=== PATIENT | female | born 1930 | race Hispanic/Latino ===

== ENCOUNTER 2017-02-02 20:01 | Inpatient (IN) | payer MEDICARE, MEDICAID ==
[~2017-02-02] VITALS: Ht 147.3 cm; Wt 62.1 kg
[2017-02-02] VITALS: BP 124/59
[2017-02-02] MEDS ORDERED: Vancomycin 1 GM in NS 275 ML IV ONE (20:15)
[2017-02-02] MEDS ORDERED: Clindamycin 900mg 50 ML IVPB ONE (20:15)
--- NOTE | 2017-02-02 20:37 | Emergency Room Report ---
History of Present Illness General Chief Complaint: Abnormal Labs Present Illness HPI [id number] BIBEMS for "abnormal labs", elevated WBCs. Sent by Dr Ayala C/o fever/chills, SOB for last 2-3 days Denies chest pain, abd pain, headache, urinary complaints Allergies: Coded Allergies: PENICILLINS (Verified Allergy, Unknown, 11/01/12) Patient History Past Medical History: see triage record, old chart reviewed, DM, HTN Past Surgical History: none Pertinent Family History: none Social History: Denies: alcohol use, drug use, smoking Now: No Immunizations: UTD Reviewed Nursing Documentation: PMH: Agreed, PSxH: Agreed Nursing Documentation-PMH Hx Hypertension: Yes Hx Diabetes: Yes Review of Systems All Other Systems: negative except mentioned in HPI Physical Exam Vital Signs Date Time Temp Pulse Resp B/P Pulse Ox O2 Delivery O2 Flow Rate FiO2 02/02/17 20:07 98.8 97 30 121/62 95 Room Air Sp02 EP Interpretation: reviewed, abnormal General Appearance: normal inspection, well appearing, no apparent distress, alert, GCS 15, non-toxic Head: normocephalic, atraumatic Eyes: bilateral eye EOMI, bilateral eye PERRL ENT: normal ENT inspection, hearing grossly normal, normal voice Neck: normal inspection, full range of motion, supple, no bony tend Respiratory: normal inspection, no respiratory distress, no retraction, no accessory muscle use, no wheezing, rales, rhonchi Cardiovascular #1: regular rate, rhythm, no edema Gastrointestinal: normal inspection, normal bowel sounds, non tender, soft, no guarding, no hernia Genitourinary: no CVA tenderness Musculoskeletal: normal inspection, back normal, normal range of motion, Horace' s Sign negative Neurologic: normal inspection, alert, oriented x3, responsive, [employer]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 No respiratory distress - Elevated leuks. Mild DENNIS - Empiric Abx given - Blood Cx given Endorsed to Dr Ayala at 930pm for tele admission EKG Diagnostic Results Rate: normal ST Segments: other - TWI in anterior leads ASA given to the pt in ED: No Rhythm Strip Diag. Results EP Interpretation: yes Rate: 97 Rhythm: NSR, no PVC's, no ectopy Chest X-Ray Diagnostic Results Chest X-Ray Diagnostic Results : Chest X-Ray Ordered: Yes # of Views/Limited/Complete: 1 View Indication: Shortness of Breath EP Interpretation: Yes Interpretation: no pneumothorax, other - Bilateral PNA Impression: Other - PNA Interpreting ER Provider: Electronically interpreted by Dr Blackwood Last Vital Signs Date Time Temp Pulse Resp B/P Pulse Ox O2 Delivery O2 Flow Rate FiO2 02/02/17 20:07 98.8 97 30 121/62 95 Room Air Status: improved Disposition: ADMITTED INPATIENT Condition: Serious JANELL BLACKWOOD M.D. Feb 02, 2017 20:37
[2017-02-02 21:13] LABS: MEAN CORPUSCULAR HEMOGLOBIN 32.3 PG (27.0-31.0); MEAN CORPUSCULAR HGB CONC 33.7 G/DL (32.0-36.0); MEAN CORPUSCULAR VOLUME 96 FL (80-99); MEAN PLATELET VOLUME 7.9 FL (6.5-10.1); PLATELET COUNT 212 K/UL (150-450); RED BLOOD COUNT 4.12 M/UL (4.20-5.40); RED CELL DISTRIBUTION WIDTH 12.2 % (11.6-14.8); WHITE BLOOD COUNT 20.5 K/UL (4.8-10.8)
[2017-02-02] MEDS ORDERED: Vancomycin 1gm inj IVPB ONE (21:19)
[2017-02-02 21:38] LABS: ALANINE AMINOTRANSFERASE 7 U/L (3-33); ALBUMIN/GLOBULIN RATIO 0.9 (1.0-2.7); ANION GAP 11 (5-15); ASPARTATE AMINO TRANSFERASE 23 U/L (5-40); CALCIUM 8.9 mg/dL (8.6-10.2); CARBON DIOXIDE 29 mEQ/L (20-30); CHLORIDE 90 mEQ/L (98-107); CREATININE 1.1 mg/dL (0.5-0.9); HEMOLYSIS 115; POTASSIUM 4.8 mEQ/L (3.4-4.9); SODIUM 130 mEQ/L (135-145); TOTAL PROTEIN 6.8 g/dL (6.6-8.7); TROPONIN I < 0.30 ng/mL (<=0.30)
[2017-02-02 21:39] LABS: BAND NEUTROPHILS % (MANUAL) 6 % (0-8); BASOPHILS % (MANUAL) 0 % (0-2); EOSINOPHILS % (MANUAL) 0 % (0-3); LYMPHOCYTES % (MANUAL) 18 % (20-45); NEUTROPHILS % (MANUAL) 66 % (45-75); PLATELET ESTIMATE ADEQUATE; PLATELET MORPHOLOGY NORMAL; TOTAL CELLS COUNTED 100
[2017-02-02] MEDS ORDERED: Miralax 17gm pkt ORAL PRN (21:45)
[2017-02-02] MEDS ORDERED: DuoNeb 0.5-3(2.5)mg/3ml neb HHN PRN (21:45)
[2017-02-02] MEDS ORDERED: Nitroglycerin Subl 0.4mg tab (Bottle Of 25) SL PRN (21:45)
[2017-02-02] MEDS ORDERED: Morphine Sulfate 2mg/ml Inj IVP PRN (21:45)
[2017-02-02 21:48] LABS: CKMB < 1.5 ng/mL (< 3.8)
[2017-02-02 21:59] LABS: BILIRUBIN,DIRECT 0.4 mg/dL (0.1-0.3)
[2017-02-02] MEDS ORDERED: Vancomycin 1 GM in D5W 275 ML IVPB SCH (22:00)
[2017-02-02] MEDS ORDERED: TYLENOL EXTRA500 MG ORAL (22:24)
[2017-02-02] MEDS ORDERED: METFORMIN HCL5000 GM MC (22:24)
[2017-02-02] MEDS ORDERED: LOSARTAN POTASS25 M1 PO (22:24)
[2017-02-02] MEDS ORDERED: IBUPROFEN600 MG ORAL (22:24)
[2017-02-02] MEDS ORDERED: NORVASC2.5 MG ORAL (22:24)
[2017-02-02 22:30] VITALS: BP 126/80
--- NOTE | 2017-02-02 22:44 | Infectious Diseases Prog Note ---
Assessment/Plan Problems: (1) Pneumonia Assessment & Plan: with bilateral infiltrates, on vancomycin and levaquin empirically, will d/c aztreonam, send sputum culture (2) UTI (urinary tract infection) Assessment & Plan: on levaquin, await culture (3) Sepsis Assessment & Plan: due to the above, on levaquin and vancomycin, pending blood culture results (4) DENNIS (acute kidney injury) Assessment & Plan: suspect due to sepsis, and dehydration, continue ivf, monitor uop Subjective Allergies: Coded Allergies: PENICILLINS (Verified Allergy, Unknown, 11/01/12) Objective Vital Signs Last 24 Hour Vital Signs Date Time Temp Pulse Resp B/P Pulse Ox O2 Delivery O2 Flow Rate FiO2 02/02/17 21:00 97 30 Room Air 02/02/17 20:07 98.8 97 30 121/62 95 Room Air Height (Feet): 4 Height (Inches): 10.00 Weight (Pounds): 160 Laboratory Tests Test 02/02/17 20:45 White Blood Count 20.5 K/UL (4.8-10.8) H Red Blood Count 4.12 M/UL (4.20-5.40) L Hemoglobin 13.3 G/DL (12.0-16.0) Hematocrit 39.5 % (37.0-47.0) Mean Corpuscular Volume 96 FL (80-99) Mean Corpuscular Hemoglobin 32.3 PG (27.0-31.0) H Mean Corpuscular Hemoglobin Concent 33.7 G/DL (32.0-36.0) Red Cell Distribution Width 12.2 % (11.6-14.8) Platelet Count 212 K/UL (150-450) Mean Platelet Volume 7.9 FL (6.5-10.1) Neutrophils (%) (Auto) % (45.0-75.0) Lymphocytes (%) (Auto) % (20.0-45.0) Monocytes (%) (Auto) % (1.0-10.0) Eosinophils (%) (Auto) % (0.0-3.0) Basophils (%) (Auto) % (0.0-2.0) Differential Total Cells Counted 100 Neutrophils % (Manual) 66 % (45-75) Lymphocytes % (Manual) 18 % (20-45) L Monocytes % (Manual) 10 % (1-10) Eosinophils % (Manual) 0 % (0-3) Basophils % (Manual) 0 % (0-2) Band Neutrophils 6 % (0-8) Platelet Estimate Adequate Platelet Morphology Normal Red Blood Cell Morphology Normal Sodium Level 130 mEQ/L (135-145) L Potassium Level 4.8 mEQ/L (3.4-4.9) Chloride Level 90 mEQ/L (98-107) L Carbon Dioxide Level 29 mEQ/L (20-30) Anion Gap 11 (5-15) Blood Urea Nitrogen 29 mg/dL (7-23) H Creatinine 1.1 mg/dL (0.5-0.9) H Estimat Glomerular Filtration Rate mL/min (>60) Glucose Level 136 mg/dL (74-106) H Lactic Acid Level 1.30 mmol/L (0.66-2.22) Calcium Level 8.9 mg/dL (8.6-10.2) Total Bilirubin 1.2 mg/dL (0.0-1.2) Direct Bilirubin 0.4 mg/dL (0.1-0.3) H Aspartate Amino Transf (AST/SGOT) 23 U/L (5-40) Alanine Aminotransferase (ALT/SGPT) 7 U/L (3-33) Alkaline Phosphatase 82 U/L (35-104) Total Creatine Kinase 46 U/L (26-140) Creatine Kinase MB < 1.5 ng/mL (< 3.8) Creatine Kinase MB Relative Index Troponin I < 0.30 ng/mL (<=0.30) Total Protein 6.8 g/dL (6.6-8.7) Albumin 3.3 g/dL (3.5-5.2) L Globulin 3.5 g/dL Albumin/Globulin Ratio 0.9 (1.0-2.7) L Current Medications Medications (Trade) Dose Ordered Sig/Joon Route PRN Reason Start Time Stop Time Status Last Admin Dose Admin Acetaminophen (Tylenol) 650 mg Q4H PRN ORAL fever 02/02/17 21:45 03/04/17 21:44 Albuterol/ Ipratropium (DuoNeb 0.5-3(2.5)mg/3ml) 3 ml Q4H PRN HHN Shortness of Breath 02/02/17 21:45 02/07/17 21:44 Aztreonam/Sodium Chloride (Azactam/Sodium Chloride) 55 ml @ 110 mls/hr EVERY 8 HOURS IVPB 02/02/17 22:00 02/09/17 21:59 Heparin Sodium (Porcine) (Heparin 5000 units/ml) 5,000 units EVERY 12 HOURS SUBQ 02/03/17 09:00 03/05/17 08:59 Levofloxacin (Levaquin 750mg/ D5W) 150 ml @ 100 mls/hr Q48H IVPB 02/02/17 23:00 02/09/17 22:59 Morphine Sulfate (Morphine Sulfate) 2 mg Q4H PRN IVP Moderate Pain (Pain Scale 4-6) 02/02/17 21:45 02/09/17 21:44 Nitroglycerin 0.4 mg 0.4 mg Q5M PRN SL Prn Chest Pain 02/02/17 21:45 03/04/17 21:44 Ondansetron HCl (Zofran) 4 mg Q6H PRN IVP Nausea & Vomiting 02/02/17 21:45 03/04/17 21:44 Polyethylene Glycol (Miralax) 17 gm DAILYPRN PRN ORAL Constipation 02/02/17 21:45 03/04/17 21:44 Temazepam (Restoril) 15 mg HSPRN PRN ORAL Insomnia 02/02/17 21:45 02/09/17 21:44 Vancomycin HCl 1 ea 1 ea DAILY PRN MISC Per rx protocol 02/02/17 22:15 03/04/17 22:14 Nico Mohan M.D. Feb 02, 2017 22:44
[2017-02-02 22:45] VITALS: BP 118/57
[2017-02-02] MEDS: Aztreonam Inj 1 GM in NS 55 ML IVPB SCH (23:33)
[2017-02-03] VITALS: BP 124/59
[2017-02-03] MEDS ORDERED: COLACE100 MG ORAL (00:05)
[2017-02-03] MEDS ORDERED: LUMIGAN2.5 ML BOTH EYES (00:05)
[2017-02-03] MEDS ORDERED: METFORMIN HCL500 M5 PO (00:05)
[2017-02-03] MEDS ORDERED: LOSARTAN POTASS50 MG ORAL (00:05)
[2017-02-03] MEDS ORDERED: MAGNESIUM400 M1 PO (00:05)
[2017-02-03] MEDS ORDERED: JANUVIA100 MG ORAL (00:05)
[2017-02-03] MEDS ORDERED: ARTIFICIAL TEA1 EAC2 OP (00:05)
[2017-02-03] MEDS ORDERED: MULTIVITAMINS1 EAC8 ORAL (00:05)
[2017-02-03] MEDS ORDERED: ACETAMINOPHEN325 M1 ORAL (00:05)
[2017-02-03] MEDS ORDERED: REMERON15 M1 ORAL (00:05)
[2017-02-03] MEDS ORDERED: mylanta PO (00:05)
[2017-02-03] MEDS ORDERED: regular insulin SUBQ (00:09)
[2017-02-03] MEDS ORDERED: Vancomycin 1 GM in D5W 275 ML IV SCH (00:30)
[2017-02-03 04:00] VITALS: BP 119/64
[2017-02-03] MEDS: Aztreonam Inj 1 GM in NS 55 ML IVPB SCH (05:59)
[2017-02-03] MEDS: NovoLOG Insulin Flexpen SUBQ SCH ×4 (06:30→21:07)
[2017-02-03 07:18] LABS: APPEARANCE,URINE SLIGHTLY CLOUDY; KETONES,URINE 1+ (NEGATIVE); LEUKOCYTE ESTERASE ,URINE 1+ (NEGATIVE); NITRITE,URINE NEGATIVE (NEGATIVE); PH,URINE 5 (4.5-8.0); PROTEIN,URINE 3+ (NEGATIVE); UROBILINOGEN,URINE 1 MG/DL (0.0-1.0)
[2017-02-03 07:26] LABS: AMORPHOUS SEDIMENT,UR MODERATE /LPF; BACTERIA,URINE FEW /HPF; ICTOTEST NEGATIVE; SQUAMOUS EPITHELIAL CELL,UR FEW /LPF (NONE/OCC)
[2017-02-03 07:49] LABS: BASOPHILS % (AUTO) 0.7 % (0.0-2.0); EOSINOPHILS % (AUTO) 0.2 % (0.0-3.0); LYMPHOCYTES % (AUTO) 9.7 % (20.0-45.0); MEAN CORPUSCULAR HEMOGLOBIN 31.4 PG (27.0-31.0); MEAN CORPUSCULAR HGB CONC 31.8 G/DL (32.0-36.0); MEAN CORPUSCULAR VOLUME 99 FL (80-99); MEAN PLATELET VOLUME 8.4 FL (6.5-10.1); MONOCYTES % (AUTO) 7.4 % (1.0-10.0); NEUTROPHILS % (AUTO) 82.1 % (45.0-75.0); PLATELET COUNT 201 K/UL (150-450); RED BLOOD COUNT 4.07 M/UL (4.20-5.40); RED CELL DISTRIBUTION WIDTH 12.3 % (11.6-14.8); WHITE BLOOD COUNT 15.9 K/UL (4.8-10.8)
[2017-02-03 08:00] VITALS: BP 122/68
[2017-02-03 08:09] LABS: ALANINE AMINOTRANSFERASE 6 U/L (3-33); ALBUMIN/GLOBULIN RATIO 0.7 (1.0-2.7); ANION GAP 9 (5-15); ASPARTATE AMINO TRANSFERASE 20 U/L (5-40); CALCIUM 8.7 mg/dL (8.6-10.2); CARBON DIOXIDE 30 mEQ/L (20-30); CHLORIDE 94 mEQ/L (98-107); CREATININE 1.1 mg/dL (0.5-0.9); HEMOLYSIS 37; POTASSIUM 4.4 mEQ/L (3.4-4.9); SODIUM 133 mEQ/L (135-145); TOTAL PROTEIN 6.8 g/dL (6.6-8.7)
[2017-02-03] MEDS: Heparin 5000 units/ml inj SUBQ SCH ×2 (09:44→21:09)
--- NOTE | 2017-02-03 11:07 | Diagnostic Imaging Report ---
Indication: SOB Technique: One view of the chest Comparison: none Findings: There is bilateral diffuse interstitial and alveolar clinical opacities. The heart is borderline enlarged. There is suggestion of small left pleural effusion. Impression: Bilateral diffuse interstitial and alveolar infiltrates versus edema. Borderline cardiomegaly This agrees with the ER physician impression described in the electronic medical record
[2017-02-03 12:00] VITALS: BP 122/52
--- NOTE | 2017-02-03 13:55 | Consultation ---
History of Present Illness General Date patient seen: Feb 03, 2017 Time patient seen: 13:00 Chief Complaint: Abnormal Labs Referring physician: dr Ayala Reason for Consultation: inpatient management Present Illness HPI 86 y/o female with PMH significant for HTN and DM, BIBEMS for "abnormal labs" from SNF c/o fever/chills, SOB for last 2-3 days, cough, + phlegm, no hemoptysis Denied chest pain, abd pain, headache, urinary complaints in ED found to have leukocytosis WBC-20.5, stable HH CXR c/w bilateral PNA afebrile lactic acid WNL BUN 29, creat 1.1 Na 130 patient was admitted for further management patient reports cough, white to yellow phlegm, no hemoptysis, + generalized weakness Allergies: Coded Allergies: PENICILLINS (Verified Allergy, Unknown, 11/01/12) Medication History Scheduled Amlodipine Besylate (Norvasc), 2.5 MG ORAL DAILY, (Reported) Bimatoprost (Lumigan), 1 DROP BOTH EYES DAILY, (Reported) Dextran 70/Hypromellose (Artificial Tears), 1 EACH OP BID, (Reported) Docusate Sodium* (Colace*), 100 MG ORAL DAILY, (Reported) Losartan Potassium* (Losartan Potassium*), 50 MG ORAL DAILY, (Reported) Magnesium Oxide (Magnesium), 400 MG PO BID, (Reported) Metformin HCl (Metformin HCl ER), 500 MG PO THREE TIMES A DAY, (Reported) Mirtazapine (Remeron), 7.5 MG ORAL BEDTIME, (Reported) Multivitamin With Minerals (Multivitamins With Minerals*), 1 TAB ORAL DAILY, ( Reported) Sitagliptin (Januvia), 100 MG ORAL DAILY, (Reported) [regular insulin], Unknown Dose SUBQ BID, (Reported) Scheduled PRN Acetaminophen* (Acetaminophen 325MG Tablet*), 650 MG ORAL Q6H PRN for For Pain, (Reported) Ibuprofen* (Motrin*), 600 MG ORAL Q6H PRN for For Pain, (Reported) [mylanta], 10 ML PO EVERY 6 HOURS PRN for Nausea & Vomiting, (Reported) Discontinued Medications Acetaminophen* (Tylenol Extra Strength*), Unknown Dose ORAL Q6H PRN for Mild Pain/Temp > 100.5, (Reported) Discontinued Reason: Prescription changed Losartan Potassium (Losartan Potassium), 25 MG PO, (Reported) Discontinued Reason: Prescription changed Metformin Hcl (Metformin Hcl), 5,000 GM MC, (Reported) Discontinued Reason: Medication dose changed Patient History History Provided By: Patient, Medical Record Healthcare decision maker Resuscitation status Full Code Advanced Directive on File Past Medical/Surgical History Past Medical/Surgical History: (1) Diabetes (2) HTN (hypertension) Review of Systems Constitutional: Reports: weakness Eye: Reports: no symptoms ENT: Reports: no symptoms Respiratory: Reports: see HPI Cardiovascular: Reports: no symptoms Gastrointestinal: Reports: no symptoms Genitourinary: Reports: frequency, urgency Musculoskeletal: Reports: joint pain, muscle stiffness Skin: Reports: no symptoms Psychiatric: Reports: no symptoms Neurological: Reports: no symptoms Endocrine: Reports: no symptoms Hematologic/Lymphatic: Reports: no symptoms Physical Exam General Appearance: no apparent distress, alert - awake, Dominican speaking, Lines, tubes and drains: peripheral HEENT: normocephalic, atraumatic, anicteric Neck: supple Respiratory/Chest: chest wall non-tender, no respiratory distress, no accessory muscle use, other - coarse BS bilaterally Cardiovascular/Chest: normal rate, regular rhythm, no JVD Abdomen: normal bowel sounds, non tender, soft Skin Exam: normal pigmentation, warm/dry Neurologic: abnormal gait, alert, responsive Musculoskeletal: atrophy - BLE Physical Exam Narrative Last 24 Hour Vital Signs Date Time Temp Pulse Resp B/P Pulse Ox O2 Delivery O2 Flow Rate FiO2 02/03/17 12:00 97.0 99 20 122/52 94 Nasal Cannula 2.0 02/03/17 10:31 93 02/03/17 08:00 97.4 90 20 122/68 96 Nasal Cannula 2.0 02/03/17 07:56 93 Nasal Cannula 2.0 28 02/03/17 07:56 Nasal Cannula 2.0 28 02/03/17 07:54 94 18 Nasal Cannula 2.0 28 02/03/17 04:00 97.0 95 21 119/64 92 Nasal Cannula 3.0 02/03/17 04:00 95 02/03/17 00:00 97.0 96 24 124/59 Nasal Cannula 3.0 02/03/17 00:00 97.0 96 24 124/59 96 Nasal Cannula 3.0 02/03/17 00:00 94 02/02/17 22:45 92 02/02/17 22:45 98.2 108 22 118/57 98 Nasal Cannula 3.0 02/02/17 22:30 98.8 90 18 126/80 99 Room Air 02/02/17 22:30 90 20 129/88 99 Nasal Cannula 2.0 02/02/17 21:00 97 30 Room Air 02/02/17 20:07 98.8 97 30 121/62 95 Room Air Intake and Output 02/02/17 02/03/17 19:00 07:00 Intake Total 260 ml Output Total 1 ml Balance 259 ml Intake Oral 0 ml IV Total 260 ml Output Urine Total 1 ml Laboratory Tests Test 02/02/17 20:45 02/03/17 06:30 02/03/17 07:05 White Blood Count 20.5 K/UL (4.8-10.8) H 15.9 K/UL (4.8-10.8) H Red Blood Count 4.12 M/UL (4.20-5.40) L 4.07 M/UL (4.20-5.40) L Hemoglobin 13.3 G/DL (12.0-16.0) 12.8 G/DL (12.0-16.0) Hematocrit 39.5 % (37.0-47.0) 40.2 % (37.0-47.0) Mean Corpuscular Volume 96 FL (80-99) 99 FL (80-99) Mean Corpuscular Hemoglobin 32.3 PG (27.0-31.0) H 31.4 PG (27.0-31.0) H Mean Corpuscular Hemoglobin Concent 33.7 G/DL (32.0-36.0) 31.8 G/DL (32.0-36.0) L Red Cell Distribution Width 12.2 % (11.6-14.8) 12.3 % (11.6-14.8) Platelet Count 212 K/UL (150-450) 201 K/UL (150-450) Mean Platelet Volume 7.9 FL (6.5-10.1) 8.4 FL (6.5-10.1) Neutrophils (%) (Auto) % (45.0-75.0) 82.1 % (45.0-75.0) H Lymphocytes (%) (Auto) % (20.0-45.0) 9.7 % (20.0-45.0) L Monocytes (%) (Auto) % (1.0-10.0) 7.4 % (1.0-10.0) Eosinophils (%) (Auto) % (0.0-3.0) 0.2 % (0.0-3.0) Basophils (%) (Auto) % (0.0-2.0) 0.7 % (0.0-2.0) Differential Total Cells Counted 100 Neutrophils % (Manual) 66 % (45-75) Lymphocytes % (Manual) 18 % (20-45) L Monocytes % (Manual) 10 % (1-10) Eosinophils % (Manual) 0 % (0-3) Basophils % (Manual) 0 % (0-2) Band Neutrophils 6 % (0-8) Platelet Estimate Adequate Platelet Morphology Normal Red Blood Cell Morphology Normal Sodium Level 130 mEQ/L (135-145) L 133 mEQ/L (135-145) L Potassium Level 4.8 mEQ/L (3.4-4.9) 4.4 mEQ/L (3.4-4.9) Chloride Level 90 mEQ/L (98-107) L 94 mEQ/L (98-107) L Carbon Dioxide Level 29 mEQ/L (20-30) 30 mEQ/L (20-30) Anion Gap 11 (5-15) 9 (5-15) Blood Urea Nitrogen 29 mg/dL (7-23) H 30 mg/dL (7-23) H Creatinine 1.1 mg/dL (0.5-0.9) H 1.1 mg/dL (0.5-0.9) H Estimat Glomerular Filtration Rate mL/min (>60) mL/min (>60) Glucose Level 136 mg/dL (74-106) H 109 mg/dL (74-106) H Lactic Acid Level 1.30 mmol/L (0.66-2.22) Calcium Level 8.9 mg/dL (8.6-10.2) 8.7 mg/dL (8.6-10.2) Total Bilirubin 1.2 mg/dL (0.0-1.2) 1.0 mg/dL (0.0-1.2) Direct Bilirubin 0.4 mg/dL (0.1-0.3) H Aspartate Amino Transf (AST/SGOT) 23 U/L (5-40) 20 U/L (5-40) Alanine Aminotransferase (ALT/SGPT) 7 U/L (3-33) 6 U/L (3-33) Alkaline Phosphatase 82 U/L (35-104) 93 U/L (35-104) Total Creatine Kinase 46 U/L (26-140) Creatine Kinase MB < 1.5 ng/mL (< 3.8) Creatine Kinase MB Relative Index Troponin I < 0.30 ng/mL (<=0.30) Total Protein 6.8 g/dL (6.6-8.7) 6.8 g/dL (6.6-8.7) Albumin 3.3 g/dL (3.5-5.2) L 2.8 g/dL (3.5-5.2) L Globulin 3.5 g/dL 4.0 g/dL Albumin/Globulin Ratio 0.9 (1.0-2.7) L 0.7 (1.0-2.7) L Urine Color Yellow Urine Appearance Slightly cloudy Urine pH 5 (4.5-8.0) Urine Specific [place] 1.015 (1.005-1.035) Urine Protein 3+ (NEGATIVE) H Urine Glucose (UA) Negative (NEGATIVE) Urine Ketones 1+ (NEGATIVE) H Urine Occult Blood 3+ (NEGATIVE) H Urine Nitrite Negative (NEGATIVE) Urine Bilirubin 1+ (NEGATIVE) H Urine Ictotest Negative Urine Urobilinogen 1 MG/DL (0.0-1.0) H Urine Leukocyte Esterase 1+ (NEGATIVE) H Urine RBC 5-10 /HPF (0 - 2) H Urine WBC 2-4 /HPF (0 - 2) Urine Squamous Epithelial Cells Few /LPF (NONE/OCC) Urine Amorphous Sediment Moderate /LPF (NONE) H Urine Bacteria Few /HPF (NONE) Height (Feet): 4 Height (Inches): 10.00 Weight (Pounds): 137 Medications Current Medications Medications (Trade) Dose Ordered Sig/Joon Route PRN Reason Start Time Stop Time Status Last Admin Dose Admin Acetaminophen (Tylenol) 650 mg Q4H PRN ORAL fever 02/02/17 21:45 03/04/17 21:44 Albuterol/ Ipratropium (DuoNeb 0.5-3(2.5)mg/3ml) 3 ml Q4H PRN HHN Shortness of Breath 02/02/17 21:45 02/07/17 21:44 Aztreonam/Sodium Chloride (Azactam/Sodium Chloride) 55 ml @ 110 mls/hr EVERY 8 HOURS IVPB 02/03/17 15:00 02/10/17 14:59 Dextrose No Dose prn PRN IV hypoglycemia 02/03/17 06:15 03/05/17 06:14 Heparin Sodium (Porcine) (Heparin 5000 units/ml) 5,000 units EVERY 12 HOURS SUBQ 02/03/17 09:00 03/05/17 08:59 02/03/17 09:44 Insulin Aspart (NovoLOG) BEFORE MEALS AND HS SUBQ 02/03/17 06:30 03/05/17 06:29 02/03/17 12:26 Levofloxacin (Levaquin 750mg/ D5W) 150 ml @ 100 mls/hr Q48H IVPB 02/02/17 23:00 02/09/17 22:59 02/03/17 00:18 Morphine Sulfate (Morphine Sulfate) 2 mg Q4H PRN IVP Moderate Pain (Pain Scale 4-6) 02/02/17 21:45 02/09/17 21:44 Nitroglycerin (Ntg) 0.4 mg Q5M PRN SL Prn Chest Pain 02/02/17 21:45 03/04/17 21:44 Ondansetron HCl (Zofran) 4 mg Q6H PRN IVP Nausea & Vomiting 02/02/17 21:45 03/04/17 21:44 Polyethylene Glycol (Miralax) 17 gm DAILYPRN PRN ORAL Constipation 02/02/17 21:45 03/04/17 21:44 Temazepam (Restoril) 15 mg HSPRN PRN ORAL Insomnia 02/02/17 21:45 02/09/17 21:44 Vancomycin HCl 1 ea 1 ea DAILY PRN MISC Per rx protocol 02/02/17 22:15 03/04/17 22:14 Assessment/Plan Assessment/Plan ASSESSMENT sepsis bilateral PNA acute kidney injury hyponatremia dehydration DM HTN PLAN OF CARE IVF empiric abx ID follows fup with cx O2, pulmonary toilet prn fup with CXR a/tussive prn monitor renal parameters, lytes,. likely prerenal due to dehydration and hypo Na due to dehydration BS management with SS of insulin DVT prophylaxis BP monitoring bowel regimen PT/OT case discussed and evaluated by supervising physician Tyron (Joana),Mara NOVAK Feb 03, 2017 13:55
[2017-02-03] MEDS ORDERED: Aztreonam Inj 0.5 GM in NS 55 ML IVPB SCH (15:00)
--- NOTE | 2017-02-03 15:52 | Infectious Diseases Prog Note ---
Assessment/Plan Problems: (1) Pneumonia Assessment & Plan: with bilateral infiltrates, on vancomycin and levaquin empirically, await sputum culture (2) UTI (urinary tract infection) Assessment & Plan: on levaquin, await culture (3) Sepsis Assessment & Plan: due to the above, on levaquin and vancomycin, pending blood culture results (4) DENNIS (acute kidney injury) Assessment & Plan: suspect due to sepsis, and dehydration, continue ivf, monitor uop Subjective Constitutional: Reports: no symptoms HEENT: Reports: no symptoms Respiratory: Reports: productive cough Breasts: Reports: no symptoms Cardiovascular: Reports: no symptoms Gastrointestinal/Abdominal: Reports: no symptoms Genitourinary: Reports: no symptoms Neurologic: Reports: no symptoms Psychiatric: Reports: no symptoms Skin: Reports: no symptoms Musculoskeletal: Reports: pain Allergies: Coded Allergies: PENICILLINS (Verified Allergy, Unknown, 11/01/12) Objective Vital Signs Last 24 Hour Vital Signs Date Time Temp Pulse Resp B/P Pulse Ox O2 Delivery O2 Flow Rate FiO2 02/03/17 12:00 97.0 99 20 122/52 94 Nasal Cannula 2.0 02/03/17 10:31 93 02/03/17 08:00 97.4 90 20 122/68 96 Nasal Cannula 2.0 02/03/17 07:56 93 Nasal Cannula 2.0 28 02/03/17 07:56 Nasal Cannula 2.0 28 02/03/17 07:54 94 18 Nasal Cannula 2.0 28 02/03/17 04:00 97.0 95 21 119/64 92 Nasal Cannula 3.0 02/03/17 04:00 95 02/03/17 00:00 97.0 96 24 124/59 Nasal Cannula 3.0 02/03/17 00:00 97.0 96 24 124/59 96 Nasal Cannula 3.0 02/03/17 00:00 94 02/02/17 22:45 92 02/02/17 22:45 98.2 108 22 118/57 98 Nasal Cannula 3.0 02/02/17 22:30 98.8 90 18 126/80 99 Room Air 02/02/17 22:30 90 20 129/88 99 Nasal Cannula 2.0 02/02/17 21:00 97 30 Room Air 02/02/17 20:07 98.8 97 30 121/62 95 Room Air Height (Feet): 4 Height (Inches): 10.00 Weight (Pounds): 137 General Appearance: WD/WN, no acute distress HEENT: normocephalic, atraumatic, anicteric, mucous membranes moist Respiratory/Chest: chest wall non-tender, no respiratory distress, no accessory muscle use, decreased breath sounds, crackles/rales Cardiovascular: normal peripheral pulses, normal rate, regular rhythm, no gallop/murmur, no JVD Abdomen: normal bowel sounds, soft, non tender, no organomegaly, non distended , no mass, no scars Extremities: no cyanosis, no clubbing Skin: no rash, no lesions, no ulcers Laboratory Tests Test 02/02/17 20:45 02/03/17 06:30 02/03/17 07:05 White Blood Count 20.5 K/UL (4.8-10.8) H 15.9 K/UL (4.8-10.8) H Red Blood Count 4.12 M/UL (4.20-5.40) L 4.07 M/UL (4.20-5.40) L Hemoglobin 13.3 G/DL (12.0-16.0) 12.8 G/DL (12.0-16.0) Hematocrit 39.5 % (37.0-47.0) 40.2 % (37.0-47.0) Mean Corpuscular Volume 96 FL (80-99) 99 FL (80-99) Mean Corpuscular Hemoglobin 32.3 PG (27.0-31.0) H 31.4 PG (27.0-31.0) H Mean Corpuscular Hemoglobin Concent 33.7 G/DL (32.0-36.0) 31.8 G/DL (32.0-36.0) L Red Cell Distribution Width 12.2 % (11.6-14.8) 12.3 % (11.6-14.8) Platelet Count 212 K/UL (150-450) 201 K/UL (150-450) Mean Platelet Volume 7.9 FL (6.5-10.1) 8.4 FL (6.5-10.1) Neutrophils (%) (Auto) % (45.0-75.0) 82.1 % (45.0-75.0) H Lymphocytes (%) (Auto) % (20.0-45.0) 9.7 % (20.0-45.0) L Monocytes (%) (Auto) % (1.0-10.0) 7.4 % (1.0-10.0) Eosinophils (%) (Auto) % (0.0-3.0) 0.2 % (0.0-3.0) Basophils (%) (Auto) % (0.0-2.0) 0.7 % (0.0-2.0) Differential Total Cells Counted 100 Neutrophils % (Manual) 66 % (45-75) Lymphocytes % (Manual) 18 % (20-45) L Monocytes % (Manual) 10 % (1-10) Eosinophils % (Manual) 0 % (0-3) Basophils % (Manual) 0 % (0-2) Band Neutrophils 6 % (0-8) Platelet Estimate Adequate Platelet Morphology Normal Red Blood Cell Morphology Normal Sodium Level 130 mEQ/L (135-145) L 133 mEQ/L (135-145) L Potassium Level 4.8 mEQ/L (3.4-4.9) 4.4 mEQ/L (3.4-4.9) Chloride Level 90 mEQ/L (98-107) L 94 mEQ/L (98-107) L Carbon Dioxide Level 29 mEQ/L (20-30) 30 mEQ/L (20-30) Anion Gap 11 (5-15) 9 (5-15) Blood Urea Nitrogen 29 mg/dL (7-23) H 30 mg/dL (7-23) H Creatinine 1.1 mg/dL (0.5-0.9) H 1.1 mg/dL (0.5-0.9) H Estimat Glomerular Filtration Rate mL/min (>60) mL/min (>60) Glucose Level 136 mg/dL (74-106) H 109 mg/dL (74-106) H Lactic Acid Level 1.30 mmol/L (0.66-2.22) Calcium Level 8.9 mg/dL (8.6-10.2) 8.7 mg/dL (8.6-10.2) Total Bilirubin 1.2 mg/dL (0.0-1.2) 1.0 mg/dL (0.0-1.2) Direct Bilirubin 0.4 mg/dL (0.1-0.3) H Aspartate Amino Transf (AST/SGOT) 23 U/L (5-40) 20 U/L (5-40) Alanine Aminotransferase (ALT/SGPT) 7 U/L (3-33) 6 U/L (3-33) Alkaline Phosphatase 82 U/L (35-104) 93 U/L (35-104) Total Creatine Kinase 46 U/L (26-140) Creatine Kinase MB < 1.5 ng/mL (< 3.8) Creatine Kinase MB Relative Index Troponin I < 0.30 ng/mL (<=0.30) Total Protein 6.8 g/dL (6.6-8.7) 6.8 g/dL (6.6-8.7) Albumin 3.3 g/dL (3.5-5.2) L 2.8 g/dL (3.5-5.2) L Globulin 3.5 g/dL 4.0 g/dL Albumin/Globulin Ratio 0.9 (1.0-2.7) L 0.7 (1.0-2.7) L Urine Color Yellow Urine Appearance Slightly cloudy Urine pH 5 (4.5-8.0) Urine Specific [place] 1.015 (1.005-1.035) Urine Protein 3+ (NEGATIVE) H Urine Glucose (UA) Negative (NEGATIVE) Urine Ketones 1+ (NEGATIVE) H Urine Occult Blood 3+ (NEGATIVE) H Urine Nitrite Negative (NEGATIVE) Urine Bilirubin 1+ (NEGATIVE) H Urine Ictotest Negative Urine Urobilinogen 1 MG/DL (0.0-1.0) H Urine Leukocyte Esterase 1+ (NEGATIVE) H Urine RBC 5-10 /HPF (0 - 2) H Urine WBC 2-4 /HPF (0 - 2) Urine Squamous Epithelial Cells Few /LPF (NONE/OCC) Urine Amorphous Sediment Moderate /LPF (NONE) H Urine Bacteria Few /HPF (NONE) Current Medications Medications (Trade) Dose Ordered Sig/Joon Route PRN Reason Start Time Stop Time Status Last Admin Dose Admin Acetaminophen (Tylenol) 650 mg Q4H PRN ORAL fever 02/02/17 21:45 03/04/17 21:44 Albuterol/ Ipratropium (DuoNeb 0.5-3(2.5)mg/3ml) 3 ml Q4H PRN HHN Shortness of Breath 02/02/17 21:45 02/07/17 21:44 Aztreonam/Sodium Chloride (Azactam/Sodium Chloride) 55 ml @ 110 mls/hr EVERY 8 HOURS IVPB 02/03/17 15:00 02/10/17 14:59 Dextrose No Dose prn PRN IV hypoglycemia 02/03/17 06:15 03/05/17 06:14 Heparin Sodium (Porcine) (Heparin 5000 units/ml) 5,000 units EVERY 12 HOURS SUBQ 02/03/17 09:00 03/05/17 08:59 02/03/17 09:44 Insulin Aspart (NovoLOG) BEFORE MEALS AND HS SUBQ 02/03/17 06:30 03/05/17 06:29 02/03/17 12:26 Levofloxacin (Levaquin 750mg/ D5W) 150 ml @ 100 mls/hr Q48H IVPB 02/02/17 23:00 02/09/17 22:59 02/03/17 00:18 Morphine Sulfate (Morphine Sulfate) 2 mg Q4H PRN IVP Moderate Pain (Pain Scale 4-6) 02/02/17 21:45 02/09/17 21:44 02/03/17 14:15 Nitroglycerin (Ntg) 0.4 mg Q5M PRN SL Prn Chest Pain 02/02/17 21:45 03/04/17 21:44 Ondansetron HCl (Zofran) 4 mg Q6H PRN IVP Nausea & Vomiting 02/02/17 21:45 03/04/17 21:44 Polyethylene Glycol (Miralax) 17 gm DAILYPRN PRN ORAL Constipation 02/02/17 21:45 03/04/17 21:44 Temazepam (Restoril) 15 mg HSPRN PRN ORAL Insomnia 02/02/17 21:45 02/09/17 21:44 Vancomycin HCl 1 ea 1 ea DAILY PRN MISC Per rx protocol 02/02/17 22:15 03/04/17 22:14 Nico Mohan M.D. Feb 03, 2017 15:52
[2017-02-03 16:30] VITALS: BP 99/44
[2017-02-03] MEDS ORDERED: Tubing IV Secondary IV ONE (17:04)
[2017-02-03] MEDS ORDERED: NS 275ml ONE (17:04)
--- NOTE | 2017-02-03 17:41 | Wound Care Consultation ---
Wound Assessment Wound Assessment #1: Wound Present on Admission: Yes New Wound: No Status Change of Wound: No Wound Location Body Site Modif: mid Wound Location Body Site: sacral Wound Type: pressure ulcer Zeny Test: Does not Zeny Pressure Ulcer Stage: deep tissue injury Wound Thickness: Full Thickness Wound Length: 2.5 Wound Width: 2.0 Wound Depth: utd Percent of Wound Purple/Maroon: 100 Wound Drainage Amount: None Wound Drainage Odor: None/Absent Tissue Surrounding Wound: Erythemic Wound General Appearance: Reddened - purple Wound Assessment #2: Wound Number: #2 Wound Present on Admission: Yes New Wound: No Status Change of Wound: No Wound Location Body Site Modif: mid Wound Location Body Site: coccyx Wound Type: pressure ulcer Zeny Test: Does not Zeny Pressure Ulcer Stage: II Wound Thickness: Full Thickness Wound Length: 2.0 Wound Width: 1.5 Wound Depth: less than 0.1 Percent of Wound Dilworth/Red: 100 Wound Drainage Description: Serosanguineous Wound Drainage Amount: Scant Wound Drainage Odor: None/Absent Tissue Surrounding Wound: Erythemic Wound General Appearance: Reddened Wound Comment #1 Sacral DTI pressure ulcer #2 Coccyx stage II pressure ulcer Recommendation -Local wound care per protocol for DTI on sacral area -Coccyx stage II pressure ulcer Cleanse with saline, pat dry, apply Triad cream, cover with Biatain silicon daily and PRN soiled/dislodged -Keep clean and dry -Turn and reposition -Low air loss SPR mattress -Optimize nutrition -Offload both heels -Heel protector on both heels -Assess and f/u accordingly for any changes MELODIE HARDEN RN Feb 03, 2017 17:41
[2017-02-03 20:00] VITALS: BP 109/54
[2017-02-03] MEDS ORDERED: Vancomycin 500mg/D5W 110ml IVPB SCH ×2 (23:00)
--- NOTE | 2017-02-03 23:15 | Consultation ---
DATE OF CONSULTATION: INFECTIOUS DISEASE CONSULTATION REQUESTING PHYSICIAN: Chalo Ayala D.O. REASON FOR CONSULTATION: Pneumonia, sepsis and urinary tract infection. Recommendation for antibiotics therapy. HISTORY OF PRESENT ILLNESS: The patient is an 86-year-old female with past medical history of diabetes and hypertension, was brought in by paramedics for elevated WBC from a skilled nursing and complained of fever and chills with shortness of breath for three days. The patient had no chest pain or abdominal pain. No headache or urinary complaints. So, she was sent to the hospital for further evaluation and management. The patient was found to have temperature of 98.8 degrees and white count around 20,000. Chest x-ray showed bilateral interstitial infiltrates. Urinalysis showed evidence of infection. So, she was started on empiric antibiotics treatment by the admitting physician and I was consulted by the primary provider for antibiotics treatment and further management. As of note, the patient is poor historian, cannot provide any history and history was mainly obtained from the medical record. PAST MEDICAL HISTORY: Significant for diabetes and hypertension. PAST SURGICAL HISTORY: Negative. MEDICATIONS: The patient was started on Levaquin, aztreonam and vancomycin by the admitting physician. For the rest of her medications, please refer to MAR. ALLERGIES: She is allergic to penicillin. SOCIAL HISTORY: She lives in [facility] facility. No recent drugs, tobacco or alcohol. FAMILY HISTORY: Noncontributory. PHYSICAL EXAMINATION: GENERAL: Elderly female, Bhutanese speaker, lying in bed, awake, alert, and oriented, not in distress. VITAL SIGNS: Temperature 98.8 degrees, pulse 97, respirations 32, blood pressure 121/62, and pulse oximetry 95% on room air. HEENT: Normocephalic and atraumatic. Pupils reactive to light. Moist oral mucosa. NECK: Supple. No lymphadenopathy. CARDIOVASCULAR: Tachycardic. S1 and S2 normal. No murmur. LUNGS: She had wheezing and diminished breathing sounds at the bases. Normal breathing efforts. ABDOMEN: Soft, obese, nontender and nondistended. Positive bowel sounds. No hepatosplenomegaly. No ascites. EXTREMITIES: Trace edema. No cyanosis. SKIN: She had chronic stasis dermatitis of both lower extremities. LABORATORY AND DIAGNOSTIC DATA: Labs showed white count of 15.9 and hemoglobin of 12.8. BUN of 29 and creatinine of 1.1. Urinalysis showed +1 leukocyte esterase, moderate amount of amorphous sediment and WBC 2-4. Imaging, chest x-ray showed bilateral diffuse interstitial and alveolar infiltrates with borderline cardiomegaly. ASSESSMENT AND RECOMMENDATION: 1. Pneumonia on both sides with bilateral infiltrates. Continue vancomycin and Levaquin empiric treatment. We will discontinue aztreonam for now. Send sputum culture. 2. Urinary tract infection. The patient already on Levaquin. Await urine culture. 3. Sepsis due to the above. Continue Levaquin and vancomycin pending blood culture results. 4. Acute kidney failure, suspect dehydration and sepsis-related. Continue hydration and monitor urine output. 5. Diabetes. Recommend tight glycemic control to keep blood glucose between 80 to 120. Thank you. Nico Mohan M.D. DR: DENNIS JOB#: [id number] CC:
--- NOTE | 2017-02-03 23:15 | History and Physical Report ---
DATE OF ADMISSION: 02/02/2017 TIME SEEN: 1 p.m. CONSULTANTS: 1. Parveen Beltran M.D. 2. Dr. Rausch. CHIEF COMPLAINT: Shortness of breath, bilateral pneumonia, and sepsis. BRIEF HISTORY: The patient is an 86-year-old female from [facility], presented with above mentioned diagnosis, admitted to telemetry for further care. Currently calm O2 REVIEW OF SYSTEMS: No chest pain or short of breath. No nausea, vomiting, or diarrhea. PAST MEDICAL HISTORY: DENNIS, diabetes, hypertension, and . PAST SURGICAL HISTORY: Unknown. MEDICATIONS: Heparin, NovoLog, dextrose, levofloxacin, vancomycin, aztreonam, DuoNeb, Tylenol, morphine, MiraLax, Zofran, and Restoril. ALLERGIES: Penicillin. SOCIAL HISTORY: No smoking. No alcohol. No intravenous drug abuse. FAMILY HISTORY: Noncontributory. PHYSICAL EXAMINATION: GENERAL: Calm in bed, oriented x3, in no acute distress. VITAL SIGNS: Temperature is 97 degrees, pulse 99, respirations 20, and blood pressure 122/52. CARDIOVASCULAR: No murmur. LUNGS: Poor exchange. ABDOMEN: Positive bowel sounds. Soft, nontender, and nondistended. EXTREMITIES: No cyanosis, clubbing, or edema. NEUROLOGIC: The patient moves all extremities. Slightly weak. LABORATORY AND DIAGNOSTIC DATA: White count initially was 29, now 15.9, otherwise CBC is normal. BMP shows sodium 133, chloride 94, BUN and creatinine 30 and 1.1, and glucose 109. Urinalysis show 3+ occult blood and 1+ leukocyte esterase. ASSESSMENT: 1. Bilateral pneumonia. 2. Urinary tract infection. 3. Sepsis. 4. Acute kidney injury. 5. Diabetes. 6. Hypertension. 7. Encephalopathy. PLAN: 1. O2 and pulmonary treatment. 2. Antibiotics per Infectious Disease. 3. OT, PT and dietary evaluation. 4. CBC and BMP in the morning. 5. Resume home medications. Dr. Beltran, Dr. Rausch, Dr. Armas, and Dr. Burgess to consult. I will continue to follow this patient. Chalo Ayala D.O. DR: RINKU JOB#: [id number] CC:
[2017-02-04] VITALS (8 sets, daily range): BP systolic 97–133; BP diastolic 53–76
[2017-02-04] MEDS: NovoLOG Insulin Flexpen SUBQ SCH ×3 (06:18→20:54)
[2017-02-04 07:31] LABS: BASOPHILS % (AUTO) 0.4 % (0.0-2.0); EOSINOPHILS % (AUTO) 1.3 % (0.0-3.0); LYMPHOCYTES % (AUTO) 14.5 % (20.0-45.0); MEAN CORPUSCULAR HEMOGLOBIN 31.7 PG (27.0-31.0); MEAN CORPUSCULAR HGB CONC 32.2 G/DL (32.0-36.0); MEAN CORPUSCULAR VOLUME 98 FL (80-99); MEAN PLATELET VOLUME 8.4 FL (6.5-10.1); MONOCYTES % (AUTO) 10.1 % (1.0-10.0); NEUTROPHILS % (AUTO) 73.8 % (45.0-75.0); PLATELET COUNT 217 K/UL (150-450); RED BLOOD COUNT 3.79 M/UL (4.20-5.40); RED CELL DISTRIBUTION WIDTH 12.5 % (11.6-14.8); WHITE BLOOD COUNT 11.8 K/UL (4.8-10.8)
[2017-02-04 08:10] LABS: ANION GAP 15 (5-15); CALCIUM 9.1 mg/dL (8.6-10.2); CARBON DIOXIDE 27 mEQ/L (20-30); CHLORIDE 95 mEQ/L (98-107); CREATININE 0.9 mg/dL (0.5-0.9); HEMOLYSIS 0; POTASSIUM 4.2 mEQ/L (3.4-4.9); SODIUM 137 mEQ/L (135-145)
[2017-02-04] MEDS: Heparin 5000 units/ml inj SUBQ SCH ×2 (08:30→20:40)
--- NOTE | 2017-02-04 09:02 | General Progress Note ---
Assessment/Plan Problem List: (1) Pneumonia ICD Codes: J18.9 - Pneumonia, unspecified organism SNOMED: 717970020 Qualifiers: Qualified Codes: J18.9 - Pneumonia, unspecified organism (2) DENNIS (acute kidney injury) ICD Codes: N17.9 - Acute kidney failure, unspecified SNOMED: 91840949 (3) Sepsis ICD Codes: A41.9 - Sepsis, unspecified organism SNOMED: 85449237 Qualifiers: Qualified Codes: A41.9 - Sepsis, unspecified organism (4) Diabetes ICD Codes: E11.9 - Type 2 diabetes mellitus without complications SNOMED: 93897485 (5) HTN (hypertension) ICD Codes: I10 - Essential (primary) hypertension SNOMED: 59537893 (6) UTI (urinary tract infection) ICD Codes: N39.0 - Urinary tract infection, site not specified SNOMED: 73901002 Status: stable, progressing, tolerating diet Assessment/Plan o2 pulm tx abx ot pt diet cbc bmp am Subjective Constitutional: Reports: weakness Allergies: Coded Allergies: PENICILLINS (Verified Allergy, Unknown, 11/01/12) All Systems: reviewed and negative except above - n bed Subjective o2nc sleepy in bed Objective Last 24 Hour Vital Signs Date Time Temp Pulse Resp B/P Pulse Ox O2 Delivery O2 Flow Rate FiO2 02/04/17 08:00 77 02/04/17 08:00 97.9 86 21 105/61 96 Nasal Cannula 2.0 86 02/04/17 07:24 82 18 Nasal Cannula 2.0 28 02/04/17 07:24 96 Nasal Cannula 2.0 28 02/04/17 07:24 Nasal Cannula 2.0 28 02/04/17 04:00 98.6 16 131/57 100 Room Air 02/04/17 04:00 77 02/04/17 00:00 98.1 91 19 133/55 97 Room Air 02/04/17 00:00 89 02/03/17 20:00 98.1 94 17 109/54 94 Nasal Cannula 02/03/17 20:00 92 02/03/17 19:11 Nasal Cannula 2.0 28 02/03/17 19:10 94 Nasal Cannula 2.0 28 02/03/17 19:10 94 22 Nasal Cannula 2.0 28 02/03/17 16:30 97.8 90 20 99/44 99 Nasal Cannula 2.0 02/03/17 16:00 68 02/03/17 12:00 97.0 99 20 122/52 94 Nasal Cannula 2.0 02/03/17 12:00 72 02/03/17 10:31 93 Intake and Output 02/03/17 02/04/17 19:00 07:00 Intake Total 500 ml 110 ml Balance 500 ml 110 ml Intake Oral 500 ml IV Total 110 ml # Voids 2 2 Laboratory Tests 02/03/17 20:50: Random Vancomycin Level 7.6 02/04/17 06:45: White Blood Count 11.8H, Red Blood Count 3.79L, Hemoglobin 12.0, Hematocrit 37.3 , Mean Corpuscular Volume 98, Mean Corpuscular Hemoglobin 31.7H, Mean Corpuscular Hemoglobin Concent 32.2, Red Cell Distribution Width 12.5, Platelet Count 217, Mean Platelet Volume 8.4, Neutrophils (%) (Auto) 73.8, Lymphocytes (% ) (Auto) 14.5L, Monocytes (%) (Auto) 10.1H, Eosinophils (%) (Auto) 1.3, Basophils (%) (Auto) 0.4, Sodium Level 137, Potassium Level 4.2, Chloride Level 95L, Carbon Dioxide Level 27, Anion Gap 15, Blood Urea Nitrogen 31H, Creatinine 0.9, Estimat Glomerular Filtration Rate , Glucose Level 101, Calcium Level 9.1 Height (Feet): 4 Height (Inches): 10.00 Weight (Pounds): 137 General Appearance: lethargic EENT: normal ENT inspection Neck: normal alignment Cardiovascular: normal peripheral pulses, normal rate, regular rhythm Respiratory/Chest: chest wall non-tender, lungs clear, normal breath sounds Abdomen: normal bowel sounds, non tender, soft Extremities: normal inspection Edema: no edema noted Arm (L), no edema noted Arm (R), no edema noted Leg (L), no edema noted Leg (R), no edema noted Pedal (L), no edema noted Pedal (R), no edema noted Generalized Neurologic: responsive, motor weakness Skin: normal pigmentation, warm/dry ALFREDO MAGDALENO Feb 04, 2017 09:02
--- NOTE | 2017-02-04 11:11 | Pulmonology Progress Note ---
Assessment/Plan Assessment/Plan ASSESSMENT sepsis bilateral PNA acute kidney injury, prerenal ( due to dehydration and sepsis ) hyponatremia dehydration DM HTN PLAN OF CARE IVF empiric abx ID follows fup with cx O2, pulmonary toilet prn fup with CXR a/tussive prn monitor renal parameters, lytes,. likely prerenal due to dehydration and hypo Na due to dehydration Na down to normal creat down to normal BS management with SS of insulin DVT prophylaxis BP monitoring bowel regimen PT/OT transfer to MS floor case discussed and evaluated by supervising physician Subjective Allergies: Coded Allergies: PENICILLINS (Verified Allergy, Unknown, 11/01/12) Subjective leukocytosis trending down, afebrile Na normalized creat down to normal on O2 via NC no signs of respiratory distress Objective Last 24 Hour Vital Signs Date Time Temp Pulse Resp B/P Pulse Ox O2 Delivery O2 Flow Rate FiO2 02/04/17 08:00 77 02/04/17 08:00 97.9 86 21 105/61 96 Nasal Cannula 2.0 86 02/04/17 07:24 82 18 Nasal Cannula 2.0 28 02/04/17 07:24 96 Nasal Cannula 2.0 28 02/04/17 07:24 Nasal Cannula 2.0 28 02/04/17 04:00 98.6 16 131/57 100 Room Air 02/04/17 04:00 77 02/04/17 00:00 98.1 91 19 133/55 97 Room Air 02/04/17 00:00 89 02/03/17 20:00 98.1 94 17 109/54 94 Nasal Cannula 02/03/17 20:00 92 02/03/17 19:11 Nasal Cannula 2.0 28 02/03/17 19:10 94 Nasal Cannula 2.0 28 02/03/17 19:10 94 22 Nasal Cannula 2.0 28 02/03/17 16:30 97.8 90 20 99/44 99 Nasal Cannula 2.0 02/03/17 16:00 68 02/03/17 12:00 97.0 99 20 122/52 94 Nasal Cannula 2.0 02/03/17 12:00 72 Intake and Output 02/03/17 02/04/17 19:00 07:00 Intake Total 500 ml 110 ml Balance 500 ml 110 ml Intake Oral 500 ml IV Total 110 ml # Voids 2 2 Objective General Appearance: no apparent distress, alert, awake, English speaking, Lines, tubes and drains: peripheral HEENT: normocephalic, atraumatic, anicteric Neck: supple Respiratory/Chest: chest wall non-tender, no respiratory distress, no accessory muscle use, BS clear with some residual coarseness Cardiovascular/Chest: normal rate, regular rhythm, SR on tele, no JVD Abdomen: normal bowel sounds, non tender, soft Skin Exam: normal pigmentation, warm/dry Neurologic: abnormal gait, alert, responsive Musculoskeletal: atrophy - BLE Microbiology Date/Time Source Procedure Growth Status 02/02/17 20:50 Blood Blood Culture - Preliminary NO GROWTH AFTER 24 HOURS Resulted 02/02/17 20:45 Blood Blood Culture - Preliminary NO GROWTH AFTER 24 HOURS Resulted 02/03/17 21:00 Wound Gram Stain - Final Resulted 02/03/17 21:00 Wound Wound Culture Pending Resulted Laboratory Tests 02/03/17 20:50: Random Vancomycin Level 7.6 02/04/17 06:45: White Blood Count 11.8H, Red Blood Count 3.79L, Hemoglobin 12.0, Hematocrit 37.3 , Mean Corpuscular Volume 98, Mean Corpuscular Hemoglobin 31.7H, Mean Corpuscular Hemoglobin Concent 32.2, Red Cell Distribution Width 12.5, Platelet Count 217, Mean Platelet Volume 8.4, Neutrophils (%) (Auto) 73.8, Lymphocytes (% ) (Auto) 14.5L, Monocytes (%) (Auto) 10.1H, Eosinophils (%) (Auto) 1.3, Basophils (%) (Auto) 0.4, Sodium Level 137, Potassium Level 4.2, Chloride Level 95L, Carbon Dioxide Level 27, Anion Gap 15, Blood Urea Nitrogen 31H, Creatinine 0.9, Estimat Glomerular Filtration Rate , Glucose Level 101, Calcium Level 9.1 Current Medications Medications (Trade) Dose Ordered Sig/Joon Route PRN Reason Start Time Stop Time Status Last Admin Dose Admin Acetaminophen (Tylenol) 650 mg Q4H PRN ORAL fever 02/02/17 21:45 03/04/17 21:44 Albuterol/ Ipratropium (DuoNeb 0.5-3(2.5)mg/3ml) 3 ml Q4H PRN HHN Shortness of Breath 02/02/17 21:45 02/07/17 21:44 Dextrose No Dose prn PRN IV hypoglycemia 02/03/17 06:15 03/05/17 06:14 Heparin Sodium (Porcine) (Heparin 5000 units/ml) 5,000 units EVERY 12 HOURS SUBQ 02/03/17 09:00 03/05/17 08:59 02/04/17 08:30 Insulin Aspart (NovoLOG) BEFORE MEALS AND HS SUBQ 02/03/17 06:30 03/05/17 06:29 02/03/17 21:07 Levofloxacin (Levaquin 750mg/ D5W) 150 ml @ 100 mls/hr Q48H IVPB 02/02/17 23:00 02/09/17 22:59 02/03/17 00:18 Morphine Sulfate (Morphine Sulfate) 2 mg Q4H PRN IVP Moderate Pain (Pain Scale 4-6) 02/02/17 21:45 02/09/17 21:44 02/03/17 14:15 Nitroglycerin (Ntg) 0.4 mg Q5M PRN SL Prn Chest Pain 02/02/17 21:45 03/04/17 21:44 Ondansetron HCl (Zofran) 4 mg Q6H PRN IVP Nausea & Vomiting 02/02/17 21:45 03/04/17 21:44 Polyethylene Glycol (Miralax) 17 gm DAILYPRN PRN ORAL Constipation 02/02/17 21:45 03/04/17 21:44 Temazepam (Restoril) 15 mg HSPRN PRN ORAL Insomnia 02/02/17 21:45 02/09/17 21:44 Vancomycin HCl 1 ea 1 ea DAILY PRN MISC Per rx protocol 02/02/17 22:15 03/04/17 22:14 Vancomycin HCl/ Dextrose (Vancomycin/D5W) 110 ml @ 110 mls/hr Q24H IVPB 02/03/17 23:00 02/08/17 22:59 02/03/17 23:12 Mara Ackerman NP (Vanchtein) Feb 04, 2017 11:11
--- NOTE | 2017-02-04 15:49 | Infectious Diseases Prog Note ---
Assessment/Plan Problems: (1) Pneumonia Assessment & Plan: with bilateral infiltrates, on vancomycin and levaquin empirically, await sputum culture (2) UTI (urinary tract infection) Assessment & Plan: on levaquin, await culture (3) Sepsis Assessment & Plan: due to the above, on levaquin and vancomycin, pending blood culture results (4) DENNIS (acute kidney injury) Assessment & Plan: suspect due to sepsis, and dehydration, continue ivf, monitor uop Subjective Constitutional: Reports: no symptoms HEENT: Reports: no symptoms Respiratory: Reports: no symptoms Breasts: Reports: no symptoms Cardiovascular: Reports: no symptoms Gastrointestinal/Abdominal: Reports: no symptoms Genitourinary: Reports: no symptoms Neurologic: Reports: no symptoms Psychiatric: Reports: no symptoms Skin: Reports: no symptoms Endocrine: Reports: no symptoms Hematologic: Reports: no symptoms Allergies: Coded Allergies: PENICILLINS (Verified Allergy, Unknown, 11/01/12) Objective Vital Signs Last 24 Hour Vital Signs Date Time Temp Pulse Resp B/P Pulse Ox O2 Delivery O2 Flow Rate FiO2 02/04/17 12:00 97.6 87 20 112/67 97 Nasal Cannula 2.0 02/04/17 12:00 88 02/04/17 08:00 77 02/04/17 08:00 97.9 86 21 105/61 96 Nasal Cannula 2.0 86 02/04/17 07:24 82 18 Nasal Cannula 2.0 28 02/04/17 07:24 96 Nasal Cannula 2.0 28 02/04/17 07:24 Nasal Cannula 2.0 28 02/04/17 04:00 98.6 16 131/57 100 Room Air 02/04/17 04:00 77 02/04/17 00:00 98.1 91 19 133/55 97 Room Air 02/04/17 00:00 89 02/03/17 20:00 98.1 94 17 109/54 94 Nasal Cannula 02/03/17 20:00 92 02/03/17 19:11 Nasal Cannula 2.0 28 02/03/17 19:10 94 Nasal Cannula 2.0 28 02/03/17 19:10 94 22 Nasal Cannula 2.0 28 02/03/17 16:30 97.8 90 20 99/44 99 Nasal Cannula 2.0 02/03/17 16:00 68 Height (Feet): 4 Height (Inches): 10.00 Weight (Pounds): 137 General Appearance: WD/WN, no acute distress HEENT: normocephalic, atraumatic, anicteric, mucous membranes moist, PERRL, supple, no JVD Respiratory/Chest: chest wall non-tender, lungs clear, normal breath sounds, no respiratory distress, no accessory muscle use Cardiovascular: normal peripheral pulses, normal rate, regular rhythm, no gallop/murmur, no JVD Abdomen: normal bowel sounds, soft, non tender, no organomegaly, non distended , no mass Extremities: no cyanosis, no clubbing Skin: no rash, no lesions Microbiology Date/Time Source Procedure Growth Status 02/02/17 20:50 Blood Blood Culture - Preliminary NO GROWTH AFTER 24 HOURS Resulted 02/02/17 20:45 Blood Blood Culture - Preliminary NO GROWTH AFTER 24 HOURS Resulted 02/03/17 21:00 Wound Gram Stain - Final Resulted 02/03/17 21:00 Wound Wound Culture Pending Resulted Laboratory Tests Test 02/03/17 20:50 02/04/17 06:45 Random Vancomycin Level 7.6 ug/mL White Blood Count 11.8 K/UL (4.8-10.8) H Red Blood Count 3.79 M/UL (4.20-5.40) L Hemoglobin 12.0 G/DL (12.0-16.0) Hematocrit 37.3 % (37.0-47.0) Mean Corpuscular Volume 98 FL (80-99) Mean Corpuscular Hemoglobin 31.7 PG (27.0-31.0) H Mean Corpuscular Hemoglobin Concent 32.2 G/DL (32.0-36.0) Red Cell Distribution Width 12.5 % (11.6-14.8) Platelet Count 217 K/UL (150-450) Mean Platelet Volume 8.4 FL (6.5-10.1) Neutrophils (%) (Auto) 73.8 % (45.0-75.0) Lymphocytes (%) (Auto) 14.5 % (20.0-45.0) L Monocytes (%) (Auto) 10.1 % (1.0-10.0) H Eosinophils (%) (Auto) 1.3 % (0.0-3.0) Basophils (%) (Auto) 0.4 % (0.0-2.0) Sodium Level 137 mEQ/L (135-145) Potassium Level 4.2 mEQ/L (3.4-4.9) Chloride Level 95 mEQ/L (98-107) L Carbon Dioxide Level 27 mEQ/L (20-30) Anion Gap 15 (5-15) Blood Urea Nitrogen 31 mg/dL (7-23) H Creatinine 0.9 mg/dL (0.5-0.9) Estimat Glomerular Filtration Rate mL/min (>60) Glucose Level 101 mg/dL (74-106) Calcium Level 9.1 mg/dL (8.6-10.2) Current Medications Medications (Trade) Dose Ordered Sig/Joon Route PRN Reason Start Time Stop Time Status Last Admin Dose Admin Acetaminophen (Tylenol) 650 mg Q4H PRN ORAL fever 02/02/17 21:45 03/04/17 21:44 Albuterol/ Ipratropium (DuoNeb 0.5-3(2.5)mg/3ml) 3 ml Q4H PRN HHN Shortness of Breath 02/02/17 21:45 02/07/17 21:44 Dextrose No Dose prn PRN IV hypoglycemia 02/03/17 06:15 03/05/17 06:14 Heparin Sodium (Porcine) (Heparin 5000 units/ml) 5,000 units EVERY 12 HOURS SUBQ 02/03/17 09:00 03/05/17 08:59 02/04/17 08:30 Insulin Aspart (NovoLOG) BEFORE MEALS AND HS SUBQ 02/03/17 06:30 03/05/17 06:29 02/04/17 12:40 Levofloxacin (Levaquin 750mg/ D5W) 150 ml @ 100 mls/hr Q48H IVPB 02/02/17 23:00 02/09/17 22:59 02/03/17 00:18 Morphine Sulfate (Morphine Sulfate) 2 mg Q4H PRN IVP Moderate Pain (Pain Scale 4-6) 02/02/17 21:45 02/09/17 21:44 02/03/17 14:15 Nitroglycerin (Ntg) 0.4 mg Q5M PRN SL Prn Chest Pain 02/02/17 21:45 03/04/17 21:44 Ondansetron HCl (Zofran) 4 mg Q6H PRN IVP Nausea & Vomiting 02/02/17 21:45 03/04/17 21:44 Polyethylene Glycol (Miralax) 17 gm DAILYPRN PRN ORAL Constipation 02/02/17 21:45 03/04/17 21:44 Temazepam (Restoril) 15 mg HSPRN PRN ORAL Insomnia 02/02/17 21:45 02/09/17 21:44 Vancomycin HCl 1 ea 1 ea DAILY PRN MISC Per rx protocol 02/02/17 22:15 03/04/17 22:14 Vancomycin HCl/ Dextrose (Vancomycin/D5W) 110 ml @ 110 mls/hr Q24H IVPB 02/03/17 23:00 02/08/17 22:59 02/03/17 23:12 Nico Mohan M.D. Feb 04, 2017 15:49
[2017-02-04] MEDS ORDERED: Nitroglycerin Subl 0.4mg tab (Bottle Of 25) SL PRN (16:45)
[2017-02-04] MEDS ORDERED: Morphine Sulfate 2mg/ml Inj IVP PRN (17:00)
[2017-02-04] MEDS ORDERED: DuoNeb 0.5-3(2.5)mg/3ml neb HHN PRN (17:00)
[2017-02-04] MEDS ORDERED: Miralax 17gm pkt ORAL PRN (17:00)
[2017-02-04] MEDS ORDERED: Vancomycin 500 MG in D5W 110 ML IVPB SCH (23:00)
[2017-02-05 03:32] VITALS: BP 100/39
[2017-02-05 05:25] VITALS: BP 109/52
[2017-02-05] MEDS: NovoLOG Insulin Flexpen SUBQ SCH ×5 (05:45→21:18)
--- NOTE | 2017-02-05 08:10 | General Progress Note ---
Assessment/Plan Problem List: (1) Pneumonia ICD Codes: J18.9 - Pneumonia, unspecified organism SNOMED: 527599066 Qualifiers: Qualified Codes: J18.9 - Pneumonia, unspecified organism (2) DENNIS (acute kidney injury) ICD Codes: N17.9 - Acute kidney failure, unspecified SNOMED: 10165317 (3) Sepsis ICD Codes: A41.9 - Sepsis, unspecified organism SNOMED: 92609173 Qualifiers: Qualified Codes: A41.9 - Sepsis, unspecified organism (4) Diabetes ICD Codes: E11.9 - Type 2 diabetes mellitus without complications SNOMED: 59901906 (5) HTN (hypertension) ICD Codes: I10 - Essential (primary) hypertension SNOMED: 20938672 (6) UTI (urinary tract infection) ICD Codes: N39.0 - Urinary tract infection, site not specified SNOMED: 23309670 Status: stable, progressing, tolerating diet Assessment/Plan o2 pulm tx abx ot pt diet cbc bmp am Subjective Constitutional: Reports: weakness Allergies: Coded Allergies: PENICILLINS (Verified Allergy, Unknown, 11/01/12) All Systems: reviewed and negative except above Subjective o2nc sleepy in bed Objective Last 24 Hour Vital Signs Date Time Temp Pulse Resp B/P Pulse Ox O2 Delivery O2 Flow Rate FiO2 02/05/17 07:44 Nasal Cannula 2.0 02/05/17 07:43 82 18 Nasal Cannula 2.0 02/05/17 07:43 97 Nasal Cannula 2.0 02/05/17 05:25 109/52 02/05/17 03:32 96.8 82 21 100/39 95 Nasal Cannula 3.0 82 02/04/17 23:26 98.2 80 20 97/76 98 Room Air 80 02/04/17 19:44 97.7 92 20 126/53 94 Room Air 92 02/04/17 19:19 96 Nasal Cannula 2.0 02/04/17 19:19 Nasal Cannula 2.0 28 02/04/17 19:19 85 18 Nasal Cannula 2.0 28 02/04/17 16:50 97.5 86 20 106/59 97 Nasal Cannula 2.0 02/04/17 16:00 97.2 85 21 110/65 97 Nasal Cannula 2.0 02/04/17 12:00 97.6 87 20 112/67 97 Nasal Cannula 2.0 02/04/17 12:00 88 Intake and Output 02/04/17 02/05/17 19:00 07:00 # Voids 2 # Bowel Movements 1 Height (Feet): 4 Height (Inches): 10.00 Weight (Pounds): 137 General Appearance: lethargic EENT: normal ENT inspection Neck: normal alignment Cardiovascular: normal peripheral pulses, normal rate, regular rhythm Respiratory/Chest: chest wall non-tender, lungs clear, normal breath sounds Abdomen: normal bowel sounds, non tender, soft Extremities: normal inspection Edema: no edema noted Arm (L), no edema noted Arm (R), no edema noted Leg (L), no edema noted Leg (R), no edema noted Pedal (L), no edema noted Pedal (R), no edema noted Generalized Neurologic: responsive, motor weakness Skin: normal pigmentation, warm/dry ALFREDO MAGDALENO Feb 05, 2017 08:10
--- NOTE | 2017-02-05 08:15 | Consultation ---
DATE OF CONSULTATION: 02/03/2017 PSYCHOTHERAPY CONSULTATION PROGRESS NOTE CONSULTING PHYSICIAN: Ezekiel Dougherty M.D. TREATING ATTENDING PHYSICIAN: Vivian Armas M.D. 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 The patient is from [facility]. The patient was brought to the hospital for sepsis. The patient has had shortness of breath and bilateral pneumonia. She also has history of diabetes and hypertension. The patient has some bouts of anxiety and difficulty sleeping. Upon assessment, the patient states that she has bouts of anxiety intermittently. She does wake up in the middle of the night at times; however, has no significant distress. Denies suicidal or homicidal reports of ideation. The patient is alert and oriented. Unable to communicate and participate. She has some bouts of confusion, however, she is able to answer questions and requires redirection at times . PAST MEDICAL HISTORY: History of DENNIS, hypertension, and diabetes. ALLERGIES: The patient is allergic to penicillin. SUBSTANCE ABUSE HISTORY: There is no indication of alcohol use, illicit substance use, or smoking cigarette. PSYCHIATRIC HISTORY: At this time there is no indication of history of mental illness status post encephalopathy per this patient. SOCIAL HISTORY: The patient is an 86-year-old female patient from [facility]. She is currently . Financially sustained through Medicare and [employer]. MENTAL STATUS EXAMINATION: The patient is alert and oriented x3 to person, place, and time. Her mood is fairly anxious. Affect is blunted. Thought process is fairly disorganized. The patient has fair attention and concentration, fair insight, judgment, and impulse control. . DIAGNOSES: AXIS I Generalized anxiety disorder. AXIS II Deferred. AXIS III RECOMMENDATIONS: Provided to this patient with reality orientation and supportive psychotherapy. the patient anxiety and difficulty sleeping. Encouraging the patient to participate in treatment milieu. Continue with medication management and behavioral management. This clinician has reviewed the patient's chart and discussed the treatment with nursing staff. Ezekiel Dougherty PsyD. DR: MARY JOB#: [id number] CC:
[2017-02-05] MEDS: Heparin 5000 units/ml inj SUBQ SCH ×2 (08:48→21:16)
--- NOTE | 2017-02-05 10:04 | Pulmonology Progress Note ---
Assessment/Plan Assessment/Plan ASSESSMENT sepsis bilateral PNA acute kidney injury, prerenal ( due to dehydration and sepsis ) hyponatremia dehydration DM HTN PLAN OF CARE IVF empiric abx ID follows fup with cx O2, pulmonary toilet prn fup with CXR in am a/tussive prn monitor renal parameters, lytes,. likely prerenal due to dehydration and hypo Na due to dehydration Na down to normal creat down to normal BS management with SS of insulin DVT prophylaxis BP monitoring bowel regimen PT/OT case discussed and evaluated by supervising physician Subjective Allergies: Coded Allergies: PENICILLINS (Verified Allergy, Unknown, 11/01/12) Subjective leukocytosis trending down, afebrile Na normalized creat down to normal on O2 via NC no signs of respiratory distress Objective Last 24 Hour Vital Signs Date Time Temp Pulse Resp B/P Pulse Ox O2 Delivery O2 Flow Rate FiO2 02/05/17 07:44 Nasal Cannula 2.0 28 02/05/17 07:43 82 18 Nasal Cannula 2.0 28 02/05/17 07:43 97 Nasal Cannula 2.0 28 02/05/17 05:25 109/52 02/05/17 03:32 96.8 82 21 100/39 95 Nasal Cannula 3.0 82 02/04/17 23:26 98.2 80 20 97/76 98 Room Air 80 02/04/17 19:44 97.7 92 20 126/53 94 Room Air 92 02/04/17 19:19 96 Nasal Cannula 2.0 28 02/04/17 19:19 Nasal Cannula 2.0 28 02/04/17 19:19 85 18 Nasal Cannula 2.0 28 02/04/17 16:50 97.5 86 20 106/59 97 Nasal Cannula 2.0 02/04/17 16:00 97.2 85 21 110/65 97 Nasal Cannula 2.0 02/04/17 12:00 97.6 87 20 112/67 97 Nasal Cannula 2.0 02/04/17 12:00 88 Intake and Output 02/04/17 02/05/17 19:00 07:00 # Voids 2 # Bowel Movements 1 Objective General Appearance: no apparent distress, alert, awake, Turkmen speaking, Lines, tubes and drains: peripheral HEENT: normocephalic, atraumatic, anicteric Neck: supple Respiratory/Chest: chest wall non-tender, no respiratory distress, no accessory muscle use, BS clear with some residual coarseness Cardiovascular/Chest: normal rate, regular rhythm, SR on tele, no JVD Abdomen: normal bowel sounds, non tender, soft Skin Exam: normal pigmentation, warm/dry Neurologic: abnormal gait, alert, responsive Musculoskeletal: atrophy - BLE Microbiology Date/Time Source Procedure Growth Status 02/02/17 20:50 Blood Blood Culture - Preliminary NO GROWTH AFTER 48 HOURS Resulted 02/02/17 20:45 Blood Blood Culture - Preliminary NO GROWTH AFTER 48 HOURS Resulted 02/03/17 21:00 Wound Gram Stain - Final Resulted 02/03/17 21:00 Wound Wound Culture Pending Resulted 02/03/17 06:30 Rectum VRE Culture - Final Enterococcus Faecalis - Vre Complete Current Medications Medications (Trade) Dose Ordered Sig/Joon Route PRN Reason Start Time Stop Time Status Last Admin Dose Admin Acetaminophen (Tylenol) 650 mg Q4H PRN ORAL fever 02/04/17 17:00 03/06/17 16:59 Albuterol/ Ipratropium (DuoNeb 0.5-3(2.5)mg/3ml) 3 ml Q4H PRN HHN Shortness of Breath 02/04/17 17:00 02/09/17 16:59 Dextrose (Dextrose 50%) No Dose prn PRN IV hypoglycemia 02/04/17 17:00 03/06/17 16:59 Heparin Sodium (Porcine) (Heparin 5000 units/ml) 5,000 units EVERY 12 HOURS SUBQ 02/04/17 21:00 03/06/17 20:59 02/04/17 20:40 Insulin Aspart (NovoLOG) BEFORE MEALS AND HS SUBQ 02/04/17 21:00 03/06/17 20:59 Levofloxacin 150 ml @ 100 mls/hr Q48H IVPB 02/04/17 23:00 02/11/17 22:59 02/04/17 22:08 Morphine Sulfate (Morphine Sulfate) 2 mg Q4H PRN IVP Moderate Pain (Pain Scale 4-6) 02/04/17 17:00 02/11/17 16:59 Nitroglycerin (Ntg) 0.4 mg Q5MIN PRN SL Prn Chest Pain 02/04/17 16:45 03/06/17 16:44 Ondansetron HCl (Zofran) 4 mg Q6H PRN IVP Nausea & Vomiting 02/04/17 17:00 03/06/17 16:59 Polyethylene Glycol (Miralax) 17 gm DAILYPRN PRN ORAL Constipation 02/04/17 17:00 03/06/17 16:59 Temazepam (Restoril) 15 mg HSPRN PRN ORAL Insomnia 02/04/17 17:00 02/11/17 16:59 Vancomycin HCl (Vanco rx to dose) 1 ea DAILY PRN MISC Per rx protocol 02/05/17 09:00 03/07/17 08:59 Vancomycin HCl/ Dextrose (Vancomycin/D5W) 110 ml @ 110 mls/hr Q24H IVPB 02/04/17 23:00 02/09/17 22:59 Tyron (Joana)Mara NP Feb 05, 2017 10:04
--- NOTE | 2017-02-05 10:13 | Infectious Diseases Prog Note ---
Assessment/Plan Problems: (1) Pneumonia Assessment & Plan: with bilateral infiltrates, improving on vancomycin and levaquin empirically, will switch to oral lavaquin and bactrim to finish her course of therapy for 8 days . EOT 02/09/17 (2) UTI (urinary tract infection) Assessment & Plan: on levaquin, no culture was done will treat for 8 days (3) Sepsis Assessment & Plan: due to the above, on levaquin and vancomycin, pending blood culture results (4) DENNIS (acute kidney injury) Assessment & Plan: suspect due to sepsis, and dehydration, continue ivf, monitor uop (5) Colonization with VRE (vancomycin-resistant enterococcus) Assessment & Plan: keep in contact isolation Subjective ROS Limited/Unobtainable: Yes Allergies: Coded Allergies: PENICILLINS (Verified Allergy, Unknown, 11/01/12) Subjective she has been refusing her meds, and not cooperative with the nursing staff, not agitated.afebrile Objective Vital Signs Last 24 Hour Vital Signs Date Time Temp Pulse Resp B/P Pulse Ox O2 Delivery O2 Flow Rate FiO2 02/05/17 07:44 Nasal Cannula 2.0 28 02/05/17 07:43 82 18 Nasal Cannula 2.0 28 02/05/17 07:43 97 Nasal Cannula 2.0 28 02/05/17 05:25 109/52 02/05/17 03:32 96.8 82 21 100/39 95 Nasal Cannula 3.0 82 02/04/17 23:26 98.2 80 20 97/76 98 Room Air 80 02/04/17 19:44 97.7 92 20 126/53 94 Room Air 92 02/04/17 19:19 96 Nasal Cannula 2.0 28 02/04/17 19:19 Nasal Cannula 2.0 28 02/04/17 19:19 85 18 Nasal Cannula 2.0 28 02/04/17 16:50 97.5 86 20 106/59 97 Nasal Cannula 2.0 02/04/17 16:00 97.2 85 21 110/65 97 Nasal Cannula 2.0 02/04/17 12:00 97.6 87 20 112/67 97 Nasal Cannula 2.0 02/04/17 12:00 88 Height (Feet): 4 Height (Inches): 10.00 Weight (Pounds): 137 General Appearance: WD/WN, no acute distress HEENT: normocephalic, atraumatic, anicteric, mucous membranes moist, supple Respiratory/Chest: chest wall non-tender, no respiratory distress, no accessory muscle use, decreased breath sounds, crackles/rales Cardiovascular: normal peripheral pulses, normal rate, regular rhythm, no gallop/murmur, no JVD Abdomen: normal bowel sounds, soft, non tender, no organomegaly, non distended , no mass, no scars Extremities: no cyanosis, no clubbing Skin: no rash, no lesions Neurologic/Psychiatric: alert, responsive Musculoskeletal: normal muscle bulk, no effusion Microbiology Date/Time Source Procedure Growth Status 02/02/17 20:50 Blood Blood Culture - Preliminary NO GROWTH AFTER 48 HOURS Resulted 02/02/17 20:45 Blood Blood Culture - Preliminary NO GROWTH AFTER 48 HOURS Resulted 02/03/17 21:00 Wound Gram Stain - Final Resulted 02/03/17 21:00 Wound Wound Culture Pending Resulted 02/03/17 06:30 Rectum VRE Culture - Final Enterococcus Faecalis - Vre Complete Current Medications Medications (Trade) Dose Ordered Sig/Joon Route PRN Reason Start Time Stop Time Status Last Admin Dose Admin Acetaminophen (Tylenol) 650 mg Q4H PRN ORAL fever 02/04/17 17:00 03/06/17 16:59 Albuterol/ Ipratropium (DuoNeb 0.5-3(2.5)mg/3ml) 3 ml Q4H PRN HHN Shortness of Breath 02/04/17 17:00 02/09/17 16:59 Dextrose (Dextrose 50%) No Dose prn PRN IV hypoglycemia 02/04/17 17:00 03/06/17 16:59 Heparin Sodium (Porcine) (Heparin 5000 units/ml) 5,000 units EVERY 12 HOURS SUBQ 02/04/17 21:00 03/06/17 20:59 02/04/17 20:40 Insulin Aspart (NovoLOG) BEFORE MEALS AND HS SUBQ 02/04/17 21:00 03/06/17 20:59 Levofloxacin 150 ml @ 100 mls/hr Q48H IVPB 02/04/17 23:00 02/11/17 22:59 02/04/17 22:08 Morphine Sulfate (Morphine Sulfate) 2 mg Q4H PRN IVP Moderate Pain (Pain Scale 4-6) 02/04/17 17:00 02/11/17 16:59 Nitroglycerin (Ntg) 0.4 mg Q5MIN PRN SL Prn Chest Pain 02/04/17 16:45 03/06/17 16:44 Ondansetron HCl (Zofran) 4 mg Q6H PRN IVP Nausea & Vomiting 02/04/17 17:00 03/06/17 16:59 Polyethylene Glycol (Miralax) 17 gm DAILYPRN PRN ORAL Constipation 02/04/17 17:00 03/06/17 16:59 Temazepam (Restoril) 15 mg HSPRN PRN ORAL Insomnia 02/04/17 17:00 02/11/17 16:59 Vancomycin HCl (Vanco rx to dose) 1 ea DAILY PRN MISC Per rx protocol 02/05/17 09:00 03/07/17 08:59 Vancomycin HCl/ Dextrose (Vancomycin/D5W) 110 ml @ 110 mls/hr Q24H IVPB 02/04/17 23:00 02/09/17 22:59 Nico Mohan M.D. Feb 05, 2017 10:13
[2017-02-05] MEDS ORDERED: NS 275ml ONE (10:43)
[2017-02-05] MEDS ORDERED: Tubing IV Secondary IV ONE ×2 (10:43→10:59)
[2017-02-05 12:15] VITALS: BP 122/61
[2017-02-05 16:01] VITALS: BP 108/60
[2017-02-05] MEDS: Bactrim DS (160mg/800mg) tab ORAL SCH (17:48)
[2017-02-05 20:00] VITALS: BP 110/64
--- NOTE | 2017-02-06 00:01 | Consultation ---
History of Present Illness General Chief Complaint: ARF, hyponatremia Referring physician: dr Ayala Reason for Consultation: inpatient management Present Illness HPI This is an 86-year-old female, a [facility] resident, with past medical history of diabetes and hypertension, who was admitted for elevated WBC, fever, chills and shortness of breath x3 days. She was therefore admitted for further evaluation. Chest x-ray showed bilateral interstitial infiltrates. Urinalysis showed evidence of infection, was started on empiric antibiotics. BUN and creatinine was found to be elevated and so i was called for consult. The patient is poor historian, history was obtained from the medical record. Allergies: Coded Allergies: PENICILLINS (Verified Allergy, Unknown, 11/01/12) Medication History Scheduled Heparin Sod (Porcine) (Heparin Sodium*), 5,000 UNITS SUBQ EVERY 12 HOURS, ( Reported) Insulin Aspart (Novolog), SQ ACHS, (Reported) Levofloxacin* (Levaquin*), 750 MG ORAL Q48hr, (Reported) Memantine Hcl* (Namenda*), 5 MG ORAL TWICE A DAY, (Reported) Trimethoprim/Sulfamethoxazole 160/800* (Bactrim Ds Tablet*), 1 TAB ORAL TWICE A DAY, (Reported) Scheduled PRN Acetaminophen (Tylenol), 650 MG ORAL Q4HR PRN for PRN, (Reported) Albuterol Sulfate* (Albuterol Sulfate Hhn*), 3 ML INH Q4H PRN for Shortness of Breath, (Reported) Nitroglycerin (Nitroglycerin), 0.4 MG SL for Prn Chest Pain, (Reported) Ondansetron (Zofran), 4 MG ORAL Q6H PRN for Nausea & Vomiting, (Reported) Polyethylene Glycol 3350* (Polyethylene Glycol 3350*), 17 GM ORAL DAILY PRN for PRN, (Reported) Temazepam (Temazepam*), 15 MG ORAL BEDTIME PRN for PRN, (Reported) Discontinued Medications Acetaminophen* (Tylenol Extra Strength*), Unknown Dose ORAL Q6H PRN for Mild Pain/Temp > 100.5, (Reported) Discontinued Reason: Prescription changed Acetaminophen* (Acetaminophen 325MG Tablet*), 650 MG ORAL Q6H PRN for For Pain, (Reported) Discontinued Reason: MD discontinued med Amlodipine Besylate (Norvasc), 2.5 MG ORAL DAILY, (Reported) Discontinued Reason: MD discontinued med Bimatoprost (Lumigan), 1 DROP BOTH EYES DAILY, (Reported) Discontinued Reason: MD discontinued med Dextran 70/Hypromellose (Artificial Tears), 1 EACH OP BID, (Reported) Discontinued Reason: MD discontinued med Docusate Sodium* (Colace*), 100 MG ORAL DAILY, (Reported) Discontinued Reason: MD discontinued med Ibuprofen* (Motrin*), 600 MG ORAL Q6H PRN for For Pain, (Reported) Discontinued Reason: MD discontinued med Losartan Potassium (Losartan Potassium), 25 MG PO, (Reported) Discontinued Reason: Prescription changed Losartan Potassium* (Losartan Potassium*), 50 MG ORAL DAILY, (Reported) Discontinued Reason: MD discontinued med Magnesium Oxide (Magnesium), 400 MG PO BID, (Reported) Discontinued Reason: MD discontinued med Metformin HCl (Metformin HCl ER), 500 MG PO THREE TIMES A DAY, (Reported) Discontinued Reason: MD discontinued med Metformin Hcl (Metformin Hcl), 5,000 GM MC, (Reported) Discontinued Reason: Medication dose changed Mirtazapine (Remeron), 7.5 MG ORAL BEDTIME, (Reported) Discontinued Reason: MD discontinued med Multivitamin With Minerals (Multivitamins With Minerals*), 1 TAB ORAL DAILY, ( Reported) Discontinued Reason: MD discontinued med Sitagliptin (Januvia), 100 MG ORAL DAILY, (Reported) Discontinued Reason: MD discontinued med [mylanta], 10 ML PO EVERY 6 HOURS PRN for Nausea & Vomiting, (Reported) Discontinued Reason: MD discontinued med [regular insulin], Unknown Dose SUBQ BID, (Reported) Discontinued Reason: MD discontinued med Patient History Limited by: medical condition History Provided By: Medical Record Healthcare decision maker Resuscitation status Full Code Advanced Directive on File Past Medical/Surgical History Past Medical/Surgical History: (1) Diabetes (2) HTN (hypertension) Social History Social History: (1) Non-smoker (2) No history of alcohol use (3) No illicit drug use Review of Systems ROS Narrative Unobtainable due to pt's mental status Physical Exam General Appearance: no apparent distress Lines, tubes and drains: peripheral HEENT: normocephalic, atraumatic Neck: non-tender, normal alignment, supple Respiratory/Chest: lungs clear, normal breath sounds Cardiovascular/Chest: normal peripheral pulses, normal rate, no JVD Abdomen: non tender, soft, no organomegaly, no mass Skin Exam: normal pigmentation, warm/dry Last 24 Hour Vital Signs Date Time Temp Pulse Resp B/P Pulse Ox O2 Delivery O2 Flow Rate FiO2 02/05/17 20:00 98.2 80 18 110/64 96 Nasal Cannula 2.0 02/05/17 19:30 Nasal Cannula 2.0 28 02/05/17 19:30 80 18 Nasal Cannula 2.0 28 02/05/17 19:30 95 Nasal Cannula 2.0 28 02/05/17 16:01 97.0 81 19 108/60 97 Nasal Cannula 2.0 81 02/05/17 12:15 97.0 80 19 122/61 97 Room Air 80 02/05/17 07:44 Nasal Cannula 2.0 28 02/05/17 07:43 82 18 Nasal Cannula 2.0 28 02/05/17 07:43 97 Nasal Cannula 2.0 28 02/05/17 05:25 109/52 02/05/17 03:32 96.8 82 21 100/39 95 Nasal Cannula 3.0 82 Intake and Output 02/05/17 02/06/17 19:00 07:00 Intake Total 240 ml Balance 240 ml Intake Oral 240 ml # Voids 2 Height (Feet): 4 Height (Inches): 10.00 Weight (Pounds): 137 Medications Current Medications Medications (Trade) Dose Ordered Sig/Joon Route PRN Reason Start Time Stop Time Status Last Admin Dose Admin Acetaminophen (Tylenol) 650 mg Q4H PRN ORAL fever 02/04/17 17:00 03/06/17 16:59 Albuterol/ Ipratropium (DuoNeb 0.5-3(2.5)mg/3ml) 3 ml Q4H PRN HHN Shortness of Breath 02/04/17 17:00 02/09/17 16:59 Dextrose (Dextrose 50%) No Dose prn PRN IV hypoglycemia 02/04/17 17:00 03/06/17 16:59 Heparin Sodium (Porcine) (Heparin 5000 units/ml) 5,000 units EVERY 12 HOURS SUBQ 02/04/17 21:00 03/06/17 20:59 02/05/17 21:16 Insulin Aspart (NovoLOG) BEFORE MEALS AND HS SUBQ 02/04/17 21:00 8/14/17 20:59 02/05/17 21:18 Levofloxacin (Levaquin) 750 mg Q48H ORAL 02/06/17 09:00 02/13/17 08:59 Morphine Sulfate (Morphine Sulfate) 2 mg Q4H PRN IVP Moderate Pain (Pain Scale 4-6) 02/04/17 17:00 02/11/17 16:59 Nitroglycerin (Ntg) 0.4 mg Q5MIN PRN SL Prn Chest Pain 02/04/17 16:45 03/06/17 16:44 Ondansetron HCl (Zofran) 4 mg Q6H PRN IVP Nausea & Vomiting 02/04/17 17:00 03/06/17 16:59 Polyethylene Glycol (Miralax) 17 gm DAILYPRN PRN ORAL Constipation 02/04/17 17:00 03/06/17 16:59 Temazepam (Restoril) 15 mg HSPRN PRN ORAL Insomnia 02/04/17 17:00 02/11/17 16:59 Trimethoprim/ Sulfamethoxazole (Bactrim-DS) 1 ea TWICE A DAY ORAL 02/05/17 18:00 02/09/17 17:59 02/05/17 17:48 Assessment/Plan Problem List: (1) DENNIS (acute kidney injury) ICD Codes: N17.9 - Acute kidney failure, unspecified SNOMED: 97528035 (2) Sepsis ICD Codes: A41.9 - Sepsis, unspecified organism SNOMED: 02089533 Qualifiers: Qualified Codes: A41.9 - Sepsis, unspecified organism (3) Abnormal laboratory test result ICD Codes: R89.9 - Unspecified abnormal finding in specimens from other organs , systems and tissues SNOMED: 900402727 (4) Diabetes ICD Codes: E11.9 - Type 2 diabetes mellitus without complications SNOMED: 01615673 (5) HTN (hypertension) ICD Codes: I10 - Essential (primary) hypertension SNOMED: 11635738 (6) UTI (urinary tract infection) ICD Codes: N39.0 - Urinary tract infection, site not specified SNOMED: 24399825 (7) Pneumonia ICD Codes: J18.9 - Pneumonia, unspecified organism SNOMED: 906643698 Qualifiers: Qualified Codes: J18.9 - Pneumonia, unspecified organism Assessment/Plan Continue current treatment plan Monitor BUN/cr Avoid nephrotoxic agents Monitor lytes, replace prn DVT prophylaxis Continue glycemic control Abx per DOMINICK BATRES Feb 06, 2017 00:01
[2017-02-06 04:16] VITALS: BP 108/60
[2017-02-06] MEDS: NovoLOG Insulin Flexpen SUBQ SCH ×2 (06:17→11:39)
[2017-02-06 07:48] LABS: BASOPHILS % (AUTO) 0.6 % (0.0-2.0); EOSINOPHILS % (AUTO) 2.4 % (0.0-3.0); LYMPHOCYTES % (AUTO) 21.2 % (20.0-45.0); MEAN CORPUSCULAR HEMOGLOBIN 32.2 PG (27.0-31.0); MEAN CORPUSCULAR HGB CONC 32.4 G/DL (32.0-36.0); MEAN CORPUSCULAR VOLUME 99 FL (80-99); MEAN PLATELET VOLUME 6.4 FL (6.5-10.1); NEUTROPHILS % (AUTO) 65.8 % (45.0-75.0); PLATELET COUNT 285 K/UL (150-450); RED BLOOD COUNT 3.82 M/UL (4.20-5.40); RED CELL DISTRIBUTION WIDTH 12.4 % (11.6-14.8); WHITE BLOOD COUNT 8.8 K/UL (4.8-10.8)
[2017-02-06 08:00] VITALS: BP 112/61
[2017-02-06 08:14] LABS: ANION GAP 12 (5-15); CALCIUM 8.8 mg/dL (8.6-10.2); CARBON DIOXIDE 29 mEQ/L (20-30); CHLORIDE 97 mEQ/L (98-107); HEMOLYSIS 3; POTASSIUM 4.5 mEQ/L (3.4-4.9); SODIUM 138 mEQ/L (135-145)
[2017-02-06] MEDS: Bactrim DS (160mg/800mg) tab ORAL SCH (08:31)
[2017-02-06] MEDS: Heparin 5000 units/ml inj SUBQ SCH (08:39)
--- NOTE | 2017-02-06 12:45 | Diagnostic Imaging Report ---
Indication: Dyspnea Comparison: 02/02/17 A single view chest radiograph was obtained. Findings: Patchy interstitial/alveolar infiltrates versus asymmetric pulmonary edema demonstrated bilaterally. Borderline cardiomegaly is present. Impression: Patchy edema versus infiltrates slightly improved since the last study.
--- NOTE | 2017-02-06 13:35 | General Progress Note ---
Assessment/Plan Problem List: (1) Pneumonia ICD Codes: J18.9 - Pneumonia, unspecified organism SNOMED: 621735145 Qualifiers: Qualified Codes: J18.9 - Pneumonia, unspecified organism (2) DENNIS (acute kidney injury) ICD Codes: N17.9 - Acute kidney failure, unspecified SNOMED: 81408703 (3) Sepsis ICD Codes: A41.9 - Sepsis, unspecified organism SNOMED: 93027315 Qualifiers: Qualified Codes: A41.9 - Sepsis, unspecified organism (4) Diabetes ICD Codes: E11.9 - Type 2 diabetes mellitus without complications SNOMED: 23213378 (5) HTN (hypertension) ICD Codes: I10 - Essential (primary) hypertension SNOMED: 82042328 (6) UTI (urinary tract infection) ICD Codes: N39.0 - Urinary tract infection, site not specified SNOMED: 00993912 Status: stable, progressing, tolerating diet Assessment/Plan o2 pulm tx abx ot pt diet dc to snf Subjective Allergies: Coded Allergies: PENICILLINS (Verified Allergy, Unknown, 11/01/12) All Systems: reviewed and negative except above Subjective sl anxious Objective Last 24 Hour Vital Signs Date Time Temp Pulse Resp B/P Pulse Ox O2 Delivery O2 Flow Rate FiO2 02/06/17 08:00 97.3 82 18 112/61 96 Nasal Cannula 2.0 02/06/17 07:30 85 18 Nasal Cannula 2.0 28 02/06/17 07:30 Nasal Cannula 2.0 28 02/06/17 07:30 96 Nasal Cannula 2.0 28 02/06/17 04:16 98.0 78 18 108/60 92 Nasal Cannula 2.0 02/05/17 20:00 98.2 80 18 110/64 96 Nasal Cannula 2.0 02/05/17 19:30 Nasal Cannula 2.0 28 02/05/17 19:30 80 18 Nasal Cannula 2.0 28 02/05/17 19:30 95 Nasal Cannula 2.0 28 02/05/17 16:01 97.0 81 19 108/60 97 Nasal Cannula 2.0 81 Intake and Output 02/05/17 02/06/17 19:00 07:00 Intake Total 240 ml 200 ml Balance 240 ml 200 ml Intake Oral 240 ml 200 ml # Voids 2 3 # Bowel Movements 1 Laboratory Tests 02/06/17 05:25: White Blood Count 8.8, Red Blood Count 3.82L, Hemoglobin 12.3, Hematocrit 38.0, Mean Corpuscular Volume 99, Mean Corpuscular Hemoglobin 32.2H, Mean Corpuscular Hemoglobin Concent 32.4, Red Cell Distribution Width 12.4, Platelet Count 285, Mean Platelet Volume 6.4L, Neutrophils (%) (Auto) 65.8, Lymphocytes (%) (Auto) 21.2, Monocytes (%) (Auto) 10.0, Eosinophils (%) (Auto) 2.4, Basophils (%) (Auto ) 0.6, Sodium Level 138, Potassium Level 4.5, Chloride Level 97L, Carbon Dioxide Level 29, Anion Gap 12, Blood Urea Nitrogen 21, Creatinine 1.0H, Estimat Glomerular Filtration Rate , Glucose Level 111H, Calcium Level 8.8 Height (Feet): 4 Height (Inches): 10.00 Weight (Pounds): 137 General Appearance: confused EENT: normal ENT inspection Neck: normal alignment Cardiovascular: normal peripheral pulses, normal rate, regular rhythm Respiratory/Chest: chest wall non-tender, lungs clear, normal breath sounds Abdomen: normal bowel sounds, non tender, soft Extremities: normal inspection Edema: no edema noted Arm (L), no edema noted Arm (R), no edema noted Leg (L), no edema noted Leg (R), no edema noted Pedal (L), no edema noted Pedal (R), no edema noted Generalized Neurologic: responsive, motor weakness Skin: normal pigmentation, warm/dry ALFREDO MAGDALENO Feb 06, 2017 13:35
[2017-02-06] MEDS ORDERED: TYLENOL325 MG ORAL (13:52)
[2017-02-06] MEDS ORDERED: HEPARIN SO5000 UNIT2 SUBQ (13:54)
[2017-02-06] MEDS ORDERED: NOVOLOG100 UNIT/5 SQ (13:55)
[2017-02-06] MEDS ORDERED: ALBUTEROL2.5 MG/3 M INH (13:56)
[2017-02-06] MEDS ORDERED: LEVAQUIN750 MG ORAL (13:57)
[2017-02-06] MEDS ORDERED: NAMENDA5 MG ORAL (13:59)
[2017-02-06] MEDS ORDERED: Memantine 5 MG TAB ORAL SCH (14:00)
[2017-02-06] MEDS ORDERED: NITROGLYCERIN0.4 MG SL (14:01)
[2017-02-06] MEDS ORDERED: ZOFRAN4 M1 ORAL (14:03)
[2017-02-06] MEDS ORDERED: POLYETHYLENE GL17 GM ORAL (14:04)
[2017-02-06] MEDS ORDERED: TEMAZEPAM15 MG ORAL (14:05)
[2017-02-06] MEDS ORDERED: BACTRIM DS TAB1 EAC1 ORAL (14:07)
--- NOTE | 2017-02-06 15:11 | Pulmonology Progress Note ---
Assessment/Plan Problems: (1) Pneumonia (2) Sepsis (3) Diabetes (4) HTN (hypertension) (5) UTI (urinary tract infection) Assessment/Plan improving cxr better continue abx BC are all negative symptomatic treatment dvt prophylaxis Subjective ROS Limited/Unobtainable: No Constitutional: Reports: no symptoms Respiratory: Reports: no symptoms Allergies: Coded Allergies: PENICILLINS (Verified Allergy, Unknown, 11/01/12) Objective Last 24 Hour Vital Signs Date Time Temp Pulse Resp B/P Pulse Ox O2 Delivery O2 Flow Rate FiO2 02/06/17 08:00 97.3 82 18 112/61 96 Nasal Cannula 2.0 02/06/17 07:30 85 18 Nasal Cannula 2.0 28 02/06/17 07:30 Nasal Cannula 2.0 28 02/06/17 07:30 96 Nasal Cannula 2.0 28 02/06/17 04:16 98.0 78 18 108/60 92 Nasal Cannula 2.0 02/05/17 20:00 98.2 80 18 110/64 96 Nasal Cannula 2.0 02/05/17 19:30 Nasal Cannula 2.0 28 02/05/17 19:30 80 18 Nasal Cannula 2.0 28 02/05/17 19:30 95 Nasal Cannula 2.0 28 02/05/17 16:01 97.0 81 19 108/60 97 Nasal Cannula 2.0 81 Intake and Output 02/05/17 02/06/17 19:00 07:00 Intake Total 240 ml 200 ml Balance 240 ml 200 ml Intake Oral 240 ml 200 ml # Voids 2 3 # Bowel Movements 1 General Appearance: WD/WN Respiratory/Chest: chest wall non-tender, lungs clear Cardiovascular: normal peripheral pulses, normal rate Abdomen: normal bowel sounds, soft, non tender Extremities: no cyanosis Skin: no rash Microbiology Date/Time Source Procedure Growth Status 02/03/17 21:00 Wound Gram Stain - Final Resulted 02/03/17 21:00 Wound Wound Culture Pending Resulted Laboratory Tests 02/06/17 05:25: White Blood Count 8.8, Red Blood Count 3.82L, Hemoglobin 12.3, Hematocrit 38.0, Mean Corpuscular Volume 99, Mean Corpuscular Hemoglobin 32.2H, Mean Corpuscular Hemoglobin Concent 32.4, Red Cell Distribution Width 12.4, Platelet Count 285, Mean Platelet Volume 6.4L, Neutrophils (%) (Auto) 65.8, Lymphocytes (%) (Auto) 21.2, Monocytes (%) (Auto) 10.0, Eosinophils (%) (Auto) 2.4, Basophils (%) (Auto ) 0.6, Sodium Level 138, Potassium Level 4.5, Chloride Level 97L, Carbon Dioxide Level 29, Anion Gap 12, Blood Urea Nitrogen 21, Creatinine 1.0H, Estimat Glomerular Filtration Rate , Glucose Level 111H, Calcium Level 8.8 Current Medications Medications (Trade) Dose Ordered Sig/Joon Route PRN Reason Start Time Stop Time Status Last Admin Dose Admin Acetaminophen (Tylenol) 650 mg Q4H PRN ORAL fever 02/04/17 17:00 03/06/17 16:59 Albuterol/ Ipratropium (DuoNeb 0.5-3(2.5)mg/3ml) 3 ml Q4H PRN HHN Shortness of Breath 02/04/17 17:00 02/09/17 16:59 Dextrose (Dextrose 50%) No Dose prn PRN IV hypoglycemia 02/04/17 17:00 03/06/17 16:59 Heparin Sodium (Porcine) (Heparin 5000 units/ml) 5,000 units EVERY 12 HOURS SUBQ 02/04/17 21:00 03/06/17 20:59 02/06/17 08:39 Insulin Aspart (NovoLOG) BEFORE MEALS AND HS SUBQ 02/04/17 21:00 03/06/17 20:59 02/06/17 11:39 Levofloxacin (Levaquin) 750 mg Q48H ORAL 02/06/17 09:00 02/13/17 08:59 02/06/17 08:32 Memantine (Namenda) 5 mg Q12HR ORAL 02/06/17 14:00 03/08/17 13:59 Morphine Sulfate (Morphine Sulfate) 2 mg Q4H PRN IVP Moderate Pain (Pain Scale 4-6) 02/04/17 17:00 02/11/17 16:59 Nitroglycerin (Ntg) 0.4 mg Q5MIN PRN SL Prn Chest Pain 02/04/17 16:45 03/06/17 16:44 Ondansetron HCl (Zofran) 4 mg Q6H PRN IVP Nausea & Vomiting 02/04/17 17:00 03/06/17 16:59 Polyethylene Glycol (Miralax) 17 gm DAILYPRN PRN ORAL Constipation 02/04/17 17:00 03/06/17 16:59 Temazepam (Restoril) 15 mg HSPRN PRN ORAL Insomnia 02/04/17 17:00 02/11/17 16:59 Trimethoprim/ Sulfamethoxazole (Bactrim-DS) 1 ea TWICE A DAY ORAL 02/05/17 18:00 02/09/17 17:59 02/06/17 08:31 COTY MARES Feb 06, 2017 15:10
--- NOTE | 2017-02-06 15:59 | Infectious Diseases Prog Note ---
Assessment/Plan Problems: (1) Pneumonia Assessment & Plan: with bilateral infiltrates, improving on vancomycin and levaquin empirically, now on oral Levaquin and bactrim to finish her course of therapy for 8 days . EOT 02/09/17 (2) UTI (urinary tract infection) Assessment & Plan: on levaquin, no culture was done will treat for 8 days (3) Sepsis Assessment & Plan: due to the above, on levaquin and vancomycin, pending blood culture results (4) DENNIS (acute kidney injury) Assessment & Plan: suspect due to sepsis, and dehydration, continue ivf, monitor uop (5) Colonization with VRE (vancomycin-resistant enterococcus) Assessment & Plan: keep in contact isolation Subjective Constitutional: Reports: no symptoms HEENT: Reports: no symptoms Respiratory: Reports: no symptoms Breasts: Reports: no symptoms Cardiovascular: Reports: no symptoms Gastrointestinal/Abdominal: Reports: no symptoms Genitourinary: Reports: no symptoms Neurologic: Reports: no symptoms Psychiatric: Reports: no symptoms Skin: Reports: no symptoms Endocrine: Reports: no symptoms Hematologic: Reports: no symptoms Musculoskeletal: Reports: no symptoms Allergies: Coded Allergies: PENICILLINS (Verified Allergy, Unknown, 11/01/12) Subjective she has been refusing her meds, and not cooperative with the nursing staff, not agitated.afebrile Objective Vital Signs Last 24 Hour Vital Signs Date Time Temp Pulse Resp B/P Pulse Ox O2 Delivery O2 Flow Rate FiO2 02/06/17 08:00 97.3 82 18 112/61 96 Nasal Cannula 2.0 02/06/17 07:30 85 18 Nasal Cannula 2.0 02/06/17 07:30 Nasal Cannula 2.0 02/06/17 07:30 96 Nasal Cannula 2.0 02/06/17 04:16 98.0 78 18 108/60 92 Nasal Cannula 2.0 02/05/17 20:00 98.2 80 18 110/64 96 Nasal Cannula 2.0 02/05/17 19:30 Nasal Cannula 2.0 02/05/17 19:30 80 18 Nasal Cannula 2.0 02/05/17 19:30 95 Nasal Cannula 2.0 02/05/17 16:01 97.0 81 19 108/60 97 Nasal Cannula 2.0 81 Height (Feet): 4 Height (Inches): 10.00 Weight (Pounds): 137 General Appearance: WD/WN, no acute distress HEENT: normocephalic, atraumatic, anicteric, mucous membranes moist Respiratory/Chest: chest wall non-tender, lungs clear, normal breath sounds, no respiratory distress, no accessory muscle use Cardiovascular: normal peripheral pulses, normal rate, regular rhythm, no gallop/murmur Abdomen: normal bowel sounds, soft, non tender, no organomegaly, non distended , no mass Extremities: no cyanosis, no clubbing Skin: no rash, no lesions Neurologic/Psychiatric: alert Musculoskeletal: normal muscle bulk, no effusion Microbiology Date/Time Source Procedure Growth Status 02/03/17 21:00 Wound Gram Stain - Final Resulted 02/03/17 21:00 Wound Wound Culture Pending Resulted Laboratory Tests Test 02/06/17 05:25 White Blood Count 8.8 K/UL (4.8-10.8) Red Blood Count 3.82 M/UL (4.20-5.40) L Hemoglobin 12.3 G/DL (12.0-16.0) Hematocrit 38.0 % (37.0-47.0) Mean Corpuscular Volume 99 FL (80-99) Mean Corpuscular Hemoglobin 32.2 PG (27.0-31.0) H Mean Corpuscular Hemoglobin Concent 32.4 G/DL (32.0-36.0) Red Cell Distribution Width 12.4 % (11.6-14.8) Platelet Count 285 K/UL (150-450) Mean Platelet Volume 6.4 FL (6.5-10.1) L Neutrophils (%) (Auto) 65.8 % (45.0-75.0) Lymphocytes (%) (Auto) 21.2 % (20.0-45.0) Monocytes (%) (Auto) 10.0 % (1.0-10.0) Eosinophils (%) (Auto) 2.4 % (0.0-3.0) Basophils (%) (Auto) 0.6 % (0.0-2.0) Sodium Level 138 mEQ/L (135-145) Potassium Level 4.5 mEQ/L (3.4-4.9) Chloride Level 97 mEQ/L (98-107) L Carbon Dioxide Level 29 mEQ/L (20-30) Anion Gap 12 (5-15) Blood Urea Nitrogen 21 mg/dL (7-23) Creatinine 1.0 mg/dL (0.5-0.9) H Estimat Glomerular Filtration Rate mL/min (>60) Glucose Level 111 mg/dL (74-106) H Calcium Level 8.8 mg/dL (8.6-10.2) Current Medications Medications (Trade) Dose Ordered Sig/Joon Route PRN Reason Start Time Stop Time Status Last Admin Dose Admin Acetaminophen (Tylenol) 650 mg Q4H PRN ORAL fever 02/04/17 17:00 03/06/17 16:59 Albuterol/ Ipratropium (DuoNeb 0.5-3(2.5)mg/3ml) 3 ml Q4H PRN HHN Shortness of Breath 02/04/17 17:00 02/09/17 16:59 Dextrose (Dextrose 50%) No Dose prn PRN IV hypoglycemia 02/04/17 17:00 03/06/17 16:59 Heparin Sodium (Porcine) (Heparin 5000 units/ml) 5,000 units EVERY 12 HOURS SUBQ 02/04/17 21:00 03/06/17 20:59 02/06/17 08:39 Insulin Aspart (NovoLOG) BEFORE MEALS AND HS SUBQ 02/04/17 21:00 03/06/17 20:59 02/06/17 11:39 Levofloxacin (Levaquin) 750 mg Q48H ORAL 02/06/17 09:00 02/13/17 08:59 02/06/17 08:32 Memantine (Namenda) 5 mg Q12HR ORAL 02/06/17 14:00 03/08/17 13:59 Morphine Sulfate (Morphine Sulfate) 2 mg Q4H PRN IVP Moderate Pain (Pain Scale 4-6) 02/04/17 17:00 02/11/17 16:59 Nitroglycerin (Ntg) 0.4 mg Q5MIN PRN SL Prn Chest Pain 02/04/17 16:45 03/06/17 16:44 Ondansetron HCl (Zofran) 4 mg Q6H PRN IVP Nausea & Vomiting 02/04/17 17:00 03/06/17 16:59 Polyethylene Glycol (Miralax) 17 gm DAILYPRN PRN ORAL Constipation 02/04/17 17:00 03/06/17 16:59 Temazepam (Restoril) 15 mg HSPRN PRN ORAL Insomnia 02/04/17 17:00 02/11/17 16:59 Trimethoprim/ Sulfamethoxazole (Bactrim-DS) 1 ea TWICE A DAY ORAL 02/05/17 18:00 02/09/17 17:59 02/06/17 08:31 Nico Mohan M.D. Feb 06, 2017 15:59
--- NOTE | 2017-02-06 22:30 | Progress Note ---
DATE: 02/06/2017 SUBJECTIVE: This is an 86-year-old female patient with sepsis. PLAN: I am going to continue to treat her with medications to prevent any further decline in her cognition. Chart reviewed and discussed with patient. Seen and assessed at the bedside. Vivian Armas M.D. DR: RONDA JOB#: [id number] CC:
--- NOTE | 2017-02-06 22:30 | Progress Note ---
DATE: 02/04/2017 SUBJECTIVE: This is an 86-year-old female patient. She continues to have some confusion and altered mental status and disorganized thought process secondary to progression of her medical illness. PLAN: I am going to continue her on Namenda 5 mg twice a day. Chart reviewed and discussed with staff. Vivian Armas M.D. DR: RONDA JOB#: [id number] CC:
--- NOTE | 2017-02-06 22:45 | Consultation ---
DATE OF CONSULTATION: 02/03/2017 HISTORY OF PRESENT ILLNESS: She does have some confusion and some disorganized thought process. She has got some confusion and mood lability. No logical plan for her own-self care. The main reason why she came in here was secondary to sepsis and generalized weakness as well as altered mental status. She does have altered mental status and confusion secondary to progression of medical illness. As far as she is calm and cooperative, but at times, she has had intermittent bouts of agitation and irritability. Originally, [facility]. MEDICATIONS: Current medication regimen consisting of for insomnia. ALLERGIES: To penicillin. SOCIAL HISTORY: She lives in a [facility]. Financially supported by [employer]. SUBSTANCE ABUSE HISTORY: Denies any use of any drug or alcohol use. MEDICAL HISTORY: The patient has a history of hypertension, diabetes, acute renal insufficiency and as far as her hypertension, urinary tract infection, bilateral pneumonia. MENTAL STATUS EXAMINATION: The patient is an 86-year-old female patient, psychomotor agitation. Mood is irritable, agitated. Effect guarded and restricted. Thought process disorganized and illogical. No signs for any suicidal or homicidal thoughts. Insight and judgment is poor. DIAGNOSIS: Paranoid schizophrenia with acute exacerbation. PLAN: As far as my plan for this patient, I am going to do for this patient currently is I am going to add a dose of Namenda at a dose of 5 mg twice a day to prevent any further decline in the cognition and shall continued to be followed by psychiatry throughout hospital course. Chart reviewed and discussed with staff. Seen and assessed at bedside. I would like to thank Dr. Chalo Ayala for this interesting consultation. Vivian Armas M.D. DR: DELFINA JOB#: [id number] CC:
--- NOTE | 2017-02-07 01:15 | Progress Note ---
DATE: 02/05/2017 SUBJECTIVE: The patient is an 86-year-old female patient with sepsis, altered mental status, and confusion. PLAN: I am going to continue treatment with Namenda to prevent any further decline in her cognition. Chart was reviewed and discussed with staff. Seen and assessed at the bedside. Vivian Armas M.D. DR: Michell JOB#: [id number] CC:
[2017-02-07] MEDS ORDERED: Bactrim DS (160mg/800mg) tab ORAL SCH (09:00)
--- NOTE | 2017-02-07 14:07 | Discharge Summary ---
Discharge Summary Hospital Course Date of Admission Feb 02, 2017 at 20:59 Date of Discharge Feb 06, 2017 at 16:15 Admitting Diagnosis sepsis HPI Annie Hernandez is a 86 year old female who was admitted on Feb 02, 2017 at 20:59 for Sepsis Hospital Course dc summary #[id number] Discharge Medications Continued Medications: Acetaminophen (Tylenol) 325 Mg Tablet 650 MG ORAL Q4HR PRN for PRN, #30 TAB 0 Refills Albuterol Sulfate* (Albuterol Sulfate Hhn*) 2.5 Mg/3 Ml Vial.neb 3 ML INH Q4H PRN for Shortness of Breath, EA Heparin Sod (Porcine) (Heparin Sodium*) 5 000/1 Ml Vial 5000 UNITS SUBQ EVERY 12 HOURS, VIAL Insulin Aspart (Novolog) 100 Unit/1 Ml Vial SQ ACHS Levofloxacin* (Levaquin*) 750 Mg Tablet 750 MG ORAL Q48hr for UTI for 4 Days, TAB Memantine Hcl* (Namenda*) 5 Mg Tablet 5 MG ORAL TWICE A DAY, TAB Nitroglycerin (Nitroglycerin) 0.4 Mg Tab.subl 0.4 MG SL PRN for Prn Chest Pain, TAB Ondansetron (Zofran) 4 Mg Tablet 4 MG ORAL Q6H PRN for Nausea & Vomiting, TAB Polyethylene Glycol 3350* (Polyethylene Glycol 3350*) 17 Gm Powd.pack 17 GM ORAL DAILY PRN for PRN, PACKET Temazepam (Temazepam*) 15 Mg Capsule 15 MG ORAL BEDTIME PRN for PRN, #30 CAP 0 Refills Trimethoprim/Sulfamethoxazole 160/800* (Bactrim Ds Tablet*) 1 Each Tablet 1 TAB ORAL TWICE A DAY for 4 Days, TAB Discontinued Medications: Acetaminophen* (Acetaminophen 325MG Tablet*) 325 Mg Tablet 650 MG ORAL Q6H PRN for For Pain, TAB Amlodipine Besylate (Norvasc) 2.5 Mg Tablet 2.5 MG ORAL DAILY, TAB Bimatoprost (Lumigan) 2.5 Ml Drops 1 DROP BOTH EYES DAILY, #2.5 ML 0 Refills Dextran 70/Hypromellose (Artificial Tears) 1 Each Droperette 1 EACH OP BID Docusate Sodium* (Colace*) 100 Mg Capsule 100 MG ORAL DAILY, CAP Ibuprofen* (Motrin*) 600 Mg Tablet 600 MG ORAL Q6H PRN for For Pain, #30 TAB Losartan Potassium* (Losartan Potassium*) 50 Mg Tablet 50 MG ORAL DAILY, TAB Magnesium Oxide (Magnesium) 400 Mg Capsule 400 MG PO BID, CAP Metformin HCl (Metformin HCl ER) 500 Mg [id number] 500 MG PO THREE TIMES A DAY, TAB Mirtazapine (Remeron) 15 Mg Tab.rapdis 7.5 MG ORAL BEDTIME, TAB Multivitamin With Minerals (Multivitamins With Minerals*) 1 Each Tablet 1 TAB ORAL DAILY, TAB Sitagliptin (Januvia) 100 Mg Tablet 100 MG ORAL DAILY, TAB [mylanta] () 10 ML PO EVERY 6 HOURS PRN for Nausea & Vomiting [regular insulin] () Unknown Dose SUBQ BID Discharge Condition Upon Discharge: stable Discharge Disposition Patient was discharged to SNF/Subacute Facility(03) Discharge Diagnoses: Tyron ([facility])Mara NP Feb 07, 2017 14:07
--- NOTE | 2017-02-07 17:32 | Cardiology Report ---
APPROVED REPORT EKG Measurement Heart [id number] OK [id number] Normal sinus rhythm Possible Inferior infarct, age undetermined Abnormal ECG
--- NOTE | 2017-02-08 03:15 | Discharge Summary 2 SIG ---
DATE OF ADMISSION: 02/02/2017 DATE OF DISCHARGE: 02/06/2017 REASON FOR ADMISSION: An 86-year-old female with past medical history significant for hypertension and diabetes, brought in by ambulance for abnormal laboratories from the nursing home facility. She complained of fever and chills, shortness of breath for the last two to three days, cough, phlegm, but no hemoptysis. The patient reported cough, white to yellow phlegm, and generalized weakness. She denied chest pain, abdominal pain, headache, or urinary complaints. In the emergency department, it was found that she had leukocytosis, WBC- 20.5, stable hemoglobin and hematocrit. Chest x-ray with evidence of bilateral pneumonia. The patient was afebrile. Lactic acid within normal limits. BUN- 29, creatinine- 1.1. Sodium -130. Urinalysis with evidence of possible urinary tract infection, demonstrated +1 leukocyte esterase, few bacteria. The patient was admitted for further management. ADMITTING DIAGNOSES: 1. Sepsis. 2. Bilateral pneumonia. 3. Possible urinary tract infection. 4. Acute kidney injury. 5. Hyponatremia. 6. Dehydration. 7. Diabetes mellitus. 8. Hypertension. HOSPITAL STAY: The patient was admitted. She started on IV fluids and empiric antibiotics. Infectious Disease doctor closely followed. Blood culture initially and repeated negative. Urine culture was never collected. The patient was treated empirically with antibiotics , leukocytosis resolved. On the day of discharge , no fever. Initial chest x-ray with evidence of bilateral infiltrates. Followup chest x-ray on 02/06/2017 revealed significant improvement in infiltrates. Supplemental oxygen provided on as needed basis to keep saturation above 92% . Pulmonary toilet was maintained. Antitussive provided as needed. Renal parameters, electrolytes were closely monitored. Acute kidney injury, likely prerenal, secondary to dehydration and sepsis, hyponatremia was likely secondary to dehydration. Blood sugar was managed with sliding scale of insulin and was stable. Blood pressure was closely monitored. DVT prophylaxis provided. Nut Packer seen and evaluated the patient and recommended closely monitor renal parameters, avoid nephrotoxic. Acute kidney injury resolved. The patient was agitated and irritable. Subsequently, Psychiatric consult was requested. Psychiatrist seen and evaluated the patient. He stated that her effect was guarded and restricted. Illogical thought process and disorganized, but no signs of any suicidal or homicidal thoughts, but poor overall insight and judgment. The patient was placed on Namenda 5 mg twice a day. The patient was diagnosed with paranoid schizophrenia with acute exacerbation. Leukocytosis resolved. Afebrile. Renal parameter back to normal. BUN - 21, creatinine -1.0. Sodium - 138. The patient was stable for discharge. DISCHARGE DIAGNOSES: 1. Sepsis. 2. Bilateral pneumonia. 3. Possible urinary tract infection. 4. Acute kidney injury, secondary to dehydration and sepsis, resolved. 5. Hyponatremia, due to dehydration, resolved. 6. Dehydration, resolved. 7. Diabetes mellitus. 8. Hypertension. 9. Paranoid schizophrenia with acute exacerbation. DISCHARGE MEDICATIONS: See medication reconciliation list. DISCHARGE INSTRUCTIONS: The patient was discharged to nursing home facility. FOLLOWUP: Follow up with medical doctor at the facility. Chalo Ayala D.O. [facility] CampusFrancisco N.PLenora DR: HAILEY JOB#: [id number] CC: LEO
== END 2017-02-06 16:15 | DRG 871 ==
LOC: EDBD 20:01 → EDUNIT# 20:01 → EMR 20:55 → 2E 20:59 → EDBEDREQ 21:35 → 4W 02-04 16:10
DX: A41.9 Sepsis, unspecified organism (principal); J18.9 Pneumonia, unspecified organism; N17.9 Acute kidney failure, unspecified; G93.40 Encephalopathy, unspecified; E86.0 Dehydration; E11.9 Type 2 diabetes mellitus without complications; N39.0 Urinary tract infection, site not specified; E87.1 Hypo-osmolality and hyponatremia; F20.0 Paranoid schizophrenia; Z79.4 Long term (current) use of insulin; I10 Essential (primary) hypertension; Z88.0 Allergy status to penicillin
CPT/HCPCS: 36415; 71010; 80048; 80053; 80202; 81001; 82248; 82550; 82553; 82962; 83605; 84484; 85007; 85025; 87040; 87070; 87081; 87205; 93005; 94664; 94760; J1815; S0077

== ENCOUNTER 2018-08-03 15:26 | Emergency (ER) | payer MEDICARE, MEDICAID ==
[~2018-08-03] VITALS: Ht 142.2 cm; Wt 54.4 kg
[~2018-08-03 15:26] MED LIST: ACETAMINOPHEN325 M1 ORAL; ALBUTEROL2.5 MG/3 M INH; ARTIFICIAL TEA1 EAC2 OP; BACTRIM DS TAB1 EAC1 ORAL; COLACE100 MG ORAL; HEPARIN SO5000 UNIT2 SUBQ; IBUPROFEN600 MG ORAL; JANUVIA100 MG ORAL; LEVAQUIN750 MG ORAL; LOSARTAN POTASS25 M1 PO; LOSARTAN POTASS50 MG ORAL; LUMIGAN2.5 ML BOTH EYES; MAGNESIUM400 M1 PO; METFORMIN HCL500 M5 PO; METFORMIN HCL5000 GM MC; MULTIVITAMINS1 EAC8 ORAL; NAMENDA5 MG ORAL; NITROGLYCERIN0.4 MG SL; NORVASC2.5 MG ORAL; NOVOLOG100 UNIT/5 SQ; POLYETHYLENE GL17 GM ORAL; REMERON15 M1 ORAL; TEMAZEPAM15 MG ORAL; TYLENOL EXTRA500 MG ORAL; TYLENOL325 MG ORAL; ZOFRAN4 M1 ORAL; mylanta PO; regular insulin SUBQ
[2018-08-03] MEDS ORDERED: Bacitracin Oint UD TOPIC ONE (16:15)
[2018-08-03] MEDS ORDERED: TRAMADOL HCL50 MG ORAL (16:23)
[2018-08-03] MEDS ORDERED: MULTIVITAMINS1 EA13 ORAL (16:23)
[2018-08-03] MEDS ORDERED: ALBUTEROL2.5 MG/3 M INH (16:23)
[2018-08-03] MEDS ORDERED: COLACE100 MG ORAL (16:23)
[2018-08-03] MEDS ORDERED: VITAMIN C250 MG ORAL (16:23)
[2018-08-03] MEDS ORDERED: FAMOTIDINE20 MG ORAL (16:23)
[2018-08-03] MEDS ORDERED: LUMIGAN2.5 ML BOTH EYES (16:25)
[2018-08-03] MEDS ORDERED: GERI-LANTA LIQ355 ML PO (16:25)
[2018-08-03 16:53] LABS: BASOPHILS % (AUTO) 1.2 % (0.0-2.0); EOSINOPHILS % (AUTO) 5.3 % (0.0-3.0); HEMATOCRIT 52.4 % (37.0-47.0); HEMOGLOBIN 17.4 G/DL (12.0-16.0); LYMPHOCYTES % (AUTO) 36.6 % (20.0-45.0); MEAN CORPUSCULAR VOLUME 96 FL (80-99); MONOCYTES % (AUTO) 6.9 % (1.0-10.0); PLATELET COUNT 176 K/UL (150-450); RED BLOOD COUNT 5.46 M/UL (4.20-5.40); RED CELL DISTRIBUTION WIDTH 11.8 % (11.6-14.8); WHITE BLOOD COUNT 6.8 K/UL (4.8-10.8)
[2018-08-03] MEDS ORDERED: CEPHALEXIN500 MG ORAL (17:32)
[2018-08-03] MEDS ORDERED: BACITRACIN15 GM TOPIC (17:32)
--- NOTE | 2018-08-03 17:54 | Diagnostic Imaging Report ---
History: PAIN Exam: US VENOUS RIGHT LOWER EXTREMITY Comparison: None available FINDINGS: The deep venous system of the right lower extremity appears patent and compressible with spontaneous and augmented flow without intraluminal echoes. IMPRESSION: No evidence of DVT within the right lower extremity.
--- NOTE | 2018-08-03 18:07 | Diagnostic Imaging Report ---
History: PAIN Exam: XR RIGHT TIB/FIB 2 views Comparison: None available FINDINGS: No fracture identified. No evidence of osseous lesion or periosteal reaction. Vascular calcifications noted. Appearance of patellofemoral compartment posterior throws is suggested. IMPRESSION: No fracture identified. No evidence of osseous lesion or periosteal reaction. Vascular calcifications noted. Appearance of patellofemoral compartment posterior throws is suggested.
--- NOTE | 2018-08-03 19:26 | Emergency Room Report ---
History of Present Illness General Chief Complaint: Lower Extremity Injury Source: Patient, EMS Present Illness HPI 88-year-old female presents ED for evaluation. Patient brought from halfway facility with discoloration and swelling to the right leg. Patient states that about 2 months ago she injured her leg against a piece of wood states there was an abrasion. States she's had persistent pain and swelling to the leg since. Throbbing, 5 out of 10, nonradiating. Denies fevers or chills. Denies chest pain or shortness of breath. No other aggravating relieving factors. Denies any other associated symptoms Allergies: Coded Allergies: PENICILLINS (Verified Allergy, Unknown, 11/01/12) Patient History Past Medical History: DM, HTN Past Surgical History: none Pertinent Family History: none Social History: Denies: smoking, alcohol use, drug use Last Menstrual Period: n/a Now: No Immunizations: UTD Reviewed Nursing Documentation: PMH: Agreed; PSxH: Agreed Nursing Documentation-PMH Past Medical History: No History, Except For Hx Hypertension: Yes Hx Diabetes: Yes Hx Cancer: No Hx Gastrointestinal Problems: No Hx Weakness: Yes Review of Systems All Other Systems: negative except mentioned in HPI Physical Exam Vital Signs Date Time Temp Pulse Resp B/P (MAP) Pulse Ox O2 Delivery O2 Flow Rate FiO2 08/03/18 15:33 98.1 77 18 167/69 94 Room Air Sp02 EP Interpretation: reviewed, normal General Appearance: no apparent distress, alert, GCS 15, non-toxic Head: normocephalic Eyes: bilateral eye normal inspection, bilateral eye PERRL ENT: normal ENT inspection Neck: normal inspection Respiratory: normal inspection Cardiovascular #1: normal inspection Gastrointestinal: normal inspection Rectal: deferred Genitourinary: no CVA tenderness Musculoskeletal: tender - abrasion to RLE. swelling. no discharge. no bleeding Neurologic: alert, oriented x3, responsive, motor strength/tone normal, sensory intact, speech normal Psychiatric: normal inspection Skin: abrasions - abrasion to RLE Lymphatic: normal inspection Medical Decision Making Diagnostic Impression: Primary Impression: Injury of lower extremity Qualified Codes: S89.91XA - Unspecified injury of right lower leg, initial encounter ER Course Hospital Course 88-year-old female presents to ED with redness, swelling to RLE Differential diagnoses include: Cellulitis, DVT, abscess, rash. Clinical course Patient placed on stretcher. After initial history and physical I ordered CBC, xray, venous duplex of RLE labs reviewed - no leukocytosis, Hb/Hct stable Xray of RLE no evidence of Fx Doppler US - no evidence of DVT Patient is afebrile, nontoxic. Condition is chronic. Does not require emergent hospitalization. Bacitracin, dressing applied. We'll discharge with antibiotics. Discussed with PMD Dr Ayala and he agrees with plan Diagnosis -injury of lower extremity stable and discharged to SNF. followup with PMD. return to ED if symptoms recur/worsen Labs Test 08/03/18 16:40 White Blood Count 6.8 K/UL (4.8-10.8) Red Blood Count 5.46 M/UL (4.20-5.40) Hemoglobin 17.4 G/DL (12.0-16.0) Hematocrit 52.4 % (37.0-47.0) Mean Corpuscular Volume 96 FL (80-99) Mean Corpuscular Hemoglobin 31.9 PG (27.0-31.0) Mean Corpuscular Hemoglobin Concent 33.2 G/DL (32.0-36.0) Red Cell Distribution Width 11.8 % (11.6-14.8) Platelet Count 176 K/UL (150-450) Mean Platelet Volume 7.8 FL (6.5-10.1) Neutrophils (%) (Auto) 50.0 % (45.0-75.0) Lymphocytes (%) (Auto) 36.6 % (20.0-45.0) Monocytes (%) (Auto) 6.9 % (1.0-10.0) Eosinophils (%) (Auto) 5.3 % (0.0-3.0) Basophils (%) (Auto) 1.2 % (0.0-2.0) Other X-Ray Diagnostic Results Other X-Ray Diagnostic Results : X-Ray ordered: R tibfib # of Views/Limited Vs Complete: 2 View Indication: Pain EP Interpretation: Yes Interpretation: no dislocation, no soft tissue swelling, no fractures Impression: No acute disease Electronically Signed by: Electronically signed by Hussein Kaminski MD CT/MRI/US Diagnostic Results CT/MRI/US Diagnostic Results : Imaging Test Ordered: Venous DUplex Impression No evidence of DVT Last Vital Signs Date Time Temp Pulse Resp B/P (MAP) Pulse Ox O2 Delivery O2 Flow Rate FiO2 08/03/18 15:33 98.1 77 18 167/69 94 Room Air Status: improved Disposition: XFER SNF Condition: Stable Scripts Bacitracin (Bacitracin) 28.4 Gm Oint...g. 1 APPLIC TOPIC THREE TIMES A DAY, #28.4 GM Prov: Hussein Kaminski MD 08/03/18 Cephalexin* (KEFLEX*) 500 Mg Capsule 500 MG ORAL EVERY 6 HOURS for 7 Days, CAP Prov: Hussein Kaminski MD 08/03/18 Patient Instructions: Abrasion, [id number] Hussein Kaminski MD Aug 03, 2018 19:26
[2018-08-03 21:25] VITALS: BP 132/60
== END 2018-08-03 21:30 ==
LOC: EDBD 15:26 → EMR 16:10
DX: S80.811A Abrasion, right lower leg, initial encounter (principal); W22.8XXA Striking against or struck by other objects, initial encounter; Y92.89 Other specified places as the place of occurrence of the external cause; I10 Essential (primary) hypertension; E11.9 Type 2 diabetes mellitus without complications; Z88.0 Allergy status to penicillin
CPT/HCPCS: 36415; 85025; 93971; 99284

== ENCOUNTER 2019-03-16 09:01 | Inpatient (IN) | payer MEDICARE, MEDICAID ==
[~2019-03-16] VITALS: Ht 149.9 cm; Wt 58.5 kg
[~2019-03-16 09:01] MED LIST changes: +BACITRACIN15 GM TOPIC; +CEPHALEXIN500 MG ORAL; +FAMOTIDINE20 MG ORAL; +GERI-LANTA LIQ355 ML PO; +MULTIVITAMINS1 EA13 ORAL; +TRAMADOL HCL50 MG ORAL; +VITAMIN C250 MG ORAL
--- NOTE | 2019-03-16 09:10 | NUR ---
ED Nurse Note: PT BROUGHT IN BY AMBULANCE FROM [facility]. AOX4. PER EMS, PT WAS BROUGHT IN TODAY DUE TO ELEVATED WBC. AT BEDSIDE, PT TACHYCARDIC - [id number]. DR CAMPBELL AWARE. OTHER VITALS STABLE. PT RESTING PE[facility]FULL[facility] IN [facility].
--- NOTE | 2019-03-16 09:19 | Emergency Room Report ---
History of Present Illness General Chief Complaint: Abnormal Labs Source: Medical Record Present Illness HPI Patient presents with complaints of nursing facility reported and elevated white blood cell count patient has had 2 different blood test which have continued to be elevated Patient herself is a poor historian this does limit the history of present illness Review of medical records from previous hospital facility reveals psychiatric disorder , And other underlying medical conditions There was no reports of any obvious fever documented unknown regarding vomiting or diarrhea There was no reports of cough Allergies: Coded Allergies: PENICILLINS (Verified Allergy, Unknown, 11/01/12) Patient History Limited by: medical condition Past Medical History: see triage record Reviewed Nursing Documentation: PMH: Agreed; PSxH: Agreed Nursing Documentation-PMH Hx Hypertension: Yes Hx COPD: Yes Hx Diabetes: Yes Hx Cancer: No Hx Gastrointestinal Problems: No Hx Neurological Problems: No - GEN WEAKNESS Hx Weakness: Yes Review of Systems All Other Systems: limited - Other than the ones mentioned in the history of present illness all others are reviewed however they do stay limited due to the patient's mental status Physical Exam Vital Signs Date Time Temp Pulse Resp B/P (MAP) Pulse Ox O2 Delivery O2 Flow Rate FiO2 03/16/19 09:04 98.4 74 18 110/60 (77) 97 Room Air Sp02 EP Interpretation: reviewed, normal General Appearance: no apparent distress Head: normocephalic, atraumatic Eyes: bilateral eye PERRL, bilateral eye EOMI ENT: dry mucus membranes Neck: supple, thyroid normal Respiratory: lungs clear, no respiratory distress, no retraction Cardiovascular #1: tachycardia Gastrointestinal: non tender, soft Genitourinary: no CVA tenderness Musculoskeletal: other - Patient does not follow all commands however no obvious focal deficit Neurologic: responsive - To verbal stimuli Skin: no rash Lymphatic: no adenopathy Procedures Critical Care Time Critical Care Time 40 minutes for multiple re-evaluations critical findings requiring acute intervention with concern leading to possible worsening symptoms not including any procedural time Medical Decision Making Diagnostic Impression: Primary Impression: UTI (urinary tract infection) Additional Impression: Sepsis ER Course Patient is a fairly complex patient with multiple differential to consideration including but not limited to cardiac , infectious ,cardiopulmonary and vascular emergencies Patient's blood work reveals elevated white blood cell count Patient presented tachycardic and was initiated on IV hydration urine sample also shows significant bacteria Patient initiated on antibiotics given consideration for penicillin allergy X-ray imaging shows abnormal findings no obvious acute pathology and patient admitted for continued inpatient care Labs Test 03/16/19 09:10 03/16/19 09:20 03/16/19 10:33 White Blood Count 16.5 K/UL (4.8-10.8) Red Blood Count 5.01 M/UL (4.20-5.40) Hemoglobin 16.5 G/DL (12.0-16.0) Hematocrit 49.4 % (37.0-47.0) Mean Corpuscular Volume 99 FL (80-99) Mean Corpuscular Hemoglobin 32.9 PG (27.0-31.0) Mean Corpuscular Hemoglobin Concent 33.4 G/DL (32.0-36.0) Red Cell Distribution Width 11.4 % (11.6-14.8) Platelet Count 220 K/UL (150-450) Mean Platelet Volume 8.4 FL (6.5-10.1) Neutrophils (%) (Auto) % (45.0-75.0) Lymphocytes (%) (Auto) % (20.0-45.0) Monocytes (%) (Auto) % (1.0-10.0) Eosinophils (%) (Auto) % (0.0-3.0) Basophils (%) (Auto) % (0.0-2.0) Differential Total Cells Counted 100 Neutrophils % (Manual) 88 % (45-75) Lymphocytes % (Manual) 7 % (20-45) Monocytes % (Manual) 3 % (1-10) Eosinophils % (Manual) 0 % (0-3) Basophils % (Manual) 0 % (0-2) Band Neutrophils 2 % (0-8) Platelet Estimate Adequate Platelet Morphology Normal Red Blood Cell Morphology Normal Sodium Level 136 MMOL/L (136-145) Potassium Level 4.4 MMOL/L (3.5-5.1) Chloride Level 101 MMOL/L (98-107) Carbon Dioxide Level 25 MMOL/L (21-32) Anion Gap 10 mmol/L (5-15) Blood Urea Nitrogen 43 mg/dL (7-18) Creatinine 1.4 MG/DL (0.55-1.30) Estimat Glomerular Filtration Rate mL/min (>60) Glucose Level 364 MG/DL (74-106) Lactic Acid Level 2.40 mmol/L (0.4-2.0) 2.50 mmol/L (0.66-2.22) Calcium Level 9.4 MG/DL (8.5-10.1) Total Bilirubin 1.1 MG/DL (0.2-1.0) Direct Bilirubin 0.4 MG/DL (0.0-0.3) Aspartate Amino Transf (AST/SGOT) 18 U/L (15-37) Alanine Aminotransferase (ALT/SGPT) 13 U/L (12-78) Alkaline Phosphatase 93 U/L (46-116) Total Creatine Kinase 11 U/L (26-308) Creatine Kinase MB < 0.5 NG/ML (0.0-3.6) Creatine Kinase MB Relative Index 4.5 Troponin I 0.000 ng/mL (0.000-0.056) Pro-B-Type Natriuretic Peptide 800 pg/mL (0-125) Total Protein 7.5 G/DL (6.4-8.2) Albumin 2.3 G/DL (3.4-5.0) Globulin 5.2 g/dL Albumin/Globulin Ratio 0.4 (1.0-2.7) Lipase 129 U/L (73-393) Urine Color Brown Urine Appearance Cloudy Urine pH 5 (4.5-8.0) Urine Specific Purcell 1.020 (1.005-1.035) Urine Protein 4+ (NEGATIVE) Urine Glucose (UA) Negative (NEGATIVE) Urine Ketones 1+ (NEGATIVE) Urine Blood 4+ (NEGATIVE) Urine Nitrite Negative (NEGATIVE) Urine Bilirubin 1+ (NEGATIVE) Urine Ictotest Negative (NEGATIVE) Urine Urobilinogen 4 MG/DL (0.0-1.0) Urine Leukocyte Esterase 3+ (NEGATIVE) Urine RBC 5-10 /HPF (0 - 2) Urine WBC Tntc /HPF (0 - 2) Urine Squamous Epithelial Cells Occasional /LPF Urine Bacteria Many /HPF (NONE) EKG Diagnostic Results Rate: tachycardiac Rhythm: other ST Segments: other - ST changes Rhythm Strip Diag. Results EP Interpretation: yes Rate: 110 Rhythm: no PVC's, no ectopy, other - Sinus tach Chest X-Ray Diagnostic Results Chest X-Ray Diagnostic Results : Chest X-Ray Ordered: Yes # of Views/Limited/Complete: 1 View Indication: Chest Pain EP Interpretation: Yes Interpretation: no consolidation, no pneumothorax, other - Some congestive appearance with interstitial disease, bilateral small effusions Impression: Other - Lateral effusions bilateral lung markings Electronically Signed by: Darshan Michele DO Last Vital Signs Date Time Temp Pulse Resp B/P (MAP) Pulse Ox O2 Delivery O2 Flow Rate FiO2 03/16/19 09:04 98.4 74 18 110/60 (77) 97 Room Air Status: improved Disposition: ADMITTED INPATIENT Condition: Serious Referrals: Chalo Ayala DO (PCP) Darshan Michele DO Mar 16, 2019 09:19
[2019-03-16 09:31] VITALS: BP 127/58
[2019-03-16 09:33] LABS: HEMATOCRIT 49.4 % (37.0-47.0); HEMOGLOBIN 16.5 G/DL (12.0-16.0); MEAN CORPUSCULAR VOLUME 99 FL (80-99); PLATELET COUNT 220 K/UL (150-450); RED BLOOD COUNT 5.01 M/UL (4.20-5.40); RED CELL DISTRIBUTION WIDTH 11.4 % (11.6-14.8); WHITE BLOOD COUNT 16.5 K/UL (4.8-10.8)
[2019-03-16 09:45] LABS: APPEARANCE,URINE CLOUDY; BILIRUBIN, URINE 1+ (NEGATIVE); COLOR,URINE BROWN; GLUCOSE, URINE (UA) NEGATIVE (NEGATIVE); KETONES,URINE 1+ (NEGATIVE); LEUKOCYTE ESTERASE ,URINE 3+ (NEGATIVE); NITRITE,URINE NEGATIVE (NEGATIVE); PH,URINE 5 (4.5-8.0); PROTEIN,URINE 4+ (NEGATIVE); UROBILINOGEN,URINE 4 MG/DL (0.0-1.0)
[2019-03-16 09:46] LABS: ANION GAP 10 mmol/L (5-15); BLOOD UREA NITROGEN 43 mg/dL (7-18); CALCIUM 9.4 MG/DL (8.5-10.1); CARBON DIOXIDE 25 MMOL/L (21-32); CHLORIDE 101 MMOL/L (98-107); CREATININE 1.4 MG/DL (0.55-1.30); POTASSIUM 4.4 MMOL/L (3.5-5.1); SODIUM 136 MMOL/L (136-145)
--- NOTE | 2019-03-16 09:47 | NUR ---
ED Nurse Note: PT REFUSED MRSA/CRE/VRE SWABS.
[2019-03-16 10:01] LABS: ALANINE AMINOTRANSFERASE 13 U/L (12-78); ALBUMIN 2.3 G/DL (3.4-5.0); ALBUMIN/GLOBULIN RATIO 0.4 (1.0-2.7); ALKALINE PHOSPHATASE 93 U/L (46-116); ASPARTATE AMINO TRANSFERASE 18 U/L (15-37); BILIRUBIN,TOTAL 1.1 MG/DL (0.2-1.0); CKMB < 0.5 NG/ML (0.0-3.6); CREATINE KINASE 11 U/L (26-308)
[2019-03-16] MEDS ORDERED: Clindamycin 600mg 50 ML IVPB ONE (10:15)
--- NOTE | 2019-03-16 10:16 | Diagnostic Imaging Report ---
EXAM: XR Chest, 1 View CLINICAL HISTORY: CP TECHNIQUE: Frontal view of the chest. COMPARISON: No relevant prior studies available. FINDINGS: Lungs: Accentuation of interstitial markings, reticulonodular opacities in the upper lung cortez and probable left pleural effusion. Pleural space: No pneumothorax. Heart: Cardiomegaly. Mediastinum: Unremarkable. Bones/joints: No acute fracture. IMPRESSION: Accentuation of interstitial markings, reticulonodular opacities in the upper lung cortez and probable left pleural effusion.
--- NOTE | 2019-03-16 10:22 | NUR ---
ED Nurse Note: TELE UNIT CALLED FOR PT REPORT. REPORT GIVEN TO CASE KEEN. RN READY TO ACCEPT PT. AWAITING LACTIC ACID RESULTS BEFORE PT TRANSFER.
--- NOTE | 2019-03-16 10:33 | NUR ---
ED Nurse Note: LACTIC REFLEX COLLECTED AND SENT TO LAB.
--- NOTE | 2019-03-16 10:33 | NUR ---
ED Nurse Note: PT TAKEN UP TO TELE UNIT VIA GURNEY ON [employer] ASSESSOR WITH ALL BELONGINGS RUNNING IVF AND IV ABX ACCOMPANIED BY PRIMARY RN AND EMT. VSS.
[2019-03-16 10:44] LABS: BILIRUBIN,DIRECT 0.4 MG/DL (0.0-0.3)
[2019-03-16] MEDS ORDERED: Morphine Sulfate 2mg/ml Inj(IV/IM USE ONLY) IVP PRN (11:30)
[2019-03-16] MEDS ORDERED: Albuterol/Ipratropium 3ml neb HHN PRN (11:30)
[2019-03-16] MEDS ORDERED: Miralax 17gm pkt ORAL PRN (11:30)
[2019-03-16] MEDS ORDERED: Dextrose 50% 25ml Syringe IV PRN (11:45)
[2019-03-16 12:00] VITALS: BP 112/84
[2019-03-16] MEDS ORDERED: Vancomycin 1.25gm/NS Premix IVPB ONE (12:30)
[2019-03-16] MEDS: NovoLOG Insulin Flexpen SUBQ SCH ×3 (13:23→20:54)
[2019-03-16 13:55] VITALS: BP 112/84
[2019-03-16] MEDS: Aztreonam 1gm/D5W 55ml IVPB SCH ×4 (15:38→21:40)
[2019-03-16 16:00] VITALS: BP 119/57
[2019-03-16] MEDS: Memantine 5 MG TAB ORAL SCH (17:40)
--- NOTE | 2019-03-16 19:34 | NUR ---
HAND-OFF: Report given to CASE Banks. Plan of care endorsed.
--- NOTE | 2019-03-16 19:35 | NUR ---
NURSE NOTES: Received report from Oswaldo Orozco RN. Patient in bed AAO X3 with episodes of confusion, no complaints of acute pain and kept clean, dry, and comfortable in bed. Patient kept on bedrest and is on Purewick for in continence. IV line intact and patent and placed on continuous cardiac monitoring per protocol. Safety precaution in place; siderails X3 up, call light within reach, bed in lowest position, brakes and alarm on at all times. Needs and wants anticipated. Will continue plan of care and monitor for any changes noted.
[2019-03-16 20:00] VITALS: BP 150/59
[2019-03-16] MEDS: Heparin 5000 units/ml inj SUBQ SCH (20:53)
[2019-03-16] MEDS ORDERED: Cefepime HCl 2 GM in D5W 110 ML IV SCH (21:00)
[2019-03-17] VITALS: BP 142/62
[2019-03-17] MEDS ORDERED: Vancomycin 1 GM in D5W 275 ML IV SCH (00:30)
--- NOTE | 2019-03-17 02:20 | NUR ---
NURSE NOTES: Patient in bed asleep with no S/S of distress. Will continue to monitor
[2019-03-17 04:00] VITALS: BP 157/74
[2019-03-17] MEDS: Aztreonam 1gm/D5W 55ml IVPB SCH ×6 (05:16→21:06)
[2019-03-17] MEDS: NovoLOG Insulin Flexpen SUBQ SCH ×4 (05:41→20:30)
[2019-03-17 06:12] LABS: BASOPHILS % (AUTO) 0.4 % (0.0-2.0); EOSINOPHILS % (AUTO) 0.3 % (0.0-3.0); HEMATOCRIT 42.7 % (37.0-47.0); HEMOGLOBIN 14.5 G/DL (12.0-16.0); LYMPHOCYTES % (AUTO) 8.2 % (20.0-45.0); MEAN CORPUSCULAR VOLUME 98 FL (80-99); MONOCYTES % (AUTO) 6.2 % (1.0-10.0); NEUTROPHILS % (AUTO) 84.9 % (45.0-75.0); PLATELET COUNT 184 K/UL (150-450); RED BLOOD COUNT 4.36 M/UL (4.20-5.40); RED CELL DISTRIBUTION WIDTH 11.2 % (11.6-14.8); WHITE BLOOD COUNT 15.4 K/UL (4.8-10.8)
[2019-03-17 06:44] LABS: ALANINE AMINOTRANSFERASE 15 U/L (12-78); ALBUMIN 1.9 G/DL (3.4-5.0); ALBUMIN/GLOBULIN RATIO 0.4 (1.0-2.7); ALKALINE PHOSPHATASE 94 U/L (46-116); ANION GAP 12 mmol/L (5-15); ASPARTATE AMINO TRANSFERASE 22 U/L (15-37); BILIRUBIN,TOTAL 0.7 MG/DL (0.2-1.0); BLOOD UREA NITROGEN 28 mg/dL (7-18); CALCIUM 8.8 MG/DL (8.5-10.1); CARBON DIOXIDE 22 MMOL/L (21-32); CHLORIDE 107 MMOL/L (98-107); CREATININE 0.8 MG/DL (0.55-1.30); POTASSIUM 3.7 MMOL/L (3.5-5.1); SODIUM 141 MMOL/L (136-145)
--- NOTE | 2019-03-17 07:14 | NUR ---
HAND-OFF: Report given to Oswaldo Orozco RN. Patient in bed in stable condition. Endorsed plan of care.
--- NOTE | 2019-03-17 07:43 | NUR ---
NURSE NOTES: Received report from CASE Banks. Pt is sitting up in bed, sleeping. No distress noted. Bed is in lowest position, side rails up X2, and call light is within reach. Will continue to monitor.
[2019-03-17 08:00] VITALS: BP 156/67
[2019-03-17] MEDS: Memantine 5 MG TAB ORAL SCH ×2 (08:36→17:28)
[2019-03-17] MEDS: Heparin 5000 units/ml inj SUBQ SCH ×2 (08:38→20:29)
[2019-03-17 12:00] VITALS: BP 134/68
--- NOTE | 2019-03-17 12:45 | History and Physical Report ---
DATE OF ADMISSION: 03/16/2019 DATE AND TIME SEEN: 03/17/2019 at 8 a.m. CONSULTANTS: 1. Oracio Daniel M.D. 2. Parveen Beltran M.D. CHIEF COMPLAINT: Weakness, lethargy, leukocytosis, UTI, and sepsis. BRIEF HISTORY: This is an 88-year-old female from [facility], presented with above-mentioned diagnosis, seen in [facility], admitted to telemetry for further care. Currently, calm, sleeping in bed, not talking much. REVIEW OF SYSTEMS: Unavailable. PAST MEDICAL HISTORY: Include diabetes, hypertension, weakness. PAST SURGICAL HISTORY: Unknown. MEDICATIONS: Include famotidine, cefepime, heparin, temazepam, , aztreonam, vancomycin, albuterol, morphine, and Pyridium. ALLERGIES: Penicillin. SOCIAL HISTORY: No smoking. No alcohol. No intravenous drug abuse. FAMILY HISTORY: Noncontributory. PHYSICAL EXAMINATION: GENERAL: Sleeping in bed, oriented x1, in no acute distress. VITAL SIGNS: Show temperature is 97 degrees, pulse 94, respirations 17, blood pressure 156/67. CARDIOVASCULAR: No murmur. LUNGS: Distant and clear. ABDOMEN: Bowel sounds positive. Nontender. Nondistended. EXTREMITIES: No cyanosis, clubbing, or edema. NEUROLOGIC: The patient moves all extremities, slightly weak. LABORATORY AND DIAGNOSTIC DATA: Labs at this time show white count 15.4, otherwise CBC is normal. BMP show BUN and creatinine 29/0.8. Glucose 127. Albumin 1.9. Urinalysis show 3+ leukocyte esterase. ASSESSMENT: 1. UTI. 2. Sepsis. 3. Malnutrition. 4. Hypertension. 5. Diabetes. 6. Weakness. PLAN: 1. PT/OT, dietary evaluation. 2. Blood pressure and blood sugar control. 3. Antibiotics per Infectious Disease. 4. Resume home medications. 5. CBC and BMP in the morning. Chalo Ayala D.O. DR: VLAD JOB#: [id number] CC:
[2019-03-17] MEDS ORDERED: Vancomycin 750mg/NS 275ml IVPB SCH ×2 (15:00)
[2019-03-17 16:00] VITALS: BP 132/68
--- NOTE | 2019-03-17 16:47 | Consultation ---
History of Present Illness General Date patient seen: Mar 17, 2019 Chief Complaint: Abnormal Labs Present Illness HPI 88 y/o F with hx of HTN, COPD, Dm2, [facility] resident presents to ED On 03/16 with weakness, lethargy and leukocytosis. No report of vomiting, diarrhea, fever Allergies: Coded Allergies: PENICILLINS (Verified Allergy, Unknown, 11/01/12) Medication History Scheduled Ascorbic Acid* (Vitamin C*), 250 MG ORAL TWICE A DAY, (Reported) Bacitracin (Bacitracin), 1 APPLIC TOPIC THREE TIMES A DAY Bimatoprost (Lumigan), 1 DROP BOTH EYES DAILY, (Reported) Cephalexin* (Keflex*), 500 MG ORAL EVERY 6 HOURS Docusate Sodium* (Colace*), 100 MG ORAL DAILY, (Reported) Famotidine (Famotidine), 20 MG ORAL DAILY, (Reported) Heparin Sod (Porcine) (Heparin Sodium*), 5,000 UNITS SUBQ EVERY 12 HOURS, ( Reported) Insulin Aspart (Novolog), SQ ACHS, (Reported) Levofloxacin* (Levaquin*), 750 MG ORAL Q48hr, (Reported) Mag Hydrox/Al Hydrox/Simeth (Thania-Lanta Liquid), 30 ML PO NEEDED, (Reported) Memantine Hcl* (Namenda*), 5 MG ORAL TWICE A DAY, (Reported) Multivitamin with Minerals (Multivitamins with Minerals), 1 TAB ORAL DAILY, ( Reported) Trimethoprim/Sulfamethoxazole 160/800* (Bactrim Ds Tablet*), 1 TAB ORAL TWICE A DAY, (Reported) Scheduled PRN Acetaminophen (Tylenol), 650 MG ORAL Q4HR PRN for PRN, (Reported) Albuterol Sulfate* (Albuterol Sulfate Hhn*), 3 ML INH Q4H PRN for Shortness of Breath, (Reported) Albuterol Sulfate* (Albuterol Sulfate Hhn*), 3 ML INH Q4H PRN for Shortness of Breath, (Reported) Nitroglycerin (Nitroglycerin), 0.4 MG SL for Prn Chest Pain, (Reported) Ondansetron (Zofran), 4 MG ORAL Q6H PRN for Nausea & Vomiting, (Reported) Polyethylene Glycol 3350* (Polyethylene Glycol 3350*), 17 GM ORAL DAILY PRN for PRN, (Reported) Temazepam (Temazepam*), 15 MG ORAL BEDTIME PRN for PRN, (Reported) Tramadol Hcl* (Ultram*), 50 MG ORAL BID PRN for For Pain, (Reported) Patient History Healthcare decision maker Resuscitation status Full Code Advanced Directive on File Patient History Narrative Pmhx: as above Shx: No smoking. No alcohol. No intravenous drug abuse. Fhx: non contributory Review of Systems All Other Systems: negative except mentioned in HPI Physical Exam Physical Exam Narrative General Appearance: no apparent distress Head: normocephalic, atraumatic Eyes: bilateral eye PERRL, bilateral eye EOMI ENT: dry mucus membranes Neck: supple, thyroid normal Respiratory: lungs clear, no respiratory distress, no retraction Cardiovascular : tachycardia Gastrointestinal: non tender, soft Genitourinary: no CVA tenderness Musculoskeletal: other - Patient does not follow all commands however no obvious focal deficit Neurologic: responsive - To verbal stimuli Skin: no rash Lymphatic: no adenopathy Last 24 Hour Vital Signs Date Time Temp Pulse Resp B/P (MAP) Pulse Ox O2 Delivery O2 Flow Rate FiO2 03/17/19 12:00 97.2 103 18 134/68 (90) 93 03/17/19 12:00 94 03/17/19 09:00 Room Air 03/17/19 08:00 99 03/17/19 08:00 97.6 94 17 156/67 (96) 94 03/17/19 04:00 98.0 101 18 157/74 (101) 94 03/17/19 04:00 100 03/17/19 00:00 100 03/17/19 00:00 97.6 95 20 142/62 (88) 96 03/16/19 21:00 Room Air 03/16/19 20:00 98.1 106 20 150/59 (89) 95 03/16/19 20:00 104 Intake and Output 03/16/19 03/17/19 18:59 06:59 Intake Total 120 ml 120 ml Output Total 150 ml 500 ml Balance -30 ml -380 ml Intake Oral 120 ml 120 ml Output Urine Total 150 ml 500 ml # Voids 1 # Bowel Movements 1 Laboratory Tests Test 03/17/19 04:45 03/17/19 12:18 White Blood Count 15.4 K/UL (4.8-10.8) H Red Blood Count 4.36 M/UL (4.20-5.40) Hemoglobin 14.5 G/DL (12.0-16.0) Hematocrit 42.7 % (37.0-47.0) Mean Corpuscular Volume 98 FL (80-99) Mean Corpuscular Hemoglobin 33.2 PG (27.0-31.0) H Mean Corpuscular Hemoglobin Concent 33.9 G/DL (32.0-36.0) Red Cell Distribution Width 11.2 % (11.6-14.8) L Platelet Count 184 K/UL (150-450) Mean Platelet Volume 8.1 FL (6.5-10.1) Neutrophils (%) (Auto) 84.9 % (45.0-75.0) H Lymphocytes (%) (Auto) 8.2 % (20.0-45.0) L Monocytes (%) (Auto) 6.2 % (1.0-10.0) Eosinophils (%) (Auto) 0.3 % (0.0-3.0) Basophils (%) (Auto) 0.4 % (0.0-2.0) Sodium Level 141 MMOL/L (136-145) Potassium Level 3.7 MMOL/L (3.5-5.1) Chloride Level 107 MMOL/L (98-107) Carbon Dioxide Level 22 MMOL/L (21-32) Anion Gap 12 mmol/L (5-15) Blood Urea Nitrogen 28 mg/dL (7-18) H Creatinine 0.8 MG/DL (0.55-1.30) Estimat Glomerular Filtration Rate mL/min (>60) Glucose Level 127 MG/DL (74-106) #H Calcium Level 8.8 MG/DL (8.5-10.1) Erythropoietin Pending Total Bilirubin 0.7 MG/DL (0.2-1.0) Aspartate Amino Transf (AST/SGOT) 22 U/L (15-37) Alanine Aminotransferase (ALT/SGPT) 15 U/L (12-78) Alkaline Phosphatase 94 U/L (46-116) Total Protein 6.6 G/DL (6.4-8.2) Albumin 1.9 G/DL (3.4-5.0) L Globulin 4.7 g/dL Albumin/Globulin Ratio 0.4 (1.0-2.7) L Random Vancomycin Level 9.8 ug/mL Height (Feet): 4 Height (Inches): 11.00 Weight (Pounds): 130 Medications Current Medications Medications (Trade) Dose Ordered Sig/Joon Route PRN Reason Start Time Stop Time Status Last Admin Dose Admin Acetaminophen (Tylenol) 650 mg Q4H PRN ORAL T>100.5 03/16/19 11:30 04/15/19 11:29 Albuterol/ Ipratropium (Albuterol/ Ipratropium) 3 ml Q4H PRN HHN Shortness of Breath 03/16/19 11:30 03/21/19 11:29 Aztreonam 1 gm/ Dextrose 55 ml @ 110 mls/hr EVERY 8 HOURS IVPB 03/16/19 15:00 03/23/19 14:59 03/17/19 14:09 Dextrose (Dextrose 50%) 25 ml Q30M PRN IV Hypoglycemia 03/16/19 11:45 04/15/19 11:35 Dextrose (Dextrose 50%) 50 ml Q30M PRN IV hypoglycemia 03/16/19 11:45 04/15/19 11:44 Famotidine (Pepcid) 20 mg DAILY ORAL 03/17/19 09:00 04/16/19 08:59 03/17/19 08:36 Heparin Sodium (Porcine) (Heparin 5000 units/ml) 5,000 units EVERY 12 HOURS SUBQ 03/16/19 21:00 04/15/19 20:59 03/17/19 08:38 Insulin Aspart (NovoLOG) BEFORE MEALS AND HS SUBQ 03/16/19 11:30 04/15/19 11:29 03/17/19 05:41 Memantine (Namenda) 5 mg TWICE A DAY ORAL 03/16/19 18:00 04/15/19 17:59 03/17/19 08:36 Morphine Sulfate (Morphine Sulfate) 2 mg Q4H PRN IVP Moderate Pain (Pain Scale 4-6) 03/16/19 11:30 03/23/19 11:29 Ondansetron HCl (Zofran) 4 mg Q6H PRN IVP Nausea & Vomiting 03/16/19 11:30 04/15/19 11:29 Phenazopyridine HCl (Pyridium) 100 mg DAILYPRN PRN ORAL dysuria 03/16/19 11:30 04/15/19 11:29 Polyethylene Glycol (Miralax) 17 gm DAILYPRN PRN ORAL Constipation 03/16/19 11:30 04/15/19 11:29 Temazepam (Restoril) 15 mg HSPRN PRN ORAL Insomnia 03/16/19 21:00 03/23/19 20:59 Vancomycin HCl (Vanco rx to dose) 1 ea DAILY PRN MISC . 03/16/19 11:45 04/15/19 11:44 Vancomycin HCl 750 mg/Sodium Chloride 275 ml @ 183.333 mls/hr Q24H IVPB 03/17/19 15:00 03/22/19 14:59 03/17/19 15:16 Assessment/Plan Assessment/Plan: Abx: IV Vancomycin 03/16- Aztreonam 03/16- Clindamycin x1 03/16 Assessment: Probable sepsis 2ry to UTI -u/a wbc tnct, nit neg, leuk +3; ucx >100K GNR -CXR: Accentuation of interstitial markings, reticulonodular opacities in the upper lung cortez and probable left pleural effusion. -Bcx p Afebrile Leukocytosis HTN COPD Dm2 PR resident Plan: -Continue empiric Aztreonam #2 pending UCx -D/c empiric IV Vancomycin #2 -f/u cx -Monitor CBC/CMP, temperatures Thank you for this consultation. Will continue to follow along with you. Discussed with Irene Quevedo M.D. Mar 17, 2019 16:47
--- NOTE | 2019-03-17 19:21 | NUR ---
HAND-OFF: Report given to CASE Banks. Plan of care endorsed
--- NOTE | 2019-03-17 19:29 | Consultation ---
History of Present Illness General Chief Complaint: Abnormal Labs Present Illness HPI 88 year old female with hx of DM, HTN, [facility] presented to ER because of elevated white blood cell count. Patient is a poor historian and the history of present illness is very limited. She was diagnosed to be septic and admitted to telemetry for further evaluation. Allergies: Coded Allergies: PENICILLINS (Verified Allergy, Unknown, 11/01/12) Medication History Scheduled Ascorbic Acid* (Vitamin C*), 250 MG ORAL TWICE A DAY, (Reported) Bacitracin (Bacitracin), 1 APPLIC TOPIC THREE TIMES A DAY Bimatoprost (Lumigan), 1 DROP BOTH EYES DAILY, (Reported) Cephalexin* (Keflex*), 500 MG ORAL EVERY 6 HOURS Docusate Sodium* (Colace*), 100 MG ORAL DAILY, (Reported) Famotidine (Famotidine), 20 MG ORAL DAILY, (Reported) Heparin Sod (Porcine) (Heparin Sodium*), 5,000 UNITS SUBQ EVERY 12 HOURS, ( Reported) Insulin Aspart (Novolog), SQ ACHS, (Reported) Levofloxacin* (Levaquin*), 750 MG ORAL Q48hr, (Reported) Mag Hydrox/Al Hydrox/Simeth (Thania-Lanta Liquid), 30 ML PO NEEDED, (Reported) Memantine Hcl* (Namenda*), 5 MG ORAL TWICE A DAY, (Reported) Multivitamin with Minerals (Multivitamins with Minerals), 1 TAB ORAL DAILY, ( Reported) Trimethoprim/Sulfamethoxazole 160/800* (Bactrim Ds Tablet*), 1 TAB ORAL TWICE A DAY, (Reported) Scheduled PRN Acetaminophen (Tylenol), 650 MG ORAL Q4HR PRN for PRN, (Reported) Albuterol Sulfate* (Albuterol Sulfate Hhn*), 3 ML INH Q4H PRN for Shortness of Breath, (Reported) Albuterol Sulfate* (Albuterol Sulfate Hhn*), 3 ML INH Q4H PRN for Shortness of Breath, (Reported) Nitroglycerin (Nitroglycerin), 0.4 MG SL for Prn Chest Pain, (Reported) Ondansetron (Zofran), 4 MG ORAL Q6H PRN for Nausea & Vomiting, (Reported) Polyethylene Glycol 3350* (Polyethylene Glycol 3350*), 17 GM ORAL DAILY PRN for PRN, (Reported) Temazepam (Temazepam*), 15 MG ORAL BEDTIME PRN for PRN, (Reported) Tramadol Hcl* (Ultram*), 50 MG ORAL BID PRN for For Pain, (Reported) Patient History Healthcare decision maker Resuscitation status Full Code Advanced Directive on File Past Medical/Surgical History Past Medical/Surgical History: (1) Psychosis (2) Diabetes (3) HTN (hypertension) Review of Systems All Other Systems: negative except mentioned in HPI Physical Exam General Appearance: WD/WN Lines, tubes and drains: peripheral HEENT: normocephalic, atraumatic Neck: non-tender, normal alignment Respiratory/Chest: chest wall non-tender, lungs clear Breasts: no masses Cardiovascular/Chest: normal peripheral pulses, normal rate Abdomen: normal bowel sounds, non tender Genitourinary/Rectal: normal genital exam Extremities: normal range of motion Skin Exam: normal pigmentation 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 II-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 grossly normal Last 24 Hour Vital Signs Date Time Temp Pulse Resp B/P (MAP) Pulse Ox O2 Delivery O2 Flow Rate FiO2 03/17/19 16:00 99 03/17/19 16:00 98.1 96 16 132/68 (89) 94 03/17/19 12:00 97.2 103 18 134/68 (90) 93 03/17/19 12:00 94 03/17/19 09:00 Room Air 03/17/19 08:00 99 03/17/19 08:00 97.6 94 17 156/67 (96) 94 03/17/19 04:00 98.0 101 18 157/74 (101) 94 03/17/19 04:00 100 03/17/19 00:00 100 03/17/19 00:00 97.6 95 20 142/62 (88) 96 03/16/19 21:00 Room Air 03/16/19 20:00 98.1 106 20 150/59 (89) 95 03/16/19 20:00 104 Intake and Output 03/16/19 03/17/19 18:59 06:59 Intake Total 120 ml 120 ml Output Total 150 ml 500 ml Balance -30 ml -380 ml Intake Oral 120 ml 120 ml Output Urine Total 150 ml 500 ml # Voids 1 # Bowel Movements 1 Laboratory Tests Test 03/17/19 04:45 03/17/19 12:18 White Blood Count 15.4 K/UL (4.8-10.8) H Red Blood Count 4.36 M/UL (4.20-5.40) Hemoglobin 14.5 G/DL (12.0-16.0) Hematocrit 42.7 % (37.0-47.0) Mean Corpuscular Volume 98 FL (80-99) Mean Corpuscular Hemoglobin 33.2 PG (27.0-31.0) H Mean Corpuscular Hemoglobin Concent 33.9 G/DL (32.0-36.0) Red Cell Distribution Width 11.2 % (11.6-14.8) L Platelet Count 184 K/UL (150-450) Mean Platelet Volume 8.1 FL (6.5-10.1) Neutrophils (%) (Auto) 84.9 % (45.0-75.0) H Lymphocytes (%) (Auto) 8.2 % (20.0-45.0) L Monocytes (%) (Auto) 6.2 % (1.0-10.0) Eosinophils (%) (Auto) 0.3 % (0.0-3.0) Basophils (%) (Auto) 0.4 % (0.0-2.0) Sodium Level 141 MMOL/L (136-145) Potassium Level 3.7 MMOL/L (3.5-5.1) Chloride Level 107 MMOL/L (98-107) Carbon Dioxide Level 22 MMOL/L (21-32) Anion Gap 12 mmol/L (5-15) Blood Urea Nitrogen 28 mg/dL (7-18) H Creatinine 0.8 MG/DL (0.55-1.30) Estimat Glomerular Filtration Rate mL/min (>60) Glucose Level 127 MG/DL (74-106) #H Calcium Level 8.8 MG/DL (8.5-10.1) Erythropoietin Pending Total Bilirubin 0.7 MG/DL (0.2-1.0) Aspartate Amino Transf (AST/SGOT) 22 U/L (15-37) Alanine Aminotransferase (ALT/SGPT) 15 U/L (12-78) Alkaline Phosphatase 94 U/L (46-116) Total Protein 6.6 G/DL (6.4-8.2) Albumin 1.9 G/DL (3.4-5.0) L Globulin 4.7 g/dL Albumin/Globulin Ratio 0.4 (1.0-2.7) L Random Vancomycin Level 9.8 ug/mL Height (Feet): 4 Height (Inches): 11.00 Weight (Pounds): 130 Medications Current Medications Medications (Trade) Dose Ordered Sig/Joon Route PRN Reason Start Time Stop Time Status Last Admin Dose Admin Acetaminophen (Tylenol) 650 mg Q4H PRN ORAL T>100.5 03/16/19 11:30 04/15/19 11:29 Albuterol/ Ipratropium (Albuterol/ Ipratropium) 3 ml Q4H PRN HHN Shortness of Breath 03/16/19 11:30 03/21/19 11:29 Aztreonam 1 gm/ Dextrose 55 ml @ 110 mls/hr EVERY 8 HOURS IVPB 03/16/19 15:00 03/23/19 14:59 03/17/19 14:09 Dextrose (Dextrose 50%) 25 ml Q30M PRN IV Hypoglycemia 03/16/19 11:45 04/15/19 11:35 Dextrose (Dextrose 50%) 50 ml Q30M PRN IV hypoglycemia 03/16/19 11:45 04/15/19 11:44 Famotidine (Pepcid) 20 mg DAILY ORAL 03/17/19 09:00 04/16/19 08:59 03/17/19 08:36 Heparin Sodium (Porcine) (Heparin 5000 units/ml) 5,000 units EVERY 12 HOURS SUBQ 03/16/19 21:00 04/15/19 20:59 03/17/19 08:38 Insulin Aspart (NovoLOG) BEFORE MEALS AND HS SUBQ 03/16/19 11:30 04/15/19 11:29 03/17/19 17:33 Memantine (Namenda) 5 mg TWICE A DAY ORAL 03/16/19 18:00 04/15/19 17:59 03/17/19 17:28 Morphine Sulfate (Morphine Sulfate) 2 mg Q4H PRN IVP Moderate Pain (Pain Scale 4-6) 03/16/19 11:30 03/23/19 11:29 Ondansetron HCl (Zofran) 4 mg Q6H PRN IVP Nausea & Vomiting 03/16/19 11:30 04/15/19 11:29 Phenazopyridine HCl (Pyridium) 100 mg DAILYPRN PRN ORAL dysuria 03/16/19 11:30 04/15/19 11:29 Polyethylene Glycol (Miralax) 17 gm DAILYPRN PRN ORAL Constipation 03/16/19 11:30 04/15/19 11:29 Temazepam (Restoril) 15 mg HSPRN PRN ORAL Insomnia 03/16/19 21:00 03/23/19 20:59 Assessment/Plan Problem List: (1) Sepsis ICD Codes: A41.9 - Sepsis, unspecified organism SNOMED: 79885682 (2) UTI (urinary tract infection) ICD Codes: N39.0 - Urinary tract infection, site not specified SNOMED: 30335677 (3) Diabetes ICD Codes: E11.9 - Type 2 diabetes mellitus without complications SNOMED: 19045295 (4) HTN (hypertension) ICD Codes: I10 - Essential (primary) hypertension SNOMED: 61278687 (5) Psychosis ICD Codes: F29 - Unspecified psychosis not due to a substance or known physiological condition SNOMED: 31312516 Assessment/Plan: garcia cultures iv abx iv fluids check electrolytes monitor BP dvt prophylaxis pt/ot Parveen Beltran MD Mar 17, 2019 19:29
[2019-03-17 20:00] VITALS: BP 128/66
[2019-03-18] VITALS: BP 122/69
--- NOTE | 2019-03-18 03:31 | NUR ---
NURSE NOTES: Patient asleep in bed. Will continue to monitor.
[2019-03-18 04:00] VITALS: BP 136/70
[2019-03-18] MEDS: NovoLOG Insulin Flexpen SUBQ SCH ×4 (05:41→20:15)
[2019-03-18] MEDS: Aztreonam 1gm/D5W 55ml IVPB SCH ×4 (05:41→14:21)
[2019-03-18 07:05] LABS: BASOPHILS % (AUTO) 0.4 % (0.0-2.0); EOSINOPHILS % (AUTO) 0.6 % (0.0-3.0); HEMATOCRIT 45.8 % (37.0-47.0); HEMOGLOBIN 15.2 G/DL (12.0-16.0); LYMPHOCYTES % (AUTO) 10.1 % (20.0-45.0); MEAN CORPUSCULAR VOLUME 99 FL (80-99); MONOCYTES % (AUTO) 7.6 % (1.0-10.0); NEUTROPHILS % (AUTO) 81.3 % (45.0-75.0); PLATELET COUNT 191 K/UL (150-450); RED BLOOD COUNT 4.63 M/UL (4.20-5.40); RED CELL DISTRIBUTION WIDTH 11.5 % (11.6-14.8); WHITE BLOOD COUNT 11.9 K/UL (4.8-10.8)
[2019-03-18 07:34] LABS: ANION GAP 13 mmol/L (5-15); BLOOD UREA NITROGEN 32 mg/dL (7-18); CALCIUM 8.9 MG/DL (8.5-10.1); CARBON DIOXIDE 20 MMOL/L (21-32); CHLORIDE 108 MMOL/L (98-107); POTASSIUM 3.9 MMOL/L (3.5-5.1); SODIUM 141 MMOL/L (136-145)
--- NOTE | 2019-03-18 07:37 | NUR ---
HAND-OFF: Report given to Marce Suárez RN. Patient in bed eating breakfast with no S/S of distress. Endorsed plan of care.
--- NOTE | 2019-03-18 07:54 | NUR ---
NURSE NOTES: Received report from CASE Banks. The patient is resting and having a breakfast on the bed without acute distress or shortness of breath. The patient's bed in the lowest position, call light in reach, and fall and aspiration precaution reinforced. IV site is intact and patent. Will continue plan of care.
[2019-03-18 08:00] VITALS: BP 135/78
--- NOTE | 2019-03-18 08:53 | General Progress Note ---
Assessment/Plan Problem List: (1) Malnutrition ICD Codes: E46 - Unspecified protein-calorie malnutrition SNOMED: 53720632 (2) Diabetes ICD Codes: E11.9 - Type 2 diabetes mellitus without complications SNOMED: 91884502 (3) HTN (hypertension) ICD Codes: I10 - Essential (primary) hypertension SNOMED: 35593423 (4) UTI (urinary tract infection) ICD Codes: N39.0 - Urinary tract infection, site not specified SNOMED: 91978846 (5) Sepsis ICD Codes: A41.9 - Sepsis, unspecified organism SNOMED: 99850932 Status: stable, progressing Assessment/Plan: pt diet abx cbc bmp am Subjective Constitutional: Reports: weakness Allergies: Coded Allergies: PENICILLINS (Verified Allergy, Unknown, 11/01/12) All Systems: reviewed and negative except above Subjective calm in bed eating Objective Last 24 Hour Vital Signs Date Time Temp Pulse Resp B/P (MAP) Pulse Ox O2 Delivery O2 Flow Rate FiO2 03/18/19 08:00 97.7 102 20 135/78 (97) 96 03/18/19 04:00 97.6 101 18 136/70 (92) 98 03/18/19 04:00 89 03/18/19 00:00 98.6 91 18 122/69 (86) 98 03/18/19 00:00 94 03/17/19 21:00 Room Air 03/17/19 20:00 98.2 95 18 128/66 (86) 96 03/17/19 20:00 102 03/17/19 16:00 99 03/17/19 16:00 98.1 96 16 132/68 (89) 94 03/17/19 12:00 97.2 103 18 134/68 (90) 93 03/17/19 12:00 94 03/17/19 09:00 Room Air Intake and Output 03/17/19 03/18/19 19:00 07:00 Intake Total 100 ml Output Total 400 ml Balance -300 ml Intake Oral 100 ml Output Urine Total 400 ml # Bowel Movements 1 1 Laboratory Tests 03/17/19 12:18: Random Vancomycin Level 9.8 03/18/19 05:50: White Blood Count 11.9H, Red Blood Count 4.63, Hemoglobin 15.2, Hematocrit 45.8 , Mean Corpuscular Volume 99, Mean Corpuscular Hemoglobin 32.9H, Mean Corpuscular Hemoglobin Concent 33.3, Red Cell Distribution Width 11.5L, Platelet Count 191, Mean Platelet Volume 8.0, Neutrophils (%) (Auto) 81.3H, Lymphocytes (%) (Auto) 10.1L, Monocytes (%) (Auto) 7.6, Eosinophils (%) (Auto) 0.6, Basophils (%) (Auto) 0.4, Sodium Level 141, Potassium Level 3.9, Chloride Level 108H, Carbon Dioxide Level 20L, Anion Gap 13, Blood Urea Nitrogen 32H, Creatinine 1.0, Estimat Glomerular Filtration Rate , Glucose Level 130H, Calcium Level 8.9 Height (Feet): 4 Height (Inches): 11.00 Weight (Pounds): 130 General Appearance: lethargic EENT: normal ENT inspection Neck: normal alignment Cardiovascular: normal peripheral pulses, normal rate, regular rhythm Respiratory/Chest: chest wall non-tender, lungs clear, normal breath sounds Abdomen: normal bowel sounds, non tender, soft Extremities: normal inspection Edema: no edema noted Arm (L), no edema noted Arm (R), no edema noted Leg (L), no edema noted Leg (R), no edema noted Pedal (L), no edema noted Pedal (R), no edema noted Generalized Neurologic: responsive, motor weakness Skin: normal pigmentation, warm/dry Chalo Ayala DO Mar 18, 2019 08:53
[2019-03-18] MEDS: Memantine 5 MG TAB ORAL SCH ×2 (09:12→17:20)
[2019-03-18] MEDS: Heparin 5000 units/ml inj SUBQ SCH ×2 (09:13→20:16)
--- NOTE | 2019-03-18 10:55 | Pulmonology Progress Note ---
Assessment/Plan Problems: (1) Sepsis (2) UTI (urinary tract infection) (3) Diabetes (4) HTN (hypertension) (5) Psychosis Assessment/Plan garcia cultures iv abx iv fluids check electrolytes monitor BP dvt prophylaxis pt/ot Subjective ROS Limited/Unobtainable: No Constitutional: Reports: no symptoms HEENT: Repors: no symptoms Respiratory: Reports: no symptoms Allergies: Coded Allergies: PENICILLINS (Verified Allergy, Unknown, 11/01/12) Objective Last 24 Hour Vital Signs Date Time Temp Pulse Resp B/P (MAP) Pulse Ox O2 Delivery O2 Flow Rate FiO2 03/18/19 08:00 97.7 102 20 135/78 (97) 96 03/18/19 04:00 97.6 101 18 136/70 (92) 98 03/18/19 04:00 89 03/18/19 00:00 98.6 91 18 122/69 (86) 98 03/18/19 00:00 94 03/17/19 21:00 Room Air 03/17/19 20:00 98.2 95 18 128/66 (86) 96 03/17/19 20:00 102 03/17/19 16:00 99 03/17/19 16:00 98.1 96 16 132/68 (89) 94 03/17/19 12:00 97.2 103 18 134/68 (90) 93 03/17/19 12:00 94 Intake and Output 03/17/19 03/18/19 19:00 07:00 Intake Total 100 ml Output Total 400 ml Balance -300 ml Intake Oral 100 ml Output Urine Total 400 ml # Bowel Movements 1 1 General Appearance: WD/WN HEENT: normocephalic, atraumatic Respiratory/Chest: chest wall non-tender, lungs clear Breasts: no masses Abdomen: normal bowel sounds, soft, non tender Genitourinary: normal external genitalia Skin: no rash Neurologic/Psychiatric: no motor/sensory deficits Microbiology Date/Time Source Procedure Growth Status 03/16/19 12:20 Blood Blood Culture - Preliminary NO GROWTH AFTER 24 HOURS Resulted 03/16/19 12:13 Blood Blood Culture - Preliminary NO GROWTH AFTER 24 HOURS Resulted 03/16/19 09:10 Blood Blood Culture - Preliminary NO GROWTH AFTER 24 HOURS Resulted 03/16/19 09:10 Blood Blood Culture - Preliminary NO GROWTH AFTER 24 HOURS Resulted 03/16/19 09:20 Urine,Clean Catch Urine Culture - Final Escherichia Coli Complete Laboratory Tests 03/17/19 12:18: Random Vancomycin Level 9.8 03/18/19 05:50: White Blood Count 11.9H, Red Blood Count 4.63, Hemoglobin 15.2, Hematocrit 45.8 , Mean Corpuscular Volume 99, Mean Corpuscular Hemoglobin 32.9H, Mean Corpuscular Hemoglobin Concent 33.3, Red Cell Distribution Width 11.5L, Platelet Count 191, Mean Platelet Volume 8.0, Neutrophils (%) (Auto) 81.3H, Lymphocytes (%) (Auto) 10.1L, Monocytes (%) (Auto) 7.6, Eosinophils (%) (Auto) 0.6, Basophils (%) (Auto) 0.4, Sodium Level 141, Potassium Level 3.9, Chloride Level 108H, Carbon Dioxide Level 20L, Anion Gap 13, Blood Urea Nitrogen 32H, Creatinine 1.0, Estimat Glomerular Filtration Rate , Glucose Level 130H, Calcium Level 8.9 Current Medications Medications (Trade) Dose Ordered Sig/Joon Route PRN Reason Start Time Stop Time Status Last Admin Dose Admin Acetaminophen (Tylenol) 650 mg Q4H PRN ORAL T>100.5 03/16/19 11:30 04/15/19 11:29 Albuterol/ Ipratropium (Albuterol/ Ipratropium) 3 ml Q4H PRN HHN Shortness of Breath 03/16/19 11:30 03/21/19 11:29 Aztreonam 1 gm/ Dextrose 55 ml @ 110 mls/hr EVERY 8 HOURS IVPB 03/16/19 15:00 03/23/19 14:59 03/18/19 05:41 Dextrose (Dextrose 50%) 25 ml Q30M PRN IV Hypoglycemia 03/16/19 11:45 04/15/19 11:35 Dextrose (Dextrose 50%) 50 ml Q30M PRN IV hypoglycemia 03/16/19 11:45 04/15/19 11:44 Famotidine (Pepcid) 20 mg DAILY ORAL 03/17/19 09:00 04/16/19 08:59 03/18/19 09:12 Heparin Sodium (Porcine) (Heparin 5000 units/ml) 5,000 units EVERY 12 HOURS SUBQ 03/16/19 21:00 04/15/19 20:59 03/18/19 09:13 Insulin Aspart (NovoLOG) BEFORE MEALS AND HS SUBQ 03/16/19 11:30 04/15/19 11:29 03/17/19 20:30 Memantine (Namenda) 5 mg TWICE A DAY ORAL 03/16/19 18:00 04/15/19 17:59 03/18/19 09:12 Morphine Sulfate (Morphine Sulfate) 2 mg Q4H PRN IVP Moderate Pain (Pain Scale 4-6) 03/16/19 11:30 03/23/19 11:29 Ondansetron HCl (Zofran) 4 mg Q6H PRN IVP Nausea & Vomiting 03/16/19 11:30 04/15/19 11:29 Phenazopyridine HCl (Pyridium) 100 mg DAILYPRN PRN ORAL dysuria 03/16/19 11:30 04/15/19 11:29 Polyethylene Glycol (Miralax) 17 gm DAILYPRN PRN ORAL Constipation 03/16/19 11:30 04/15/19 11:29 Temazepam (Restoril) 15 mg HSPRN PRN ORAL Insomnia 03/16/19 21:00 03/23/19 20:59 Parveen Beltran MD Mar 18, 2019 10:55
--- NOTE | 2019-03-18 11:15 | NUR ---
PT EVALUATION NOTE Patient seen for initial evaluation, see complete evaluation for details. Patient presents with generalized weakness and LE pain which affects patient's ability to perform mobility tasks. Patient requires max assist of 2 for bed mobility and unable to transfer or ambulate at this time due to weakness and pain. Patient will benefit from skilled inpatient PT intervention to increase strength, balance, safety and functional mobility. Recommend discharge to SNF once medically cleared by MD. Addendum: 03/18/19 at 1312 by JAYASHREE LLANOS PT Amended: Links added.
[2019-03-18 12:00] VITALS: BP 141/58
--- NOTE | 2019-03-18 15:24 | Hematology/Onc Progress Note ---
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 --> per id recs # HTN # COPD # Dm2 # NH resident The timing of this note does not necessarily reflect the time of the patient was seen. GREATLY APPRECIATE CONSULTATION. Subjective Constitutional: Denies: no symptoms, chills, fever, malaise, weakness, other HEENT: Denies: no symptoms, eye pain, blurred vision, tearing, double vision, ear pain, ear discharge, nose pain, nose congestion, throat pain, throat swelling, mouth pain, mouth swelling, other Cardiovascular: Denies: no symptoms, chest pain, edema, irregular heart rate, lightheadedness, palpitations, syncope, other Respiratory: Denies: no symptoms, cough, shortness of breath, SOB with excertion, SOB at rest, sputum, wheezing, other Gastrointestinal/Abdominal: Denies: no symptoms, abdomen distended, abdominal pain, black stools, tarry stools, blood in stool, constipated, diarrhea, difficulty swallowing, nausea, poor appetite, poor fluid intake, rectal bleeding , vomiting, other Genitourinary: Denies: no symptoms, burning, discharge, frequency, flank pain, hematuria, incontinence, pain, urgency, other Neurologic/Psychiatric: Denies: no symptoms, anxiety, depressed, emotional problems, headache, numbness, paresthesia, pre-existing deficit, seizure, tingling, tremors, weakness, other Endocrine: Denies: no symptoms, excessive sweating, flushing, intolerance to cold, intolerance to heat, increased hunger, increased thirst, increased urine, unexplained weight gain, unexplained weight loss, other Allergies: Coded Allergies: PENICILLINS (Verified Allergy, Unknown, 11/01/12) Subjective 03/18: no events noted, no bleeding, no chills, on aztreonam Objective Objective Current Medications Medications (Trade) Dose Ordered Sig/Joon Route PRN Reason Start Time Stop Time Status Last Admin Dose Admin Acetaminophen (Tylenol) 650 mg Q4H PRN ORAL T>100.5 03/16/19 11:30 04/15/19 11:29 Albuterol/ Ipratropium (Albuterol/ Ipratropium) 3 ml Q4H PRN HHN Shortness of Breath 03/16/19 11:30 03/21/19 11:29 Aztreonam 1 gm/ Dextrose 55 ml @ 110 mls/hr EVERY 8 HOURS IVPB 03/16/19 15:00 03/23/19 14:59 03/18/19 14:21 Dextrose (Dextrose 50%) 25 ml Q30M PRN IV Hypoglycemia 03/16/19 11:45 04/15/19 11:35 Dextrose (Dextrose 50%) 50 ml Q30M PRN IV hypoglycemia 03/16/19 11:45 04/15/19 11:44 Famotidine (Pepcid) 20 mg DAILY ORAL 03/17/19 09:00 04/16/19 08:59 03/18/19 09:12 Heparin Sodium (Porcine) (Heparin 5000 units/ml) 5,000 units EVERY 12 HOURS SUBQ 03/16/19 21:00 04/15/19 20:59 03/18/19 09:13 Insulin Aspart (NovoLOG) BEFORE MEALS AND HS SUBQ 03/16/19 11:30 04/15/19 11:29 03/18/19 12:28 Memantine (Namenda) 5 mg TWICE A DAY ORAL 03/16/19 18:00 04/15/19 17:59 03/18/19 09:12 Morphine Sulfate (Morphine Sulfate) 2 mg Q4H PRN IVP Moderate Pain (Pain Scale 4-6) 03/16/19 11:30 03/23/19 11:29 Ondansetron HCl (Zofran) 4 mg Q6H PRN IVP Nausea & Vomiting 03/16/19 11:30 04/15/19 11:29 Phenazopyridine HCl (Pyridium) 100 mg DAILYPRN PRN ORAL dysuria 03/16/19 11:30 04/15/19 11:29 Polyethylene Glycol (Miralax) 17 gm DAILYPRN PRN ORAL Constipation 03/16/19 11:30 04/15/19 11:29 Temazepam (Restoril) 15 mg HSPRN PRN ORAL Insomnia 03/16/19 21:00 03/23/19 20:59 Last 24 Hour Vital Signs Date Time Temp Pulse Resp B/P (MAP) Pulse Ox O2 Delivery O2 Flow Rate FiO2 03/18/19 12:00 99 03/18/19 12:00 97.5 99 20 141/58 (85) 95 03/18/19 09:00 Room Air 03/18/19 08:00 97.7 102 20 135/78 (97) 96 03/18/19 08:00 104 03/18/19 04:00 97.6 101 18 136/70 (92) 98 03/18/19 04:00 89 03/18/19 00:00 98.6 91 18 122/69 (86) 98 03/18/19 00:00 94 03/17/19 21:00 Room Air 03/17/19 20:00 98.2 95 18 128/66 (86) 96 03/17/19 20:00 102 03/17/19 16:00 99 03/17/19 16:00 98.1 96 16 132/68 (89) 94 03/17/19 12:00 97.2 103 18 134/68 (90) 93 03/17/19 12:00 94 03/17/19 09:00 Room Air 03/17/19 08:00 99 03/17/19 08:00 97.6 94 17 156/67 (96) 94 03/17/19 04:00 98.0 101 18 157/74 (101) 94 03/17/19 04:00 100 03/17/19 00:00 100 03/17/19 00:00 97.6 95 20 142/62 (88) 96 03/16/19 21:00 Room Air 03/16/19 20:00 98.1 106 20 150/59 (89) 95 03/16/19 20:00 104 03/16/19 16:00 97.2 87 18 119/57 (77) 95 03/16/19 16:00 88 Intake and Output 03/17/19 03/18/19 19:00 07:00 Intake Total 100 ml Output Total 400 ml Balance -300 ml Intake Oral 100 ml Output Urine Total 400 ml # Bowel Movements 1 1 Labs Test 03/16/19 09:10 03/16/19 09:20 03/16/19 10:33 03/17/19 04:45 White Blood Count 16.5 K/UL (4.8-10.8) 15.4 K/UL (4.8-10.8) Red Blood Count 5.01 M/UL (4.20-5.40) 4.36 M/UL (4.20-5.40) Hemoglobin 16.5 G/DL (12.0-16.0) 14.5 G/DL (12.0-16.0) Hematocrit 49.4 % (37.0-47.0) 42.7 % (37.0-47.0) Mean Corpuscular Volume 99 FL (80-99) 98 FL (80-99) Mean Corpuscular Hemoglobin 32.9 PG (27.0-31.0) 33.2 PG (27.0-31.0) Mean Corpuscular Hemoglobin Concent 33.4 G/DL (32.0-36.0) 33.9 G/DL (32.0-36.0) Red Cell Distribution Width 11.4 % (11.6-14.8) 11.2 % (11.6-14.8) Platelet Count 220 K/UL (150-450) 184 K/UL (150-450) Mean Platelet Volume 8.4 FL (6.5-10.1) 8.1 FL (6.5-10.1) Neutrophils (%) (Auto) % (45.0-75.0) 84.9 % (45.0-75.0) Lymphocytes (%) (Auto) % (20.0-45.0) 8.2 % (20.0-45.0) Monocytes (%) (Auto) % (1.0-10.0) 6.2 % (1.0-10.0) Eosinophils (%) (Auto) % (0.0-3.0) 0.3 % (0.0-3.0) Basophils (%) (Auto) % (0.0-2.0) 0.4 % (0.0-2.0) Differential Total Cells Counted 100 Neutrophils % (Manual) 88 % (45-75) Lymphocytes % (Manual) 7 % (20-45) Monocytes % (Manual) 3 % (1-10) Eosinophils % (Manual) 0 % (0-3) Basophils % (Manual) 0 % (0-2) Band Neutrophils 2 % (0-8) Platelet Estimate Adequate Platelet Morphology Normal Red Blood Cell Morphology Normal Sodium Level 136 MMOL/L (136-145) 141 MMOL/L (136-145) Potassium Level 4.4 MMOL/L (3.5-5.1) 3.7 MMOL/L (3.5-5.1) Chloride Level 101 MMOL/L (98-107) 107 MMOL/L (98-107) Carbon Dioxide Level 25 MMOL/L (21-32) 22 MMOL/L (21-32) Anion Gap 10 mmol/L (5-15) 12 mmol/L (5-15) Blood Urea Nitrogen 43 mg/dL (7-18) 28 mg/dL (7-18) Creatinine 1.4 MG/DL (0.55-1.30) 0.8 MG/DL (0.55-1.30) Estimat Glomerular Filtration Rate mL/min (>60) mL/min (>60) Glucose Level 364 MG/DL (74-106) 127 MG/DL (74-106) Lactic Acid Level 2.40 mmol/L (0.4-2.0) 2.50 mmol/L (0.66-2.22) Calcium Level 9.4 MG/DL (8.5-10.1) 8.8 MG/DL (8.5-10.1) Total Bilirubin 1.1 MG/DL (0.2-1.0) 0.7 MG/DL (0.2-1.0) Direct Bilirubin 0.4 MG/DL (0.0-0.3) Aspartate Amino Transf (AST/SGOT) 18 U/L (15-37) 22 U/L (15-37) Alanine Aminotransferase (ALT/SGPT) 13 U/L (12-78) 15 U/L (12-78) Alkaline Phosphatase 93 U/L (46-116) 94 U/L (46-116) Total Creatine Kinase 11 U/L (26-308) Creatine Kinase MB < 0.5 NG/ML (0.0-3.6) Creatine Kinase MB Relative Index 4.5 Troponin I 0.000 ng/mL (0.000-0.056) Pro-B-Type Natriuretic Peptide 800 pg/mL (0-125) Total Protein 7.5 G/DL (6.4-8.2) 6.6 G/DL (6.4-8.2) Albumin 2.3 G/DL (3.4-5.0) 1.9 G/DL (3.4-5.0) Globulin 5.2 g/dL 4.7 g/dL Albumin/Globulin Ratio 0.4 (1.0-2.7) 0.4 (1.0-2.7) Lipase 129 U/L (73-393) Urine Color Brown Urine Appearance Cloudy Urine pH 5 (4.5-8.0) Urine Specific Cranberry 1.020 (1.005-1.035) Urine Protein 4+ (NEGATIVE) Urine Glucose (UA) Negative (NEGATIVE) Urine Ketones 1+ (NEGATIVE) Urine Blood 4+ (NEGATIVE) Urine Nitrite Negative (NEGATIVE) Urine Bilirubin 1+ (NEGATIVE) Urine Ictotest Negative (NEGATIVE) Urine Urobilinogen 4 MG/DL (0.0-1.0) Urine Leukocyte Esterase 3+ (NEGATIVE) Urine RBC 5-10 /HPF (0 - 2) Urine WBC Tntc /HPF (0 - 2) Urine Squamous Epithelial Cells Occasional /LPF Urine Bacteria Many /HPF (NONE) Test 03/17/19 12:18 03/18/19 05:50 Random Vancomycin Level 9.8 ug/mL White Blood Count 11.9 K/UL (4.8-10.8) Red Blood Count 4.63 M/UL (4.20-5.40) Hemoglobin 15.2 G/DL (12.0-16.0) Hematocrit 45.8 % (37.0-47.0) Mean Corpuscular Volume 99 FL (80-99) Mean Corpuscular Hemoglobin 32.9 PG (27.0-31.0) Mean Corpuscular Hemoglobin Concent 33.3 G/DL (32.0-36.0) Red Cell Distribution Width 11.5 % (11.6-14.8) Platelet Count 191 K/UL (150-450) Mean Platelet Volume 8.0 FL (6.5-10.1) Neutrophils (%) (Auto) 81.3 % (45.0-75.0) Lymphocytes (%) (Auto) 10.1 % (20.0-45.0) Monocytes (%) (Auto) 7.6 % (1.0-10.0) Eosinophils (%) (Auto) 0.6 % (0.0-3.0) Basophils (%) (Auto) 0.4 % (0.0-2.0) Sodium Level 141 MMOL/L (136-145) Potassium Level 3.9 MMOL/L (3.5-5.1) Chloride Level 108 MMOL/L (98-107) Carbon Dioxide Level 20 MMOL/L (21-32) Anion Gap 13 mmol/L (5-15) Blood Urea Nitrogen 32 mg/dL (7-18) Creatinine 1.0 MG/DL (0.55-1.30) Estimat Glomerular Filtration Rate mL/min (>60) Glucose Level 130 MG/DL (74-106) Calcium Level 8.9 MG/DL (8.5-10.1) Height (Feet): 4 Height (Inches): 11.00 Weight (Pounds): 130 Objective Physical Exam: Vitals: reviewed General Appearance: NAD HEENT: normocephalic, atraumatic Neck: non-tender, normal alignment Respiratory/Chest: normal breath sounds bilaterally Cardiovascular/Chest: normal peripheral pulses, normal rate Abdomen: normal bowel sounds, soft, nontender Extremities: normal range of motion Roderick Branch MD Mar 18, 2019 15:24
--- NOTE | 2019-03-18 15:30 | NUR ---
NURSE NOTES:WOUND CARE NOTES:Pt presented on admission with non-blanchable erythema without induration/fluctuance sacrum. Both heels are non-blanchable and both heels are fluctuant. Pt verbalized tenderness when R and L heels minimally palpated. Pt noted to have an area R tibia that is garret,dry with purple borders.Pt verbalized pain at site . NO swelling or elevation in skin temp noted at affected area. Primary nurse present and pt medicated by primary nurse for pain. Recommendations:Apply Moisture Barrier paste to buttocks .Cover sacrum with Optifoam drsg. Change every 3 days and prn. Apply Cavilon Skin Barrier to both heels. Cover each heel with Optifoam drsg. Change every 7 days and PRN. Reposition at least every 2hours or as tolerated. Off-laod heels with pillow.
[2019-03-18 16:00] VITALS: BP 137/83
--- NOTE | 2019-03-18 16:45 | NUR ---
NURSE NOTES: Per Alvarez, charge nurse, the patient said that she has a chest pain. Stat EKG taken and notified to Dr. Beltran. Dr. Beltran ordered Nitro SL for chest pain. Will carry out the order. Will continue plan of care.
[2019-03-18] MEDS ORDERED: Nitroglycerin Subl 0.4mg tab SL PRN (17:00)
--- NOTE | 2019-03-18 17:12 | NUR ---
NURSE NOTES: Per patient, she does not have chest pain anymore. Will continue plan of care. Will continue to monitor the patient.
--- NOTE | 2019-03-18 18:27 | Infectious Diseases Prog Note ---
Assessment/Plan Assessment/Plan Abx: IV Vancomycin 03/16- Aztreonam 03/16- Clindamycin x1 03/16 Assessment: Probable sepsis 2ry to UTI -u/a wbc tnct, nit neg, leuk +3; ucx >100K E.coli ( R Cipro/lEvo) -CXR: Accentuation of interstitial markings, reticulonodular opacities in the upper lung cortez and probable left pleural effusion. -Bcx NTD Afebrile Leukocytosis; improving HTN COPD Dm2 NH resident Plan: -Switch empiric Aztreonam #3/7 to PO Bactrim DS 1 tab bid for UTI -03/17 SP IV Vancomycin #2 -f/u cx -Monitor CBC/CMP, temperatures Thank you for this consultation. Will continue to follow along with you. Discussed with RN Subjective Allergies: Coded Allergies: PENICILLINS (Verified Allergy, Unknown, 11/01/12) Objective Vital Signs Last 24 Hour Vital Signs Date Time Temp Pulse Resp B/P (MAP) Pulse Ox O2 Delivery O2 Flow Rate FiO2 03/18/19 16:00 97.9 101 20 137/83 (101) 96 03/18/19 16:00 106 03/18/19 12:00 99 03/18/19 12:00 97.5 99 20 141/58 (85) 95 03/18/19 09:00 Room Air 03/18/19 08:00 97.7 102 20 135/78 (97) 96 03/18/19 08:00 104 03/18/19 04:00 97.6 101 18 136/70 (92) 98 03/18/19 04:00 89 03/18/19 00:00 98.6 91 18 122/69 (86) 98 03/18/19 00:00 94 03/17/19 21:00 Room Air 03/17/19 20:00 98.2 95 18 128/66 (86) 96 03/17/19 20:00 102 Height (Feet): 4 Height (Inches): 11.00 Weight (Pounds): 130 Objective General Appearance: no apparent distress Head: normocephalic, atraumatic Eyes: bilateral eye PERRL, bilateral eye EOMI ENT: dry mucus membranes Neck: supple, thyroid normal Respiratory: lungs clear, no respiratory distress, no retraction Cardiovascular : tachycardia Gastrointestinal: non tender, soft Genitourinary: no CVA tenderness Musculoskeletal: other - Patient does not follow all commands however no obvious focal deficit Neurologic: responsive - To verbal stimuli Skin: no rash Lymphatic: no adenopathy Microbiology Date/Time Source Procedure Growth Status 03/16/19 12:20 Blood Blood Culture - Preliminary NO GROWTH AFTER 24 HOURS Resulted 03/16/19 12:13 Blood Blood Culture - Preliminary NO GROWTH AFTER 24 HOURS Resulted 03/16/19 09:10 Blood Blood Culture - Preliminary NO GROWTH AFTER 24 HOURS Resulted 03/16/19 09:10 Blood Blood Culture - Preliminary NO GROWTH AFTER 24 HOURS Resulted 03/16/19 09:20 Urine,Clean Catch Urine Culture - Final Escherichia Coli Complete Laboratory Tests Test 03/18/19 05:50 White Blood Count 11.9 K/UL (4.8-10.8) H Red Blood Count 4.63 M/UL (4.20-5.40) Hemoglobin 15.2 G/DL (12.0-16.0) Hematocrit 45.8 % (37.0-47.0) Mean Corpuscular Volume 99 FL (80-99) Mean Corpuscular Hemoglobin 32.9 PG (27.0-31.0) H Mean Corpuscular Hemoglobin Concent 33.3 G/DL (32.0-36.0) Red Cell Distribution Width 11.5 % (11.6-14.8) L Platelet Count 191 K/UL (150-450) Mean Platelet Volume 8.0 FL (6.5-10.1) Neutrophils (%) (Auto) 81.3 % (45.0-75.0) H Lymphocytes (%) (Auto) 10.1 % (20.0-45.0) L Monocytes (%) (Auto) 7.6 % (1.0-10.0) Eosinophils (%) (Auto) 0.6 % (0.0-3.0) Basophils (%) (Auto) 0.4 % (0.0-2.0) Sodium Level 141 MMOL/L (136-145) Potassium Level 3.9 MMOL/L (3.5-5.1) Chloride Level 108 MMOL/L (98-107) H Carbon Dioxide Level 20 MMOL/L (21-32) L Anion Gap 13 mmol/L (5-15) Blood Urea Nitrogen 32 mg/dL (7-18) H Creatinine 1.0 MG/DL (0.55-1.30) Estimat Glomerular Filtration Rate mL/min (>60) Glucose Level 130 MG/DL (74-106) H Calcium Level 8.9 MG/DL (8.5-10.1) Current Medications Medications (Trade) Dose Ordered Sig/Joon Route PRN Reason Start Time Stop Time Status Last Admin Dose Admin Acetaminophen (Tylenol) 650 mg Q4H PRN ORAL T>100.5 03/16/19 11:30 04/15/19 11:29 Albuterol/ Ipratropium (Albuterol/ Ipratropium) 3 ml Q4H PRN HHN Shortness of Breath 03/16/19 11:30 03/21/19 11:29 Aztreonam 1 gm/ Dextrose 55 ml @ 110 mls/hr EVERY 8 HOURS IVPB 03/16/19 15:00 03/23/19 14:59 03/18/19 14:21 Dextrose (Dextrose 50%) 25 ml Q30M PRN IV Hypoglycemia 03/16/19 11:45 04/15/19 11:35 Dextrose (Dextrose 50%) 50 ml Q30M PRN IV hypoglycemia 03/16/19 11:45 04/15/19 11:44 Famotidine (Pepcid) 20 mg DAILY ORAL 03/17/19 09:00 04/16/19 08:59 03/18/19 09:12 Heparin Sodium (Porcine) (Heparin 5000 units/ml) 5,000 units EVERY 12 HOURS SUBQ 03/16/19 21:00 04/15/19 20:59 03/18/19 09:13 Insulin Aspart (NovoLOG) BEFORE MEALS AND HS SUBQ 03/16/19 11:30 04/15/19 11:29 03/18/19 17:20 Memantine (Namenda) 5 mg TWICE A DAY ORAL 03/16/19 18:00 04/15/19 17:59 03/18/19 17:20 Morphine Sulfate (Morphine Sulfate) 2 mg Q4H PRN IVP Moderate Pain (Pain Scale 4-6) 03/16/19 11:30 03/23/19 11:29 Nitroglycerin (Ntg) 0.4 mg Q5M PRN SL Prn Chest Pain 03/18/19 17:00 04/17/19 16:59 Ondansetron HCl (Zofran) 4 mg Q6H PRN IVP Nausea & Vomiting 03/16/19 11:30 04/15/19 11:29 Phenazopyridine HCl (Pyridium) 100 mg DAILYPRN PRN ORAL dysuria 03/16/19 11:30 04/15/19 11:29 Polyethylene Glycol (Miralax) 17 gm DAILYPRN PRN ORAL Constipation 03/16/19 11:30 04/15/19 11:29 Temazepam (Restoril) 15 mg HSPRN PRN ORAL Insomnia 03/16/19 21:00 03/23/19 20:59 Irene Alberto M.D. Mar 18, 2019 18:27
--- NOTE | 2019-03-18 18:45 | NUR ---
NURSE NOTES: The patient is stable without acute distress or shortness of breath. The patient is free from chest pain. Will continue plan of care.
[2019-03-18] MEDS ORDERED: ACIDOPHILUS1 EAC6 PO (19:11)
[2019-03-18] MEDS ORDERED: LIDODERM700 M1 TOPIC (19:12)
[2019-03-18] MEDS ORDERED: MEGESTROL ACETA40 MG PO (19:18)
[2019-03-18] MEDS ORDERED: MULTIVITAMINS1 EAC2 ORAL (19:19)
[2019-03-18] MEDS ORDERED: TRAMADOL HCL50 MG ORAL (19:25)
[2019-03-18] MEDS ORDERED: MILK OF MA400 MG/51 ORAL (19:28)
[2019-03-18] MEDS ORDERED: DULCOLAX10 MG RC (19:29)
[2019-03-18] MEDS ORDERED: FLEET ENEMA133 ML RECTAL (19:31)
[2019-03-18] MEDS ORDERED: PRO-STAT LIQUID30 ML ORAL (19:33)
[2019-03-18] MEDS ORDERED: CATAPRES0.1 MG ORAL (19:35)
--- NOTE | 2019-03-18 19:48 | NUR ---
HAND-OFF: Report given to CASE Mccollum. The patient is resting on the bed without acute distress or shortness of breath. The patient denies of chest pain. The patient's bed in the lowest position, call light in reach, and fall and aspiration precaution reinforced. IV site is intact and patent. Endorsed plan of care.
--- NOTE | 2019-03-18 19:50 | NUR ---
NURSE NOTES: Received report from CASE Smith. The patient is resting at this time without acute distress nor shortness of breath. The patient's bed is in the lowest position, locked, call light in reach, and fall and aspiration precautions in place. IV site is intact and patent. Will continue plan of care.
[2019-03-18 20:05] VITALS: BP 126/66
[2019-03-18] MEDS: Bactrim SS Tab ORAL SCH (20:11)
[2019-03-18] MEDS ORDERED: Bactrim-DS 1 tab ORAL SCH (22:00)
[2019-03-19] VITALS: BP 126/51
[2019-03-19 04:00] VITALS: BP 122/54
[2019-03-19] MEDS: NovoLOG Insulin Flexpen SUBQ SCH ×4 (06:30→20:59)
--- NOTE | 2019-03-19 07:13 | NUR ---
HAND-OFF: Report given to CASE Smith.
--- NOTE | 2019-03-19 07:26 | NUR ---
NURSE NOTES: Received report from CASE Mcclendon. The patient is resting on the bed and reported that she feels hungry. No acute distress or shortness of breath noted. The patient's bed in the lowest position, call light in reach, and fall and aspiration precaution reinforced. IV site is intact and patent. Will continue plan of care.
[2019-03-19 07:29] LABS: BASOPHILS % (AUTO) 0.4 % (0.0-2.0); EOSINOPHILS % (AUTO) 0.9 % (0.0-3.0); HEMATOCRIT 39.6 % (37.0-47.0); HEMOGLOBIN 13.2 G/DL (12.0-16.0); MEAN CORPUSCULAR VOLUME 99 FL (80-99); MONOCYTES % (AUTO) 9.5 % (1.0-10.0); NEUTROPHILS % (AUTO) 76.3 % (45.0-75.0); PLATELET COUNT 191 K/UL (150-450); RED CELL DISTRIBUTION WIDTH 11.6 % (11.6-14.8); WHITE BLOOD COUNT 10.4 K/UL (4.8-10.8)
[2019-03-19 08:00] VITALS: BP 116/64
[2019-03-19 08:11] LABS: ALANINE AMINOTRANSFERASE 26 U/L (12-78); ALBUMIN 1.7 G/DL (3.4-5.0); ALBUMIN/GLOBULIN RATIO 0.4 (1.0-2.7); ALKALINE PHOSPHATASE 118 U/L (46-116); ANION GAP 12 mmol/L (5-15); ASPARTATE AMINO TRANSFERASE 31 U/L (15-37); BILIRUBIN,TOTAL 0.7 MG/DL (0.2-1.0); BLOOD UREA NITROGEN 28 mg/dL (7-18); CALCIUM 8.4 MG/DL (8.5-10.1); CARBON DIOXIDE 22 MMOL/L (21-32); CHLORIDE 110 MMOL/L (98-107); POTASSIUM 3.5 MMOL/L (3.5-5.1); SODIUM 144 MMOL/L (136-145)
[2019-03-19 08:16] LABS: PHOSPHORUS 3.1 MG/DL (2.5-4.9)
[2019-03-19] MEDS: Bactrim SS Tab ORAL SCH ×2 (09:01→20:57)
[2019-03-19] MEDS: Heparin 5000 units/ml inj SUBQ SCH ×2 (09:02→20:59)
[2019-03-19] MEDS: Memantine 5 MG TAB ORAL SCH ×2 (09:02→17:08)
--- NOTE | 2019-03-19 11:17 | Cardiology Report ---
APPROVED REPORT EKG Measurement Heart [id number] MO [id number] Sinus rhythm with premature atrial complexes Incomplete right bundle branch block Possible Inferior infarct, age undetermined T wave abnormality, consider anterior ischemia Abnormal ECG
--- NOTE | 2019-03-19 11:36 | Pulmonology Progress Note ---
Assessment/Plan Problems: (1) Sepsis (2) UTI (urinary tract infection) (3) Diabetes (4) HTN (hypertension) (5) Psychosis Assessment/Plan wbc is lower, wnl hemodynamically stable garcia cultures iv abx iv fluids check electrolytes monitor BP dvt prophylaxis pt/ot Subjective ROS Limited/Unobtainable: No Constitutional: Reports: no symptoms HEENT: Repors: no symptoms Respiratory: Reports: no symptoms Allergies: Coded Allergies: PENICILLINS (Verified Allergy, Unknown, 11/01/12) Objective Last 24 Hour Vital Signs Date Time Temp Pulse Resp B/P (MAP) Pulse Ox O2 Delivery O2 Flow Rate FiO2 03/19/19 08:00 98.1 94 18 116/64 (81) 95 03/19/19 04:00 84 03/19/19 04:00 98.6 78 18 122/54 (76) 95 03/19/19 00:00 98.6 84 18 126/51 (76) 95 03/19/19 00:00 84 03/18/19 21:00 Room Air 03/18/19 20:05 97.8 98 18 126/66 (86) 95 03/18/19 20:00 96 03/18/19 16:00 97.9 101 20 137/83 (101) 96 03/18/19 16:00 106 03/18/19 12:00 99 03/18/19 12:00 97.5 99 20 141/58 (85) 95 Intake and Output 03/18/19 03/19/19 19:00 07:00 Intake Total 500 ml Output Total 500 ml Balance 0 ml Intake Oral 500 ml Output Urine Total 500 ml # Bowel Movements 1 General Appearance: WD/WN HEENT: normocephalic, atraumatic Respiratory/Chest: chest wall non-tender, lungs clear, normal breath sounds Breasts: no masses Cardiovascular: normal peripheral pulses Abdomen: no organomegaly Genitourinary: normal external genitalia Extremities: no cyanosis Skin: no rash 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0L, Monocytes (%) (Auto) 9.5, Eosinophils (%) (Auto) 0.9, Basophils (%) (Auto) 0.4, Erythrocyte Sedimentation Rate 72H, Sodium Level 144, Potassium Level 3.5, Chloride Level 110H, Carbon Dioxide Level 22, Anion Gap 12 , Blood Urea Nitrogen 28H, Creatinine 1.0, Estimat Glomerular Filtration Rate , Glucose Level 105, Calcium Level 8.4L, Phosphorus Level 3.1, Magnesium Level 1.9 , Total Bilirubin 0.7, Aspartate Amino Transf (AST/SGOT) 31, Alanine Aminotransferase (ALT/SGPT) 26, Alkaline Phosphatase 118H, C-Reactive Protein, Quantitative 26.8H, Total Protein 6.2L, Albumin 1.7L, Globulin 4.5, Albumin/ Globulin Ratio 0.4L Current Medications Medications (Trade) Dose Ordered Sig/Joon Route PRN Reason Start Time Stop Time Status Last Admin Dose Admin Acetaminophen (Tylenol) 650 mg Q4H PRN ORAL T>100.5 03/16/19 11:30 04/15/19 11:29 Albuterol/ Ipratropium (Albuterol/ Ipratropium) 3 ml Q4H PRN HHN Shortness of Breath 03/16/19 11:30 03/21/19 11:29 Dextrose (Dextrose 50%) 25 ml Q30M PRN IV Hypoglycemia 03/16/19 11:45 04/15/19 11:35 Dextrose (Dextrose 50%) 50 ml Q30M PRN IV hypoglycemia 03/16/19 11:45 04/15/19 11:44 Famotidine (Pepcid) 20 mg DAILY ORAL 03/17/19 09:00 04/16/19 08:59 03/19/19 09:03 Heparin Sodium (Porcine) (Heparin 5000 units/ml) 5,000 units EVERY 12 HOURS SUBQ 03/16/19 21:00 04/15/19 20:59 03/19/19 09:02 Insulin Aspart (NovoLOG) BEFORE MEALS AND HS SUBQ 03/16/19 11:30 04/15/19 11:29 03/18/19 20:15 Memantine (Namenda) 5 mg TWICE A DAY ORAL 03/16/19 18:00 04/15/19 17:59 03/19/19 09:02 Morphine Sulfate (Morphine Sulfate) 2 mg Q4H PRN IVP Moderate Pain (Pain Scale 4-6) 03/16/19 11:30 03/23/19 11:29 Nitroglycerin (Ntg) 0.4 mg Q5M PRN SL Prn Chest Pain 03/18/19 17:00 04/17/19 16:59 Ondansetron HCl (Zofran) 4 mg Q6H PRN IVP Nausea & Vomiting 03/16/19 11:30 04/15/19 11:29 Phenazopyridine HCl (Pyridium) 100 mg DAILYPRN PRN ORAL dysuria 03/16/19 11:30 04/15/19 11:29 Polyethylene Glycol (Miralax) 17 gm DAILYPRN PRN ORAL Constipation 03/16/19 11:30 04/15/19 11:29 Temazepam (Restoril) 15 mg HSPRN PRN ORAL Insomnia 03/16/19 21:00 03/23/19 20:59 Trimethoprim/ Sulfamethoxazole (Bactrim Single Strength) 1 tab Q12HR ORAL 03/18/19 21:00 03/25/19 20:59 03/19/19 09:01 Parveen Beltran MD Mar 19, 2019 11:36
--- NOTE | 2019-03-19 11:41 | NUR ---
CASE MANAGEMENT:REVIEW 88YR OLD FEMALE BIBA FROM [facility] CC; ABNORMAL LABS SI: SEPSIS. TACHYCARDIA. UTI 98.4 112 18 110/60 97% ON RA WBC+16.5 IS: 1L NS BOLUS X2 IV CLINDAMYCIN IV VANCOMYCIN CHEST XRAY BLOOD CX URINE CX : TO TELEMETRY 03/19/19 SI: SEPSIS D/T E COLI UTI 98.1 94 18 116/64 95% ON RA ESR+72 BUN+28 IS: BACTRIM PO Q12 HEPARIN SQ Q12 PEPCID PO QD : TELEMETRY STATUS DCP: FROM [facility]
[2019-03-19 12:00] VITALS: BP 134/70
--- NOTE | 2019-03-19 12:25 | Infectious Diseases Prog Note ---
Assessment/Plan Assessment/Plan Assessment: Probable sepsis 2ry to UTI -u/a wbc tnct, nit neg, leuk +3; ucx >100K E.coli ( R Cipro/lEvo) -CXR: Accentuation of interstitial markings, reticulonodular opacities in the upper lung cortez and probable left pleural effusion. -Bcx NTD Afebrile Leukocytosis; SP HTN COPD Dm2 NH resident Plan: -Continue PO Bactrim DS 1 tab bid #2 (abx d #10/28) for UTI -03/18 SP Aztreonam #3 -03/17 SP IV Vancomycin #2 -03/16 SP Clindamycin x1 -f/u cx -Monitor CBC/CMP, temperatures Thank you for this consultation. Will continue to follow along with you. Discussed with RN Subjective Allergies: Coded Allergies: PENICILLINS (Verified Allergy, Unknown, 11/01/12) Subjective afebrile leukocytosis resolved Bcx NTD tachycardia improved Objective Vital Signs Last 24 Hour Vital Signs Date Time Temp Pulse Resp B/P (MAP) Pulse Ox O2 Delivery O2 Flow Rate FiO2 03/19/19 08:00 98.1 94 18 116/64 (81) 95 03/19/19 04:00 84 03/19/19 04:00 98.6 78 18 122/54 (76) 95 03/19/19 00:00 98.6 84 18 126/51 (76) 95 03/19/19 00:00 84 03/18/19 21:00 Room Air 03/18/19 20:05 97.8 98 18 126/66 (86) 95 03/18/19 20:00 96 03/18/19 16:00 97.9 101 20 137/83 (101) 96 03/18/19 16:00 106 Height (Feet): 4 Height (Inches): 11.00 Weight (Pounds): 130 Objective General Appearance: no apparent distress Head: normocephalic, atraumatic Eyes: bilateral eye PERRL, bilateral eye EOMI ENT: dry mucus membranes Neck: supple, thyroid normal Respiratory: lungs clear, no respiratory distress, no retraction Cardiovascular : tachycardia Gastrointestinal: non tender, soft Genitourinary: no CVA tenderness Musculoskeletal: other - Patient does not follow all commands however no obvious focal deficit Neurologic: responsive - To verbal stimuli Skin: no rash Lymphatic: no adenopathy Laboratory Tests Test 8/27/19 05:45 White Blood Count 10.4 K/UL (4.8-10.8) Red Blood Count 4.00 M/UL (4.20-5.40) L Hemoglobin 13.2 G/DL (12.0-16.0) Hematocrit 39.6 % (37.0-47.0) Mean Corpuscular Volume 99 FL (80-99) Mean Corpuscular Hemoglobin 32.9 PG (27.0-31.0) H Mean Corpuscular Hemoglobin Concent 33.2 G/DL (32.0-36.0) Red Cell Distribution Width 11.6 % (11.6-14.8) Platelet Count 191 K/UL (150-450) Mean Platelet Volume 7.8 FL (6.5-10.1) Neutrophils (%) (Auto) 76.3 % (45.0-75.0) H Lymphocytes (%) (Auto) 13.0 % (20.0-45.0) L Monocytes (%) (Auto) 9.5 % (1.0-10.0) Eosinophils (%) (Auto) 0.9 % (0.0-3.0) Basophils (%) (Auto) 0.4 % (0.0-2.0) Erythrocyte Sedimentation Rate 72 MM/HR (0-30) H Sodium Level 144 MMOL/L (136-145) Potassium Level 3.5 MMOL/L (3.5-5.1) Chloride Level 110 MMOL/L (98-107) H Carbon Dioxide Level 22 MMOL/L (21-32) Anion Gap 12 mmol/L (5-15) Blood Urea Nitrogen 28 mg/dL (7-18) H Creatinine 1.0 MG/DL (0.55-1.30) Estimat Glomerular Filtration Rate mL/min (>60) Glucose Level 105 MG/DL (74-106) Calcium Level 8.4 MG/DL (8.5-10.1) L Phosphorus Level 3.1 MG/DL (2.5-4.9) Magnesium Level 1.9 MG/DL (1.8-2.4) Total Bilirubin 0.7 MG/DL (0.2-1.0) Aspartate Amino Transf (AST/SGOT) 31 U/L (15-37) Alanine Aminotransferase (ALT/SGPT) 26 U/L (12-78) Alkaline Phosphatase 118 U/L (46-116) H C-Reactive Protein, Quantitative 26.8 mg/dL (0.00-0.90) H Total Protein 6.2 G/DL (6.4-8.2) L Albumin 1.7 G/DL (3.4-5.0) L Globulin 4.5 g/dL Albumin/Globulin Ratio 0.4 (1.0-2.7) L Current Medications Medications (Trade) Dose Ordered Sig/Joon Route PRN Reason Start Time Stop Time Status Last Admin Dose Admin Acetaminophen (Tylenol) 650 mg Q4H PRN ORAL T>100.5 03/16/19 11:30 04/15/19 11:29 Albuterol/ Ipratropium (Albuterol/ Ipratropium) 3 ml Q4H PRN HHN Shortness of Breath 03/16/19 11:30 03/21/19 11:29 Dextrose (Dextrose 50%) 25 ml Q30M PRN IV Hypoglycemia 03/16/19 11:45 04/15/19 11:35 Dextrose (Dextrose 50%) 50 ml Q30M PRN IV hypoglycemia 03/16/19 11:45 04/15/19 11:44 Famotidine (Pepcid) 20 mg DAILY ORAL 03/17/19 09:00 04/16/19 08:59 03/19/19 09:03 Heparin Sodium (Porcine) (Heparin 5000 units/ml) 5,000 units EVERY 12 HOURS SUBQ 03/16/19 21:00 04/15/19 20:59 03/19/19 09:02 Insulin Aspart (NovoLOG) BEFORE MEALS AND HS SUBQ 03/16/19 11:30 04/15/19 11:29 03/18/19 20:15 Memantine (Namenda) 5 mg TWICE A DAY ORAL 03/16/19 18:00 04/15/19 17:59 03/19/19 09:02 Morphine Sulfate (Morphine Sulfate) 2 mg Q4H PRN IVP Moderate Pain (Pain Scale 4-6) 03/16/19 11:30 03/23/19 11:29 Nitroglycerin (Ntg) 0.4 mg Q5M PRN SL Prn Chest Pain 03/18/19 17:00 04/17/19 16:59 Ondansetron HCl (Zofran) 4 mg Q6H PRN IVP Nausea & Vomiting 03/16/19 11:30 04/15/19 11:29 Phenazopyridine HCl (Pyridium) 100 mg DAILYPRN PRN ORAL dysuria 03/16/19 11:30 04/15/19 11:29 Polyethylene Glycol (Miralax) 17 gm DAILYPRN PRN ORAL Constipation 03/16/19 11:30 04/15/19 11:29 Temazepam (Restoril) 15 mg HSPRN PRN ORAL Insomnia 03/16/19 21:00 03/23/19 20:59 Trimethoprim/ Sulfamethoxazole (Bactrim Single Strength) 1 tab Q12HR ORAL 03/18/19 21:00 03/25/19 20:59 03/19/19 09:01 Irene Alberto M.D. Mar 19, 2019 12:25
--- NOTE | 2019-03-19 13:12 | NUR ---
NURSE NOTES: The patient is stable without acute distress or shortness of breath. The patient has transfer order to med/surg per Dr. Beltran. Will continue plan of care.
--- NOTE | 2019-03-19 13:45 | NUR ---
RD ASSESSMENT & RECOMMENDATIONS SEE CARE ACTIVITY FOR COMPLETE ASSESSMENT DAILY ESTIMATED NEEDS: Needs based on Diabetes, Sepsis, wound/ 54kg 25-35 kcals/kg 4989-8843 total kcals 1.25-2 g protein/kg 68-108 g total protein 25-30ml/kcal mL/kg 7501-8957 total fluid mLs NUTRITION DIAGNOSIS: *Increased kcal/pro needs R/T wound healing, sepsis as evidenced by pt admitted non-blanchable erythema without induration/fluctuance sacrum, adm w/ elev WBC, now wnl. . PO DIET RECOMMENDATIONS: CCHO MED/ texture as tolerated + Glucerna I can BID in between meals ADDITIONAL RECOMMENDATIONS: * Calibrated bescale wt * A1C for evaluation of glycemic control * Wound care: add KAILA BID + Vit C 250mg daily * Add snacks in b/w meals w/ current fair po intake
--- NOTE | 2019-03-19 14:46 | Hematology/Onc Progress Note ---
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 --> per id recs # HTN # COPD # Dm2 # NH resident The timing of this note does not necessarily reflect the time of the patient was seen. GREATLY APPRECIATE CONSULTATION. Subjective Allergies: Coded Allergies: PENICILLINS (Verified Allergy, Unknown, 11/01/12) All Systems: reviewed and negative except above Subjective 03/18: no events noted, no bleeding, no chills, on aztreonam 03/19: no overnight events, wbc improved, transfer to med surg planning, Objective Objective Current Medications Medications (Trade) Dose Ordered Sig/Joon Route PRN Reason Start Time Stop Time Status Last Admin Dose Admin Acetaminophen (Tylenol) 650 mg Q4H PRN ORAL T>100.5 03/16/19 11:30 04/15/19 11:29 Albuterol/ Ipratropium (Albuterol/ Ipratropium) 3 ml Q4H PRN HHN Shortness of Breath 03/16/19 11:30 03/21/19 11:29 Dextrose (Dextrose 50%) 25 ml Q30M PRN IV Hypoglycemia 03/16/19 11:45 04/15/19 11:35 Dextrose (Dextrose 50%) 50 ml Q30M PRN IV hypoglycemia 03/16/19 11:45 04/15/19 11:44 Famotidine (Pepcid) 20 mg DAILY ORAL 03/17/19 09:00 04/16/19 08:59 03/19/19 09:03 Heparin Sodium (Porcine) (Heparin 5000 units/ml) 5,000 units EVERY 12 HOURS SUBQ 03/16/19 21:00 04/15/19 20:59 03/19/19 09:02 Insulin Aspart (NovoLOG) BEFORE MEALS AND HS SUBQ 03/16/19 11:30 04/15/19 11:29 03/19/19 12:29 Memantine (Namenda) 5 mg TWICE A DAY ORAL 03/16/19 18:00 04/15/19 17:59 03/19/19 09:02 Morphine Sulfate (Morphine Sulfate) 2 mg Q4H PRN IVP Moderate Pain (Pain Scale 4-6) 03/16/19 11:30 03/23/19 11:29 Nitroglycerin (Ntg) 0.4 mg Q5M PRN SL Prn Chest Pain 03/18/19 17:00 04/17/19 16:59 Ondansetron HCl (Zofran) 4 mg Q6H PRN IVP Nausea & Vomiting 03/16/19 11:30 04/15/19 11:29 Phenazopyridine HCl (Pyridium) 100 mg DAILYPRN PRN ORAL dysuria 03/16/19 11:30 04/15/19 11:29 Polyethylene Glycol (Miralax) 17 gm DAILYPRN PRN ORAL Constipation 03/16/19 11:30 04/15/19 11:29 Temazepam (Restoril) 15 mg HSPRN PRN ORAL Insomnia 03/16/19 21:00 03/23/19 20:59 Trimethoprim/ Sulfamethoxazole (Bactrim Single Strength) 1 tab Q12HR ORAL 03/18/19 21:00 03/25/19 20:59 03/19/19 09:01 Last 24 Hour Vital Signs Date Time Temp Pulse Resp B/P (MAP) Pulse Ox O2 Delivery O2 Flow Rate FiO2 03/19/19 12:00 98.5 92 18 134/70 (91) 96 03/19/19 12:00 88 03/19/19 09:00 Room Air 03/19/19 08:00 98.1 94 18 116/64 (81) 95 03/19/19 08:00 94 03/19/19 04:00 84 03/19/19 04:00 98.6 78 18 122/54 (76) 95 03/19/19 00:00 98.6 84 18 126/51 (76) 95 03/19/19 00:00 84 03/18/19 21:00 Room Air 03/18/19 20:05 97.8 98 18 126/66 (86) 95 03/18/19 20:00 96 03/18/19 16:00 97.9 101 20 137/83 (101) 96 03/18/19 16:00 106 03/18/19 12:00 99 03/18/19 12:00 97.5 99 20 141/58 (85) 95 03/18/19 09:00 Room Air 03/18/19 08:00 97.7 102 20 135/78 (97) 96 03/18/19 08:00 104 03/18/19 04:00 97.6 101 18 136/70 (92) 98 03/18/19 04:00 89 03/18/19 00:00 98.6 91 18 122/69 (86) 98 03/18/19 00:00 94 03/17/19 21:00 Room Air 03/17/19 20:00 98.2 95 18 128/66 (86) 96 03/17/19 20:00 102 03/17/19 16:00 99 03/17/19 16:00 98.1 96 16 132/68 (89) 94 Intake and Output 03/18/19 03/19/19 19:00 07:00 Intake Total 500 ml Output Total 500 ml Balance 0 ml Intake Oral 500 ml Output Urine Total 500 ml # Bowel Movements 1 Labs Test 03/17/19 04:45 03/17/19 12:18 03/18/19 05:50 03/19/19 05:45 White Blood Count 15.4 K/UL (4.8-10.8) 11.9 K/UL (4.8-10.8) 10.4 K/UL (4.8-10.8) Red Blood Count 4.36 M/UL (4.20-5.40) 4.63 M/UL (4.20-5.40) 4.00 M/UL (4.20-5.40) Hemoglobin 14.5 G/DL (12.0-16.0) 15.2 G/DL (12.0-16.0) 13.2 G/DL (12.0-16.0) Hematocrit 42.7 % (37.0-47.0) 45.8 % (37.0-47.0) 39.6 % (37.0-47.0) Mean Corpuscular Volume 98 FL (80-99) 99 FL (80-99) 99 FL (80-99) Mean Corpuscular Hemoglobin 33.2 PG (27.0-31.0) 32.9 PG (27.0-31.0) 32.9 PG (27.0-31.0) Mean Corpuscular Hemoglobin Concent 33.9 G/DL (32.0-36.0) 33.3 G/DL (32.0-36.0) 33.2 G/DL (32.0-36.0) Red Cell Distribution Width 11.2 % (11.6-14.8) 11.5 % (11.6-14.8) 11.6 % (11.6-14.8) Platelet Count 184 K/UL (150-450) 191 K/UL (150-450) 191 K/UL (150-450) Mean Platelet Volume 8.1 FL (6.5-10.1) 8.0 FL (6.5-10.1) 7.8 FL (6.5-10.1) Neutrophils (%) (Auto) 84.9 % (45.0-75.0) 81.3 % (45.0-75.0) 76.3 % (45.0-75.0) Lymphocytes (%) (Auto) 8.2 % (20.0-45.0) 10.1 % (20.0-45.0) 13.0 % (20.0-45.0) Monocytes (%) (Auto) 6.2 % (1.0-10.0) 7.6 % (1.0-10.0) 9.5 % (1.0-10.0) Eosinophils (%) (Auto) 0.3 % (0.0-3.0) 0.6 % (0.0-3.0) 0.9 % (0.0-3.0) Basophils (%) (Auto) 0.4 % (0.0-2.0) 0.4 % (0.0-2.0) 0.4 % (0.0-2.0) Sodium Level 141 MMOL/L (136-145) 141 MMOL/L (136-145) 144 MMOL/L (136-145) Potassium Level 3.7 MMOL/L (3.5-5.1) 3.9 MMOL/L (3.5-5.1) 3.5 MMOL/L (3.5-5.1) Chloride Level 107 MMOL/L (98-107) 108 MMOL/L (98-107) 110 MMOL/L (98-107) Carbon Dioxide Level 22 MMOL/L (21-32) 20 MMOL/L (21-32) 22 MMOL/L (21-32) Anion Gap 12 mmol/L (5-15) 13 mmol/L (5-15) 12 mmol/L (5-15) Blood Urea Nitrogen 28 mg/dL (7-18) 32 mg/dL (7-18) 28 mg/dL (7-18) Creatinine 0.8 MG/DL (0.55-1.30) 1.0 MG/DL (0.55-1.30) 1.0 MG/DL (0.55-1.30) Estimat Glomerular Filtration Rate mL/min (>60) mL/min (>60) mL/min (>60) Glucose Level 127 MG/DL (74-106) 130 MG/DL (74-106) 105 MG/DL (74-106) Calcium Level 8.8 MG/DL (8.5-10.1) 8.9 MG/DL (8.5-10.1) 8.4 MG/DL (8.5-10.1) Total Bilirubin 0.7 MG/DL (0.2-1.0) 0.7 MG/DL (0.2-1.0) Aspartate Amino Transf (AST/SGOT) 22 U/L (15-37) 31 U/L (15-37) Alanine Aminotransferase (ALT/SGPT) 15 U/L (12-78) 26 U/L (12-78) Alkaline Phosphatase 94 U/L (46-116) 118 U/L (46-116) Total Protein 6.6 G/DL (6.4-8.2) 6.2 G/DL (6.4-8.2) Albumin 1.9 G/DL (3.4-5.0) 1.7 G/DL (3.4-5.0) Globulin 4.7 g/dL 4.5 g/dL Albumin/Globulin Ratio 0.4 (1.0-2.7) 0.4 (1.0-2.7) Random Vancomycin Level 9.8 ug/mL Erythrocyte Sedimentation Rate 72 MM/HR (0-30) Phosphorus Level 3.1 MG/DL (2.5-4.9) Magnesium Level 1.9 MG/DL (1.8-2.4) C-Reactive Protein, Quantitative 26.8 mg/dL (0.00-0.90) Height (Feet): 4 Height (Inches): 11.00 Weight (Pounds): 130 Objective Physical Exam: Vitals: reviewed General Appearance: NAD HEENT: normocephalic, atraumatic Neck: non-tender, normal alignment Respiratory/Chest: normal breath sounds bilaterally Cardiovascular/Chest: normal peripheral pulses, normal rate Abdomen: normal bowel sounds, soft, nontender Extremities: normal range of motion Roderick Branch MD Mar 19, 2019 14:46
--- NOTE | 2019-03-19 14:50 | General Progress Note ---
Assessment/Plan Problem List: (1) Malnutrition ICD Codes: E46 - Unspecified protein-calorie malnutrition SNOMED: 05025460 (2) Diabetes ICD Codes: E11.9 - Type 2 diabetes mellitus without complications SNOMED: 27716511 (3) HTN (hypertension) ICD Codes: I10 - Essential (primary) hypertension SNOMED: 11315000 (4) UTI (urinary tract infection) ICD Codes: N39.0 - Urinary tract infection, site not specified SNOMED: 89940164 (5) Sepsis ICD Codes: A41.9 - Sepsis, unspecified organism SNOMED: 93759089 Status: stable, progressing Assessment/Plan: pt diet abx gi eval cbc bmp am Subjective Constitutional: Reports: weakness Allergies: Coded Allergies: PENICILLINS (Verified Allergy, Unknown, 11/01/12) All Systems: reviewed and negative except above Subjective calm in bed sl abd pain Objective Last 24 Hour Vital Signs Date Time Temp Pulse Resp B/P (MAP) Pulse Ox O2 Delivery O2 Flow Rate FiO2 03/19/19 12:00 98.5 92 18 134/70 (91) 96 03/19/19 12:00 88 03/19/19 09:00 Room Air 03/19/19 08:00 98.1 94 18 116/64 (81) 95 03/19/19 08:00 94 03/19/19 04:00 84 03/19/19 04:00 98.6 78 18 122/54 (76) 95 03/19/19 00:00 98.6 84 18 126/51 (76) 95 03/19/19 00:00 84 03/18/19 21:00 Room Air 03/18/19 20:05 97.8 98 18 126/66 (86) 95 03/18/19 20:00 96 03/18/19 16:00 97.9 101 20 137/83 (101) 96 03/18/19 16:00 106 Intake and Output 03/18/19 03/19/19 19:00 07:00 Intake Total 500 ml Output Total 500 ml Balance 0 ml Intake Oral 500 ml Output Urine Total 500 ml # Bowel Movements 1 Laboratory Tests 03/19/19 05:45: White Blood Count 10.4, Red Blood Count 4.00L, Hemoglobin 13.2, Hematocrit 39.6 , Mean Corpuscular Volume 99, Mean Corpuscular Hemoglobin 32.9H, Mean Corpuscular Hemoglobin Concent 33.2, Red Cell Distribution Width 11.6, Platelet Count 191, Mean Platelet Volume 7.8, Neutrophils (%) (Auto) 76.3H, Lymphocytes ( %) (Auto) 13.0L, Monocytes (%) (Auto) 9.5, Eosinophils (%) (Auto) 0.9, Basophils (%) (Auto) 0.4, Erythrocyte Sedimentation Rate 72H, Sodium Level 144, Potassium Level 3.5, Chloride Level 110H, Carbon Dioxide Level 22, Anion Gap 12 , Blood Urea Nitrogen 28H, Creatinine 1.0, Estimat Glomerular Filtration Rate , Glucose Level 105, Calcium Level 8.4L, Phosphorus Level 3.1, Magnesium Level 1.9 , Total Bilirubin 0.7, Aspartate Amino Transf (AST/SGOT) 31, Alanine Aminotransferase (ALT/SGPT) 26, Alkaline Phosphatase 118H, C-Reactive Protein, Quantitative 26.8H, Total Protein 6.2L, Albumin 1.7L, Globulin 4.5, Albumin/ Globulin Ratio 0.4L Height (Feet): 4 Height (Inches): 11.00 Weight (Pounds): 130 General Appearance: lethargic EENT: normal ENT inspection Neck: normal alignment Cardiovascular: normal peripheral pulses, normal rate, regular rhythm Respiratory/Chest: chest wall non-tender, lungs clear, normal breath sounds Abdomen: normal bowel sounds, non tender, soft Extremities: normal inspection Edema: no edema noted Arm (L), no edema noted Arm (R), no edema noted Leg (L), no edema noted Leg (R), no edema noted Pedal (L), no edema noted Pedal (R), no edema noted Generalized Neurologic: responsive, motor weakness Skin: normal pigmentation, warm/dry Chalo Ayala DO Mar 19, 2019 14:50
--- NOTE | 2019-03-19 15:02 | NUR ---
HAND-OFF: Report given to CASE Love. The patient is stable without acute distress or shortness of breath. The patient has transfer order to med/surg and awaiting for the bed. The patient's bed in the lowest position, call light in reach, and fall and aspiration precaution reinforced. Endoresed plan of care.
--- NOTE | 2019-03-19 15:04 | NUR ---
NURSE NOTES: Report received from CASE Figueroa. Pt is in stable condition. No pain/SOB noted.
[2019-03-19 16:00] VITALS: BP 115/69
--- NOTE | 2019-03-19 19:09 | NUR ---
HAND-OFF: Report given to CASE Diaz. Pt is in stable condition; plan of care endorsed.
--- NOTE | 2019-03-19 19:17 | NUR ---
NURSE NOTES: Pt received from CASE Love alert and oriented x4 with no acute s/s of distress noted. IV site asymptomatic and patent, saline lock. Bed in lowest position, bed alarm on. Call light and belongings within reach.
[2019-03-19 20:00] VITALS: BP 129/79
[2019-03-20] VITALS (7 sets, daily range): BP systolic 106–127; BP diastolic 65–79
[2019-03-20] MEDS ORDERED: Nitroglycerin Subl 0.4mg tab SL PRN (04:00)
--- NOTE | 2019-03-20 04:26 | NUR ---
TRANSFER TO FLOOR: Patient transferred to [facility], per Dr. Beltran. Report given to CASE Dwyer. Belongings and medications given to CASE Dwyer. Pt transferred in stable condition, VS stable.
--- NOTE | 2019-03-20 04:45 | NUR ---
NURSE NOTES: Patient transferred from tele to med surg floor at 0427. Report given by CASE Diaz. Patient awake and alert x3, Turkmen speaking. On room air with no signs of distress. VS stable. IV intact. Wound pics taken. Belongings checked and accounted for. Purewick intact. Bed locked and in lowest position. Bed alarm on. Call light in reach. Will continue to monitor.
[2019-03-20] MEDS: NovoLOG Insulin Flexpen SUBQ SCH ×5 (06:18→22:20)
[2019-03-20 06:51] LABS: ANION GAP 12 mmol/L (5-15); BLOOD UREA NITROGEN 19 mg/dL (7-18); CALCIUM 8.5 MG/DL (8.5-10.1); CARBON DIOXIDE 22 MMOL/L (21-32); CHLORIDE 109 MMOL/L (98-107); CREATININE 0.9 MG/DL (0.55-1.30); POTASSIUM 3.7 MMOL/L (3.5-5.1); SODIUM 143 MMOL/L (136-145)
[2019-03-20 06:53] LABS: BASOPHILS % (AUTO) 0.4 % (0.0-2.0); HEMATOCRIT 41.3 % (37.0-47.0); HEMOGLOBIN 13.9 G/DL (12.0-16.0); LYMPHOCYTES % (AUTO) 15.5 % (20.0-45.0); MEAN CORPUSCULAR VOLUME 98 FL (80-99); MONOCYTES % (AUTO) 9.6 % (1.0-10.0); NEUTROPHILS % (AUTO) 73.5 % (45.0-75.0); PLATELET COUNT 204 K/UL (150-450); RED BLOOD COUNT 4.21 M/UL (4.20-5.40); RED CELL DISTRIBUTION WIDTH 11.2 % (11.6-14.8); WHITE BLOOD COUNT 8.6 K/UL (4.8-10.8)
[2019-03-20] MEDS ORDERED: Morphine Sulfate 2mg/ml Inj(IV/IM USE ONLY) IVP PRN (07:30)
[2019-03-20] MEDS ORDERED: Albuterol/Ipratropium 3ml neb HHN PRN (07:30)
--- NOTE | 2019-03-20 07:50 | NUR ---
HAND-OFF: Report given to CASE Obrien.
--- NOTE | 2019-03-20 07:51 | NUR ---
NURSE NOTES: Received pt in bed, awake. Welsh speaking. Room air. No s/s of pain/distress. IV on R AC 20g intact, and patent, with saline lock. Side rails x2. Bed in the lowest, locked, and alarm on. Call light within reach. Will continue to monitor
--- NOTE | 2019-03-20 08:01 | NUR ---
DISCHARGE PLANNING FAXED CLINICALS TO [facility] T: [phone] WAITING FOR ACCEPTANCE AND ASSIGNED ROOM NUMBER CLEARED BY DR LYNN AND DR MARES FOR DISCHARGE
[2019-03-20] MEDS: Bactrim SS Tab ORAL SCH ×2 (08:47→21:23)
[2019-03-20] MEDS: Memantine 5 MG TAB ORAL SCH ×2 (08:47→18:23)
[2019-03-20] MEDS: Heparin 5000 units/ml inj SUBQ SCH ×2 (08:56→21:24)
--- NOTE | 2019-03-20 08:59 | General Progress Note ---
Assessment/Plan Problem List: (1) Malnutrition ICD Codes: E46 - Unspecified protein-calorie malnutrition SNOMED: 61032139 (2) Diabetes ICD Codes: E11.9 - Type 2 diabetes mellitus without complications SNOMED: 18786377 (3) HTN (hypertension) ICD Codes: I10 - Essential (primary) hypertension SNOMED: 36325277 (4) UTI (urinary tract infection) ICD Codes: N39.0 - Urinary tract infection, site not specified SNOMED: 05258259 (5) Sepsis ICD Codes: A41.9 - Sepsis, unspecified organism SNOMED: 77091031 Status: stable, progressing Assessment/Plan: pt diet abx gi eval cbc bmp am aru eval Subjective Constitutional: Reports: weakness Allergies: Coded Allergies: PENICILLINS (Verified Allergy, Unknown, 11/01/12) All Systems: reviewed and negative except above Subjective calm in bed Objective Last 24 Hour Vital Signs Date Time Temp Pulse Resp B/P (MAP) Pulse Ox O2 Delivery O2 Flow Rate FiO2 03/20/19 08:00 98.0 18 113/79 (90) 95 03/20/19 07:31 81 14 95 03/20/19 04:30 97.0 62 17 125/68 (87) 95 03/20/19 04:00 98.0 85 17 118/79 (92) 96 03/20/19 00:00 97.9 86 16 106/72 (83) 96 03/20/19 00:00 78 03/19/19 21:00 Room Air 03/19/19 20:00 97.4 88 16 129/79 (96) 96 03/19/19 20:00 86 03/19/19 16:00 92 03/19/19 16:00 97.3 90 18 115/69 (84) 96 03/19/19 12:00 98.5 92 18 134/70 (91) 96 03/19/19 12:00 88 03/19/19 09:00 Room Air Intake and Output 03/19/19 03/20/19 19:00 07:00 Intake Total 510 ml Output Total 550 ml Balance -40 ml Intake Oral 510 ml Output Urine Total 550 ml # Voids 2 # Bowel Movements 2 2 Laboratory Tests 03/20/19 05:52: White Blood Count 8.6, Red Blood Count 4.21, Hemoglobin 13.9, Hematocrit 41.3, Mean Corpuscular Volume 98, Mean Corpuscular Hemoglobin 33.1H, Mean Corpuscular Hemoglobin Concent 33.7, Red Cell Distribution Width 11.2L, Platelet Count 204, Mean Platelet Volume 7.9, Neutrophils (%) (Auto) 73.5, Lymphocytes (%) (Auto) 15.5L, Monocytes (%) (Auto) 9.6, Eosinophils (%) (Auto) 1.0, Basophils (%) (Auto ) 0.4, Sodium Level 143, Potassium Level 3.7, Chloride Level 109H, Carbon Dioxide Level 22, Anion Gap 12, Blood Urea Nitrogen 19H, Creatinine 0.9, Estimat Glomerular Filtration Rate , Glucose Level 114H, Calcium Level 8.5 Height (Feet): 4 Height (Inches): 11.00 Weight (Pounds): 129 General Appearance: lethargic EENT: normal ENT inspection Neck: normal alignment Cardiovascular: normal peripheral pulses, normal rate, regular rhythm Respiratory/Chest: chest wall non-tender, lungs clear, normal breath sounds Abdomen: normal bowel sounds, non tender, soft Extremities: normal inspection Edema: no edema noted Arm (L), no edema noted Arm (R), no edema noted Leg (L), no edema noted Leg (R), no edema noted Pedal (L), no edema noted Pedal (R), no edema noted Generalized Neurologic: motor weakness Skin: normal pigmentation, warm/dry Chalo Ayala DO Mar 20, 2019 08:59
[2019-03-20] MEDS ORDERED: Miralax 17gm pkt ORAL PRN (11:30)
--- NOTE | 2019-03-20 12:51 | Pulmonology Progress Note ---
Assessment/Plan Problems: (1) Sepsis (2) UTI (urinary tract infection) (3) Diabetes (4) HTN (hypertension) (5) Psychosis Assessment/Plan hemodynamically stable garcia cultures iv abx iv fluids check electrolytes monitor BP dvt prophylaxis pt/ot Subjective ROS Limited/Unobtainable: No Constitutional: Reports: no symptoms HEENT: Repors: no symptoms Respiratory: Reports: no symptoms Allergies: Coded Allergies: PENICILLINS (Verified Allergy, Unknown, 11/01/12) Objective Last 24 Hour Vital Signs Date Time Temp Pulse Resp B/P (MAP) Pulse Ox O2 Delivery O2 Flow Rate FiO2 03/20/19 09:00 Room Air 03/20/19 08:00 98.0 18 113/79 (90) 95 03/20/19 07:31 81 14 95 03/20/19 04:30 97.0 62 17 125/68 (87) 95 03/20/19 04:00 98.0 85 17 118/79 (92) 96 03/20/19 00:00 97.9 86 16 106/72 (83) 96 03/20/19 00:00 78 03/19/19 21:00 Room Air 03/19/19 20:00 97.4 88 16 129/79 (96) 96 03/19/19 20:00 86 03/19/19 16:00 92 03/19/19 16:00 97.3 90 18 115/69 (84) 96 Intake and Output 03/19/19 03/20/19 19:00 07:00 Intake Total 510 ml Output Total 550 ml Balance -40 ml Intake Oral 510 ml Output Urine Total 550 ml # Voids 2 # Bowel Movements 2 2 General Appearance: WD/WN HEENT: normocephalic, atraumatic Respiratory/Chest: chest wall non-tender, lungs clear Breasts: no masses Cardiovascular: normal peripheral pulses Abdomen: normal bowel sounds, soft, non tender Genitourinary: normal external genitalia Skin: no rash Laboratory Tests 03/20/19 05:52: White Blood Count 8.6, Red Blood Count 4.21, Hemoglobin 13.9, Hematocrit 41.3, Mean Corpuscular Volume 98, Mean Corpuscular Hemoglobin 33.1H, Mean Corpuscular Hemoglobin Concent 33.7, Red Cell Distribution Width 11.2L, Platelet Count 204, Mean Platelet Volume 7.9, Neutrophils (%) (Auto) 73.5, Lymphocytes (%) (Auto) 15.5L, Monocytes (%) (Auto) 9.6, Eosinophils (%) (Auto) 1.0, Basophils (%) (Auto ) 0.4, Sodium Level 143, Potassium Level 3.7, Chloride Level 109H, Carbon Dioxide Level 22, Anion Gap 12, Blood Urea Nitrogen 19H, Creatinine 0.9, Estimat Glomerular Filtration Rate , Glucose Level 114H, Calcium Level 8.5 Current Medications Medications (Trade) Dose Ordered Sig/Joon Route PRN Reason Start Time Stop Time Status Last Admin Dose Admin Acetaminophen (Tylenol) 650 mg Q4H PRN ORAL T>100.5 03/20/19 07:30 04/15/19 11:29 Albuterol/ Ipratropium (Albuterol/ Ipratropium) 3 ml Q4H PRN HHN Shortness of Breath 03/20/19 07:30 03/21/19 11:29 Dextrose (Dextrose 50%) 25 ml Q30M PRN IV Hypoglycemia 03/20/19 04:15 04/15/19 11:35 Dextrose (Dextrose 50%) 50 ml Q30M PRN IV hypoglycemia 03/20/19 04:15 04/15/19 11:44 Famotidine (Pepcid) 20 mg DAILY ORAL 03/20/19 09:00 04/16/19 08:59 03/20/19 08:47 Heparin Sodium (Porcine) (Heparin 5000 units/ml) 5,000 units EVERY 12 HOURS SUBQ 03/20/19 09:00 04/15/19 20:59 03/20/19 08:56 Insulin Aspart (NovoLOG) BEFORE MEALS AND HS SUBQ 03/20/19 06:30 04/15/19 11:29 03/20/19 11:30 Memantine (Namenda) 5 mg TWICE A DAY ORAL 03/20/19 09:00 04/15/19 17:59 03/20/19 08:47 Morphine Sulfate (Morphine Sulfate) 2 mg Q4H PRN IVP Moderate Pain (Pain Scale 4-6) 03/20/19 07:30 03/23/19 11:29 Nitroglycerin (Ntg) 0.4 mg Q5M PRN SL Prn Chest Pain 03/20/19 04:00 04/17/19 16:59 Ondansetron HCl (Zofran) 4 mg Q6H PRN IVP Nausea & Vomiting 03/20/19 05:30 04/15/19 11:29 Phenazopyridine HCl (Pyridium) 100 mg DAILYPRN PRN ORAL dysuria 03/20/19 11:30 04/15/19 11:29 Polyethylene Glycol (Miralax) 17 gm DAILYPRN PRN ORAL Constipation 03/20/19 11:30 04/15/19 11:29 Temazepam (Restoril) 15 mg HSPRN PRN ORAL Insomnia 03/20/19 21:00 03/23/19 20:59 Trimethoprim/ Sulfamethoxazole (Bactrim Single Strength) 1 tab Q12HR ORAL 03/20/19 09:00 03/25/19 20:59 03/20/19 08:47 Parveen Beltran MD Mar 20, 2019 12:50
--- NOTE | 2019-03-20 14:04 | Infectious Diseases Prog Note ---
Assessment/Plan Assessment/Plan Assessment: Probable sepsis 2ry to UTI -u/a wbc tnct, nit neg, leuk +3; ucx >100K E.coli ( R Cipro/lEvo) -CXR: Accentuation of interstitial markings, reticulonodular opacities in the upper lung cortez and probable left pleural effusion. -Bcx NTD Afebrile Leukocytosis; SP HTN COPD Dm2 NH resident Plan: -Continue PO Bactrim DS 1 tab bid #3 (abx d #/) for UTI -03/18 SP Aztreonam #3 -03/17 SP IV Vancomycin #2 -03/16 SP Clindamycin x1 -f/u cx -Monitor CBC/CMP, temperatures Thank you for this consultation. Will continue to follow along with you. Discussed with RN Subjective Allergies: Coded Allergies: PENICILLINS (Verified Allergy, Unknown, 11/01/12) Subjective afebrile leukocytosis resolved Bcx NTD Objective Vital Signs Last 24 Hour Vital Signs Date Time Temp Pulse Resp B/P (MAP) Pulse Ox O2 Delivery O2 Flow Rate FiO2 03/20/19 12:00 98.1 85 17 124/79 (94) 96 03/20/19 09:00 Room Air 03/20/19 08:00 98.0 85 18 113/79 (90) 95 03/20/19 07:31 81 14 95 03/20/19 04:30 97.0 62 17 125/68 (87) 95 03/20/19 04:00 98.0 85 17 118/79 (92) 96 03/20/19 00:00 97.9 86 16 106/72 (83) 96 03/20/19 00:00 78 03/19/19 21:00 Room Air 03/19/19 20:00 97.4 88 16 129/79 (96) 96 03/19/19 20:00 86 03/19/19 16:00 92 03/19/19 16:00 97.3 90 18 115/69 (84) 96 Height (Feet): 4 Height (Inches): 11.00 Weight (Pounds): 129 Objective General Appearance: no apparent distress Head: normocephalic, atraumatic Eyes: bilateral eye PERRL, bilateral eye EOMI ENT: dry mucus membranes Neck: supple, thyroid normal Respiratory: lungs clear, no respiratory distress, no retraction Cardiovascular : tachycardia Gastrointestinal: non tender, soft Genitourinary: no CVA tenderness Musculoskeletal: other - Patient does not follow all commands however no obvious focal deficit Neurologic: responsive - To verbal stimuli Skin: no rash Lymphatic: no adenopathy Laboratory Tests Test 03/20/19 05:52 White Blood Count 8.6 K/UL (4.8-10.8) Red Blood Count 4.21 M/UL (4.20-5.40) Hemoglobin 13.9 G/DL (12.0-16.0) Hematocrit 41.3 % (37.0-47.0) Mean Corpuscular Volume 98 FL (80-99) Mean Corpuscular Hemoglobin 33.1 PG (27.0-31.0) H Mean Corpuscular Hemoglobin Concent 33.7 G/DL (32.0-36.0) Red Cell Distribution Width 11.2 % (11.6-14.8) L Platelet Count 204 K/UL (150-450) Mean Platelet Volume 7.9 FL (6.5-10.1) Neutrophils (%) (Auto) 73.5 % (45.0-75.0) Lymphocytes (%) (Auto) 15.5 % (20.0-45.0) L Monocytes (%) (Auto) 9.6 % (1.0-10.0) Eosinophils (%) (Auto) 1.0 % (0.0-3.0) Basophils (%) (Auto) 0.4 % (0.0-2.0) Sodium Level 143 MMOL/L (136-145) Potassium Level 3.7 MMOL/L (3.5-5.1) Chloride Level 109 MMOL/L (98-107) H Carbon Dioxide Level 22 MMOL/L (21-32) Anion Gap 12 mmol/L (5-15) Blood Urea Nitrogen 19 mg/dL (7-18) H Creatinine 0.9 MG/DL (0.55-1.30) Estimat Glomerular Filtration Rate mL/min (>60) Glucose Level 114 MG/DL (74-106) H Calcium Level 8.5 MG/DL (8.5-10.1) Current Medications Medications (Trade) Dose Ordered Sig/Joon Route PRN Reason Start Time Stop Time Status Last Admin Dose Admin Acetaminophen (Tylenol) 650 mg Q4H PRN ORAL T>100.5 03/20/19 07:30 04/15/19 11:29 Albuterol/ Ipratropium (Albuterol/ Ipratropium) 3 ml Q4H PRN HHN Shortness of Breath 03/20/19 07:30 03/21/19 11:29 Dextrose (Dextrose 50%) 25 ml Q30M PRN IV Hypoglycemia 03/20/19 04:15 04/15/19 11:35 Dextrose (Dextrose 50%) 50 ml Q30M PRN IV hypoglycemia 03/20/19 04:15 04/15/19 11:44 Famotidine (Pepcid) 20 mg DAILY ORAL 03/20/19 09:00 04/16/19 08:59 03/20/19 08:47 Heparin Sodium (Porcine) (Heparin 5000 units/ml) 5,000 units EVERY 12 HOURS SUBQ 03/20/19 09:00 04/15/19 20:59 03/20/19 08:56 Insulin Aspart (NovoLOG) BEFORE MEALS AND HS SUBQ 03/20/19 06:30 04/15/19 11:29 03/20/19 11:30 Memantine (Namenda) 5 mg TWICE A DAY ORAL 03/20/19 09:00 04/15/19 17:59 03/20/19 08:47 Morphine Sulfate (Morphine Sulfate) 2 mg Q4H PRN IVP Moderate Pain (Pain Scale 4-6) 03/20/19 07:30 03/23/19 11:29 Nitroglycerin (Ntg) 0.4 mg Q5M PRN SL Prn Chest Pain 03/20/19 04:00 04/17/19 16:59 Ondansetron HCl (Zofran) 4 mg Q6H PRN IVP Nausea & Vomiting 03/20/19 05:30 04/15/19 11:29 Phenazopyridine HCl (Pyridium) 100 mg DAILYPRN PRN ORAL dysuria 03/20/19 11:30 04/15/19 11:29 Polyethylene Glycol (Miralax) 17 gm DAILYPRN PRN ORAL Constipation 03/20/19 11:30 04/15/19 11:29 Temazepam (Restoril) 15 mg HSPRN PRN ORAL Insomnia 03/20/19 21:00 03/23/19 20:59 Trimethoprim/ Sulfamethoxazole (Bactrim Single Strength) 1 tab Q12HR ORAL 03/20/19 09:00 03/25/19 20:59 03/20/19 08:47 Irene Alberto M.D. Mar 20, 2019 14:04
[2019-03-20] MEDS ORDERED: Isovue-300 100ml vial INJ PRN (18:00)
[2019-03-20] MEDS ORDERED: Gastrograffin 30ml ORAL PRN (18:00)
--- NOTE | 2019-03-20 18:02 | GI Initial Consult Note ---
History of Present Illness General Date patient seen: Mar 20, 2019 Time patient seen: 17:57 Reason for Hospitalization: Abnormal Labs Referring physician: ALFREDO MAGDALENO Reason for Consultation: PELVIC MASS Present Illness HPI Patient presents with complaints of nursing facility reported and elevated white blood cell count patient has had 2 different blood test which have continued to be elevated Patient herself is a poor historian this does limit the history of present illness Review of medical records from previous hospital facility reveals psychiatric disorder , And other underlying medical conditions There was no reports of any obvious fever documented unknown regarding vomiting or diarrhea There was no reports of cough GI consulted for reported pelvic mass, possible dysphagia and failure to thrive. ROS limited, all information obtained from medical record. Patient seen, awake alert no apparent distress with no active signs or symptoms of nausea vomiting. No reported constipation or diarrhea. Reported by the RN that the patient is tolerating her diet, but has a decreased amount of appetite. Labs reviewed; no leukocytosis, no anemia, elevated alkaline phosphatase of 118. Unknown history of endoscopic or colonoscopy at this time. Home Meds Reported Medications Clonidine Hcl* (CATAPRES*) 0.1 Mg Tablet, 0.1 MG ORAL EVERY 6 HOURS PRN for SPB> 160 03/18/19 Amino Acids/Protein Hydrolys (PRO-STAT LIQUID) 30 Ml Liquid.pkt, 30 ML ORAL TWICE A DAY 03/18/19 Na Phos,M-B/Na Phos,Di-Ba* (FLEET ENEMA*) 133 Ml Enema, 133 ML RECTAL DAILY PRN for Constipation IF MOM AND DULCOLAX INEFFECTIVE 03/18/19 Bisacodyl (DULCOLAX) 10 Mg Supp.rect, 10 MG RC DAILY PRN for Constipation IF MOM INEFFECTIVE 03/18/19 Magnesium Hydroxide* (MILK OF MAGNESIA*) 400 Mg/5 Ml Oral.susp, 30 ML ORAL DAILY PRN for Constipation 03/18/19 Tramadol Hcl* (ULTRAM*) 50 Mg Tablet, 50 MG ORAL Q6H PRN for Moderate Pain ( Pain Scale 4-6) 03/18/19 Multivitamins* (MULTIVITAMINS*) 1 Each Tablet, 1 TAB ORAL DAILY 03/18/19 Megestrol Acetate (MEGESTROL ACETATE) 40 Mg Tablet, 40 MG PO BID USED APPETITE STIMULANT 03/18/19 Lidocaine Patch* (Lidoderm Patch*) 1 Each Adh..patch, 1 PATCH TOPIC DAILY 700MG PATCH. APPLY AT 9AM AND OFF AT 9PM. ON RIGHT AND LEFT KNEE (OA) Patch(es) may remain in place for up to 12 hours in any 24-hour period. 03/18/19 Lactobacillus Acidophilus (ACIDOPHILUS) 1 Each Capsule, 1 EACH PO TWICE A DAY 03/18/19 Bimatoprost (LUMIGAN) 2.5 Ml Drops, 1 DROP BOTH EYES BEDTIME 08/03/18 Mag Hydrox/Al Hydrox/Simeth (MATTHEW-LANTA LIQUID) 355 Ml Oral.susp, 30 ML PO Q6HR PRN for STOMACH UPSET, ML 08/03/18 Tramadol Hcl* (ULTRAM*) 50 Mg Tablet, 50 MG ORAL BID for PAIN MANAGEMENT 08/03/18 Ascorbic Acid* (VITAMIN C*) 250 Mg Tablet, 500 MG ORAL TWICE A DAY 08/03/18 Docusate Sodium* (COLACE*) 100 Mg Capsule, 100 MG ORAL DAILY, CAP 08/03/18 Famotidine (FAMOTIDINE) 20 Mg Tablet, 20 MG ORAL DAILY 08/03/18 Nitroglycerin (NITROGLYCERIN) 0.4 Mg Tab.subl, 0.4 MG SL Q5MIN X 3 DOSES PRN for Prn Chest Pain 02/06/17 Memantine Hcl* (NAMENDA*) 5 Mg Tablet, 5 MG ORAL TWICE A DAY, TAB 02/06/17 Acetaminophen (Tylenol) 325 Mg Tablet, 650 MG ORAL Q6HR PRN for Mild Pain (Pain Scale 1-3) 02/06/17 Discontinued Reported Medications Trimethoprim/Sulfamethoxazole 160/800* (BACTRIM DS TABLET*) 1 Each Tablet, 1 TAB ORAL TWICE A DAY for 4 Days, TAB 02/06/17 Temazepam (TEMAZEPAM*) 15 Mg Capsule, 15 MG ORAL BEDTIME PRN for PRN, #30 CAP 0 Refills 02/06/17 Polyethylene Glycol 3350* (POLYETHYLENE GLYCOL 3350*) 17 Gm Powd.pack, 17 GM ORAL DAILY PRN for PRN, PACKET 02/06/17 Ondansetron (Zofran) 4 Mg Tablet, 4 MG ORAL Q6H PRN for Nausea & Vomiting, TAB 02/06/17 Levofloxacin* (LEVAQUIN*) 750 Mg Tablet, 750 MG ORAL Q48hr for UTI for 4 Days, TAB 02/06/17 Albuterol Sulfate* (ALBUTEROL SULFATE HHN*) 2.5 Mg/3 Ml Vial.neb, 3 ML INH Q4H PRN for Shortness of Breath, EA 02/06/17 Insulin Aspart (NOVOLOG) 100 Unit/1 Ml Vial, SQ ACHS 02/06/17 Heparin Sod (Porcine) (HEPARIN SODIUM*) 5 000/1 Ml Vial, 5000 UNITS SUBQ EVERY 12 HOURS, VIAL 02/06/17 Discontinued Scripts Bacitracin (Bacitracin) 28.4 Gm Oint...g., 1 APPLIC TOPIC THREE TIMES A DAY, # 28.4 GM Prov:Hussein Kaminski MD 08/03/18 Cephalexin* (KEFLEX*) 500 Mg Capsule, 500 MG ORAL EVERY 6 HOURS for 7 Days, CAP Prov:Hussein Kaminski MD 08/03/18 Med list reviewed/reconciled: Yes Allergies: Coded Allergies: PENICILLINS (Verified Allergy, Unknown, 11/01/12) Patient History Limited by: medical condition History Provided By: Medical Record PMH Narrative Limited by: medical condition Past Medical History: see triage record Reviewed Nursing Documentation: PMH: Agreed; PSxH: Agreed Nursing Documentation-PMH Hx Hypertension: Yes Hx COPD: Yes Hx Diabetes: Yes Hx Cancer: No Hx Gastrointestinal Problems: No Hx Neurological Problems: No - GEN WEAKNESS Hx Weakness: Yes Review of Systems All Other Systems: limited Physical Exam Vital Signs Date Time Temp Pulse Resp B/P (MAP) Pulse Ox O2 Delivery O2 Flow Rate FiO2 03/16/19 09:04 98.4 74 18 110/60 (77) 97 Room Air Sp02 EP Interpretation: reviewed, normal Labs Laboratory Tests Test 03/20/19 05:52 White Blood Count 8.6 K/UL (4.8-10.8) Red Blood Count 4.21 M/UL (4.20-5.40) Hemoglobin 13.9 G/DL (12.0-16.0) Hematocrit 41.3 % (37.0-47.0) Mean Corpuscular Volume 98 FL (80-99) Mean Corpuscular Hemoglobin 33.1 PG (27.0-31.0) H Mean Corpuscular Hemoglobin Concent 33.7 G/DL (32.0-36.0) Red Cell Distribution Width 11.2 % (11.6-14.8) L Platelet Count 204 K/UL (150-450) Mean Platelet Volume 7.9 FL (6.5-10.1) Neutrophils (%) (Auto) 73.5 % (45.0-75.0) Lymphocytes (%) (Auto) 15.5 % (20.0-45.0) L Monocytes (%) (Auto) 9.6 % (1.0-10.0) Eosinophils (%) (Auto) 1.0 % (0.0-3.0) Basophils (%) (Auto) 0.4 % (0.0-2.0) Sodium Level 143 MMOL/L (136-145) Potassium Level 3.7 MMOL/L (3.5-5.1) Chloride Level 109 MMOL/L (98-107) H Carbon Dioxide Level 22 MMOL/L (21-32) Anion Gap 12 mmol/L (5-15) Blood Urea Nitrogen 19 mg/dL (7-18) H Creatinine 0.9 MG/DL (0.55-1.30) Estimat Glomerular Filtration Rate mL/min (>60) Glucose Level 114 MG/DL (74-106) H Calcium Level 8.5 MG/DL (8.5-10.1) General Appearance: normal inspection, no apparent distress Head: normocephalic EENT: PERRL/EOMI, normal ENT inspection Neck: supple Respiratory: normal breath sounds, no respiratory distress Cardiovascular: normal rate Gastrointestinal: normal inspection, non tender, soft, normal bowel sounds, non -distended Rectal: deferred Genitourinary: no CVA tenderness Musculoskeletal: normal inspection, back normal Neurologic: alert, responsive Skin: normal inspection, normal color, no rash, warm/dry, palpation normal, well hydrated Lymphatic: normal inspection, no adenopathy Current Medications Current Medications Medications (Trade) Dose Ordered Sig/Joon Route PRN Reason Start Time Stop Time Status Last Admin Dose Admin Acetaminophen (Tylenol) 650 mg Q4H PRN ORAL T>100.5 03/20/19 07:30 04/15/19 11:29 Albuterol/ Ipratropium (Albuterol/ Ipratropium) 3 ml Q4H PRN HHN Shortness of Breath 03/20/19 07:30 03/21/19 11:29 Dextrose (Dextrose 50%) 25 ml Q30M PRN IV Hypoglycemia 03/20/19 04:15 04/15/19 11:35 Dextrose (Dextrose 50%) 50 ml Q30M PRN IV hypoglycemia 03/20/19 04:15 04/15/19 11:44 Famotidine (Pepcid) 20 mg DAILY ORAL 03/20/19 09:00 04/16/19 08:59 03/20/19 08:47 Heparin Sodium (Porcine) (Heparin 5000 units/ml) 5,000 units EVERY 12 HOURS SUBQ 03/20/19 09:00 04/15/19 20:59 03/20/19 08:56 Insulin Aspart (NovoLOG) BEFORE MEALS AND HS SUBQ 03/20/19 06:30 04/15/19 11:29 03/20/19 16:45 Memantine (Namenda) 5 mg TWICE A DAY ORAL 03/20/19 09:00 04/15/19 17:59 03/20/19 08:47 Morphine Sulfate (Morphine Sulfate) 2 mg Q4H PRN IVP Moderate Pain (Pain Scale 4-6) 03/20/19 07:30 03/23/19 11:29 Nitroglycerin (Ntg) 0.4 mg Q5M PRN SL Prn Chest Pain 03/20/19 04:00 04/17/19 16:59 Ondansetron HCl (Zofran) 4 mg Q6H PRN IVP Nausea & Vomiting 03/20/19 05:30 04/15/19 11:29 Phenazopyridine HCl (Pyridium) 100 mg DAILYPRN PRN ORAL dysuria 03/20/19 11:30 04/15/19 11:29 Polyethylene Glycol (Miralax) 17 gm DAILYPRN PRN ORAL Constipation 03/20/19 11:30 04/15/19 11:29 Temazepam (Restoril) 15 mg HSPRN PRN ORAL Insomnia 03/20/19 21:00 03/23/19 20:59 Trimethoprim/ Sulfamethoxazole (Bactrim Single Strength) 1 tab Q12HR ORAL 03/20/19 09:00 03/25/19 20:59 03/20/19 08:47 GI: Plan Problems: (1) Pelvic mass (2) Failure to thrive (3) Malnutrition Plan Will obtain abdominal pelvis CT to evaluate reported pelvic mass Obtain a speech therapy evaluation to rule out any dysphasia We will obtain calorie count to see if nutritional needs are met Continue diet as tolerated, push p.o. Consider Marinol for appetite stimulant We will follow along with additional recommendations Discussed with Dr. Fallon. Thank you for this patient referral, we will follow. The patient was seen and examined at bedside and all new and available data was reviewed in the patients chart. I agree with the above findings, impression and plan. (Patient seen earlier today. Signature stamp does not reflect patient encounter time.). - MD Adrian HamptonuykingsMay[facility] [employer] [employer] Mar 20, 2019 18:02
--- NOTE | 2019-03-20 18:53 | Hematology/Onc Progress Note ---
Assessment/Plan Assessment/Plan # Leukocytosis/elevated white blood cell count, unspecified likely related to underlying stress reaction, smoking v more likely infection (uti v pna) --> currently improved --> have reviewed peripheral smear and bandemia/neutrophilia noted --> continue antibiotics if they have been started by ID team (aztreonam, vanc)- -> bactrim --> wbc trend 12-->8 # Secondary polycythemia or erythrocytosis is likely is related to dehydration , volume down --> may need a pulmonary evaluation for above, cxr has been reviewed --> sleep study may be necessary as outpatient --> trend hgb if consistently remains elevated, consider JAK2 --> if remains elevated, further w/u # Probable sepsis 2ry to UTI --> u/a wbc tnct, nit neg, leuk +3; ucx >100K GNR and CXR: Accentuation of interstitial markings, reticulonodular opacities in the upper lung cortez and probable left pleural effusion. --> per id recs # HTN # COPD # Dm2 # [facility] resident # DVT ppx with hep sq The timing of this note does not necessarily reflect the time of the patient was seen. GREATLY APPRECIATE CONSULTATION. Subjective HEENT: Denies: no symptoms, eye pain, blurred vision, tearing, double vision, ear pain, ear discharge, nose pain, nose congestion, throat pain, throat swelling, mouth pain, mouth swelling, other Cardiovascular: Denies: no symptoms, chest pain, edema, irregular heart rate, lightheadedness, palpitations, syncope, other Respiratory: Denies: no symptoms, cough, shortness of breath, SOB with excertion, SOB at rest, sputum, wheezing, other Gastrointestinal/Abdominal: Denies: no symptoms, abdomen distended, abdominal pain, black stools, tarry stools, blood in stool, constipated, diarrhea, difficulty swallowing, nausea, poor appetite, poor fluid intake, rectal bleeding , vomiting, other Genitourinary: Denies: no symptoms, burning, discharge, frequency, flank pain, hematuria, incontinence, pain, urgency, other Neurologic/Psychiatric: Denies: no symptoms, anxiety, depressed, emotional problems, headache, numbness, paresthesia, pre-existing deficit, seizure, tingling, tremors, weakness, other Endocrine: Denies: no symptoms, excessive sweating, flushing, intolerance to cold, intolerance to heat, increased hunger, increased thirst, increased urine, unexplained weight gain, unexplained weight loss, other Hematologic/Lymphatic: Denies: no symptoms, anemia, easy bleeding, easy bruising, adenopathy, other Allergies: Coded Allergies: PENICILLINS (Verified Allergy, Unknown, 11/01/12) Subjective 03/18: no events noted, no bleeding, no chills, on aztreonam 03/19: no overnight events, wbc improved, transfer to med surg planning, 03/20: remains in bed, alert and awake, transferred to diff room Objective Objective Current Medications Medications (Trade) Dose Ordered Sig/Joon Route PRN Reason Start Time Stop Time Status Last Admin Dose Admin Acetaminophen (Tylenol) 650 mg Q4H PRN ORAL T>100.5 03/20/19 07:30 04/15/19 11:29 Albuterol/ Ipratropium (Albuterol/ Ipratropium) 3 ml Q4H PRN HHN Shortness of Breath 03/20/19 07:30 03/21/19 11:29 Dextrose (Dextrose 50%) 25 ml Q30M PRN IV Hypoglycemia 03/20/19 04:15 04/15/19 11:35 Dextrose (Dextrose 50%) 50 ml Q30M PRN IV hypoglycemia 03/20/19 04:15 04/15/19 11:44 Diatrizoate Meglum/ Diatrizoate Sod (Gastrografin) 30 ml NOW PRN ORAL Radiology Procedure 03/20/19 18:00 03/22/19 17:56 Famotidine (Pepcid) 20 mg DAILY ORAL 03/20/19 09:00 04/16/19 08:59 03/20/19 08:47 Heparin Sodium (Porcine) (Heparin 5000 units/ml) 5,000 units EVERY 12 HOURS SUBQ 03/20/19 09:00 04/15/19 20:59 03/20/19 08:56 Insulin Aspart (NovoLOG) BEFORE MEALS AND HS SUBQ 03/20/19 06:30 04/15/19 11:29 03/20/19 16:45 Iopamidol (Isovue-300 100ml) 150 ml NOW PRN INJ Radiology Procedure 03/20/19 18:00 03/22/19 17:56 Memantine (Namenda) 5 mg TWICE A DAY ORAL 03/20/19 09:00 04/15/19 17:59 03/20/19 18:23 Morphine Sulfate (Morphine Sulfate) 2 mg Q4H PRN IVP Moderate Pain (Pain Scale 4-6) 03/20/19 07:30 03/23/19 11:29 Nitroglycerin (Ntg) 0.4 mg Q5M PRN SL Prn Chest Pain 03/20/19 04:00 04/17/19 16:59 Ondansetron HCl (Zofran) 4 mg Q6H PRN IVP Nausea & Vomiting 03/20/19 05:30 04/15/19 11:29 Phenazopyridine HCl (Pyridium) 100 mg DAILYPRN PRN ORAL dysuria 03/20/19 11:30 04/15/19 11:29 Polyethylene Glycol (Miralax) 17 gm DAILYPRN PRN ORAL Constipation 03/20/19 11:30 04/15/19 11:29 Temazepam (Restoril) 15 mg HSPRN PRN ORAL Insomnia 03/20/19 21:00 03/23/19 20:59 Trimethoprim/ Sulfamethoxazole (Bactrim Single Strength) 1 tab Q12HR ORAL 03/20/19 09:00 03/25/19 20:59 03/20/19 08:47 Last 24 Hour Vital Signs Date Time Temp Pulse Resp B/P (MAP) Pulse Ox O2 Delivery O2 Flow Rate FiO2 03/20/19 16:00 98.2 82 18 125/68 (87) 97 03/20/19 12:00 98.1 85 17 124/79 (94) 96 03/20/19 09:00 Room Air 03/20/19 08:00 98.0 85 18 113/79 (90) 95 03/20/19 07:31 81 14 95 03/20/19 04:30 97.0 62 17 125/68 (87) 95 03/20/19 04:00 98.0 85 17 118/79 (92) 96 03/20/19 00:00 97.9 86 16 106/72 (83) 96 03/20/19 00:00 78 03/19/19 21:00 Room Air 03/19/19 20:00 97.4 88 16 129/79 (96) 96 03/19/19 20:00 86 03/19/19 16:00 92 03/19/19 16:00 97.3 90 18 115/69 (84) 96 03/19/19 12:00 98.5 92 18 134/70 (91) 96 03/19/19 12:00 88 03/19/19 09:00 Room Air 03/19/19 08:00 98.1 94 18 116/64 (81) 95 03/19/19 08:00 94 03/19/19 04:00 84 03/19/19 04:00 98.6 78 18 122/54 (76) 95 03/19/19 00:00 98.6 84 18 126/51 (76) 95 03/19/19 00:00 84 03/18/19 21:00 Room Air 03/18/19 20:05 97.8 98 18 126/66 (86) 95 03/18/19 20:00 96 Intake and Output 03/19/19 03/20/19 19:00 07:00 Intake Total 510 ml Output Total 550 ml Balance -40 ml Intake Oral 510 ml Output Urine Total 550 ml # Voids 2 # Bowel Movements 2 2 Labs Test 03/18/19 05:50 03/19/19 05:45 03/20/19 05:52 White Blood Count 11.9 K/UL (4.8-10.8) 10.4 K/UL (4.8-10.8) 8.6 K/UL (4.8-10.8) Red Blood Count 4.63 M/UL (4.20-5.40) 4.00 M/UL (4.20-5.40) 4.21 M/UL (4.20-5.40) Hemoglobin 15.2 G/DL (12.0-16.0) 13.2 G/DL (12.0-16.0) 13.9 G/DL (12.0-16.0) Hematocrit 45.8 % (37.0-47.0) 39.6 % (37.0-47.0) 41.3 % (37.0-47.0) Mean Corpuscular Volume 99 FL (80-99) 99 FL (80-99) 98 FL (80-99) Mean Corpuscular Hemoglobin 32.9 PG (27.0-31.0) 32.9 PG (27.0-31.0) 33.1 PG (27.0-31.0) Mean Corpuscular Hemoglobin Concent 33.3 G/DL (32.0-36.0) 33.2 G/DL (32.0-36.0) 33.7 G/DL (32.0-36.0) Red Cell Distribution Width 11.5 % (11.6-14.8) 11.6 % (11.6-14.8) 11.2 % (11.6-14.8) Platelet Count 191 K/UL (150-450) 191 K/UL (150-450) 204 K/UL (150-450) Mean Platelet Volume 8.0 FL (6.5-10.1) 7.8 FL (6.5-10.1) 7.9 FL (6.5-10.1) Neutrophils (%) (Auto) 81.3 % (45.0-75.0) 76.3 % (45.0-75.0) 73.5 % (45.0-75.0) Lymphocytes (%) (Auto) 10.1 % (20.0-45.0) 13.0 % (20.0-45.0) 15.5 % (20.0-45.0) Monocytes (%) (Auto) 7.6 % (1.0-10.0) 9.5 % (1.0-10.0) 9.6 % (1.0-10.0) Eosinophils (%) (Auto) 0.6 % (0.0-3.0) 0.9 % (0.0-3.0) 1.0 % (0.0-3.0) Basophils (%) (Auto) 0.4 % (0.0-2.0) 0.4 % (0.0-2.0) 0.4 % (0.0-2.0) Sodium Level 141 MMOL/L (136-145) 144 MMOL/L (136-145) 143 MMOL/L (136-145) Potassium Level 3.9 MMOL/L (3.5-5.1) 3.5 MMOL/L (3.5-5.1) 3.7 MMOL/L (3.5-5.1) Chloride Level 108 MMOL/L (98-107) 110 MMOL/L (98-107) 109 MMOL/L (98-107) Carbon Dioxide Level 20 MMOL/L (21-32) 22 MMOL/L (21-32) 22 MMOL/L (21-32) Anion Gap 13 mmol/L (5-15) 12 mmol/L (5-15) 12 mmol/L (5-15) Blood Urea Nitrogen 32 mg/dL (7-18) 28 mg/dL (7-18) 19 mg/dL (7-18) Creatinine 1.0 MG/DL (0.55-1.30) 1.0 MG/DL (0.55-1.30) 0.9 MG/DL (0.55-1.30) Estimat Glomerular Filtration Rate mL/min (>60) mL/min (>60) mL/min (>60) Glucose Level 130 MG/DL (74-106) 105 MG/DL (74-106) 114 MG/DL (74-106) Calcium Level 8.9 MG/DL (8.5-10.1) 8.4 MG/DL (8.5-10.1) 8.5 MG/DL (8.5-10.1) Erythrocyte Sedimentation Rate 72 MM/HR (0-30) Phosphorus Level 3.1 MG/DL (2.5-4.9) Magnesium Level 1.9 MG/DL (1.8-2.4) Total Bilirubin 0.7 MG/DL (0.2-1.0) Aspartate Amino Transf (AST/SGOT) 31 U/L (15-37) Alanine Aminotransferase (ALT/SGPT) 26 U/L (12-78) Alkaline Phosphatase 118 U/L (46-116) C-Reactive Protein, Quantitative 26.8 mg/dL (0.00-0.90) Total Protein 6.2 G/DL (6.4-8.2) Albumin 1.7 G/DL (3.4-5.0) Globulin 4.5 g/dL Albumin/Globulin Ratio 0.4 (1.0-2.7) Height (Feet): 4 Height (Inches): 11.00 Weight (Pounds): 129 Objective Physical Exam: Vitals: reviewed General Appearance: NAD HEENT: normocephalic, atraumatic Neck: non-tender, normal alignment Respiratory/Chest: normal breath sounds bilaterally Cardiovascular/Chest: normal peripheral pulses, normal rate Abdomen: normal bowel sounds, soft, nontender Extremities: normal range of motion Roderick Branch MD Mar 20, 2019 18:53
--- NOTE | 2019-03-20 19:15 | NUR ---
HAND-OFF: Report given to CASE De La Fuente.
--- NOTE | 2019-03-20 20:03 | NUR ---
NURSE NOTES: Received patient in bed, asleep, no acute distress noted, IV site is clean, dry and intact, patient will be NPO after midnight for scheduled CT of the abdomen. Also received an stat order for pelvic ultrasound from , patient will be seen by [facility] tomorrow. Call light is within reach, bed is locked, alarm is on, will continue to monitor for safety and comfort.
[2019-03-21] VITALS (7 sets, daily range): BP systolic 117–145; BP diastolic 56–85
[2019-03-21 05:19] LABS: BASOPHILS % (AUTO) 0.6 % (0.0-2.0); HEMATOCRIT 44.8 % (37.0-47.0); HEMOGLOBIN 14.6 G/DL (12.0-16.0); LYMPHOCYTES % (AUTO) 24.1 % (20.0-45.0); MEAN CORPUSCULAR VOLUME 98 FL (80-99); MONOCYTES % (AUTO) 10.7 % (1.0-10.0); NEUTROPHILS % (AUTO) 62.6 % (45.0-75.0); PLATELET COUNT 240 K/UL (150-450); RED BLOOD COUNT 4.55 M/UL (4.20-5.40); RED CELL DISTRIBUTION WIDTH 11.6 % (11.6-14.8); WHITE BLOOD COUNT 7.3 K/UL (4.8-10.8)
[2019-03-21] MEDS: NovoLOG Insulin Flexpen SUBQ SCH ×4 (05:39→20:49)
[2019-03-21 06:09] LABS: ANION GAP 10 mmol/L (5-15); BLOOD UREA NITROGEN 19 mg/dL (7-18); CALCIUM 8.8 MG/DL (8.5-10.1); CARBON DIOXIDE 23 MMOL/L (21-32); CHLORIDE 107 MMOL/L (98-107); POTASSIUM 4.1 MMOL/L (3.5-5.1); SODIUM 140 MMOL/L (136-145)
--- NOTE | 2019-03-21 07:05 | NUR ---
NURSE NOTES: Received patient from CASE De La Fuente in bed, asleep. IV site is clean, dry and intact. Patient is NPO after midnight for scheduled CT of the abdomen. Call light is within reach, bed is locked, alarm is on, will continue to monitor for safety and comfort.
--- NOTE | 2019-03-21 07:32 | NUR ---
HAND-OFF: Report given to Maurice WILLOUGHBY.
--- NOTE | 2019-03-21 07:40 | NUR ---
NURSE NOTES: Found patient eating breakfast. Called CT to reschedule CT scan.
[2019-03-21] MEDS: Bactrim SS Tab ORAL SCH (08:23)
[2019-03-21] MEDS: Memantine 5 MG TAB ORAL SCH ×2 (08:23→17:29)
[2019-03-21] MEDS: Heparin 5000 units/ml inj SUBQ SCH ×2 (08:24→20:48)
--- NOTE | 2019-03-21 10:24 | Pulmonology Progress Note ---
Assessment/Plan Problems: (1) Sepsis (2) UTI (urinary tract infection) (3) Diabetes (4) HTN (hypertension) (5) Psychosis Assessment/Plan hemodynamically stable garcia cultures, Ecoli in urin on PO Bactrim iv fluids check electrolytes monitor BP dvt prophylaxis pt/ot dc planning soon Subjective ROS Limited/Unobtainable: No Constitutional: Reports: no symptoms HEENT: Repors: no symptoms Allergies: Coded Allergies: PENICILLINS (Verified Allergy, Unknown, 11/01/12) Objective Last 24 Hour Vital Signs Date Time Temp Pulse Resp B/P (MAP) Pulse Ox O2 Delivery O2 Flow Rate FiO2 03/21/19 09:00 Room Air 03/21/19 08:00 96.3 88 20 117/66 (83) 95 03/21/19 05:01 97.8 75 20 145/78 (100) 03/21/19 04:00 97.8 78 20 145/85 (105) 03/21/19 00:00 97.8 69 18 118/78 (91) 03/20/19 22:02 Room Air 03/20/19 20:06 88 18 97 Room Air 21 03/20/19 20:00 97.8 78 20 127/65 (85) 03/20/19 16:00 98.2 82 18 125/68 (87) 97 03/20/19 12:00 98.1 85 17 124/79 (94) 96 Intake and Output 03/20/19 03/21/19 19:00 07:00 Intake Total 820 ml 820 ml Output Total 550 ml Balance 820 ml 270 ml Intake Oral 820 ml 820 ml Output Urine Total 550 ml # Voids 3 3 # Bowel Movements 1 2 General Appearance: WD/WN HEENT: normocephalic, atraumatic Respiratory/Chest: chest wall non-tender, lungs clear Breasts: no masses Cardiovascular: normal peripheral pulses Abdomen: normal bowel sounds, no organomegaly Extremities: no clubbing Skin: no rash Laboratory Tests 03/21/19 05:05: White Blood Count 7.3, Red Blood Count 4.55, Hemoglobin 14.6, Hematocrit 44.8, Mean Corpuscular Volume 98, Mean Corpuscular Hemoglobin 32.0H, Mean Corpuscular Hemoglobin Concent 32.6, Red Cell Distribution Width 11.6, Platelet Count 240, Mean Platelet Volume 7.7, Neutrophils (%) (Auto) 62.6, Lymphocytes (%) (Auto) 24.1, Monocytes (%) (Auto) 10.7H, Eosinophils (%) (Auto) 2.0, Basophils (%) ( Auto) 0.6, Sodium Level 140, Potassium Level 4.1, Chloride Level 107, Carbon Dioxide Level 23, Anion Gap 10, Blood Urea Nitrogen 19H, Creatinine 1.0, Estimat Glomerular Filtration Rate , Glucose Level 114H, Calcium Level 8.8, Phosphorus Level 3.0, Magnesium Level 1.8 Current Medications Medications (Trade) Dose Ordered Sig/Joon Route PRN Reason Start Time Stop Time Status Last Admin Dose Admin Acetaminophen (Tylenol) 650 mg Q4H PRN ORAL T>100.5 03/20/19 07:30 04/15/19 11:29 Albuterol/ Ipratropium (Albuterol/ Ipratropium) 3 ml Q4H PRN HHN Shortness of Breath 03/20/19 07:30 03/21/19 11:29 Dextrose (Dextrose 50%) 25 ml Q30M PRN IV Hypoglycemia 03/20/19 04:15 04/15/19 11:35 Dextrose (Dextrose 50%) 50 ml Q30M PRN IV hypoglycemia 03/20/19 04:15 04/15/19 11:44 Diatrizoate Meglum/ Diatrizoate Sod (Gastrografin) 30 ml NOW PRN ORAL Radiology Procedure 03/20/19 18:00 03/22/19 17:56 Famotidine (Pepcid) 20 mg DAILY ORAL 03/20/19 09:00 04/16/19 08:59 03/21/19 08:23 Heparin Sodium (Porcine) (Heparin 5000 units/ml) 5,000 units EVERY 12 HOURS SUBQ 03/20/19 09:00 04/15/19 20:59 03/21/19 08:24 Insulin Aspart (NovoLOG) BEFORE MEALS AND HS SUBQ 03/20/19 06:30 04/15/19 11:29 03/20/19 22:20 Iopamidol (Isovue-300 100ml) 150 ml NOW PRN INJ Radiology Procedure 03/20/19 18:00 03/22/19 17:56 Memantine (Namenda) 5 mg TWICE A DAY ORAL 03/20/19 09:00 04/15/19 17:59 03/21/19 08:23 Morphine Sulfate (Morphine Sulfate) 2 mg Q4H PRN IVP Moderate Pain (Pain Scale 4-6) 03/20/19 07:30 03/23/19 11:29 Nitroglycerin (Ntg) 0.4 mg Q5M PRN SL Prn Chest Pain 03/20/19 04:00 04/17/19 16:59 Ondansetron HCl (Zofran) 4 mg Q6H PRN IVP Nausea & Vomiting 03/20/19 05:30 04/15/19 11:29 Phenazopyridine HCl (Pyridium) 100 mg DAILYPRN PRN ORAL dysuria 03/20/19 11:30 04/15/19 11:29 Polyethylene Glycol (Miralax) 17 gm DAILYPRN PRN ORAL Constipation 03/20/19 11:30 04/15/19 11:29 Temazepam (Restoril) 15 mg HSPRN PRN ORAL Insomnia 03/20/19 21:00 03/23/19 20:59 Trimethoprim/ Sulfamethoxazole (Bactrim Single Strength) 1 tab Q12HR ORAL 03/20/19 09:00 03/25/19 20:59 03/21/19 08:23 Parveen Beltran MD Mar 21, 2019 10:24
--- NOTE | 2019-03-21 10:46 | Hematology/Onc Progress Note ---
Assessment/Plan Assessment/Plan # Leukocytosis/elevated white blood cell count, unspecified likely related to underlying stress reaction, smoking v more likely infection (uti v pna) --> currently improved --> have reviewed peripheral smear and bandemia/neutrophilia noted --> continue antibiotics if they have been started by ID team (aztreonam, vanc)- -> bactrim --> wbc trend 12-->8-->7.3 # Secondary polycythemia or erythrocytosis is likely is related to dehydration , volume down --> may need a pulmonary evaluation for above, cxr has been reviewed --> sleep study may be necessary as outpatient --> trend hgb if consistently remains elevated, consider JAK2 --> if remains elevated, further w/u # Probable sepsis 2ry to UTI --> u/a wbc tnct, nit neg, leuk +3; ucx >100K GNR and CXR: Accentuation of interstitial markings, reticulonodular opacities in the upper lung cortez and probable left pleural effusion. --> per id recs # HTN # COPD # Dm2 # [facility] resident # DVT ppx with hep sq The timing of this note does not necessarily reflect the time of the patient was seen. GREATLY APPRECIATE CONSULTATION. Subjective Allergies: Coded Allergies: PENICILLINS (Verified Allergy, Unknown, 11/01/12) Subjective 03/18: no events noted, no bleeding, no chills, on aztreonam 03/19: no overnight events, wbc improved, transfer to med surg planning, 03/20: remains in bed, alert and awake, transferred to diff room 03/21: on abx, vs stable, no fever, no acute events Objective Objective Current Medications Medications (Trade) Dose Ordered Sig/Joon Route PRN Reason Start Time Stop Time Status Last Admin Dose Admin Acetaminophen (Tylenol) 650 mg Q4H PRN ORAL T>100.5 03/20/19 07:30 04/15/19 11:29 Albuterol/ Ipratropium (Albuterol/ Ipratropium) 3 ml Q4H PRN HHN Shortness of Breath 03/20/19 07:30 03/21/19 11:29 Dextrose (Dextrose 50%) 25 ml Q30M PRN IV Hypoglycemia 03/20/19 04:15 04/15/19 11:35 Dextrose (Dextrose 50%) 50 ml Q30M PRN IV hypoglycemia 03/20/19 04:15 04/15/19 11:44 Diatrizoate Meglum/ Diatrizoate Sod (Gastrografin) 30 ml NOW PRN ORAL Radiology Procedure 03/20/19 18:00 03/22/19 17:56 Famotidine (Pepcid) 20 mg DAILY ORAL 03/20/19 09:00 04/16/19 08:59 03/21/19 08:23 Heparin Sodium (Porcine) (Heparin 5000 units/ml) 5,000 units EVERY 12 HOURS SUBQ 03/20/19 09:00 04/15/19 20:59 03/21/19 08:24 Insulin Aspart (NovoLOG) BEFORE MEALS AND HS SUBQ 03/20/19 06:30 04/15/19 11:29 03/20/19 22:20 Iopamidol (Isovue-300 100ml) 150 ml NOW PRN INJ Radiology Procedure 03/20/19 18:00 03/22/19 17:56 Memantine (Namenda) 5 mg TWICE A DAY ORAL 03/20/19 09:00 04/15/19 17:59 03/21/19 08:23 Morphine Sulfate (Morphine Sulfate) 2 mg Q4H PRN IVP Moderate Pain (Pain Scale 4-6) 03/20/19 07:30 03/23/19 11:29 Nitroglycerin (Ntg) 0.4 mg Q5M PRN SL Prn Chest Pain 03/20/19 04:00 04/17/19 16:59 Ondansetron HCl (Zofran) 4 mg Q6H PRN IVP Nausea & Vomiting 03/20/19 05:30 04/15/19 11:29 Phenazopyridine HCl (Pyridium) 100 mg DAILYPRN PRN ORAL dysuria 03/20/19 11:30 04/15/19 11:29 Polyethylene Glycol (Miralax) 17 gm DAILYPRN PRN ORAL Constipation 03/20/19 11:30 04/15/19 11:29 Temazepam (Restoril) 15 mg HSPRN PRN ORAL Insomnia 03/20/19 21:00 03/23/19 20:59 Trimethoprim/ Sulfamethoxazole (Bactrim Single Strength) 1 tab Q12HR ORAL 03/20/19 09:00 03/25/19 20:59 03/21/19 08:23 Last 24 Hour Vital Signs Date Time Temp Pulse Resp B/P (MAP) Pulse Ox O2 Delivery O2 Flow Rate FiO2 03/21/19 09:00 Room Air 03/21/19 08:00 96.3 88 20 117/66 (83) 95 03/21/19 05:01 97.8 75 20 145/78 (100) 03/21/19 04:00 97.8 78 20 145/85 (105) 03/21/19 00:00 97.8 69 18 118/78 (91) 03/20/19 22:02 Room Air 03/20/19 20:06 88 18 97 Room Air 21 03/20/19 20:00 97.8 78 20 127/65 (85) 03/20/19 16:00 98.2 82 18 125/68 (87) 97 03/20/19 12:00 98.1 85 17 124/79 (94) 96 03/20/19 09:00 Room Air 03/20/19 08:00 98.0 85 18 113/79 (90) 95 03/20/19 07:31 81 14 95 03/20/19 04:30 97.0 62 17 125/68 (87) 95 03/20/19 04:00 98.0 85 17 118/79 (92) 96 03/20/19 00:00 97.9 86 16 106/72 (83) 96 03/20/19 00:00 78 03/19/19 21:00 Room Air 03/19/19 20:00 97.4 88 16 129/79 (96) 96 03/19/19 20:00 86 03/19/19 16:00 92 03/19/19 16:00 97.3 90 18 115/69 (84) 96 03/19/19 12:00 98.5 92 18 134/70 (91) 96 03/19/19 12:00 88 Intake and Output 03/20/19 03/21/19 19:00 07:00 Intake Total 820 ml 820 ml Output Total 550 ml Balance 820 ml 270 ml Intake Oral 820 ml 820 ml Output Urine Total 550 ml # Voids 3 3 # Bowel Movements 1 2 Labs Test 03/19/19 05:45 03/20/19 05:52 03/21/19 05:05 White Blood Count 10.4 K/UL (4.8-10.8) 8.6 K/UL (4.8-10.8) 7.3 K/UL (4.8-10.8) Red Blood Count 4.00 M/UL (4.20-5.40) 4.21 M/UL (4.20-5.40) 4.55 M/UL (4.20-5.40) Hemoglobin 13.2 G/DL (12.0-16.0) 13.9 G/DL (12.0-16.0) 14.6 G/DL (12.0-16.0) Hematocrit 39.6 % (37.0-47.0) 41.3 % (37.0-47.0) 44.8 % (37.0-47.0) Mean Corpuscular Volume 99 FL (80-99) 98 FL (80-99) 98 FL (80-99) Mean Corpuscular Hemoglobin 32.9 PG (27.0-31.0) 33.1 PG (27.0-31.0) 32.0 PG (27.0-31.0) Mean Corpuscular Hemoglobin Concent 33.2 G/DL (32.0-36.0) 33.7 G/DL (32.0-36.0) 32.6 G/DL (32.0-36.0) Red Cell Distribution Width 11.6 % (11.6-14.8) 11.2 % (11.6-14.8) 11.6 % (11.6-14.8) Platelet Count 191 K/UL (150-450) 204 K/UL (150-450) 240 K/UL (150-450) Mean Platelet Volume 7.8 FL (6.5-10.1) 7.9 FL (6.5-10.1) 7.7 FL (6.5-10.1) Neutrophils (%) (Auto) 76.3 % (45.0-75.0) 73.5 % (45.0-75.0) 62.6 % (45.0-75.0) Lymphocytes (%) (Auto) 13.0 % (20.0-45.0) 15.5 % (20.0-45.0) 24.1 % (20.0-45.0) Monocytes (%) (Auto) 9.5 % (1.0-10.0) 9.6 % (1.0-10.0) 10.7 % (1.0-10.0) Eosinophils (%) (Auto) 0.9 % (0.0-3.0) 1.0 % (0.0-3.0) 2.0 % (0.0-3.0) Basophils (%) (Auto) 0.4 % (0.0-2.0) 0.4 % (0.0-2.0) 0.6 % (0.0-2.0) Erythrocyte Sedimentation Rate 72 MM/HR (0-30) Sodium Level 144 MMOL/L (136-145) 143 MMOL/L (136-145) 140 MMOL/L (136-145) Potassium Level 3.5 MMOL/L (3.5-5.1) 3.7 MMOL/L (3.5-5.1) 4.1 MMOL/L (3.5-5.1) Chloride Level 110 MMOL/L (98-107) 109 MMOL/L (98-107) 107 MMOL/L (98-107) Carbon Dioxide Level 22 MMOL/L (21-32) 22 MMOL/L (21-32) 23 MMOL/L (21-32) Anion Gap 12 mmol/L (5-15) 12 mmol/L (5-15) 10 mmol/L (5-15) Blood Urea Nitrogen 28 mg/dL (7-18) 19 mg/dL (7-18) 19 mg/dL (7-18) Creatinine 1.0 MG/DL (0.55-1.30) 0.9 MG/DL (0.55-1.30) 1.0 MG/DL (0.55-1.30) Estimat Glomerular Filtration Rate mL/min (>60) mL/min (>60) mL/min (>60) Glucose Level 105 MG/DL (74-106) 114 MG/DL (74-106) 114 MG/DL (74-106) Calcium Level 8.4 MG/DL (8.5-10.1) 8.5 MG/DL (8.5-10.1) 8.8 MG/DL (8.5-10.1) Phosphorus Level 3.1 MG/DL (2.5-4.9) 3.0 MG/DL (2.5-4.9) Magnesium Level 1.9 MG/DL (1.8-2.4) 1.8 MG/DL (1.8-2.4) Total Bilirubin 0.7 MG/DL (0.2-1.0) Aspartate Amino Transf (AST/SGOT) 31 U/L (15-37) Alanine Aminotransferase (ALT/SGPT) 26 U/L (12-78) Alkaline Phosphatase 118 U/L (46-116) C-Reactive Protein, Quantitative 26.8 mg/dL (0.00-0.90) Total Protein 6.2 G/DL (6.4-8.2) Albumin 1.7 G/DL (3.4-5.0) Globulin 4.5 g/dL Albumin/Globulin Ratio 0.4 (1.0-2.7) Height (Feet): 4 Height (Inches): 11.00 Weight (Pounds): 129 Objective Physical Exam: Vitals: reviewed General Appearance: NAD HEENT: normocephalic, atraumatic Neck: non-tender, normal alignment Respiratory/Chest: normal breath sounds bilaterally Cardiovascular/Chest: normal peripheral pulses, normal rate Abdomen: normal bowel sounds, soft, nontender Extremities: normal range of motion Roderick Branch MD Mar 21, 2019 10:46
--- NOTE | 2019-03-21 10:58 | Diagnostic Imaging Report ---
Indication: Pelvic pain Technique: Transabdominal images only, per patient's nurse. No transvaginal images obtained. Doppler interrogation of the bilateral adnexal regions Comparison: none Findings: Uterus measures 8.3 cm length by 2.6 cm AP. Rounded isoechoic structure measuring 2.3 x 2.3 cm is seen at the junction of the cervix and lower uterine segment. There is generalized somewhat lobulated appearance of the uterus. The endometrium measures 6 mm thick. Right ovary measures 2.3 cm in length, demonstrates normal blood flow. The left ovary could not be demonstrated. No free cul-de-sac fluid Impression: Limited exam, as described 2.3 x 2.3 cm rounded isoechoic structure at the lower uterine segment/cervical junction. Possibly a fibroid in an unusual location. Consider endovaginal sonography to better characterize if patient able to tolerate; if unable to tolerate then MRI with contrast may be useful 6 mm thick endometrium. Somewhat thick for patient's age. Normal right ovary. Unable to visualize left ovary
--- NOTE | 2019-03-21 12:13 | NUR ---
CHARGE NURSE NOTE: Spoke with (OBGY doctor), notified her about abnormal result of pelvic ultrasound. No new orders given.
[2019-03-21] MEDS ORDERED: Isovue-300 100ml vial INJ PRN (12:15)
--- NOTE | 2019-03-21 12:41 | GI Progress Note ---
Assessment/Plan Problems: (1) Failure to thrive SNOMED: 10911585 (2) Pelvic mass ICD Codes: R19.00 - Intra-abdominal and pelvic swelling, mass and lump, unspecified site SNOMED: 63586256 (3) Malnutrition ICD Codes: E46 - Unspecified protein-calorie malnutrition SNOMED: 72344334 Status: unchanged Status Narrative Discussed with Dr. Fallon. Assessment/Plan pelvic US reviewed - 2.3 x 2.3 cm rounded isoechoic structure at the lower uterine segment/ cervical junction. - 6 mm thick endometrium needs CLINICAL RN LIAISON consultation follow up abdominal pelvis CT speech therapy evaluation to rule out any dysphasia We will obtain calorie count to see if nutritional needs are met Continue diet as tolerated, push p.o. Consider Marinol for appetite stimulant follow labs The patient was seen and examined at bedside and all new and available data was reviewed in the patients chart. I agree with the above findings, impression and plan. (Patient seen earlier today. Signature stamp does not reflect patient encounter time.). - Richmond Fallon MD Subjective Subjective limited Objective Last 24 Hour Vital Signs Date Time Temp Pulse Resp B/P (MAP) Pulse Ox O2 Delivery O2 Flow Rate FiO2 03/21/19 09:00 Room Air 03/21/19 08:00 96.3 88 20 117/66 (83) 95 03/21/19 05:01 97.8 75 20 145/78 (100) 03/21/19 04:00 97.8 78 20 145/85 (105) 03/21/19 00:00 97.8 69 18 118/78 (91) 03/20/19 22:02 Room Air 03/20/19 20:06 88 18 97 Room Air 21 03/20/19 20:00 97.8 78 20 127/65 (85) 03/20/19 16:00 98.2 82 18 125/68 (87) 97 Intake and Output 03/20/19 03/21/19 19:00 07:00 Intake Total 820 ml 820 ml Output Total 550 ml Balance 820 ml 270 ml Intake Oral 820 ml 820 ml Output Urine Total 550 ml # Voids 3 3 # Bowel Movements 1 2 Laboratory Tests Test 03/21/19 05:05 White Blood Count 7.3 K/UL (4.8-10.8) Red Blood Count 4.55 M/UL (4.20-5.40) Hemoglobin 14.6 G/DL (12.0-16.0) Hematocrit 44.8 % (37.0-47.0) Mean Corpuscular Volume 98 FL (80-99) Mean Corpuscular Hemoglobin 32.0 PG (27.0-31.0) H Mean Corpuscular Hemoglobin Concent 32.6 G/DL (32.0-36.0) Red Cell Distribution Width 11.6 % (11.6-14.8) Platelet Count 240 K/UL (150-450) Mean Platelet Volume 7.7 FL (6.5-10.1) Neutrophils (%) (Auto) 62.6 % (45.0-75.0) Lymphocytes (%) (Auto) 24.1 % (20.0-45.0) Monocytes (%) (Auto) 10.7 % (1.0-10.0) H Eosinophils (%) (Auto) 2.0 % (0.0-3.0) Basophils (%) (Auto) 0.6 % (0.0-2.0) Sodium Level 140 MMOL/L (136-145) Potassium Level 4.1 MMOL/L (3.5-5.1) Chloride Level 107 MMOL/L (98-107) Carbon Dioxide Level 23 MMOL/L (21-32) Anion Gap 10 mmol/L (5-15) Blood Urea Nitrogen 19 mg/dL (7-18) H Creatinine 1.0 MG/DL (0.55-1.30) Estimat Glomerular Filtration Rate mL/min (>60) Glucose Level 114 MG/DL (74-106) H Calcium Level 8.8 MG/DL (8.5-10.1) Phosphorus Level 3.0 MG/DL (2.5-4.9) Magnesium Level 1.8 MG/DL (1.8-2.4) Height (Feet): 4 Height (Inches): 11.00 Weight (Pounds): 129 General Appearance: WD/WN, no apparent distress, alert Cardiovascular: normal rate Respiratory/Chest: normal breath sounds, no respiratory distress Abdominal Exam: normal bowel sounds, non tender, soft Extremities: non-tender Kang Purcell [employer] ATTEND[employer] Mar 21, 2019 12:41
--- NOTE | 2019-03-21 14:05 | General Progress Note ---
Assessment/Plan Problem List: (1) Malnutrition ICD Codes: E46 - Unspecified protein-calorie malnutrition SNOMED: 46376207 (2) Diabetes ICD Codes: E11.9 - Type 2 diabetes mellitus without complications SNOMED: 48006225 (3) HTN (hypertension) ICD Codes: I10 - Essential (primary) hypertension SNOMED: 56113456 (4) UTI (urinary tract infection) ICD Codes: N39.0 - Urinary tract infection, site not specified SNOMED: 23069440 (5) Sepsis ICD Codes: A41.9 - Sepsis, unspecified organism SNOMED: 81462415 Status: stable, progressing, unchanged Assessment/Plan: pt diet abx gi eval cbc bmp am pending ct abd dc plan Subjective Constitutional: Reports: weakness Allergies: Coded Allergies: PENICILLINS (Verified Allergy, Unknown, 11/01/12) All Systems: reviewed and negative except above Subjective calm in bed Objective Last 24 Hour Vital Signs Date Time Temp Pulse Resp B/P (MAP) Pulse Ox O2 Delivery O2 Flow Rate FiO2 03/21/19 12:41 85 20 95 Room Air 21 03/21/19 12:00 98.3 82 20 141/84 (103) 94 03/21/19 09:00 Room Air 03/21/19 08:00 96.3 88 20 117/66 (83) 95 03/21/19 05:01 97.8 75 20 145/78 (100) 03/21/19 04:00 97.8 78 20 145/85 (105) 03/21/19 00:00 97.8 69 18 118/78 (91) 03/20/19 22:02 Room Air 03/20/19 20:06 88 18 97 Room Air 21 03/20/19 20:00 97.8 78 20 127/65 (85) 03/20/19 16:00 98.2 82 18 125/68 (87) 97 Intake and Output 03/20/19 03/21/19 19:00 07:00 Intake Total 820 ml 820 ml Output Total 550 ml Balance 820 ml 270 ml Intake Oral 820 ml 820 ml Output Urine Total 550 ml # Voids 3 3 # Bowel Movements 1 2 Laboratory Tests 03/21/19 05:05: White Blood Count 7.3, Red Blood Count 4.55, Hemoglobin 14.6, Hematocrit 44.8, Mean Corpuscular Volume 98, Mean Corpuscular Hemoglobin 32.0H, Mean Corpuscular Hemoglobin Concent 32.6, Red Cell Distribution Width 11.6, Platelet Count 240, Mean Platelet Volume 7.7, Neutrophils (%) (Auto) 62.6, Lymphocytes (%) (Auto) 24.1, Monocytes (%) (Auto) 10.7H, Eosinophils (%) (Auto) 2.0, Basophils (%) ( Auto) 0.6, Sodium Level 140, Potassium Level 4.1, Chloride Level 107, Carbon Dioxide Level 23, Anion Gap 10, Blood Urea Nitrogen 19H, Creatinine 1.0, Estimat Glomerular Filtration Rate , Glucose Level 114H, Calcium Level 8.8, Phosphorus Level 3.0, Magnesium Level 1.8 Height (Feet): 4 Height (Inches): 11.00 Weight (Pounds): 129 General Appearance: lethargic EENT: normal ENT inspection Neck: normal alignment Cardiovascular: normal peripheral pulses, normal rate, regular rhythm Respiratory/Chest: chest wall non-tender, lungs clear, normal breath sounds Abdomen: normal bowel sounds, non tender, soft Extremities: normal inspection Edema: no edema noted Arm (L), no edema noted Arm (R), no edema noted Leg (L), no edema noted Leg (R), no edema noted Pedal (L), no edema noted Pedal (R), no edema noted Generalized Neurologic: motor weakness Skin: normal pigmentation, warm/dry Chalo Ayala DO Mar 21, 2019 14:05
--- NOTE | 2019-03-21 14:56 | NUR ---
ST note: swallow status: referred for swallow eval and completed chart review and met patient. screened pt but not able to give po since she did not want trials (drank a lot of contrast for procedure). will complete swallow eval tomorrow. per rn no overt s/s of asp on current diet/liquids when she swallows slowly. plan: swallow leora d/w edvin perez
--- NOTE | 2019-03-21 15:07 | Consultation ---
Consult Note Consult Note GYNECOLOGY CONSULT NOTE CC: possible pelvic mass HPI: Patient is an 88yo G0 admitted from [facility] for leukocytosis and UTI. Gynecology was consulted for a possible pelvic mass. The patient has been transferred from telemetry unit and is clinically stable and in no acute distress. She denies any postmenopausal bleeding, and still is reporting lower abdominal pain worse on the right, as well as upper right abdominal pain. No abnormal discharge, no other complaints. PMH: HTN, DM, COPD, OA, Depression, Glaucoma, Weakness (obtained from chart review and from nursing staff) PSH: Unable to obtain, patient is a poor historian, however denies hysterectomy , , or in the past. Meds: See med reconciliation Allergies: PCN OBHx: Denies any pregnancies in the past GYNHx: No hx abnl Pap, no hx postmenopausal bleeding (thinks she went through menopause in her 40s), no other history available. SocHx: Lives in Assisted. No T/E/D per chart review FamHx: Unable to obtain but per chart review non-contributory ROS: Pertinent positives and negatives stated in HPI. Vitals: Tlast 98.3, P 85, RR 20, BP 141/84, O2 95% RA Exam: Gen: NAD, resting comfortably in bed, A&O x 1 HEENT: MM dry, OP clear, poor dentition Neck: No obvious thyromegaly CV: No tachycardia Pulm: No increased work of breathing Abd: Soft, moderate TTP in suprapubic region, mild TTP in right upper outer abdomen, no rebound, no guarding Pelvic: No bloody discharge, internal exam deferred Ext: RLE with dryness and bruising, LLE wnl, limited ROM Labs: Labs Test 03/19/19 05:45 03/20/19 05:52 03/21/19 05:05 White Blood Count 10.4 K/UL (4.8-10.8) 8.6 K/UL (4.8-10.8) 7.3 K/UL (4.8-10.8) Red Blood Count 4.00 M/UL (4.20-5.40) 4.21 M/UL (4.20-5.40) 4.55 M/UL (4.20-5.40) Hemoglobin 13.2 G/DL (12.0-16.0) 13.9 G/DL (12.0-16.0) 14.6 G/DL (12.0-16.0) Hematocrit 39.6 % (37.0-47.0) 41.3 % (37.0-47.0) 44.8 % (37.0-47.0) Mean Corpuscular Volume 99 FL (80-99) 98 FL (80-99) 98 FL (80-99) Mean Corpuscular Hemoglobin 32.9 PG (27.0-31.0) 33.1 PG (27.0-31.0) 32.0 PG (27.0-31.0) Mean Corpuscular Hemoglobin Concent 33.2 G/DL (32.0-36.0) 33.7 G/DL (32.0-36.0) 32.6 G/DL (32.0-36.0) Red Cell Distribution Width 11.6 % (11.6-14.8) 11.2 % (11.6-14.8) 11.6 % (11.6-14.8) Platelet Count 191 K/UL (150-450) 204 K/UL (150-450) 240 K/UL (150-450) Mean Platelet Volume 7.8 FL (6.5-10.1) 7.9 FL (6.5-10.1) 7.7 FL (6.5-10.1) Neutrophils (%) (Auto) 76.3 % (45.0-75.0) 73.5 % (45.0-75.0) 62.6 % (45.0-75.0) Lymphocytes (%) (Auto) 13.0 % (20.0-45.0) 15.5 % (20.0-45.0) 24.1 % (20.0-45.0) Monocytes (%) (Auto) 9.5 % (1.0-10.0) 9.6 % (1.0-10.0) 10.7 % (1.0-10.0) Eosinophils (%) (Auto) 0.9 % (0.0-3.0) 1.0 % (0.0-3.0) 2.0 % (0.0-3.0) Basophils (%) (Auto) 0.4 % (0.0-2.0) 0.4 % (0.0-2.0) 0.6 % (0.0-2.0) Erythrocyte Sedimentation Rate 72 MM/HR (0-30) Sodium Level 144 MMOL/L (136-145) 143 MMOL/L (136-145) 140 MMOL/L (136-145) Potassium Level 3.5 MMOL/L (3.5-5.1) 3.7 MMOL/L (3.5-5.1) 4.1 MMOL/L (3.5-5.1) Chloride Level 110 MMOL/L (98-107) 109 MMOL/L (98-107) 107 MMOL/L (98-107) Carbon Dioxide Level 22 MMOL/L (21-32) 22 MMOL/L (21-32) 23 MMOL/L (21-32) Anion Gap 12 mmol/L (5-15) 12 mmol/L (5-15) 10 mmol/L (5-15) Blood Urea Nitrogen 28 mg/dL (7-18) 19 mg/dL (7-18) 19 mg/dL (7-18) Creatinine 1.0 MG/DL (0.55-1.30) 0.9 MG/DL (0.55-1.30) 1.0 MG/DL (0.55-1.30) Estimat Glomerular Filtration Rate mL/min (>60) mL/min (>60) mL/min (>60) Glucose Level 105 MG/DL (74-106) 114 MG/DL (74-106) 114 MG/DL (74-106) Calcium Level 8.4 MG/DL (8.5-10.1) 8.5 MG/DL (8.5-10.1) 8.8 MG/DL (8.5-10.1) Phosphorus Level 3.1 MG/DL (2.5-4.9) 3.0 MG/DL (2.5-4.9) Magnesium Level 1.9 MG/DL (1.8-2.4) 1.8 MG/DL (1.8-2.4) Total Bilirubin 0.7 MG/DL (0.2-1.0) Aspartate Amino Transf (AST/SGOT) 31 U/L (15-37) Alanine Aminotransferase (ALT/SGPT) 26 U/L (12-78) Alkaline Phosphatase 118 U/L (46-116) C-Reactive Protein, Quantitative 26.8 mg/dL (0.00-0.90) Total Protein 6.2 G/DL (6.4-8.2) Albumin 1.7 G/DL (3.4-5.0) Globulin 4.5 g/dL Albumin/Globulin Ratio 0.4 (1.0-2.7) Imaging: Findings: Uterus measures 8.3 cm length by 2.6 cm AP. Rounded isoechoic structure measuring 2.3 x 2.3 cm is seen at the junction of the cervix and lower uterine segment. There is generalized somewhat lobulated appearance of the uterus. The endometrium measures 6 mm thick. Right ovary measures 2.3 cm in length, demonstrates normal blood flow. The left ovary could not be demonstrated. No free cul-de-sac fluid Impression: Limited exam, as described 2.3 x 2.3 cm rounded isoechoic structure at the lower uterine segment/cervical junction. Possibly a fibroid in an unusual location. Consider endovaginal sonography to better characterize if patient able to tolerate; if unable to tolerate then MRI with contrast may be useful 6 mm thick endometrium. Somewhat thick for patient's age. Normal right ovary. 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 Patient is cleared for discharge from a PUBLIC SCHOOL TEACHER perspective, once she has met all discharge criteria from her primary care team Signed: MD Alyson Castro Carla M.D. Mar 21, 2019 15:07
--- NOTE | 2019-03-21 15:47 | Diagnostic Imaging Report ---
Clinical Indication: Abdominal pain, abnormal uterus on recent sonogram Technique: Patient given oral contrast, only ingested a very limited amount.. IV administration nonionic contrast. Venous phase spiral acquisition obtained through the abdomen and pelvis. Multiplanar reconstructions were generated. Total dose length product 1243.57 mGycm. CTDIvol(s) 17.25,16.38 mGy. Dose reduction achieved using automated exposure control Comparison: none Findings: The gallbladder is very abnormal in appearance, with markedly irregular configuration of the wall, wall thickening and edema and mural enhancement, and considerable pericholecystic fat stranding. No definite gallstones are demonstrated. There is mild ectasia of the extra hepatic bile ducts, common bile duct measuring up to 8 mm in diameter. No intrahepatic biliary dilatation. The liver is normal in appearance. Exophytic semilunar shaped 2.2 x 2.7 cm comes off of the anterior lower segment uterus/cervix junction. This is contiguous with the uterus and is isoattenuating to uterus. There is mild thickening and irregularity of the endometrium. No adnexal mass demonstrated. The pancreas, spleen, adrenals, right kidney are unremarkable. The left kidney demonstrates fluid attenuation cysts and subcentimeter low-attenuation lesions which are too small to characterize. No renal or ureteral calculi, hydronephrosis, or hydroureter demonstrated. The bladder is unremarkable. No retroperitoneal or mesenteric mass or adenopathy. The included lung bases demonstrate dependent atelectatic changes and scarring. The heart is enlarged. The bones demonstrate degenerative proliferative changes of the lumbar spine. Impression: Markedly abnormal gallbladder as described, with wall thickening/edema and extensive pericholecystic inflammation. No gallstones are demonstrated. Findings are suspicious for acute cholecystitis, either a calculus or due to occult stone disease Mild ectasia of the extrahepatic bile ducts, probably related to patient age, occult downstream obstructive lesion cannot completely excludable. Correlate with liver function tests Exophytic lesion coming off of the anterior uterus at the lower segment/cervix junction, as described, corresponding to finding reported on recent sonogram. This most likely represents an exophytic fibroid Cardiomegaly Left renal cysts. Subcentimeter low-attenuation left renal lesions, too small to characterize, most likely benign simple cyst. No further follow-up necessary Other findings as noted, including dependent pulmonary parenchymal atelectatic changes and scarring, cardiomegaly Nurse practitioner Marquez Purcell notified of the findings at the time of interpretation The CT scanner at [facility] is accredited by the [employer] and the scans are performed using protocols designed to limit radiation exposure to as low as reasonably achievable to attain images of sufficient resolution adequate for diagnostic evaluation.
--- NOTE | 2019-03-21 15:50 | Infectious Diseases Prog Note ---
Assessment/Plan Assessment/Plan Assessment: Probable sepsis 2ry to UTI -u/a wbc tnct, nit neg, leuk +3; ucx >100K E.coli ( R Cipro/lEvo) -CXR: Accentuation of interstitial markings, reticulonodular opacities in the upper lung cortez and probable left pleural effusion. -Bcx NTD Probable acute cholecystitis per prelim report of CT Afebrile Leukocytosis; SP ?Pelvic mass -Pelvic uS: Limited exam, as described. 2.3 x 2.3 cm rounded isoechoic structure at the lower uterine segment/cervical junction. Possibly a fibroid in an unusual location. Consider endovaginal sonography to better characterize if patient able to tolerate; if unable to tolerate then MRI with contrast may be useful. 6 mm thick endometrium. Somewhat thick for patient's age. Normal right ovary. Unable to visualize left ovary HTN COPD Dm2 [place] resident Plan: -Switch PO Bactrim DS 1 tab bid #4 (abx d #6) back to Aztreonam given concern for acute cholecystitis on CT abd/p -03/18 SP Aztreonam #3 -03/17 SP IV Vancomycin #2 -03/16 SP Clindamycin x1 -f/u cx -Monitor CBC/CMP, temperatures Thank you for this consultation. Will continue to follow along with you. Discussed with RN Subjective Allergies: Coded Allergies: PENICILLINS (Verified Allergy, Unknown, 11/01/12) Subjective afebrile leukocytosis resolved Bcx NTD Objective Vital Signs Last 24 Hour Vital Signs Date Time Temp Pulse Resp B/P (MAP) Pulse Ox O2 Delivery O2 Flow Rate FiO2 03/21/19 12:41 85 20 95 Room Air 21 03/21/19 12:00 98.3 82 20 141/84 (103) 94 03/21/19 09:00 Room Air 03/21/19 08:00 96.3 88 20 117/66 (83) 95 03/21/19 05:01 97.8 75 20 145/78 (100) 03/21/19 04:00 97.8 78 20 145/85 (105) 03/21/19 00:00 97.8 69 18 118/78 (91) 03/20/19 22:02 Room Air 03/20/19 20:06 88 18 97 Room Air 21 03/20/19 20:00 97.8 78 20 127/65 (85) 03/20/19 16:00 98.2 82 18 125/68 (87) 97 Height (Feet): 4 Height (Inches): 11.00 Weight (Pounds): 129 Objective General Appearance: no apparent distress Head: normocephalic, atraumatic Eyes: bilateral eye PERRL, bilateral eye EOMI ENT: dry mucus membranes Neck: supple, thyroid normal Respiratory: lungs clear, no respiratory distress, no retraction Cardiovascular : tachycardia Gastrointestinal: non tender, soft Genitourinary: no CVA tenderness Musculoskeletal: other - Patient does not follow all commands however no obvious focal deficit Neurologic: responsive - To verbal stimuli Skin: no rash Lymphatic: no adenopathy Laboratory Tests Test 03/21/19 05:05 White Blood Count 7.3 K/UL (4.8-10.8) Red Blood Count 4.55 M/UL (4.20-5.40) Hemoglobin 14.6 G/DL (12.0-16.0) Hematocrit 44.8 % (37.0-47.0) Mean Corpuscular Volume 98 FL (80-99) Mean Corpuscular Hemoglobin 32.0 PG (27.0-31.0) H Mean Corpuscular Hemoglobin Concent 32.6 G/DL (32.0-36.0) Red Cell Distribution Width 11.6 % (11.6-14.8) Platelet Count 240 K/UL (150-450) Mean Platelet Volume 7.7 FL (6.5-10.1) Neutrophils (%) (Auto) 62.6 % (45.0-75.0) Lymphocytes (%) (Auto) 24.1 % (20.0-45.0) Monocytes (%) (Auto) 10.7 % (1.0-10.0) H Eosinophils (%) (Auto) 2.0 % (0.0-3.0) Basophils (%) (Auto) 0.6 % (0.0-2.0) Sodium Level 140 MMOL/L (136-145) Potassium Level 4.1 MMOL/L (3.5-5.1) Chloride Level 107 MMOL/L (98-107) Carbon Dioxide Level 23 MMOL/L (21-32) Anion Gap 10 mmol/L (5-15) Blood Urea Nitrogen 19 mg/dL (7-18) H Creatinine 1.0 MG/DL (0.55-1.30) Estimat Glomerular Filtration Rate mL/min (>60) Glucose Level 114 MG/DL (74-106) H Calcium Level 8.8 MG/DL (8.5-10.1) Phosphorus Level 3.0 MG/DL (2.5-4.9) Magnesium Level 1.8 MG/DL (1.8-2.4) Current Medications Medications (Trade) Dose Ordered Sig/Joon Route PRN Reason Start Time Stop Time Status Last Admin Dose Admin Acetaminophen (Tylenol) 650 mg Q4H PRN ORAL T>100.5 03/20/19 07:30 04/15/19 11:29 Barium Sulfate (Readi-Cat 2) 450 ml NOW PRN ORAL Radiology Procedure 03/21/19 12:15 03/23/19 12:10 Dextrose (Dextrose 50%) 25 ml Q30M PRN IV Hypoglycemia 03/20/19 04:15 04/15/19 11:35 Dextrose (Dextrose 50%) 50 ml Q30M PRN IV hypoglycemia 03/20/19 04:15 04/15/19 11:44 Diatrizoate Meglum/ Diatrizoate Sod (Gastrografin) 30 ml NOW PRN ORAL Radiology Procedure 03/20/19 18:00 03/22/19 17:56 Famotidine (Pepcid) 20 mg DAILY ORAL 03/20/19 09:00 04/16/19 08:59 03/21/19 08:23 Heparin Sodium (Porcine) (Heparin 5000 units/ml) 5,000 units EVERY 12 HOURS SUBQ 03/20/19 09:00 04/15/19 20:59 03/21/19 08:24 Insulin Aspart (NovoLOG) BEFORE MEALS AND HS SUBQ 03/20/19 06:30 04/15/19 11:29 03/20/19 22:20 Iopamidol (Isovue-300 100ml) 100 ml NOW PRN INJ Radiology Procedure 03/21/19 12:15 03/24/19 23:59 Iopamidol (Isovue-300 100ml) 150 ml NOW PRN INJ Radiology Procedure 03/20/19 18:00 03/22/19 17:56 Memantine (Namenda) 5 mg TWICE A DAY ORAL 03/20/19 09:00 04/15/19 17:59 03/21/19 08:23 Morphine Sulfate (Morphine Sulfate) 2 mg Q4H PRN IVP Moderate Pain (Pain Scale 4-6) 03/20/19 07:30 03/23/19 11:29 Nitroglycerin (Ntg) 0.4 mg Q5M PRN SL Prn Chest Pain 03/20/19 04:00 04/17/19 16:59 Ondansetron HCl (Zofran) 4 mg Q6H PRN IVP Nausea & Vomiting 03/20/19 05:30 04/15/19 11:29 Phenazopyridine HCl (Pyridium) 100 mg DAILYPRN PRN ORAL dysuria 03/20/19 11:30 04/15/19 11:29 Polyethylene Glycol (Miralax) 17 gm DAILYPRN PRN ORAL Constipation 03/20/19 11:30 04/15/19 11:29 Temazepam (Restoril) 15 mg HSPRN PRN ORAL Insomnia 03/20/19 21:00 03/23/19 20:59 Trimethoprim/ Sulfamethoxazole (Bactrim Single Strength) 1 tab Q12HR ORAL 03/20/19 09:00 03/25/19 20:59 03/21/19 08:23 Irene Alberto M.D. Mar 21, 2019 15:50
--- NOTE | 2019-03-21 16:41 | Consultation ---
History of Present Illness General Date patient seen: Mar 21, 2019 Reason for Hospitalization: Abnormal Labs Present Illness HPI This is a pleasant 88 year old female with multiple medical comorbidities who is a senior care resident that presented with leukocytosis and UTI. On evaluation noted to be complaining of abdominal pain. CT scan ordered by GI and demonstrated very "abnormal gallbladder." Surgery called by GI to evaluate and assist with care. patient seen, chart reviewed, patient examined. She is a pleasant elderly woman who speaks [place]. States she was told in [facility] that she has gallstones many years ago. currently 10/31 abdominal discomfort but generalized. no n/v/f/c. leukocytosis resolved since admission. Allergies: Coded Allergies: PENICILLINS (Verified Allergy, Unknown, 11/01/12) Medication History Scheduled Amino Acids/Protein Hydrolys (Pro-Stat Liquid), 30 ML ORAL TWICE A DAY, ( Reported) Ascorbic Acid* (Vitamin C*), 500 MG ORAL TWICE A DAY, (Reported) Bimatoprost (Lumigan), 1 DROP BOTH EYES BEDTIME, (Reported) Docusate Sodium* (Colace*), 100 MG ORAL DAILY, (Reported) Famotidine (Famotidine), 20 MG ORAL DAILY, (Reported) Lactobacillus Acidophilus (Acidophilus), 1 EACH PO TWICE A DAY, (Reported) Lidocaine Patch* (Lidoderm Patch*), 1 PATCH TOPIC DAILY, (Reported) Megestrol Acetate (Megestrol Acetate), 40 MG PO BID, (Reported) Memantine Hcl* (Namenda*), 5 MG ORAL TWICE A DAY, (Reported) Multivitamins* (Multivitamins*), 1 TAB ORAL DAILY, (Reported) Tramadol Hcl* (Ultram*), 50 MG ORAL BID, (Reported) Scheduled PRN Acetaminophen (Tylenol), 650 MG ORAL Q6HR PRN for Mild Pain (Pain Scale 1-3), ( Reported) Bisacodyl (Dulcolax), 10 MG RC DAILY PRN for Constipation, (Reported) Clonidine Hcl* (Catapres*), 0.1 MG ORAL EVERY 6 HOURS PRN for SPB>160, (Reported ) Mag Hydrox/Al Hydrox/Simeth (Thania-Lanta Liquid), 30 ML PO Q6HR PRN for STOMACH UPSET, (Reported) Magnesium Hydroxide* (Milk Of Magnesia*), 30 ML ORAL DAILY PRN for Constipation, (Reported) Na Phos,M-B/Na Phos,Di-Ba* (Fleet Enema*), 133 ML RECTAL DAILY PRN for Constipation, (Reported) Nitroglycerin (Nitroglycerin), 0.4 MG SL Q5MIN X 3 DOSES PRN for Prn Chest Pain, (Reported) Tramadol Hcl* (Ultram*), 50 MG ORAL Q6H PRN for Moderate Pain (Pain Scale 4-6), (Reported) Discontinued Medications Albuterol Sulfate* (Albuterol Sulfate Hhn*), 3 ML INH Q4H PRN for Shortness of Breath, (Reported) Discontinued Reason: Therapy completed Bacitracin (Bacitracin), 1 APPLIC TOPIC THREE TIMES A DAY Discontinued Reason: Therapy completed Cephalexin* (Keflex*), 500 MG ORAL EVERY 6 HOURS Discontinued Reason: Therapy completed Heparin Sod (Porcine) (Heparin Sodium*), 5,000 UNITS SUBQ EVERY 12 HOURS, ( Reported) Discontinued Reason: Therapy completed Insulin Aspart (Novolog), SQ ACHS, (Reported) Discontinued Reason: Therapy completed Levofloxacin* (Levaquin*), 750 MG ORAL Q48hr, (Reported) Discontinued Reason: Therapy completed Ondansetron (Zofran), 4 MG ORAL Q6H PRN for Nausea & Vomiting, (Reported) Discontinued Reason: Therapy completed Polyethylene Glycol 3350* (Polyethylene Glycol 3350*), 17 GM ORAL DAILY PRN for PRN, (Reported) Discontinued Reason: Therapy completed Temazepam (Temazepam*), 15 MG ORAL BEDTIME PRN for PRN, (Reported) Discontinued Reason: Therapy completed Trimethoprim/Sulfamethoxazole 160/800* (Bactrim Ds Tablet*), 1 TAB ORAL TWICE A DAY, (Reported) Discontinued Reason: Therapy completed Patient History Limited by: medical condition History Provided By: Patient, Medical Record, PMD Healthcare decision maker Resuscitation status Full Code Advanced Directive on File Past Medical/Surgical History Past Medical/Surgical History: (1) Colonization with VRE (vancomycin-resistant enterococcus) (2) Injury of lower extremity (3) Tachycardia (4) UTI (urinary tract infection) (5) Diabetes (6) Malnutrition (7) Sepsis (8) HTN (hypertension) (9) Psychosis (10) Failure to thrive (11) Pelvic mass Review of Systems Review of Symptoms General ROS: no weight loss or fever Psychological ROS: no depression or mood changes, no memory loss Ophthalmic ROS: no visual changes or eye irritation ENT ROS: no nasal congestion, hearing loss, dizziness Allergy and Immunology ROS: no allergic symptoms or urticaria Hematological and Lymphatic ROS: no swollen glands, unusual bleeding or bruising Endocrine ROS: no polyuria, polydipsia, weight changes, temperature intolerance Respiratory ROS: no cough, shortness of breath, or wheezing Cardiovascular ROS: no chest pain or dyspnea on exertion Gastrointestinal ROS: discomfort abdominal pain, no bright red blood in stool. Musculoskeletal ROS: no myalgias or arthralgias Neurological ROS: no TIA or stroke symptoms Dermatological ROS: no new or changing skin lesions, rashes or pruritis Physical Exam Physical Exam General appearance: alert, cooperative, no distress, appears stated age Head: Normocephalic, without obvious abnormality, atraumatic Eyes: conjunctivae/corneas clear. PERRL, EOM's intact. Fundi benign Throat: Lips, mucosa, and tongue normal. Teeth and gums normal Neck: supple, symmetrical, trachea midline, no adenopathy, thyroid: not enlarged, symmetric, no tenderness/mass/nodules, no carotid bruit and no JVD Lungs: clear to auscultation bilaterally Heart: regular rate and rhythm, S1, S2 normal, no murmur, click, rub or gallop Abdomen: soft, non-tender but discomfort in all quadrants. Bowel sounds normal. No masses, no organomegaly Extremities: extremities normal, atraumatic, no cyanosis or edema Pulses: 2+ and symmetric Skin: Skin color, texture, turgor normal. No rashes or lesions Neurologic: Grossly normal Last 24 Hour Vital Signs Date Time Temp Pulse Resp B/P (MAP) Pulse Ox O2 Delivery O2 Flow Rate FiO2 03/21/19 12:41 85 20 95 Room Air 21 03/21/19 12:00 98.3 82 20 141/84 (103) 94 03/21/19 09:00 Room Air 03/21/19 08:00 96.3 88 20 117/66 (83) 95 03/21/19 05:01 97.8 75 20 145/78 (100) 03/21/19 04:00 97.8 78 20 145/85 (105) 03/21/19 00:00 97.8 69 18 118/78 (91) 03/20/19 22:02 Room Air 03/20/19 20:06 88 18 97 Room Air 21 03/20/19 20:00 97.8 78 20 127/65 (85) Intake and Output 03/20/19 03/21/19 19:00 07:00 Intake Total 820 ml 820 ml Output Total 550 ml Balance 820 ml 270 ml Intake Oral 820 ml 820 ml Output Urine Total 550 ml # Voids 3 3 # Bowel Movements 1 2 Laboratory Tests Test 03/21/19 05:05 White Blood Count 7.3 K/UL (4.8-10.8) Red Blood Count 4.55 M/UL (4.20-5.40) Hemoglobin 14.6 G/DL (12.0-16.0) Hematocrit 44.8 % (37.0-47.0) Mean Corpuscular Volume 98 FL (80-99) Mean Corpuscular Hemoglobin 32.0 PG (27.0-31.0) H Mean Corpuscular Hemoglobin Concent 32.6 G/DL (32.0-36.0) Red Cell Distribution Width 11.6 % (11.6-14.8) Platelet Count 240 K/UL (150-450) Mean Platelet Volume 7.7 FL (6.5-10.1) Neutrophils (%) (Auto) 62.6 % (45.0-75.0) Lymphocytes (%) (Auto) 24.1 % (20.0-45.0) Monocytes (%) (Auto) 10.7 % (1.0-10.0) H Eosinophils (%) (Auto) 2.0 % (0.0-3.0) Basophils (%) (Auto) 0.6 % (0.0-2.0) Sodium Level 140 MMOL/L (136-145) Potassium Level 4.1 MMOL/L (3.5-5.1) Chloride Level 107 MMOL/L (98-107) Carbon Dioxide Level 23 MMOL/L (21-32) Anion Gap 10 mmol/L (5-15) Blood Urea Nitrogen 19 mg/dL (7-18) H Creatinine 1.0 MG/DL (0.55-1.30) Estimat Glomerular Filtration Rate mL/min (>60) Glucose Level 114 MG/DL (74-106) H Calcium Level 8.8 MG/DL (8.5-10.1) Phosphorus Level 3.0 MG/DL (2.5-4.9) Magnesium Level 1.8 MG/DL (1.8-2.4) Height (Feet): 4 Height (Inches): 11.00 Weight (Pounds): 129 Medications Current Medications Medications (Trade) Dose Ordered Sig/Joon Route PRN Reason Start Time Stop Time Status Last Admin Dose Admin Acetaminophen (Tylenol) 650 mg Q4H PRN ORAL T>100.5 03/20/19 07:30 04/15/19 11:29 Aztreonam 0.5 gm/ Dextrose 55 ml @ 110 mls/hr Q8H IVPB 03/21/19 18:00 03/28/19 17:59 Barium Sulfate (Readi-Cat 2) 450 ml NOW PRN ORAL Radiology Procedure 03/21/19 12:15 03/23/19 12:10 Dextrose (Dextrose 50%) 25 ml Q30M PRN IV Hypoglycemia 03/20/19 04:15 04/15/19 11:35 Dextrose (Dextrose 50%) 50 ml Q30M PRN IV hypoglycemia 03/20/19 04:15 04/15/19 11:44 Diatrizoate Meglum/ Diatrizoate Sod (Gastrografin) 30 ml NOW PRN ORAL Radiology Procedure 03/20/19 18:00 03/22/19 17:56 Famotidine (Pepcid) 20 mg DAILY ORAL 03/20/19 09:00 04/16/19 08:59 03/21/19 08:23 Heparin Sodium (Porcine) (Heparin 5000 units/ml) 5,000 units EVERY 12 HOURS SUBQ 03/20/19 09:00 04/15/19 20:59 03/21/19 08:24 Insulin Aspart (NovoLOG) BEFORE MEALS AND HS SUBQ 03/20/19 06:30 04/15/19 11:29 03/20/19 22:20 Iopamidol (Isovue-300 100ml) 100 ml NOW PRN INJ Radiology Procedure 03/21/19 12:15 03/24/19 23:59 Iopamidol (Isovue-300 100ml) 150 ml NOW PRN INJ Radiology Procedure 03/20/19 18:00 03/22/19 17:56 Memantine (Namenda) 5 mg TWICE A DAY ORAL 03/20/19 09:00 04/15/19 17:59 03/21/19 08:23 Morphine Sulfate (Morphine Sulfate) 2 mg Q4H PRN IVP Moderate Pain (Pain Scale 4-6) 03/20/19 07:30 03/23/19 11:29 Nitroglycerin (Ntg) 0.4 mg Q5M PRN SL Prn Chest Pain 03/20/19 04:00 04/17/19 16:59 Ondansetron HCl (Zofran) 4 mg Q6H PRN IVP Nausea & Vomiting 03/20/19 05:30 04/15/19 11:29 Phenazopyridine HCl (Pyridium) 100 mg DAILYPRN PRN ORAL dysuria 03/20/19 11:30 04/15/19 11:29 Polyethylene Glycol (Miralax) 17 gm DAILYPRN PRN ORAL Constipation 03/20/19 11:30 04/15/19 11:29 Temazepam (Restoril) 15 mg HSPRN PRN ORAL Insomnia 03/20/19 21:00 03/23/19 20:59 Assessment/Plan Problem List: (1) Abnormal CT scan, gallbladder Assessment & Plan: Findings: The gallbladder is very abnormal in appearance, with markedly irregular configuration of the wall, wall thickening and edema and mural enhancement, and considerable pericholecystic fat stranding. No definite gallstones are demonstrated. There is mild ectasia of the extra hepatic bile ducts, common bile duct measuring up to 8 mm in diameter. No intrahepatic biliary dilatation. The liver is normal in appearance. Patient with some discomfort generalized abdominal. no +dong's no leukocytosis now since resolved from admission lft's okay will order US to further evaluate GB possible episode of acute cholecystitis which has responded to medical therapy no acute surgical intervention planned thank you for this consultation will follow with recs ICD Codes: R93.2 - Abnormal findings on diagnostic imaging of liver and biliary tract SNOMED: 231849684, [id number] (2) Malnutrition ICD Codes: E46 - Unspecified protein-calorie malnutrition SNOMED: 26875128 (3) Failure to thrive Assessment & Plan: DAILY ESTIMATED NEEDS: Needs based on Diabetes, Sepsis, wound/ 54kg 25-35 kcals/kg 0673-2447 total kcals 1.25-2 g protein/kg 68-108 g total protein 25-30ml/kcal mL/kg 7300-4385 total fluid mLs NUTRITION DIAGNOSIS: *Increased kcal/pro needs R/T wound healing, sepsis as evidenced by pt admitted non-blanchable erythema without induration/fluctuance sacrum, adm w/ elev WBC, now wnl. . PO DIET RECOMMENDATIONS: CCHO MED/ texture as tolerated + Glucerna I can BID in between meals ADDITIONAL RECOMMENDATIONS: * Calibrated bescale wt * A1C for evaluation of glycemic control * Wound care: add KAILA BID + Vit C 250mg daily * Add snacks in b/w meals w/ current fair po intake SNOMED: 71205714 (4) Pelvic mass ICD Codes: R19.00 - Intra-abdominal and pelvic swelling, mass and lump, unspecified site SNOMED: 83711097 Christian Larson Mar 21, 2019 16:41
[2019-03-21] MEDS: Aztreonam Inj 0.5 GM in D5W 55 ML IVPB SCH (18:21)
--- NOTE | 2019-03-21 19:35 | NUR ---
HAND-OFF: Report given to CASE Trevizo.
--- NOTE | 2019-03-21 19:36 | NUR ---
NURSE NOTES: Received patient in no apparent distress. A&OX2. IV site patent and intact. Bed in lowest position. Call light within reach. Will continue to monitor.
[2019-03-22] VITALS: BP 137/60
[2019-03-22] MEDS: Aztreonam Inj 0.5 GM in D5W 55 ML IVPB SCH ×3 (01:19→18:44)
[2019-03-22 04:00] VITALS: BP 129/76
[2019-03-22 06:14] LABS: EOSINOPHILS % (AUTO) 3.6 % (0.0-3.0); HEMATOCRIT 41.6 % (37.0-47.0); HEMOGLOBIN 13.7 G/DL (12.0-16.0); LYMPHOCYTES % (AUTO) 36.2 % (20.0-45.0); MEAN CORPUSCULAR VOLUME 99 FL (80-99); MONOCYTES % (AUTO) 10.3 % (1.0-10.0); PLATELET COUNT 289 K/UL (150-450); RED BLOOD COUNT 4.21 M/UL (4.20-5.40); RED CELL DISTRIBUTION WIDTH 11.9 % (11.6-14.8); WHITE BLOOD COUNT 6.1 K/UL (4.8-10.8)
[2019-03-22] MEDS: NovoLOG Insulin Flexpen SUBQ SCH ×4 (06:14→17:46)
[2019-03-22 06:20] LABS: ALANINE AMINOTRANSFERASE 29 U/L (12-78); ALBUMIN 1.8 G/DL (3.4-5.0); ALBUMIN/GLOBULIN RATIO 0.4 (1.0-2.7); ALKALINE PHOSPHATASE 111 U/L (46-116); ANION GAP 11 mmol/L (5-15); ASPARTATE AMINO TRANSFERASE 36 U/L (15-37); BILIRUBIN,TOTAL 0.4 MG/DL (0.2-1.0); BLOOD UREA NITROGEN 17 mg/dL (7-18); CALCIUM 8.6 MG/DL (8.5-10.1); CARBON DIOXIDE 21 MMOL/L (21-32); CHLORIDE 107 MMOL/L (98-107); PHOSPHORUS 3.5 MG/DL (2.5-4.9); POTASSIUM 3.9 MMOL/L (3.5-5.1); SODIUM 139 MMOL/L (136-145)
--- NOTE | 2019-03-22 07:30 | NUR ---
HAND-OFF: Report given to Ольга WILLOUGHBY.
[2019-03-22 08:00] VITALS: BP 131/77
[2019-03-22] MEDS: Memantine 5 MG TAB ORAL SCH ×2 (08:57→17:49)
[2019-03-22] MEDS: Heparin 5000 units/ml inj SUBQ SCH (08:58)
--- NOTE | 2019-03-22 09:09 | NUR ---
NURSE NOTES: Patient sitting up in bed,alert,respirations unlabored,patient eating breakfast,continue calorie count.HOB is elevated.Bed alarm on,call light within reach.
--- NOTE | 2019-03-22 09:18 | General Progress Note ---
Assessment/Plan Problem List: (1) Malnutrition ICD Codes: E46 - Unspecified protein-calorie malnutrition SNOMED: 60306880 (2) Diabetes ICD Codes: E11.9 - Type 2 diabetes mellitus without complications SNOMED: 24939699 (3) HTN (hypertension) ICD Codes: I10 - Essential (primary) hypertension SNOMED: 98923694 (4) UTI (urinary tract infection) ICD Codes: N39.0 - Urinary tract infection, site not specified SNOMED: 30073712 (5) Sepsis ICD Codes: A41.9 - Sepsis, unspecified organism SNOMED: 35947738 Status: stable, progressing, unchanged Assessment/Plan: pt diet abx gi eval dc plan Subjective Constitutional: Reports: weakness Allergies: Coded Allergies: PENICILLINS (Verified Allergy, Unknown, 11/01/12) All Systems: reviewed and negative except above Subjective calm in bed Objective Last 24 Hour Vital Signs Date Time Temp Pulse Resp B/P (MAP) Pulse Ox O2 Delivery O2 Flow Rate FiO2 03/22/19 08:00 97.7 81 18 131/77 (95) 99 03/22/19 04:00 97.4 82 18 129/76 (93) 98 03/22/19 00:00 98.4 77 18 137/60 (85) 98 03/21/19 21:00 Room Air 03/21/19 20:05 87 20 96 Room Air 21 03/21/19 20:00 98.1 80 16 136/65 (88) 99 03/21/19 16:00 98.1 86 20 126/56 (79) 97 03/21/19 12:41 85 20 95 Room Air 21 03/21/19 12:00 98.3 82 20 141/84 (103) 94 Intake and Output 03/21/19 03/22/19 18:59 06:59 Intake Total 120 ml 55 ml Output Total 300 ml Balance -180 ml 55 ml Intake Oral 120 ml IV Total 55 ml Output Urine Total 300 ml # Voids 2 # Bowel Movements 3 Laboratory Tests 03/22/19 05:20: White Blood Count 6.1, Red Blood Count 4.21, Hemoglobin 13.7, Hematocrit 41.6, Mean Corpuscular Volume 99, Mean Corpuscular Hemoglobin 32.5H, Mean Corpuscular Hemoglobin Concent 32.9, Red Cell Distribution Width 11.9, Platelet Count 289, Mean Platelet Volume 7.1, Neutrophils (%) (Auto) 49.0, Lymphocytes (%) (Auto) 36.2, Monocytes (%) (Auto) 10.3H, Eosinophils (%) (Auto) 3.6H, Basophils (%) ( Auto) 1.0, Sodium Level 139, Potassium Level 3.9, Chloride Level 107, Carbon Dioxide Level 21, Anion Gap 11, Blood Urea Nitrogen 17, Creatinine 1.0, Estimat Glomerular Filtration Rate , Glucose Level 114H, Calcium Level 8.6, Phosphorus Level 3.5, Magnesium Level 1.9, Total Bilirubin 0.4, Aspartate Amino Transf (AST /SGOT) 36, Alanine Aminotransferase (ALT/SGPT) 29, Alkaline Phosphatase 111, Total Protein 6.6, Albumin 1.8L, Globulin 4.8, Albumin/Globulin Ratio 0.4L Height (Feet): 4 Height (Inches): 11.00 Weight (Pounds): 129 General Appearance: lethargic EENT: normal ENT inspection Neck: normal alignment Cardiovascular: normal peripheral pulses, normal rate, regular rhythm Respiratory/Chest: chest wall non-tender, lungs clear, normal breath sounds Abdomen: normal bowel sounds, non tender, soft Extremities: normal inspection Edema: no edema noted Arm (L), no edema noted Arm (R), no edema noted Leg (L), no edema noted Leg (R), no edema noted Pedal (L), no edema noted Pedal (R), no edema noted Generalized Neurologic: motor weakness Skin: normal pigmentation, warm/dry Chalo Ayala DO Mar 22, 2019 09:18
--- NOTE | 2019-03-22 10:05 | Surgery Progress Note ---
Surgery Progress Note Subjective Additional Comments no acute events still with abd discomfort no n/v//fc afebrile pending US labs okay lft's okay Objective Last 24 Hour Vital Signs Date Time Temp Pulse Resp B/P (MAP) Pulse Ox O2 Delivery O2 Flow Rate FiO2 03/22/19 08:00 97.7 81 18 131/77 (95) 99 03/22/19 04:00 97.4 82 18 129/76 (93) 98 03/22/19 00:00 98.4 77 18 137/60 (85) 98 03/21/19 21:00 Room Air 03/21/19 20:05 87 20 96 Room Air 21 03/21/19 20:00 98.1 80 16 136/65 (88) 99 03/21/19 16:00 98.1 86 20 126/56 (79) 97 03/21/19 12:41 85 20 95 Room Air 21 03/21/19 12:00 98.3 82 20 141/84 (103) 94 I&O Intake and Output 03/21/19 03/22/19 18:59 06:59 Intake Total 120 ml 55 ml Output Total 300 ml Balance -180 ml 55 ml Intake Oral 120 ml IV Total 55 ml Output Urine Total 300 ml # Voids 2 # Bowel Movements 3 Cardiovascular: RSR Respiratory: clear Abdomen: soft, flat, tenderness, present bowel sounds, non-distended Extremities: no edema, no cyanosis Laboratory Tests Test 03/22/19 05:20 White Blood Count 6.1 K/UL (4.8-10.8) Red Blood Count 4.21 M/UL (4.20-5.40) Hemoglobin 13.7 G/DL (12.0-16.0) Hematocrit 41.6 % (37.0-47.0) Mean Corpuscular Volume 99 FL (80-99) Mean Corpuscular Hemoglobin 32.5 PG (27.0-31.0) H Mean Corpuscular Hemoglobin Concent 32.9 G/DL (32.0-36.0) Red Cell Distribution Width 11.9 % (11.6-14.8) Platelet Count 289 K/UL (150-450) Mean Platelet Volume 7.1 FL (6.5-10.1) Neutrophils (%) (Auto) 49.0 % (45.0-75.0) Lymphocytes (%) (Auto) 36.2 % (20.0-45.0) Monocytes (%) (Auto) 10.3 % (1.0-10.0) H Eosinophils (%) (Auto) 3.6 % (0.0-3.0) H Basophils (%) (Auto) 1.0 % (0.0-2.0) Sodium Level 139 MMOL/L (136-145) Potassium Level 3.9 MMOL/L (3.5-5.1) Chloride Level 107 MMOL/L (98-107) Carbon Dioxide Level 21 MMOL/L (21-32) Anion Gap 11 mmol/L (5-15) Blood Urea Nitrogen 17 mg/dL (7-18) Creatinine 1.0 MG/DL (0.55-1.30) Estimat Glomerular Filtration Rate mL/min (>60) Glucose Level 114 MG/DL (74-106) H Calcium Level 8.6 MG/DL (8.5-10.1) Phosphorus Level 3.5 MG/DL (2.5-4.9) Magnesium Level 1.9 MG/DL (1.8-2.4) Total Bilirubin 0.4 MG/DL (0.2-1.0) Aspartate Amino Transf (AST/SGOT) 36 U/L (15-37) Alanine Aminotransferase (ALT/SGPT) 29 U/L (12-78) Alkaline Phosphatase 111 U/L (46-116) Total Protein 6.6 G/DL (6.4-8.2) Albumin 1.8 G/DL (3.4-5.0) L Globulin 4.8 g/dL Albumin/Globulin Ratio 0.4 (1.0-2.7) L Plan Problems: (1) Abnormal CT scan, gallbladder Assessment & Plan: Findings: The gallbladder is very abnormal in appearance, with markedly irregular configuration of the wall, wall thickening and edema and mural enhancement, and considerable pericholecystic fat stranding. No definite gallstones are demonstrated. There is mild ectasia of the extra hepatic bile ducts, common bile duct measuring up to 8 mm in diameter. No intrahepatic biliary dilatation. The liver is normal in appearance. Patient with some discomfort generalized abdominal. no +dong's no leukocytosis now since resolved from admission lft's okay will order US to further evaluate GB possible episode of acute cholecystitis which has responded to medical therapy no acute surgical intervention planned thank you for this consultation will follow with recs (2) Malnutrition (3) Failure to thrive Assessment & Plan: DAILY ESTIMATED NEEDS: Needs based on Diabetes, Sepsis, wound/ 54kg 25-35 kcals/kg 3758-0022 total kcals 1.25-2 g protein/kg 68-108 g total protein 25-30ml/kcal mL/kg 3522-6842 total fluid mLs NUTRITION DIAGNOSIS: *Increased kcal/pro needs R/T wound healing, sepsis as evidenced by pt admitted non-blanchable erythema without induration/fluctuance sacrum, adm w/ elev WBC, now wnl. . PO DIET RECOMMENDATIONS: CCHO MED/ texture as tolerated + Glucerna I can BID in between meals ADDITIONAL RECOMMENDATIONS: * Calibrated bescale wt * A1C for evaluation of glycemic control * Wound care: add KAILA BID + Vit C 250mg daily * Add snacks in b/w meals w/ current fair po intake (4) Pelvic mass Christian Larson Mar 22, 2019 10:05
--- NOTE | 2019-03-22 10:05 | NUR ---
ST NOTES: NOT AVAILABLE YESTERDAY. REFERRED FOR SWALLOW EVALUATION BY DR LADD (PRIMARY MD DR MAGDALENO), SEE SWALLOW EVAL. DYSPHAGIA RISK FACTORS FOR THIS 88 Y.O [place]ANISH-SPEAKING ([facility]) FEMALE: ACUTE ISSUES: MALNUTRITION, SEPSIS, INCREASED WBC, TACHY, UTI, LUNGS HAVE OPACITIES, RR 16-20, ROOM AIR, PELVIC MASS, FTT, POSS DYSPHAGIA PER GI RELEVANT MEDS: ALBUTEROL, PEPCID, AND MORPHINE H/O PNA/SEPSIS (01/2017),COPD, RESP D/O, DIABETES, GERD MEDS (PEDCID), ENDOCRINE D/O, DEPRESSION/PSYCH ISSUES PER POLST, OK TO HAVE LT TUBE FEEDINGS IF NEEDS. AT SNF ? DIET NO NOTES AT [facility] [place] [facility] SOFT CHOPPED DIET AND THIN LIQUIDS WITH 25/40/50/75% INTAKE. ON CALORIE COUNT. NO PROBLEMS WITH DIET PER RN. PER RD NORMAL WT[facility] DI[facility] TYPE AND GLUCERNA BID. POOR HISTORIAN PER MD. ALERT AND CONVERSANT IN [place]ANISH. LIMITED APPETITE AND DID NOT WANT PO TRIALS INITIALLY, FELT FULL ON [facility] SOFT CHOPPED DIET TOOK ALL OF GLUCERNA. RR WNLS ON ROOM AIR. INITIAL IMPRESSIONS: S/S OF AT LEAST A MILD/MOD ORAL PREP AND OROPHARYNGEAL DYSPHAGIA WITH INCREASED OVERALL TRANSIT TIMES. GIVEN THIN LIQUIDS SEQUENTIAL SIPS REFUSED (DUE TO BEING TOO FULL) AND ONLY TOOK ONE TO 2 SIPS OF WATER, APPEARED TO HAVE A GROSSLY FUNCTIONAL SWALLLOW WITH NO OVERT ASPIRATION BUT ADMITS THAT SHE SOMETIMES COUGHS ON WATER. (MCFADDIN 3 OZ SWALLOW PROTOCOL) GIVEN TSP PUREED, LONGER TRANSIT TIMES 5-7 SECONDS, MIN ORAL RESIDUE, TALKED, AND ALSO HAS COUGH/THROAT CLEAR AFTER THE SWALLOW WITH FAIR HYOLARYNGEAL EXCURSION. POOR DENTITION AND MISSING ALL MOLARS ( NO DENTURES) REFUSED MASTICATED SOLIDS (TOO FULL) MAY HAVE HIGH RISK FOR SILENT ASPIRATION (COPD, POOR HISTORIAN ? NEURO ISSUES, AND 2017 PNA) RECOMMENDATIONS: CONSIDER COMPLETING A MOD BARIUM SWALLOW STUDY TO FURTHER ASSESS SWALLOW, DETERMINE SILENT ASP RISK, AND ATTEMPT TRIAL TX TECHNIQUES. DOWNGRADE TO CCHO-MED PUREED AND NECTAR THICK LIQUIDS WITH POSTED ASP AND REFLUX PREC WITH MEAL SUPERVISION. CONTINUE WITH HIGH JOLYNN SUP AND CALORIE COUNT SKILLED DYSPHAGIA MANAGEMENT AND TX AND COG-COM EVAL/TX EDUCATED/TRAINED JOAN VINES AND CASE HADDAD IN POSTED PRECAUTIONS. LEFT MESSAGE WITH GI SCARLET TORRE
--- NOTE | 2019-03-22 10:07 | General Progress Note ---
Assessment/Plan Status: stable, progressing, unchanged Assessment/Plan: (1) Failure to thrive SNOMED: 46957869 (2) Pelvic mass ICD Codes: R19.00 - Intra-abdominal and pelvic swelling, mass and lump, unspecified site SNOMED: 15530000 (3) Malnutrition ICD Codes: E46 - Unspecified protein-calorie malnutrition SNOMED: 44323608 Status: unchanged Status Narrative Assessment/Plan pelvic US reviewed - 2.3 x 2.3 cm rounded isoechoic structure at the lower uterine segment/ cervical junction. - 6 mm thick endometrium _CT reviewed>>> ordered abd us to evaluate for gallbladder edema needs [employer] consultation speech therapy evaluation to rule out any dysphasia We will obtain calorie count to see if nutritional needs are met Continue diet as tolerated, push p.o. Consider Marinol for appetite stimulant follow labs Subjective ROS Limited/Unobtainable: Yes Allergies: Coded Allergies: PENICILLINS (Verified Allergy, Unknown, 11/01/12) Objective Last 24 Hour Vital Signs Date Time Temp Pulse Resp B/P (MAP) Pulse Ox O2 Delivery O2 Flow Rate FiO2 03/22/19 08:00 97.7 81 18 131/77 (95) 99 03/22/19 04:00 97.4 82 18 129/76 (93) 98 03/22/19 00:00 98.4 77 18 137/60 (85) 98 03/21/19 21:00 Room Air 03/21/19 20:05 87 20 96 Room Air 21 03/21/19 20:00 98.1 80 16 136/65 (88) 99 03/21/19 16:00 98.1 86 20 126/56 (79) 97 03/21/19 12:41 85 20 95 Room Air 21 03/21/19 12:00 98.3 82 20 141/84 (103) 94 Intake and Output 03/21/19 03/22/19 18:59 06:59 Intake Total 120 ml 55 ml Output Total 300 ml Balance -180 ml 55 ml Intake Oral 120 ml IV Total 55 ml Output Urine Total 300 ml # Voids 2 # Bowel Movements 3 Laboratory Tests 03/22/19 05:20: White Blood Count 6.1, Red Blood Count 4.21, Hemoglobin 13.7, Hematocrit 41.6, Mean Corpuscular Volume 99, Mean Corpuscular Hemoglobin 32.5H, Mean Corpuscular Hemoglobin Concent 32.9, Red Cell Distribution Width 11.9, Platelet Count 289, Mean Platelet Volume 7.1, Neutrophils (%) (Auto) 49.0, Lymphocytes (%) (Auto) 36.2, Monocytes (%) (Auto) 10.3H, Eosinophils (%) (Auto) 3.6H, Basophils (%) ( Auto) 1.0, Sodium Level 139, Potassium Level 3.9, Chloride Level 107, Carbon Dioxide Level 21, Anion Gap 11, Blood Urea Nitrogen 17, Creatinine 1.0, Estimat Glomerular Filtration Rate , Glucose Level 114H, Calcium Level 8.6, Phosphorus Level 3.5, Magnesium Level 1.9, Total Bilirubin 0.4, Aspartate Amino Transf (AST /SGOT) 36, Alanine Aminotransferase (ALT/SGPT) 29, Alkaline Phosphatase 111, Total Protein 6.6, Albumin 1.8L, Globulin 4.8, Albumin/Globulin Ratio 0.4L Height (Feet): 4 Height (Inches): 11.00 Weight (Pounds): 129 General Appearance: no apparent distress EENT: normal ENT inspection Neck: supple Cardiovascular: normal rate Respiratory/Chest: decreased breath sounds Abdomen: normal bowel sounds, non tender, soft Extremities: non-tender Richmond Fallon MD Mar 22, 2019 10:07
[2019-03-22 12:00] VITALS: BP 136/80
--- NOTE | 2019-03-22 13:43 | Pulmonology Progress Note ---
Assessment/Plan Problems: (1) Sepsis (2) UTI (urinary tract infection) (3) Diabetes (4) HTN (hypertension) (5) Psychosis Assessment/Plan improving hemodynamically stable garcia cultures, Ecoli in urin on PO Bactrim iv fluids check electrolytes monitor BP dvt prophylaxis pt/ot dc planning soon Subjective ROS Limited/Unobtainable: No Constitutional: Reports: no symptoms HEENT: Repors: no symptoms Respiratory: Reports: no symptoms Allergies: Coded Allergies: PENICILLINS (Verified Allergy, Unknown, 11/01/12) Objective Last 24 Hour Vital Signs Date Time Temp Pulse Resp B/P (MAP) Pulse Ox O2 Delivery O2 Flow Rate FiO2 03/22/19 09:00 Room Air 03/22/19 08:00 97.7 81 18 131/77 (95) 99 03/22/19 04:00 97.4 82 18 129/76 (93) 98 03/22/19 00:00 98.4 77 18 137/60 (85) 98 03/21/19 21:00 Room Air 03/21/19 20:05 87 20 96 Room Air 21 03/21/19 20:00 98.1 80 16 136/65 (88) 99 03/21/19 16:00 98.1 86 20 126/56 (79) 97 Intake and Output 03/21/19 03/22/19 19:00 07:00 Intake Total 120 ml 55 ml Output Total 300 ml Balance -180 ml 55 ml Intake Oral 120 ml IV Total 55 ml Output Urine Total 300 ml # Voids 2 # Bowel Movements 3 General Appearance: WD/WN HEENT: normocephalic, atraumatic Respiratory/Chest: chest wall non-tender, lungs clear Breasts: no masses Cardiovascular: normal peripheral pulses Abdomen: normal bowel sounds, no organomegaly Genitourinary: normal external genitalia Skin: no rash Neurologic/Psychiatric: 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 geological II-XII grossly normal Lymphatic: no neck adenopathy Microbiology Date/Time Source Procedure Growth Status 03/20/19 03:06 Urine,Clean Catch Urine Culture - Preliminary Resulted Laboratory Tests 03/22/19 05:20: White Blood Count 6.1, Red Blood Count 4.21, Hemoglobin 13.7, Hematocrit 41.6, Mean Corpuscular Volume 99, Mean Corpuscular Hemoglobin 32.5H, Mean Corpuscular Hemoglobin Concent 32.9, Red Cell Distribution Width 11.9, Platelet Count 289, Mean Platelet Volume 7.1, Neutrophils (%) (Auto) 49.0, Lymphocytes (%) (Auto) 36.2, Monocytes (%) (Auto) 10.3H, Eosinophils (%) (Auto) 3.6H, Basophils (%) ( Auto) 1.0, Sodium Level 139, Potassium Level 3.9, Chloride Level 107, Carbon Dioxide Level 21, Anion Gap 11, Blood Urea Nitrogen 17, Creatinine 1.0, Estimat Glomerular Filtration Rate , Glucose Level 114H, Calcium Level 8.6, Phosphorus Level 3.5, Magnesium Level 1.9, Total Bilirubin 0.4, Aspartate Amino Transf (AST /SGOT) 36, Alanine Aminotransferase (ALT/SGPT) 29, Alkaline Phosphatase 111, Total Protein 6.6, Albumin 1.8L, Globulin 4.8, Albumin/Globulin Ratio 0.4L Current Medications Medications (Trade) Dose Ordered Sig/Joon Route PRN Reason Start Time Stop Time Status Last Admin Dose Admin Acetaminophen (Tylenol) 650 mg Q4H PRN ORAL T>100.5 03/20/19 07:30 04/15/19 11:29 Aztreonam 0.5 gm/ Dextrose 55 ml @ 110 mls/hr Q8H IVPB 03/21/19 18:00 03/28/19 17:59 03/22/19 10:32 Barium Sulfate (Readi-Cat 2) 450 ml NOW PRN ORAL Radiology Procedure 03/21/19 12:15 03/23/19 12:10 Dextrose (Dextrose 50%) 25 ml Q30M PRN IV Hypoglycemia 03/20/19 04:15 04/15/19 11:35 Dextrose (Dextrose 50%) 50 ml Q30M PRN IV hypoglycemia 03/20/19 04:15 04/15/19 11:44 Diatrizoate Meglum/ Diatrizoate Sod (Gastrografin) 30 ml NOW PRN ORAL Radiology Procedure 03/20/19 18:00 03/22/19 17:56 Famotidine (Pepcid) 20 mg DAILY ORAL 03/20/19 09:00 04/16/19 08:59 03/22/19 08:57 Heparin Sodium (Porcine) (Heparin 5000 units/ml) 5,000 units EVERY 12 HOURS SUBQ 03/20/19 09:00 04/15/19 20:59 03/22/19 08:58 Insulin Aspart (NovoLOG) BEFORE MEALS AND HS SUBQ 03/20/19 06:30 04/15/19 11:29 03/22/19 12:58 Iopamidol (Isovue-300 100ml) 100 ml NOW PRN INJ Radiology Procedure 03/21/19 12:15 03/24/19 23:59 Iopamidol (Isovue-300 100ml) 150 ml NOW PRN INJ Radiology Procedure 03/20/19 18:00 03/22/19 17:56 Memantine (Namenda) 5 mg TWICE A DAY ORAL 03/20/19 09:00 04/15/19 17:59 03/22/19 08:57 Morphine Sulfate (Morphine Sulfate) 2 mg Q4H PRN IVP Moderate Pain (Pain Scale 4-6) 03/20/19 07:30 03/23/19 11:29 03/22/19 06:11 Nitroglycerin (Ntg) 0.4 mg Q5M PRN SL Prn Chest Pain 03/20/19 04:00 04/17/19 16:59 Ondansetron HCl (Zofran) 4 mg Q6H PRN IVP Nausea & Vomiting 03/20/19 05:30 04/15/19 11:29 Phenazopyridine HCl (Pyridium) 100 mg DAILYPRN PRN ORAL dysuria 03/20/19 11:30 04/15/19 11:29 Polyethylene Glycol (Miralax) 17 gm DAILYPRN PRN ORAL Constipation 03/20/19 11:30 04/15/19 11:29 Temazepam (Restoril) 15 mg HSPRN PRN ORAL Insomnia 03/20/19 21:00 03/23/19 20:59 Parveen Beltran MD Mar 22, 2019 13:43
--- NOTE | 2019-03-22 14:08 | NUR ---
CASE MANAGEMENT:REVIEW 03/22/19 SI: SEPSIS. UTI. FIBROIDS 97.7 81 18 131/77 99% ON RA ALB-1.8 IS: IV AZACTAM Q8HRS PEPCID PO QD HEPARIN SQ Q12 : MED/SURG STATUS DCP: FROM [facility]
--- NOTE | 2019-03-22 14:16 | Diagnostic Imaging Report ---
Indication: Abdominal pain. Abnormal CT Technique: Grayscale and duplex Doppler imaging of the abdomen performed. Comparison: None Findings: The liver is unremarkable. Doppler interrogation of the main portal vein shows patency with hepatopedal, monophasic flow. There is no biliary ductal dilatation identified. Gallbladder is notable for multiple stones and irregular heterogeneous wall thickening. Cholecystitis is suspected. Correlate clinically. Trace pericholecystic fluid also noted. CBD is 7 mm.. Pancreas and aorta are obscured by bowel gas. Further limitation due to relative immobility of the patient. There is a cyst in the left kidney measuring 1.7 cm. There is no hydronephrosis. IMPRESSION: Multiple gallstones, pericholecystic fluid and wall thickening. Suspect cholecystitis. Correlate clinically. Left renal cyst 1.7 cm
--- NOTE | 2019-03-22 15:23 | Infectious Diseases Prog Note ---
Assessment/Plan Assessment/Plan Assessment: Probable sepsis 2ry to UTI -u/a wbc tnct, nit neg, leuk +3; ucx >100K E.coli ( R Cipro/lEvo) -CXR: Accentuation of interstitial markings, reticulonodular opacities in the upper lung cortez and probable left pleural effusion. -Bcx NTD Probable acute cholecystitis per prelim report of CT Afebrile Leukocytosis; SP Probable Acute cholecystitis -Abd US: Multiple gallstones, pericholecystic fluid and wall thickening. Suspect cholecystitis. Correlate clinically. ?Pelvic mass -CT abd/p Markedly abnormal gallbladder as described, with wall thickening/ edema and extensive pericholecystic inflammation. No gallstones are demonstrated. Findings are suspicious for acute cholecystitis, either a calculus or due to occult stone disease. Mild ectasia of the extrahepatic bile ducts, probably related to patient age, occult downstream obstructive lesion cannot completely excludable. Correlate with liver function tests. Exophytic lesion coming off of the anterior uterus at the lower segment/cervix junction, as described, corresponding to finding reported on recent sonogram most likely represents an exophytic fibroid. Cardiomegaly -Pelvic uS: Limited exam, as described. 2.3 x 2.3 cm rounded isoechoic structure at the lower uterine segment/cervical junction. Possibly a fibroid in an unusual location. Consider endovaginal sonography to better characterize if patient able to tolerate; if unable to tolerate then MRI with contrast may be useful. 6 mm thick endometrium. Somewhat thick for patient's age. Normal right ovary. Unable to visualize left ovary HTN COPD Dm2 [facility] resident Plan: -Continue Aztreonam #2 (abx d #01/30) for UTI and acute cholecystitis -03/21 SP Bactrim #4 -03/18 SP Aztreonam #3 -03/17 SP IV Vancomycin #2 -03/16 SP Clindamycin x1 -f/u cx -Monitor CBC/CMP, temperatures Thank you for this consultation. Will continue to follow along with you. Discussed with RN Subjective Allergies: Coded Allergies: PENICILLINS (Verified Allergy, Unknown, 11/01/12) Subjective afebrile leukocytosis resolved Bcx NTD Objective Vital Signs Last 24 Hour Vital Signs Date Time Temp Pulse Resp B/P (MAP) Pulse Ox O2 Delivery O2 Flow Rate FiO2 03/22/19 12:00 97.8 84 18 136/80 (98) 98 03/22/19 09:00 Room Air 03/22/19 08:00 97.7 81 18 131/77 (95) 99 03/22/19 04:00 97.4 82 18 129/76 (93) 98 03/22/19 00:00 98.4 77 18 137/60 (85) 98 03/21/19 21:00 Room Air 03/21/19 20:05 87 20 96 Room Air 21 03/21/19 20:00 98.1 80 16 136/65 (88) 99 03/21/19 16:00 98.1 86 20 126/56 (79) 97 Height (Feet): 4 Height (Inches): 11.00 Weight (Pounds): 129 Objective General Appearance: no apparent distress Head: normocephalic, atraumatic Eyes: bilateral eye PERRL, bilateral eye EOMI ENT: dry mucus membranes Neck: supple, thyroid normal Respiratory: lungs clear, no respiratory distress, no retraction Cardiovascular : tachycardia Gastrointestinal: non tender, soft Genitourinary: no CVA tenderness Musculoskeletal: other - Patient does not follow all commands however no obvious focal deficit Neurologic: responsive - To verbal stimuli Skin: no rash Lymphatic: no adenopathy Microbiology Date/Time Source Procedure Growth Status 03/20/19 03:06 Urine,Clean Catch Urine Culture - Preliminary Resulted Laboratory Tests Test 03/22/19 05:20 White Blood Count 6.1 K/UL (4.8-10.8) Red Blood Count 4.21 M/UL (4.20-5.40) Hemoglobin 13.7 G/DL (12.0-16.0) Hematocrit 41.6 % (37.0-47.0) Mean Corpuscular Volume 99 FL (80-99) Mean Corpuscular Hemoglobin 32.5 PG (27.0-31.0) H Mean Corpuscular Hemoglobin Concent 32.9 G/DL (32.0-36.0) Red Cell Distribution Width 11.9 % (11.6-14.8) Platelet Count 289 K/UL (150-450) Mean Platelet Volume 7.1 FL (6.5-10.1) Neutrophils (%) (Auto) 49.0 % (45.0-75.0) Lymphocytes (%) (Auto) 36.2 % (20.0-45.0) Monocytes (%) (Auto) 10.3 % (1.0-10.0) H Eosinophils (%) (Auto) 3.6 % (0.0-3.0) H Basophils (%) (Auto) 1.0 % (0.0-2.0) Sodium Level 139 MMOL/L (136-145) Potassium Level 3.9 MMOL/L (3.5-5.1) Chloride Level 107 MMOL/L (98-107) Carbon Dioxide Level 21 MMOL/L (21-32) Anion Gap 11 mmol/L (5-15) Blood Urea Nitrogen 17 mg/dL (7-18) Creatinine 1.0 MG/DL (0.55-1.30) Estimat Glomerular Filtration Rate mL/min (>60) Glucose Level 114 MG/DL (74-106) H Calcium Level 8.6 MG/DL (8.5-10.1) Phosphorus Level 3.5 MG/DL (2.5-4.9) Magnesium Level 1.9 MG/DL (1.8-2.4) Total Bilirubin 0.4 MG/DL (0.2-1.0) Aspartate Amino Transf (AST/SGOT) 36 U/L (15-37) Alanine Aminotransferase (ALT/SGPT) 29 U/L (12-78) Alkaline Phosphatase 111 U/L (46-116) Total Protein 6.6 G/DL (6.4-8.2) Albumin 1.8 G/DL (3.4-5.0) L Globulin 4.8 g/dL Albumin/Globulin Ratio 0.4 (1.0-2.7) L Current Medications Medications (Trade) Dose Ordered Sig/Joon Route PRN Reason Start Time Stop Time Status Last Admin Dose Admin Acetaminophen (Tylenol) 650 mg Q4H PRN ORAL T>100.5 03/20/19 07:30 04/15/19 11:29 Aztreonam 0.5 gm/ Dextrose 55 ml @ 110 mls/hr Q8H IVPB 03/21/19 18:00 03/28/19 17:59 03/22/19 10:32 Barium Sulfate (Readi-Cat 2) 450 ml NOW PRN ORAL Radiology Procedure 03/21/19 12:15 03/23/19 12:10 Dextrose (Dextrose 50%) 25 ml Q30M PRN IV Hypoglycemia 03/20/19 04:15 04/15/19 11:35 Dextrose (Dextrose 50%) 50 ml Q30M PRN IV hypoglycemia 03/20/19 04:15 04/15/19 11:44 Diatrizoate Meglum/ Diatrizoate Sod (Gastrografin) 30 ml NOW PRN ORAL Radiology Procedure 03/20/19 18:00 03/22/19 17:56 Famotidine (Pepcid) 20 mg DAILY ORAL 03/20/19 09:00 04/16/19 08:59 03/22/19 08:57 Heparin Sodium (Porcine) (Heparin 5000 units/ml) 5,000 units EVERY 12 HOURS SUBQ 03/20/19 09:00 04/15/19 20:59 03/22/19 08:58 Insulin Aspart (NovoLOG) BEFORE MEALS AND HS SUBQ 03/20/19 06:30 04/15/19 11:29 03/22/19 12:58 Iopamidol (Isovue-300 100ml) 100 ml NOW PRN INJ Radiology Procedure 03/21/19 12:15 03/24/19 23:59 Iopamidol (Isovue-300 100ml) 150 ml NOW PRN INJ Radiology Procedure 03/20/19 18:00 03/22/19 17:56 Memantine (Namenda) 5 mg TWICE A DAY ORAL 03/20/19 09:00 04/15/19 17:59 03/22/19 08:57 Morphine Sulfate (Morphine Sulfate) 2 mg Q4H PRN IVP Moderate Pain (Pain Scale 4-6) 03/20/19 07:30 03/23/19 11:29 03/22/19 06:11 Nitroglycerin (Ntg) 0.4 mg Q5M PRN SL Prn Chest Pain 03/20/19 04:00 04/17/19 16:59 Ondansetron HCl (Zofran) 4 mg Q6H PRN IVP Nausea & Vomiting 03/20/19 05:30 04/15/19 11:29 Phenazopyridine HCl (Pyridium) 100 mg DAILYPRN PRN ORAL dysuria 03/20/19 11:30 04/15/19 11:29 Polyethylene Glycol (Miralax) 17 gm DAILYPRN PRN ORAL Constipation 03/20/19 11:30 04/15/19 11:29 Temazepam (Restoril) 15 mg HSPRN PRN ORAL Insomnia 03/20/19 21:00 03/23/19 20:59 Irene Alberto M.D. Mar 22, 2019 15:23
--- NOTE | 2019-03-22 15:50 | NUR ---
DISCHARGE PLANNED PATIENT IS RETURNING TO [facility] ROOM [address] SKILLED T: [phone] FOR NURSE TO NURSE REPORT [facility] HAS BEEN ARRANGED FOR 1800 FRAME BENDER
[2019-03-22 16:00] VITALS: BP 138/78
--- NOTE | 2019-03-22 16:09 | Hematology/Onc Progress Note ---
Assessment/Plan Assessment/Plan # Leukocytosis/elevated white blood cell count, unspecified likely related to underlying stress reaction, smoking v more likely infection (uti v pna) --> currently improved --> have reviewed peripheral smear and bandemia/neutrophilia noted --> continue antibiotics if they have been started by ID team (aztreonam, vanc)- -> bactrim --> wbc trend 12-->8-->7.3-->6.1 # Secondary polycythemia or erythrocytosis is likely is related to dehydration , volume down --> may need a pulmonary evaluation for above, cxr has been reviewed --> sleep study may be necessary as outpatient --> trend hgb if consistently remains elevated, consider JAK2 --> if remains elevated, further w/u # Probable sepsis 2ry to UTI --> u/a wbc tnct, nit neg, leuk +3; ucx >100K GNR and CXR: Accentuation of interstitial markings, reticulonodular opacities in the upper lung cortez and probable left pleural effusion. --> per id recs # HTN # COPD # Dm2 # [place] resident # DVT ppx with hep sq The timing of this note does not necessarily reflect the time of the patient was seen. GREATLY APPRECIATE CONSULTATION. Subjective Allergies: Coded Allergies: PENICILLINS (Verified Allergy, Unknown, 11/01/12) Subjective 03/18: no events noted, no bleeding, no chills, on aztreonam 03/19: no overnight events, wbc improved, transfer to med surg planning, 03/20: remains in bed, alert and awake, transferred to diff room 03/21: on abx, vs stable, no fever, no acute events 03/22: vs stable, imaging reviewed, no acute events, dc planning Objective Objective Current Medications Medications (Trade) Dose Ordered Sig/Joon Route PRN Reason Start Time Stop Time Status Last Admin Dose Admin Acetaminophen (Tylenol) 650 mg Q4H PRN ORAL T>100.5 03/20/19 07:30 04/15/19 11:29 Aztreonam 0.5 gm/ Dextrose 55 ml @ 110 mls/hr Q8H IVPB 03/21/19 18:00 03/28/19 17:59 03/22/19 10:32 Barium Sulfate (Readi-Cat 2) 450 ml NOW PRN ORAL Radiology Procedure 03/21/19 12:15 03/23/19 12:10 Dextrose (Dextrose 50%) 25 ml Q30M PRN IV Hypoglycemia 03/20/19 04:15 04/15/19 11:35 Dextrose (Dextrose 50%) 50 ml Q30M PRN IV hypoglycemia 03/20/19 04:15 04/15/19 11:44 Diatrizoate Meglum/ Diatrizoate Sod (Gastrografin) 30 ml NOW PRN ORAL Radiology Procedure 03/20/19 18:00 03/22/19 17:56 Famotidine (Pepcid) 20 mg DAILY ORAL 03/20/19 09:00 04/16/19 08:59 03/22/19 08:57 Heparin Sodium (Porcine) (Heparin 5000 units/ml) 5,000 units EVERY 12 HOURS SUBQ 03/20/19 09:00 04/15/19 20:59 03/22/19 08:58 Insulin Aspart (NovoLOG) BEFORE MEALS AND HS SUBQ 03/20/19 06:30 04/15/19 11:29 03/22/19 12:58 Iopamidol (Isovue-300 100ml) 100 ml NOW PRN INJ Radiology Procedure 03/21/19 12:15 03/24/19 23:59 Iopamidol (Isovue-300 100ml) 150 ml NOW PRN INJ Radiology Procedure 03/20/19 18:00 03/22/19 17:56 Memantine (Namenda) 5 mg TWICE A DAY ORAL 03/20/19 09:00 04/15/19 17:59 03/22/19 08:57 Morphine Sulfate (Morphine Sulfate) 2 mg Q4H PRN IVP Moderate Pain (Pain Scale 4-6) 03/20/19 07:30 03/23/19 11:29 03/22/19 06:11 Nitroglycerin (Ntg) 0.4 mg Q5M PRN SL Prn Chest Pain 03/20/19 04:00 04/17/19 16:59 Ondansetron HCl (Zofran) 4 mg Q6H PRN IVP Nausea & Vomiting 03/20/19 05:30 04/15/19 11:29 Phenazopyridine HCl (Pyridium) 100 mg DAILYPRN PRN ORAL dysuria 8/28/19 11:30 04/15/19 11:29 Polyethylene Glycol (Miralax) 17 gm DAILYPRN PRN ORAL Constipation 03/20/19 11:30 04/15/19 11:29 Temazepam (Restoril) 15 mg HSPRN PRN ORAL Insomnia 03/20/19 21:00 03/23/19 20:59 Last 24 Hour Vital Signs Date Time Temp Pulse Resp B/P (MAP) Pulse Ox O2 Delivery O2 Flow Rate FiO2 03/22/19 12:00 97.8 84 18 136/80 (98) 98 03/22/19 09:00 Room Air 03/22/19 08:00 97.7 81 18 131/77 (95) 99 03/22/19 04:00 97.4 82 18 129/76 (93) 98 03/22/19 00:00 98.4 77 18 137/60 (85) 98 03/21/19 21:00 Room Air 03/21/19 20:05 87 20 96 Room Air 21 03/21/19 20:00 98.1 80 16 136/65 (88) 99 03/21/19 16:00 98.1 86 20 126/56 (79) 97 03/21/19 12:41 85 20 95 Room Air 21 03/21/19 12:00 98.3 82 20 141/84 (103) 94 03/21/19 09:00 Room Air 03/21/19 08:00 96.3 88 20 117/66 (83) 95 03/21/19 05:01 97.8 75 20 145/78 (100) 03/21/19 04:00 97.8 78 20 145/85 (105) 03/21/19 00:00 97.8 69 18 118/78 (91) 03/20/19 22:02 Room Air 03/20/19 20:06 88 18 97 Room Air 21 03/20/19 20:00 97.8 78 20 127/65 (85) Intake and Output 03/21/19 03/22/19 19:00 07:00 Intake Total 120 ml 55 ml Output Total 300 ml Balance -180 ml 55 ml Intake Oral 120 ml IV Total 55 ml Output Urine Total 300 ml # Voids 2 # Bowel Movements 3 Labs Test 03/20/19 05:52 03/21/19 05:05 03/22/19 05:20 White Blood Count 8.6 K/UL (4.8-10.8) 7.3 K/UL (4.8-10.8) 6.1 K/UL (4.8-10.8) Red Blood Count 4.21 M/UL (4.20-5.40) 4.55 M/UL (4.20-5.40) 4.21 M/UL (4.20-5.40) Hemoglobin 13.9 G/DL (12.0-16.0) 14.6 G/DL (12.0-16.0) 13.7 G/DL (12.0-16.0) Hematocrit 41.3 % (37.0-47.0) 44.8 % (37.0-47.0) 41.6 % (37.0-47.0) Mean Corpuscular Volume 98 FL (80-99) 98 FL (80-99) 99 FL (80-99) Mean Corpuscular Hemoglobin 33.1 PG (27.0-31.0) 32.0 PG (27.0-31.0) 32.5 PG (27.0-31.0) Mean Corpuscular Hemoglobin Concent 33.7 G/DL (32.0-36.0) 32.6 G/DL (32.0-36.0) 32.9 G/DL (32.0-36.0) Red Cell Distribution Width 11.2 % (11.6-14.8) 11.6 % (11.6-14.8) 11.9 % (11.6-14.8) Platelet Count 204 K/UL (150-450) 240 K/UL (150-450) 289 K/UL (150-450) Mean Platelet Volume 7.9 FL (6.5-10.1) 7.7 FL (6.5-10.1) 7.1 FL (6.5-10.1) Neutrophils (%) (Auto) 73.5 % (45.0-75.0) 62.6 % (45.0-75.0) 49.0 % (45.0-75.0) Lymphocytes (%) (Auto) 15.5 % (20.0-45.0) 24.1 % (20.0-45.0) 36.2 % (20.0-45.0) Monocytes (%) (Auto) 9.6 % (1.0-10.0) 10.7 % (1.0-10.0) 10.3 % (1.0-10.0) Eosinophils (%) (Auto) 1.0 % (0.0-3.0) 2.0 % (0.0-3.0) 3.6 % (0.0-3.0) Basophils (%) (Auto) 0.4 % (0.0-2.0) 0.6 % (0.0-2.0) 1.0 % (0.0-2.0) Sodium Level 143 MMOL/L (136-145) 140 MMOL/L (136-145) 139 MMOL/L (136-145) Potassium Level 3.7 MMOL/L (3.5-5.1) 4.1 MMOL/L (3.5-5.1) 3.9 MMOL/L (3.5-5.1) Chloride Level 109 MMOL/L (98-107) 107 MMOL/L (98-107) 107 MMOL/L (98-107) Carbon Dioxide Level 22 MMOL/L (21-32) 23 MMOL/L (21-32) 21 MMOL/L (21-32) Anion Gap 12 mmol/L (5-15) 10 mmol/L (5-15) 11 mmol/L (5-15) Blood Urea Nitrogen 19 mg/dL (7-18) 19 mg/dL (7-18) 17 mg/dL (7-18) Creatinine 0.9 MG/DL (0.55-1.30) 1.0 MG/DL (0.55-1.30) 1.0 MG/DL (0.55-1.30) Estimat Glomerular Filtration Rate mL/min (>60) mL/min (>60) mL/min (>60) Glucose Level 114 MG/DL (74-106) 114 MG/DL (74-106) 114 MG/DL (74-106) Calcium Level 8.5 MG/DL (8.5-10.1) 8.8 MG/DL (8.5-10.1) 8.6 MG/DL (8.5-10.1) Phosphorus Level 3.0 MG/DL (2.5-4.9) 3.5 MG/DL (2.5-4.9) Magnesium Level 1.8 MG/DL (1.8-2.4) 1.9 MG/DL (1.8-2.4) Total Bilirubin 0.4 MG/DL (0.2-1.0) Aspartate Amino Transf (AST/SGOT) 36 U/L (15-37) Alanine Aminotransferase (ALT/SGPT) 29 U/L (12-78) Alkaline Phosphatase 111 U/L (46-116) Total Protein 6.6 G/DL (6.4-8.2) Albumin 1.8 G/DL (3.4-5.0) Globulin 4.8 g/dL Albumin/Globulin Ratio 0.4 (1.0-2.7) Height (Feet): 4 Height (Inches): 11.00 Weight (Pounds): 129 Objective Physical Exam: Vitals: reviewed General Appearance: NAD HEENT: normocephalic, atraumatic Neck: non-tender, normal alignment Respiratory/Chest: normal breath sounds bilaterally Cardiovascular/Chest: normal peripheral pulses, normal rate Abdomen: normal bowel sounds, soft, nontender Extremities: normal range of motion Roderick Branch MD Mar 22, 2019 16:09
--- NOTE | 2019-03-22 19:39 | NUR ---
NURSE NOTES: Patient will discharge to [facility],message left with family member Annie Hernandez.Patient will be discharge with IV saline lock,per DR Alberto patient will need 5 more days of IV antibiotics. [facility] will transport patient to facility. Addendum: 03/22/19 at 2048 by BOO LAMB RN RN message left with Sylvia Hernandez regarding patient discharge.
--- NOTE | 2019-03-22 19:39 | NUR ---
HAND-OFF: Report given to Andrey WILLOUGHBY.
[2019-03-22] MEDS ORDERED: NOVOLOG100 UNITS1 (19:55)
[2019-03-22] MEDS ORDERED: AZTREONAM1 GM IVPB (19:57)
--- NOTE | 2019-03-22 19:58 | NUR ---
NURSE NOTES: Report given to Karri MCCALL at [facility].Report given latrell t patient will continue IV antibiotics x5 more days,per DR Alberto order.
[2019-03-22 20:00] VITALS: BP 105/64
--- NOTE | 2019-03-22 20:00 | NUR ---
NURSE NOTES: Received patient in bed. A&OX2. IV site patent and intact. Patient is waiting for discharge. Bed in lowest position. Call light within reach. Will continue to monitor.
[2019-03-22] MEDS ORDERED: Tubing IV Secondary IV ONE (21:49)
[2019-03-22] MEDS ORDERED: NS 275ml ONE (21:49)
--- NOTE | 2019-03-22 21:50 | NUR ---
NURSE NOTES: Patient discharged [facility] with stable condition. Picked up by ambulance staff. Belonging are sent with patient. IV and ID band removed.
--- NOTE | 2019-03-24 23:12 | Discharge Summary ---
Discharge Summary Discharge Summary _ DATE OF ADMISSION: 03/16/2019 DATE OF DISCHARGE: 03/22/2019 DISCHARGED BY: Dr. Chalo Ayala CONSULTANTS: Dr. Roderick Fallon [facility] HOSPITAL COURSE: Patient is an 88-year-old female, from [facility], presented to [facility] for weakness, lethargy, and abnormal labs. The patient was reported to have elevated white blood cell count. Patient is poor historian. There was no reported fever. No cough. She has medical history significant for hypertension, COPD, diabetes, and weakness. On evaluation at the ED, vital signs were stable. Blood work showed WBC elevated to 16, hemoglobin elevated to 16.5 and hematocrit to 49. Electrolytes were normal. Bun 43 and creatinine 1.4. Glucose 364. Lactic acid 2.5. Troponin was negative. proBNP 800. Urinalysis showed +3 leukocyte esterase, 5- 10 urine RBC, too numerous to count urine WBC. EKG showed sinus tachycardia. Chest x-ray showed accentuation of interstitial markings, reticulonodular opacities in the upper lung cortez and probable left pleural effusion. She was admitted for evaluation of sepsis. She was admitted to telemetry. She was started on IV fluids. ID was consulted , Vancomycin was discontinued. She was continued on aztreonam. Patient had leukocytosis. Peripheral smear was reviewed. Bandemia/ neutrophilia noted. Patient had secondary polycythemia or erythrocytosis likely due to dehydration. Urine culture showed growth of E. coli. Aztreonam was changed to p.o. Bactrim. GI was consulted for evaluation of pelvic mass. Patient with possible dysphagia and failure to thrive. Pelvic ultrasound showed 2.3 x 2.3 cm rounded isoechoic structure at the lower uterine segment/cervical junction. 6 mm thick endometrium. ELEVATOR STARTER evaluation was done.Pelvic mass of concern was likely fibroid. There was no indication for surgical management or additional imaging. Pain on examination was suprapubic and is likely due to underlying UTI, unlikely related to fibroid. Routine follow-up with ELEVATOR STARTER recommended. CT of the abdomen and pelvis showed abnormal gallbladder with thickening/edema and extensive pericholecystic inflammation. No gallstones demonstrated. Findings suspicious for acute cholecystitis. Antibiotic was switched back to aztreonam. Surgical evaluation was done. Patient with generalized abdominal discomfort, but no Alicia's. There was no leukocytosis and LFTs were normal. Abdominal ultrasound ordered showed multiple gallstones and pericholecystic fluid with wall thickening. Patient was clinically improving. Patient was discharged back to SNF on antibiotics. FINAL DIAGNOSES: Probable sepsis secondary to UTI Probable acute cholecystitis Questionable pelvic mass likely fibroid Hypertension COPD Type 2 diabetes mellitus [facility] resident Secondary polycythemia due to dehydration Protein calorie malnutrition/failure to thrive DISPOSITION: Patient was discharged to a SNF. DISCHARGE MEDICATIONS: Refer to Discharge Medication List. I have been assigned to complete a discharge summary on this account, I was not involved with the patient's management.--SCARLET Trevizo Jacqueline Robles NP Mar 24, 2019 23:12
== END 2019-03-22 21:50 | DRG 872 ==
LOC: EDBD 09:01 → EMR 09:17 → EDBEDREQ 09:28 → 2E 09:29 → EDBEDREQ 10:24 → 2E 10:34 → 4E 03-20 03:54
DX: A41.9 Sepsis, unspecified organism (principal); N39.0 Urinary tract infection, site not specified; E46 Unspecified protein-calorie malnutrition; K81.0 Acute cholecystitis; E11.9 Type 2 diabetes mellitus without complications; I10 Essential (primary) hypertension; Z88.0 Allergy status to penicillin; B96.20 Unspecified Escherichia coli [E. coli] as the cause of diseases classified elsewhere; F29 Unspecified psychosis not due to a substance or known physiological condition; J44.9 Chronic obstructive pulmonary disease, unspecified; M19.90 Unspecified osteoarthritis, unspecified site; E86.0 Dehydration; D75.1 Secondary polycythemia; D36.7 Benign neoplasm of other specified sites
CPT/HCPCS: 36415; 71045; 74177; 76700; 76856; 80048; 80053; 80202; 81003; 82248; 82550; 82553; 82668; 82962; 83605; 83690; 83735; 83880; 84100; 84484; 85007; 85025; 85651; 86140; 87040; 87086; 87181; 93005; 94664; 96361; 96365; 97803; 99291; J1815; S0077

== ENCOUNTER 2019-06-01 20:37 | Inpatient (IN) | payer MEDICARE, MEDICAID ==
[~2019-06-01] VITALS: Ht 154.9 cm; Wt 56.7 kg
[2019-06-01 20:37] VITALS: BP 156/82
[~2019-06-01 20:37] MED LIST changes: +ACIDOPHILUS1 EAC6 PO; +AZTREONAM1 GM IVPB; +CATAPRES0.1 MG ORAL; +DULCOLAX10 MG RC; +FLEET ENEMA133 ML RECTAL; +LIDODERM700 M1 TOPIC; +MEGESTROL ACETA40 MG PO; +MILK OF MA400 MG/51 ORAL; +MULTIVITAMINS1 EAC2 ORAL; +NOVOLOG100 UNITS1; +PRO-STAT LIQUID30 ML ORAL
--- NOTE | 2019-06-01 20:37 | NUR ---
ED Nurse Note: Patient was brought in by RA from [facility] due to seizure post ictal. As per EMS, it was a witnessed seizure that was lasted for 5 mins. BS is High at triage. Has history of HTN, DM. Alert and orientedx2. No SOB. Breathing even and unlabored. VSS.
[2019-06-01] MEDS ORDERED: levETIRAcetam 500 MG in D5W 110 ML IV ONE (21:00)
--- NOTE | 2019-06-01 21:01 | NUR ---
ED Nurse Note: Pt taken for CT.
--- NOTE | 2019-06-01 21:03 | Emergency Room Report ---
History of Present Illness General Chief Complaint: Seizure Source: Patient, EMS Present Illness HPI Is an 89-year-old female who is a long term patient. She has history of diabetes and high blood pressure. She presents with chief complaint of seizure. Witnessed by long term staff. Lasting for about 5 minutes. Tonic- clonic in activity. No history of seizure noted on the long term chart. She was postictal afterward. There was no reported or trauma or incontinence of urine. Unable to get any other history from this patient. Allergies: Coded Allergies: PENICILLINS (Verified Allergy, Unknown, 11/01/12) Uncoded Allergies: PENICILLIN (Allergy, Unknown, 06/01/19) Patient History Past Medical History: see triage record, old chart reviewed Past Surgical History: other Pertinent Family History: none Social History: Denies: smoking Now: No Immunizations: other Reviewed Nursing Documentation: PMH: Agreed; PSxH: Agreed Nursing Documentation-PMH Hx Cardiac Problems: No Hx Hypertension: Yes Hx COPD: Yes Hx Diabetes: Yes Hx Cancer: No Hx Gastrointestinal Problems: No Hx Neurological Problems: No - GEN WEAKNESS Hx Weakness: Yes Review of Systems Neurological: Reports: seizure All Other Systems: limited - secondary to her condition Physical Exam Vital Signs Date Time Temp Pulse Resp B/P (MAP) Pulse Ox O2 Delivery O2 Flow Rate FiO2 06/01/19 20:31 98.6 104 20 156/82 (106) 97 Room Air Vitals with high blood pressure Sp02 EP Interpretation: reviewed, normal General Appearance: well appearing, no apparent distress, alert, Chronically Ill Head: normocephalic, atraumatic Eyes: bilateral eye PERRL, bilateral eye EOMI ENT: hearing grossly normal, normal pharynx Neck: full range of motion, supple, no meningismus Respiratory: chest non-tender, lungs clear, normal breath sounds Cardiovascular #1: regular rate, rhythm, no murmur Gastrointestinal: normal bowel sounds, non tender, no mass, no organomegaly, no bruit, non-distended Musculoskeletal: back normal, normal range of motion Psychiatric: mood/affect normal Medical Decision Making Diagnostic Impression: Primary Impression: Epileptic seizure, generalized Additional Impressions: Diabetes Qualified Codes: E11.65 - Type 2 diabetes mellitus with hyperglycemia; 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 CT head is negative. No evidence of any infection. She does have a uncontrolled diabetes with severe hyperglycemia. No evidence of DKA. There is no evidence of any infection. Seizure may be secondary to severe brain atrophy. Keppra given here. Insulin given. I discussed the case with Dr. Ayala who will admit. EKG Diagnostic Results Rate: normal Rhythm: NSR ST Segments: other - NSST changes Rhythm Strip Diag. Results EP Interpretation: yes Rate: 87 Rhythm: NSR, no PVC's, no ectopy Chest X-Ray Diagnostic Results Chest X-Ray Diagnostic Results : Chest X-Ray Ordered: Yes # of Views/Limited/Complete: 1 View Indication: Other - ams Interpretation: no effusion, no pneumothorax, other - atelectasis at bases. no change from prior Impression: Other - atelectasis Electronically Signed by: Jamie Purcell MD CT/MRI/US Diagnostic Results CT/MRI/US Diagnostic Results : Imaging Test Ordered: CT head Impression Read by radiologist. severe atrophy. no acute process. Last Vital Signs Date Time Temp Pulse Resp B/P (MAP) Pulse Ox O2 Delivery O2 Flow Rate FiO2 06/01/19 20:37 104 20 Room Air 06/01/19 20:31 98.6 156/82 (106) 97 Status: improved Disposition: ADMITTED INPATIENT Condition: Serious Jamie Purcell MD Jun 01, 2019 21:03
--- NOTE | 2019-06-01 21:19 | NUR ---
ED Nurse Note: Pt came back from CT.
--- NOTE | 2019-06-01 21:20 | NUR ---
ED Nurse Note: Xray at bedside.
[2019-06-01 21:29] LABS: BASOPHILS % (AUTO) 0.9 % (0.0-2.0); EOSINOPHILS % (AUTO) 2.3 % (0.0-3.0); HEMATOCRIT 43.4 % (37.0-47.0); LYMPHOCYTES % (AUTO) 25.5 % (20.0-45.0); MEAN CORPUSCULAR VOLUME 94 FL (80-99); MONOCYTES % (AUTO) 7.2 % (1.0-10.0); NEUTROPHILS % (AUTO) 64.1 % (45.0-75.0); PLATELET COUNT 205 K/UL (150-450); RED BLOOD COUNT 4.61 M/UL (4.20-5.40); RED CELL DISTRIBUTION WIDTH 11.5 % (11.6-14.8)
--- NOTE | 2019-06-01 21:44 | Diagnostic Imaging Report ---
EXAM: XR Chest, 1 View CLINICAL HISTORY: AMS TECHNIQUE: Frontal view of the chest. COMPARISON: 03 16 19 IMPRESSION: Mildly elevated right diaphragm. Linear opacity in the left lower lobe, possibly aspiration infection versus subsegmental atelectasis. No pleural effusion. Unchanged heart size.
[2019-06-01 22:04] LABS: APPEARANCE,URINE CLEAR; BILIRUBIN, URINE NEGATIVE (NEGATIVE); COLOR,URINE PALE YELLOW; GLUCOSE, URINE (UA) 4+ (NEGATIVE); KETONES,URINE NEGATIVE (NEGATIVE); LEUKOCYTE ESTERASE ,URINE 1+ (NEGATIVE); NITRITE,URINE NEGATIVE (NEGATIVE); PH,URINE 5 (4.5-8.0); PROTEIN,URINE 2+ (NEGATIVE); UROBILINOGEN,URINE NORMAL MG/DL (0.0-1.0)
[2019-06-01 22:11] LABS: ALANINE AMINOTRANSFERASE 19 U/L (12-78); ALBUMIN 2.9 G/DL (3.4-5.0); ALBUMIN/GLOBULIN RATIO 0.6 (1.0-2.7); ALKALINE PHOSPHATASE 129 U/L (46-116); ANION GAP 6 mmol/L (5-15); ASPARTATE AMINO TRANSFERASE 16 U/L (15-37); BILIRUBIN,TOTAL 0.5 MG/DL (0.2-1.0); BLOOD UREA NITROGEN 20 mg/dL (7-18); CALCIUM 8.2 MG/DL (8.5-10.1); CARBON DIOXIDE 26 MMOL/L (21-32); CHLORIDE 104 MMOL/L (98-107); CREATININE 1.4 MG/DL (0.55-1.30); POTASSIUM 4.4 MMOL/L (3.5-5.1); SODIUM 136 MMOL/L (136-145)
[2019-06-01 22:43] VITALS: BP 132/65
[2019-06-01] MEDS ORDERED: Insulin Human Regular 100units/ml 3ml IV ONE (23:15)
--- NOTE | 2019-06-01 23:26 | NUR ---
ED Nurse Note: Report given to Yvan WILLOUGHBY.
[2019-06-01 23:30] VITALS: BP 135/78
--- NOTE | 2019-06-01 23:30 | NUR ---
TRANSFER TO FLOOR: Patient transferred to Telemetry unit as ordered. Report given to Yvan WILLOUGHBY. Pt alert and oriented, No SOB. Breathing even and unlabored. Sinus rythm on monitor. IV line on right hand 20g patent and intact. On 2L NS patent and infusing well. Med recon done. Swabs sent. All belongings are sent with the patient. VSS.
--- NOTE | 2019-06-01 23:35 | NUR ---
NURSE NOTES: Received report from CASE Ontiveros from ED. Pt. arrived to tele via [place] without incident. Pt. in bed showing no signs of acute distress. Respiration even and unlabored on room air. No sob noted. IV noted on Right hand 20g SL patent and intact. Pt. is noted with stage 2 press. sore on sacral area and bilateral heel redness. VS BP 143/96, HR 97, T 98.0, RR 16. On desk monitor showing SR w/ BBB. Bedside rails padded, seizure precaution observed. Bed in lowest position, wheels locked, alarm on and call button within reach. Admission orders carried out. Will continue to monitor. Addendum: 06/02/19 at 0714 by JAYME MCCALL RN Per ED RN, Primary MD will put in all remaining admission orders.
[2019-06-02] VITALS: BP 143/96
[2019-06-02 04:00] VITALS: BP 146/74
--- NOTE | 2019-06-02 07:21 | NUR ---
HAND-OFF: Report given to CASE Smith.
--- NOTE | 2019-06-02 07:44 | NUR ---
NURSE NOTES: Received report from CASE Bertrand. Patient in bed resting, no active s/s cardiac, respiratory distress noticed at this time. Patient AOx2, SR with BBB with HR 83. Patient on room air. IV on right hand 20G, asymptomatic, patent, intact. Seizure precaution on, endorsed no seizure activity during the night. Endorsed IV insulin given at ED and last BS was 392, MD made aware of admission. Bed in lowest position, side rails upx3, padded, suction at the bedside, call light within reach. Will continue to monitor.
[2019-06-02 08:00] VITALS: BP 104/82
--- NOTE | 2019-06-02 09:10 | NUR ---
NURSE NOTES: Received admission order from Dr. Ayala. Per , Heparin SQ BID 5000 unit, PT and ST evaluation, 1/2 NS at 60ml/h, ACHS insulin average sliding scale, to call Dr. Thurman, Dr. Nuñez. Called Dr. Thurman's office to notify Dr. Thurman on the case for this patient. Order noted, entered, carried out. Will continue to monitor.
[2019-06-02] MEDS ORDERED: Fleet's Enema 133ml RECTAL PRN (09:30)
[2019-06-02] MEDS ORDERED: Nitroglycerin Subl 0.4mg tab SL PRN (09:30)
[2019-06-02] MEDS: Memantine 10mg tab ORAL SCH ×2 (10:30→17:06)
[2019-06-02] MEDS: Docusate 100mg cap ORAL SCH ×2 (10:31→17:07)
[2019-06-02] MEDS: traMADol 50mg tab ORAL SCH ×2 (10:31→17:07)
[2019-06-02] MEDS: NovoLOG Insulin Flexpen SUBQ SCH ×5 (11:30→20:31)
[2019-06-02] MEDS ORDERED: Levemir Flexpen SUBQ SCH (11:30)
[2019-06-02 12:00] VITALS: BP 114/44
--- NOTE | 2019-06-02 12:00 | History and Physical Report ---
DATE OF ADMISSION: 06/01/2019 DATE AND TIME SEEN: 06/02/2019 at 8 a.m. CONSULTANTS: 1. Kit Thurman M.D. 2. Rich Nuñez M.D. CHIEF COMPLAINT: Seizure, diabetes, hyperglycemia. BRIEF HISTORY: This is an 89-year-old female from [facility], presented with above-mentioned diagnoses, admitted to telemetry for further care. Currently, sleepy in bed, calm, not following directions. She is very sleepy, refusing to answer questions. REVIEW OF SYSTEMS: Unavailable. PAST MEDICAL HISTORY: Diabetes, hypertension, psychosis, DENNIS, and possible seizure. PAST SURGICAL HISTORY: Unknown. MEDICATIONS: Include Tylenol, , IV fluid, insulin. ALLERGIES: Penicillin. SOCIAL HISTORY: No smoking. No alcohol. No intravenous drug abuse. FAMILY HISTORY: Noncontributory. PHYSICAL EXAMINATION: GENERAL: Calm in bed, oriented x1, in no acute distress. VITAL SIGNS: Temperature 97 degrees, pulse 72, respirations 18, blood pressure 104/82. CARDIOVASCULAR: No murmur. LUNGS: Distant and clear. ABDOMEN: Bowel sound positive. Nontender. Nondistended. EXTREMITIES: No clubbing, cyanosis, or edema. NEUROLOGIC: The patient moves all extremities, slightly weak. LABORATORY AND DIAGNOSTIC DATA: Labs at this time show white count 11, otherwise CBC is normal. BMP shows BUN and creatinine 20/1.4, glucose of 603. Alkaline phosphatase 129. Troponin 0.005. Albumin 2.9. There is 1+ leukocyte esterase. urine. ASSESSMENT: 1. Seizure. 2. Diabetes. 3. Hyperglycemia. 4. Malnutrition. 5. UTI. 6. Hypertension. 7. Weakness. 8. Psychosis. 9. DENNIS. PLAN: 1. Continue premeds. 2. Blood pressure, blood sugar, seizure control. 3. Antibiotic per Infectious Disease. 4. PT and dietary evaluation. 5. CBC and BMP in the morning. Chalo Ayala D.O. DR: ROSEMARY/DEBORA JOB#: [id number] CC:
[2019-06-02 16:00] VITALS: BP 120/64
--- NOTE | 2019-06-02 16:00 | Consultation ---
DATE OF CONSULTATION: 06/02/2019 ENDOCRINOLOGY CONSULTATION CONSULTING PHYSICIAN: Rich Nuñez M.D. REFERRING PHYSICIAN: Chalo Ayala D.O. REASON FOR CONSULTATION: Hyperglycemia. HISTORY OF PRESENT ILLNESS: It is important to note that most of the history is obtained from review of the chart and medical records since the patient is a poor historian. The patient is an 89-year-old female, resident of a intermediate facility, presents with history of diabetes and hypertension, recent admission to hospital with leukocytosis who presented to the hospital with high glucose, seizure which was witnessed by the nursing staff, lasting about 5 minutes tonic-clonic activity. There is no history of seizure in the past. The patient was postictal afterwards, no trauma or incontinence of the urine. Upon presentation to the emergency room, she was noted to have glucose of 600, bicarb was 26, anion gap of 6; therefore, she was not in diabetic ketoacidosis. Troponin was normal. Sodium 136, potassium 4.4, chloride 104, bicarb 26, creatinine 1.4, calcium 8.2. Urine was 2+ protein, 4+ for glucose. CBC shows WBC of 11, hemoglobin 15, hematocrit 40, platelets of 205. The patient was admitted to the floor for observation and treatment. I was called to manage diabetes. PAST MEDICAL HISTORY: 1. Diabetes. 2. Hypertension. 3. COPD. 4. Generalized weakness. PAST SURGICAL HISTORY: Unknown. FAMILY HISTORY: Noncontributory. MEDICATIONS: Reviewed and reconciled. ALLERGIES: Penicillin. REVIEW OF SYSTEMS: Unobtainable. As discussed in history of present illness. PHYSICAL EXAMINATION: GENERAL: Blood pressure 156/82, respiratory rate of 20, pulse of 104, temperature of 98.6. HEENT: The patient is lethargic. NECK: No JVD. HEART: Regular. LUNGS: Clear. ABDOMEN: Positive bowel sounds. EXTREMITIES: No clubbing, cyanosis, or edema. DIAGNOSES: 1. Severe hyperglycemia. 2. New onset seizure. 3. Encephalopathy. DISCUSSION: 1. Start the patient on Levemir 24 units daily. 2. Add NovoLog 8 units before each meal. 3. Continue NovoLog sliding scale before meals and at bedtime. 4. Further adjustment according to blood glucose values. Thank you, Dr. Ayala, for the courtesy of this consultation. Rich Nuñez M.D. DR: Maxime JOB#: [id number] CC: LEO
--- NOTE | 2019-06-02 16:15 | Cardiology Report ---
APPROVED REPORT EKG Measurement Heart [id number] Accelerated Junctional rhythm Incomplete right bundle branch block Cannot rule out Inferior infarct, age undetermined T wave abnormality, consider anterior ischemia Abnormal ECG
[2019-06-02] MEDS: Heparin 5000 units/ml inj SUBQ SCH (17:08)
--- NOTE | 2019-06-02 19:12 | NUR ---
HAND-OFF: Report given to CASE Bertrand.
--- NOTE | 2019-06-02 19:20 | NUR ---
NURSE NOTES: Received report from CASE Smith. Patient sitting in bed awake showing no signs of acute distress. AOx3 brazilian speaking. Respiration even and non labored on room air. No sob noted. IV on right hand 20g patent and intact running 0.45%NS @60cc/hr. Seizure precaution observed, bedside padded up x2. Bed in lowest position, wheels locked and alarm on. All needs attended and met. Will continue plan of care.
[2019-06-02 20:00] VITALS: BP 125/62
[2019-06-03] VITALS (7 sets, daily range): BP systolic 121–169; BP diastolic 60–99
[2019-06-03] MEDS ORDERED: LORazepam 0.5mg tab ORAL PRN (04:30)
--- NOTE | 2019-06-03 06:00 | Consultation ---
DATE OF CONSULTATION: 06/03/2019 CONSULTING PHYSICIAN: Vivian Armas M.D. REFERRING PHYSICIAN: Chalo Ayala D.O. HISTORY OF PRESENT ILLNESS: This is an 89-year-old female patient who came in because of seizure disorder, diabetes, and hyperglycemia in [facility], but she seemed to have altered mental status and decline in cognition below her baseline. Because of her confusion, psychosis, and decline in cognition, her attending physician has requested daily psychiatric consultation to try to prevent any further decline in her cognition and possible to improve her cognition. I saw and assessed this patient at bedside. She is confused and disorganized. She seemed to be a poor historian. PAST MEDICAL HISTORY: Diabetes, hypertension, acute renal insufficiency, and seizure disorder. ALLERGIES: Penicillin. SUBSTANCE ABUSE HISTORY: No known history of any drug or alcohol use. PSYCHOTROPIC MEDICATIONS ON ADMISSION: The patient is on Namenda 5 mg twice a day. PAIN ASSESSMENT: 0/10 pain. FAMILY PSYCH HISTORY: Denies. DEVELOPMENTAL PROBLEMS: Denies. SOCIAL HISTORY: The patient lives in [facility]. Financially supported by [employer] and Medicare. PSYCHIATRIC HISTORY: History of major depressive disorder, severe, recurrent, rule out dementia with psychosis. STRENGTHS: She is motivated to get better and she has a place to live. WEAKNESSES: She is impulsive and minimal support system. MENTAL STATUS EXAMINATION: An 89-year-old female. Appearance is disheveled. Attitude, irritable and agitated. Affect, guarded and restricted. Intellect poor. Mood, depressed and anxious. Motor activity, psychomotor agitation. Attention span is poor. Orientation x2. Speech is low volume and slurred. Thought process, disorganized and illogical. Insight and judgment are poor. DIAGNOSIS: Major depressive disorder, severe, recurrent with psychotic features, rule out dementia with psychosis. PLAN: Plan for this patient is I am going to add a dose of Wellbutrin to this patient's med regimen in order to reduce depression, also give her focus on energy as she appears to have a lack of energy on the unit, and she will continue to be followed by Psychiatry throughout hospital course. Twenty minutes of cognitive behavioral therapy to help her identify automatic negative thoughts and help her to convert negative thoughts to more positive thoughts to reduce depression, anxiety, and mood lability. Twenty minutes of insight-oriented psychotherapy provided to help this patient understanding of her medical and psychiatric condition, so she has better impulse control and behavior and adaptability on the unit. I am adding Wellbutrin 100 mg daily. I am going to add Ativan at a dose of 0.5 mg every six hours p.r.n. anxiety and agitation and encouraged her to interact appropriately with staff and other patients. Chart was reviewed. Discussed with staff. Seen and assessed in her room. I would like to thank Dr. Chalo Ayala for this interesting psychiatric consultation. I will be happy to follow this patient with you throughout her hospital course. Vivian Armas M.D. DR: JANNET JOB#: [id number] CC:
[2019-06-03] MEDS: NovoLOG Insulin Flexpen SUBQ SCH ×7 (06:30→21:00)
--- NOTE | 2019-06-03 06:56 | General Progress Note ---
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, not intractable, without status epilepticus SNOMED: 94810657 Assessment/Plan: reduce Levemir to 18 units qam reduce Novolog to 6 units ac tid continue NISS ac / hs Subjective ROS Limited/Unobtainable: Yes Allergies: Coded Allergies: PENICILLINS (Verified Allergy, Unknown, 11/01/12) Uncoded Allergies: PENICILLIN (Allergy, Unknown, 06/01/19) Subjective events noted glucose values improved Item Value Date Time Bedside Blood Glucose 83 mg/dl 06/03/19 0630 Bedside Blood Glucose 87 mg/dl 06/02/19 2100 Bedside Blood Glucose 145 mg/dl H 06/02/19 1708 Bedside Blood Glucose 215 mg/dl H 06/02/19 1253 Bedside Blood Glucose 392 mg/dl H 06/01/19 2320 Objective Last 24 Hour Vital Signs Date Time Temp Pulse Resp B/P (MAP) Pulse Ox O2 Delivery O2 Flow Rate FiO2 06/03/19 04:00 78 06/03/19 04:00 97.5 76 16 140/79 (99) 99 06/03/19 00:00 73 06/03/19 00:00 97.6 74 20 121/60 (80) 97 06/02/19 21:00 Room Air 06/02/19 20:00 74 06/02/19 20:00 97.2 77 20 125/62 (83) 98 06/02/19 16:00 97.0 84 20 120/64 (82) 98 06/02/19 16:00 76 06/02/19 12:00 97.3 83 18 114/44 (67) 93 06/02/19 12:00 80 06/02/19 09:00 Room Air 06/02/19 08:00 97.2 72 18 104/82 (89) 93 06/02/19 08:00 74 Intake and Output 06/02/19 06/03/19 19:00 07:00 Intake Total 75 ml Balance 75 ml Intake Oral 75 ml # Voids 1 Height (Feet): 5 Height (Inches): 1.00 Weight (Pounds): 126 General Appearance: no apparent distress Neck: normal alignment Cardiovascular: normal rate Respiratory/Chest: decreased breath sounds Abdomen: normal bowel sounds Objective Current Medications Medications (Trade) Dose Ordered Sig/Joon Route PRN Reason Start Time Stop Time Status Last Admin Dose Admin Acetaminophen (Tylenol) 325 mg Q4H PRN ORAL Mild Pain (Pain Scale 1-3) 06/02/19 09:30 07/02/19 09:29 Bupropion HCl (Wellbutrin SR) 100 mg DAILY ORAL 06/03/19 09:00 07/03/19 08:59 Dextrose (Dextrose 50%) 25 ml Q30M PRN IV Hypoglycemia 06/02/19 09:15 07/02/19 09:14 Dextrose (Dextrose 50%) 50 ml Q30M PRN IV Hypoglycemia 06/02/19 09:15 07/02/19 09:14 Docusate Sodium (Colace) 100 mg BID ORAL 06/02/19 10:00 07/02/19 09:59 06/02/19 17:07 Famotidine (Pepcid) 20 mg DAILY ORAL 06/02/19 10:00 07/02/19 09:59 06/02/19 10:30 Heparin Sodium (Porcine) (Heparin 5000 units/ml) 5,000 units BID SUBQ 06/02/19 18:00 07/02/19 17:59 06/02/19 17:08 Insulin Aspart (NovoLOG) BEFORE MEALS AND HS SUBQ 06/02/19 11:30 07/02/19 11:29 Insulin Aspart (NovoLOG) 8 units NOVOTIAC SUBQ 06/02/19 11:50 07/02/19 11:49 06/02/19 17:08 Insulin Detemir (Levemir) 24 units DAILY SUBQ 06/02/19 11:30 07/02/19 11:29 06/02/19 12:52 Lorazepam (Ativan) 0.5 mg Q6H PRN ORAL For Anxiety 06/03/19 04:30 06/10/19 04:29 Megestrol Acetate (Megace) 40 mg BID ORAL 06/02/19 10:00 06/07/19 09:59 06/02/19 17:06 Memantine (Namenda) 5 mg TWICE A DAY ORAL 06/02/19 10:00 07/02/19 09:59 06/02/19 17:06 Multivitamins (Multivitamins) 1 tab DAILY ORAL 06/02/19 10:00 07/02/19 09:59 06/02/19 10:30 Nitroglycerin (Ntg) 0.4 mg PRN PRN SL Prn Chest Pain 06/02/19 09:30 07/02/19 09:29 Sodium Chloride 1,000 ml @ 60 mls/hr [id number] IV 06/02/19 09:15 07/02/19 09:14 06/03/19 03:26 Sodium Phosphate (Fleet's Sodium Phosl Enema) 133 ml DAILY PRN RECTAL Constipation 06/02/19 09:30 07/02/19 09:29 Tramadol HCl (Ultram) 50 mg BID ORAL 06/02/19 10:00 06/09/19 09:59 06/02/19 17:07 Rich Nuñez MD Jun 03, 2019 06:56
[2019-06-03 07:17] LABS: BASOPHILS % (AUTO) 1.1 % (0.0-2.0); EOSINOPHILS % (AUTO) 2.6 % (0.0-3.0); HEMATOCRIT 42.1 % (37.0-47.0); HEMOGLOBIN 14.6 G/DL (12.0-16.0); MEAN CORPUSCULAR VOLUME 93 FL (80-99); MONOCYTES % (AUTO) 6.9 % (1.0-10.0); NEUTROPHILS % (AUTO) 58.4 % (45.0-75.0); PLATELET COUNT 180 K/UL (150-450); RED BLOOD COUNT 4.52 M/UL (4.20-5.40); RED CELL DISTRIBUTION WIDTH 11.4 % (11.6-14.8)
--- NOTE | 2019-06-03 07:28 | NUR ---
HAND-OFF: Report given to CASE Anne.
[2019-06-03 07:30] LABS: ANION GAP 7 mmol/L (5-15); BLOOD UREA NITROGEN 10 mg/dL (7-18); CARBON DIOXIDE 27 MMOL/L (21-32); CHLORIDE 105 MMOL/L (98-107); CREATININE 0.9 MG/DL (0.55-1.30); POTASSIUM 3.6 MMOL/L (3.5-5.1); SODIUM 139 MMOL/L (136-145)
--- NOTE | 2019-06-03 07:30 | NUR ---
NURSE NOTES: Nurse report given by CASE Santoro. Patient's awake and encouraged to eat breakfast. Denies pain, no s/s of acute distress or SOB. AOx3, Malawian speaking only. Bed low and locked, call light within reach, side rails x 2 and seizure precautions pad applied, safety precaution alarm is on. Suction is in placed. IV is running fluid at 60ml/hr. Will continue to monitor.
[2019-06-03] MEDS: traMADol 50mg tab ORAL SCH ×2 (08:27→17:01)
[2019-06-03] MEDS: Docusate 100mg cap ORAL SCH ×2 (08:27→17:01)
[2019-06-03] MEDS: BuPROPion SR 100mg tab ORAL SCH (08:27)
[2019-06-03] MEDS: Heparin 5000 units/ml inj SUBQ SCH ×2 (08:28→17:06)
[2019-06-03] MEDS: Memantine 10mg tab ORAL SCH ×2 (08:28→17:01)
[2019-06-03] MEDS: Levemir Flexpen SUBQ SCH (08:32)
--- NOTE | 2019-06-03 10:07 | General Progress Note ---
Assessment/Plan Problem List: (1) UTI (urinary tract infection) ICD Codes: N39.0 - Urinary tract infection, site not specified SNOMED: 33175772 (2) Malnutrition ICD Codes: E46 - Unspecified protein-calorie malnutrition SNOMED: 41411903 (3) Sepsis ICD Codes: A41.9 - Sepsis, unspecified organism SNOMED: 09713141 (4) Psychosis ICD Codes: F29 - Unspecified psychosis not due to a substance or known physiological condition SNOMED: 95437088 (5) Failure to thrive SNOMED: 86240026 (6) Seizure ICD Codes: R56.9 - Unspecified convulsions SNOMED: 24216973 (7) HTN (hypertension) ICD Codes: I10 - Essential (primary) hypertension SNOMED: 41367474 (8) Diabetes ICD Codes: E11.9 - Type 2 diabetes mellitus without complications SNOMED: 87141994 Qualifiers: Qualified Codes: E11.65 - Type 2 diabetes mellitus with hyperglycemia; 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 (9) DENNIS (acute kidney injury) ICD Codes: N17.9 - Acute kidney failure, unspecified SNOMED: 85942400, 2735682 Status: stable, progressing Assessment/Plan: pt diet abx seizure control cbc bmp am aru eval Subjective Constitutional: Reports: weakness Allergies: Coded Allergies: PENICILLINS (Verified Allergy, Unknown, 11/01/12) Uncoded Allergies: PENICILLIN (Allergy, Unknown, 06/01/19) All Systems: reviewed and negative except above Subjective calm in bed confused Objective Last 24 Hour Vital Signs Date Time Temp Pulse Resp B/P (MAP) Pulse Ox O2 Delivery O2 Flow Rate FiO2 06/03/19 08:00 97.6 78 20 131/81 (98) 96 06/03/19 08:00 Room Air 06/03/19 08:00 80 06/03/19 04:00 78 06/03/19 04:00 97.5 76 16 140/79 (99) 99 06/03/19 00:00 73 06/03/19 00:00 97.6 74 20 121/60 (80) 97 06/02/19 21:00 Room Air 06/02/19 20:00 74 06/02/19 20:00 97.2 77 20 125/62 (83) 98 06/02/19 16:00 97.0 84 20 120/64 (82) 98 06/02/19 16:00 76 06/02/19 12:00 97.3 83 18 114/44 (67) 93 06/02/19 12:00 80 Intake and Output 06/02/19 06/03/19 19:00 07:00 Intake Total 75 ml 120 ml Output Total 500 ml Balance 75 ml -380 ml Intake Oral 75 ml 120 ml Output Urine Total 500 ml # Voids 1 Laboratory Tests 06/03/19 06:40: White Blood Count 8.0, Red Blood Count 4.52, Hemoglobin 14.6, Hematocrit 42.1, Mean Corpuscular Volume 93, Mean Corpuscular Hemoglobin 32.4H, Mean Corpuscular Hemoglobin Concent 34.8, Red Cell Distribution Width 11.4L, Platelet Count 180, Mean Platelet Volume 6.4L, Neutrophils (%) (Auto) 58.4, Lymphocytes (%) (Auto) 31.0, Monocytes (%) (Auto) 6.9, Eosinophils (%) (Auto) 2.6, Basophils (%) (Auto ) 1.1, Sodium Level 139, Potassium Level 3.6, Chloride Level 105, Carbon Dioxide Level 27, Anion Gap 7, Blood Urea Nitrogen 10, Creatinine 0.9, Estimat Glomerular Filtration Rate , Glucose Level 91#, Calcium Level 8.0L Height (Feet): 5 Height (Inches): 1.00 Weight (Pounds): 126 General Appearance: lethargic EENT: normal ENT inspection Neck: normal alignment Cardiovascular: normal peripheral pulses, normal rate, regular rhythm Respiratory/Chest: chest wall non-tender, lungs clear, normal breath sounds Abdomen: normal bowel sounds, non tender, soft Extremities: normal inspection Edema: no edema noted Arm (L), no edema noted Arm (R), no edema noted Leg (L), no edema noted Leg (R), no edema noted Pedal (L), no edema noted Pedal (R), no edema noted Generalized Neurologic: motor weakness Skin: normal pigmentation, warm/dry Chalo Ayala DO Jun 03, 2019 10:07
--- NOTE | 2019-06-03 12:11 | NUR ---
P.T Note: P.T evaluation completed with JOAN Zapien present to translate for Mexican. Pt is alert , oriented to self and place but not to time and current situation. Pt is confused however able to follow simple commands.Pt is fearful and resistive wih mobilities. Based on P.T evaluation, pt is functioning at baseline therefore not a candidate for skilled P.T services. Recommend DC to prior living arrangement for care and comfort. Thank you for this referral. Addendum: 06/03/19 at 1211 by MICHAEL KIMBROUGH PT Amended: Links added.
--- NOTE | 2019-06-03 13:29 | Consultation ---
Consult Note Consult Note HPI: 89yo woman with PMH below presents from halfway with tonic clonic seizure for 5 minutes. Admission labs significant for mild leukocytosis and sugar of 600. still confused. Pt is currently reporting pain in her R leg because the lunch tray was resting on it. Unable to give much history. Denies chills, cough, sob, abdominal pain, dysuria, diarrhea. ROS: per HPI PMH: DM HTN COPD Dementia MDD stage 2 pressure ulcer cervical malignancy kidney cyst glaucoma OA Meds: reviewed NKDA SHx: halfway resident FHX: unable to obtain VS: afebrile Gen: NAD HEENT: anicteric sclera CV: RRR. no rubs or gallop Resp: RRR. diminished breath sounds. unlabored. Abd: normoactive BS+. Soft. no TTP Ext: No LE edema Neuro: awake but does not answer questions appropriately. Labs: reviewed Assessment: Afebrile RA Mild leukocytosis, resolved without antibiotics reactive? Atelectasis vs aspiration no cough on RA pt did not tolerate swallow evaluation CXR: Mildly elevated right diaphragm. Linear opacity in the left lower lobe , possibly aspiration infection versus subsegmental atelectasis. No pleural effusion. Unchanged heart size Unlikely UTI UA negative r/o bacteremia 06/02 BCx: P PCN allergy--pt unable to elaborate reaction DENNIS, SP Hyperglycemia, SP DM HTN COPD Dementia MDD stage 2 pressure ulcer cervical malignancy kidney cyst glaucoma OA Plan: monitor off antibiotics incentive spirometry aspiration precaution, elevate HOB, skin care, PT/OT, OOB seizure precaution Thank you for this consult. [facility] will continue to follow the patient with you. Wero Tom MD Jun 03, 2019 13:29
--- NOTE | 2019-06-03 13:49 | NUR ---
ST NOTES: REFERRED FOR SWALLOW EVAL BY DR MAGDALENO, SEE FULL REPORT. DYSPHAGIA RISK FACTORS FOR THIS 89 Y.O. BRUNEIAN-SPEAKING FEMALE: ACUTE ISSUES: SEIZURE, DENNIS, POSSIBLE ASPIRATION INFECTION VERSUS SUBSEGMENTAL ATELECTASIS, ATIVAN PRN, RESP RATE 16 TO 20 H/O ADVANCED AGE, PNA AND SEPSIS 01/2017 AND 02/2019 HAD SEPSIS WITH LUNG OPACITIES), MILD/MODERATE OROPHARYNGEAL DYSPHAGIA, POOR APPETITE ON MEGACE AT SNF, DEMENTIA WITH SEVERE BRAIN ATROPHY (NEG FOR ACUTE PROCESS ON RECENT CT HEAD SCAN), P-C MALNUTRITION, FTT, GERD MEDS PEPCID, MDD, COPD PER POLST OK FOR TUBE FEEDINGS IF NEEDS [facility] AT SNF ON A [facility] SOFT CHOPPED DIET AND THIN LIQUIDS DIABETIC HPN 4 OZ TID WITH MEALS [facility] 03/21/19 SWALLOW EVKATELYN HAD MILD/MOD OP DYSPHAGIA AND PLACED ON [facility] PUREED AND NECTAR THICK LIQUIDS (WAS ON [facility] SOFT CHOPPED AND THIN LIQUIDS WITH GLUCERNA. NOW ON A CARDIAC DIET REGULAR TEXTURE AND THIN LIQUIDS WITH 25-75% INTAKE. ALERT AND ABLE TO EXPRESS HERSELF IN [place]UNE[place]. TALKS WITH FOOD IN HER MOUTH AND VERY PARTICULAR ABOUT WHAT SHE EATS/DRINKS. DISLIKES BEING FED BUT WHEN LEFT ALONE, SHE WILL USE HER HANDS TO TRY TO PULL MEAT OFF CHICKEN BONE (INSTEAD OF USING UTENSILS) AND TENDS TO LEAN TO THE LEFT. POOR FOLLOWING ORAL COMMANDS AND ALLOWING ORAL INSPECTION. ON ROOM AIR. INITIAL IMPRESSIONS: S/S OF AT LEAST A PERSISTENT MILD/MOD OROPHARYNGEAL DYSPHAGIA BUT LIMITED EXAM. GIVEN NECTAR THICK LIQUIDS (TABLESPOON) REFUSED CUP, GROSSLY FUNCTIONAL SWALLOW W/O OVERT ASPIRATION. GIVEN PUREED, SWALLOWS AFTER 4 SECONDS WITH FAIR HYOLARYNGEAL EXCURSION, NO OVERT ASPIRATION REFUSED THIN LIQUIDS AND MASTICATED SOLIDS BUT HAS HIGH ASPIRATION RISK (SILENT AND CHOKING SHE TALKS WITH FOOD IN HER MOUTH). SLOW AND SOMETIMES POOR INTAKE. RECOMMENDATIONS: COMPLETE MOD BARIUM SWALLOW STUDY IF PT IS RECEPTIVE MAY REFUSE BARIUM CONSIDER DOWNGRADE TO [facility] CARDIAC PUREED AND NECTAR THICK LIQUIDS FOR NOW WITH POSTED ASP/REFLUX PRECAUTIONS AND ONE TO ONE ASSIST. SEND HIGH JOLYNN SUPPLEMENTS GLUCERNA TID (WHICH SHE DRANK WELL THAT LAST [facility] VISIT) CONSIDER 72 HOUR CALORIE COUNT (ON MEGACE NOW) SKILLED DYSPHAGIA MANAGEMENT AND TX AND COG-COM EVAL/TX FOR COMMUNICATION TIPS D/W CASE GONZALEZ AND PATIENT WHO IS CONFUSED
--- NOTE | 2019-06-03 14:49 | NUR ---
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 98.6 HR 104 RR 20 B/P 156/82 WBC 11.0 BUN 20 CR. 1.4 GLUCOSE 603 ALK PHOS 129 CXR= MILDLY ELEVATED RIGHT DIAPHRAGM IS: IV BOLUS NS X 2 LITERS KEPPRA IV ADMITTED TO TELE @ 2330 TELE STATUS DCP RETURN TO [facility]
--- NOTE | 2019-06-03 15:17 | NUR ---
RD ASSESSMENT & RECOMMENDATIONS SEE CARE ACTIVITY FOR COMPLETE ASSESSMENT DAILY ESTIMATED NEEDS: Needs based on Diabetes, wound/ 50kg 25-30 kcals/kg 4574-8380 total kcals 1.25-2 g protein/kg 63-75 g total protein 20-30ml/kcal mL/kg 9095-5446 total fluid mLs NUTRITION DIAGNOSIS: *Increased kcal/pro needs R/T wound healing as evidenced by pt admitted buttocks w/ partial thickness wound BL heels w/ DTPI *Altered nutrition related lab values r/t diabetes as evidenced by BG on Adm >600, uglu 4+ CURRENT DIET:CCHO MED/ cardiac now puree PO DIET RECOMMENDATIONS: CCHO MED / texture per HAND THERMAL CUTTER ADDITIONAL RECOMMENDATIONS: * Calibrated bed scale wt * A1C for evaluation of glycemic control * Wound care: add KAILA BID + Vit C 250mg daily * Add HIGH PRO snacks in b/w meals w/ current variable po intake * Glucerna BID w/ current variable intake, monitor trend, need for TID
--- NOTE | 2019-06-03 15:26 | Consultation ---
History of Present Illness General Date patient seen: Jun 03, 2019 Reason for Hospitalization: Seizure Present Illness HPI 89-year-old female with multiple medical comorbidities who is a [facility] resident presents with hyperglycemia, leukocytosis, discomfort. On admission identified to have multiple wounds requiring care and management as well as failure to thrive/malnutrition. Given patient's age condition and findings surgery was called to evaluate and assist with care and management. Patient seen, patient evaluated, chart reviewed. Patient states that she hit her leg against a lunch tray and it hurts. No nausea vomiting fever chills. Allergies: Coded Allergies: PENICILLINS (Verified Allergy, Unknown, 11/01/12) Uncoded Allergies: PENICILLIN (Allergy, Unknown, 06/01/19) Medication History Scheduled Amino Acids/Protein Hydrolys (Pro-Stat Liquid), 30 ML ORAL DAILY, (Reported) Aztreonam (Aztreonam), 0.5 GM IVPB Q8HR, (Reported) Bimatoprost (Lumigan), 1 DROP BOTH EYES BEDTIME, (Reported) Diclofenac Sodium (Voltaren), 2 GM TP BID, (Reported) Docusate Sodium* (Colace*), 100 MG ORAL BID, (Reported) Famotidine* (Pepcid 20mg tablet*), 20 MG ORAL DAILY, (Reported) Megestrol Acetate (Megestrol Acetate), 40 MG PO BID, (Reported) Memantine Hcl* (Namenda*), 5 MG ORAL TWICE A DAY, (Reported) Multivitamins* (Multivitamins*), 1 TAB ORAL DAILY, (Reported) Tramadol Hcl* (Ultram*), 50 MG ORAL BID, (Reported) Scheduled PRN Acetaminophen (Tylenol), 650 MG ORAL Q4HR PRN for Mild Pain (Pain Scale 1-3), ( Reported) Bisacodyl (Dulcolax), 10 MG RC DAILY PRN for Constipation, (Reported) Magnesium Hydroxide* (Milk Of Magnesia*), 30 ML ORAL DAILY PRN for Constipation, (Reported) Na Phos,M-B/Na Phos,Di-Ba* (Fleet Enema*), 133 ML RECTAL DAILY PRN for Constipation, (Reported) Nitroglycerin (Nitroglycerin), 0.4 MG SL Q5MIN X 3 DOSES PRN for Prn Chest Pain, (Reported) Discontinued Medications Ascorbic Acid* (Vitamin C*), 500 MG ORAL TWICE A DAY, (Reported) Discontinued Reason: Therapy completed Clonidine Hcl* (Catapres*), 0.1 MG ORAL EVERY 6 HOURS PRN for SPB>160, (Reported ) Discontinued Reason: Therapy completed Insulin Aspart (Novolog Flexpen), AC+HS, (Reported) Discontinued Reason: Therapy completed Lactobacillus Acidophilus (Acidophilus), 1 EACH PO TWICE A DAY, (Reported) Discontinued Reason: Therapy completed Lidocaine Patch* (Lidoderm Patch*), 1 PATCH TOPIC DAILY, (Reported) Discontinued Reason: Therapy completed Mag Hydrox/Al Hydrox/Simeth (Thania-Lanta Liquid), 30 ML PO Q6HR PRN for STOMACH UPSET, (Reported) Discontinued Reason: Therapy completed Patient History History Provided By: Patient, Medical Record, PMD Healthcare decision maker Resuscitation status Full Code Advanced Directive on File Past Medical/Surgical History Past Medical/Surgical History: (1) Pelvic mass (2) Tachycardia (3) Colonization with VRE (vancomycin-resistant enterococcus) (4) Injury of lower extremity (5) Abnormal CT scan, gallbladder (6) Epileptic seizure, generalized (7) DENNIS (acute kidney injury) (8) Diabetes (9) HTN (hypertension) (10) Failure to thrive (11) Psychosis (12) Seizure (13) Malnutrition (14) Sepsis (15) UTI (urinary tract infection) Review of Systems Review of Symptoms General ROS: no weight loss or fever Psychological ROS: no depression or mood changes, no memory loss Ophthalmic ROS: no visual changes or eye irritation ENT ROS: no nasal congestion, hearing loss, dizziness Allergy and Immunology ROS: no allergic symptoms or urticaria Hematological and Lymphatic ROS: no swollen glands, unusual bleeding or bruising Endocrine ROS: no polyuria, polydipsia, weight changes, temperature intolerance Respiratory ROS: no cough, shortness of breath, or wheezing Cardiovascular ROS: no chest pain or dyspnea on exertion Gastrointestinal ROS: denies abdominal pain, bright red blood in stool. Musculoskeletal ROS: no myalgias or arthralgias Neurological ROS: no TIA or stroke symptoms Dermatological ROS: no new or changing skin lesions, rashes or pruritis Physical Exam Physical Exam General appearance: alert, cooperative, no distress, appears stated age Head: Normocephalic, without obvious abnormality, atraumatic Eyes: conjunctivae/corneas clear. PERRL, EOM's intact. Fundi benign Throat: Lips, mucosa, and tongue normal. Teeth and gums normal Neck: supple, symmetrical, trachea midline, no adenopathy, thyroid: not enlarged, symmetric, no tenderness/mass/nodules, no carotid bruit and no JVD Lungs: clear to auscultation bilaterally Heart: regular rate and rhythm, S1, S2 normal, no murmur, click, rub or gallop Abdomen: soft, non-tender. Bowel sounds normal. No masses, no organomegaly Extremities: extremities normal, atraumatic, no cyanosis or edema Pulses: 2+ and symmetric Skin: Skin color, texture, turgor normal. No rashes or lesions Neurologic: Grossly normal Last 24 Hour Vital Signs Date Time Temp Pulse Resp B/P (MAP) Pulse Ox O2 Delivery O2 Flow Rate FiO2 06/03/19 12:00 75 06/03/19 11:57 98.1 77 19 131/61 (84) 97 06/03/19 08:00 97.6 78 20 131/81 (98) 96 06/03/19 08:00 Room Air 06/03/19 08:00 80 06/03/19 04:00 78 06/03/19 04:00 97.5 76 16 140/79 (99) 99 06/03/19 00:00 73 06/03/19 00:00 97.6 74 20 121/60 (80) 97 06/02/19 21:00 Room Air 06/02/19 20:00 74 06/02/19 20:00 97.2 77 20 125/62 (83) 98 06/02/19 16:00 97.0 84 20 120/64 (82) 98 06/02/19 16:00 76 Intake and Output 06/02/19 06/03/19 19:00 07:00 Intake Total 75 ml 120 ml Output Total 500 ml Balance 75 ml -380 ml Intake Oral 75 ml 120 ml Output Urine Total 500 ml # Voids 1 Laboratory Tests Test 06/03/19 06:40 White Blood Count 8.0 K/UL (4.8-10.8) Red Blood Count 4.52 M/UL (4.20-5.40) Hemoglobin 14.6 G/DL (12.0-16.0) Hematocrit 42.1 % (37.0-47.0) Mean Corpuscular Volume 93 FL (80-99) Mean Corpuscular Hemoglobin 32.4 PG (27.0-31.0) H Mean Corpuscular Hemoglobin Concent 34.8 G/DL (32.0-36.0) Red Cell Distribution Width 11.4 % (11.6-14.8) L Platelet Count 180 K/UL (150-450) Mean Platelet Volume 6.4 FL (6.5-10.1) L Neutrophils (%) (Auto) 58.4 % (45.0-75.0) Lymphocytes (%) (Auto) 31.0 % (20.0-45.0) Monocytes (%) (Auto) 6.9 % (1.0-10.0) Eosinophils (%) (Auto) 2.6 % (0.0-3.0) Basophils (%) (Auto) 1.1 % (0.0-2.0) Sodium Level 139 MMOL/L (136-145) Potassium Level 3.6 MMOL/L (3.5-5.1) Chloride Level 105 MMOL/L (98-107) Carbon Dioxide Level 27 MMOL/L (21-32) Anion Gap 7 mmol/L (5-15) Blood Urea Nitrogen 10 mg/dL (7-18) Creatinine 0.9 MG/DL (0.55-1.30) Estimat Glomerular Filtration Rate mL/min (>60) Glucose Level 91 MG/DL (74-106) # Calcium Level 8.0 MG/DL (8.5-10.1) L Height (Feet): 5 Height (Inches): 1.00 Weight (Pounds): 126 Medications Current Medications Medications (Trade) Dose Ordered Sig/Joon Route PRN Reason Start Time Stop Time Status Last Admin Dose Admin Acetaminophen (Tylenol) 325 mg Q4H PRN ORAL Mild Pain (Pain Scale 1-3) 06/02/19 09:30 07/02/19 09:29 Bupropion HCl (Wellbutrin SR) 100 mg DAILY ORAL 06/03/19 09:00 07/03/19 08:59 06/03/19 08:27 Dextrose (Dextrose 50%) 25 ml Q30M PRN IV Hypoglycemia 06/02/19 09:15 07/02/19 09:14 Dextrose (Dextrose 50%) 50 ml Q30M PRN IV Hypoglycemia 06/02/19 09:15 07/02/19 09:14 Docusate Sodium (Colace) 100 mg BID ORAL 06/02/19 10:00 07/02/19 09:59 06/03/19 08:27 Famotidine (Pepcid) 20 mg DAILY ORAL 06/02/19 10:00 07/02/19 09:59 06/03/19 08:28 Heparin Sodium (Porcine) (Heparin 5000 units/ml) 5,000 units BID SUBQ 06/02/19 18:00 07/02/19 17:59 06/03/19 08:28 Insulin Aspart (NovoLOG) BEFORE MEALS AND HS SUBQ 06/02/19 11:30 07/02/19 11:29 Insulin Aspart (NovoLOG) 6 units NOVOTIAC SUBQ 06/03/19 11:50 07/02/19 11:49 Insulin Detemir (Levemir) 18 units DAILY SUBQ 06/03/19 09:00 07/02/19 11:29 Lorazepam (Ativan) 0.5 mg Q6H PRN ORAL For Anxiety 06/03/19 04:30 06/10/19 04:29 Megestrol Acetate (Megace) 40 mg BID ORAL 06/02/19 10:00 06/07/19 09:59 06/03/19 08:27 Memantine (Namenda) 5 mg TWICE A DAY ORAL 06/02/19 10:00 07/02/19 09:59 06/03/19 08:28 Multivitamins (Multivitamins) 1 tab DAILY ORAL 06/02/19 10:00 07/02/19 09:59 06/03/19 08:27 Nitroglycerin (Ntg) 0.4 mg PRN PRN SL Prn Chest Pain 06/02/19 09:30 07/02/19 09:29 Sodium Chloride 1,000 ml @ 60 mls/hr [id number] IV 06/02/19 09:15 07/02/19 09:14 06/03/19 03:26 Sodium Phosphate (Fleet's Sodium Phosl Enema) 133 ml DAILY PRN RECTAL Constipation 06/02/19 09:30 07/02/19 09:29 Tramadol HCl (Ultram) 50 mg BID ORAL 06/02/19 10:00 06/09/19 09:59 06/03/19 08:27 Assessment/Plan Problem List: (1) Malnutrition Assessment & Plan: DAILY ESTIMATED NEEDS: Needs based on Diabetes, wound/ 50kg 25-30 kcals/kg 0990-6645 total kcals 1.25-2 g protein/kg 63-75 g total protein 20-30ml/kcal mL/kg 6260-6653 total fluid mLs NUTRITION DIAGNOSIS: *Increased kcal/pro needs R/T wound healing as evidenced by pt admitted buttocks w/ partial thickness wound BL heels w/ DTPI *Altered nutrition related lab values r/t diabetes as evidenced by BG on Adm >600, uglu 4+ CURRENT DIET:CCHO MED/ cardiac now puree PO DIET RECOMMENDATIONS: CCHO MED / 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 Will monitor for healing ICD Codes: S89.90XA - Unspecified injury of unspecified lower leg, initial encounter SNOMED: 400437529 (3) Decubitus skin ulcer Assessment & Plan: Patient presents with multiple buttock and sacral abrasions partial-thickness wounds decubitus in nature potentially incontinence associated dermatitis. Patient is somewhat mobile and can turn but does not do so very often. No signs of active acute infection. Serous oozing. Discomfort. Treatment plan Wash area with saline daily, apply Thera honey and foam dressing. Turn every 2 hours Offload heel with pillows Nutritional optimization We will follow with recommendations Thank you for allowing me to participate in patient's care ICD Codes: L89.90 - Pressure ulcer of unspecified site, unspecified stage SNOMED: 681444745 Christian Larson Jun 03, 2019 15:26
--- NOTE | 2019-06-03 16:42 | NUR ---
NURSE NOTES: Patient only ate less than 50%, not going to administered schedule 6 unit of Novolog.
--- NOTE | 2019-06-03 19:51 | NUR ---
HAND-OFF: Report given to CASE Vanegas. Plan of care endorsed. Patient's stable.
[2019-06-03] MEDS ORDERED: VOLTAREN100 G1 TP (19:55)
--- NOTE | 2019-06-03 19:59 | NUR ---
NURSE NOTES: Received pt from CASE Anne. Pt awake, alert, and taklative. Bed in lowest position. Call light within reach. Will continue to monitor.
--- NOTE | 2019-06-03 23:05 | NUR ---
NURSE NOTES: Called and left a message with Dr. Ayala requesting PRN BP meds. Awaiting call back.
[2019-06-04] VITALS (7 sets, daily range): BP systolic 125–186; BP diastolic 65–106
--- NOTE | 2019-06-04 01:43 | NUR ---
NURSE NOTES: Called and left a second message with Dr. Pruitt exchange regarding pts BP. Awaiting call back.
--- NOTE | 2019-06-04 01:45 | Consultation ---
DATE OF CONSULTATION: 06/03/2019 PSYCHOTHERAPY CONSULTATION PROGRESS NOTE CONSULTING PHYSICIAN: Ezekiel Dougherty M.D. TREATING ATTENDING PHYSICIAN: Chalo Ayala D.O. HISTORY OF PRESENT ILLNESS: The patient is a female patient, 89 years old. The patient nursing facility. [facility] was utilized. The patient was sent to the hospital for a seizure. The patient is still confused and disoriented. For these reasons, she was referred for psychotherapeutic services. The patient has been very helpless and depressed, does not know why she was brought into the hospital. The patient was able to recall her date of , but could not recall where she is living at this time. The patient states she does not know why she is here. She is forgetful and difficult for her to recall information. She is a poor historian, however, able to communicate and able to answer questions. She denies suicidal or homicidal thoughts of ideation. Denies any auditory or visual hallucinations. PAST MEDICAL HISTORY: Include history of hypertension, diabetes, DENNIS, and possible seizures. ALLERGIES: The patient has allergy to penicillin. SUBSTANCE ABUSE HISTORY: There is no indication of alcohol use or illicit substance use or smoking cigarettes. PSYCHIATRIC HISTORY: The patient does have a history of psychosis at times and has been treated with psychotropic medications in the past. SOCIAL HISTORY: The patient is an 89-year-old single female. The patient is from [facility]. Financially sustained through [facility]. MENTAL STATUS EXAMINATION: Alert and oriented to person and place. Mood is irritable. Affect is congruent. Thought process, depressed. Thought content, confused. She has poor attention and concentration. Poor insight, judgment, and impulse control. ASSESSMENT AND PLAN: Today, I assessed this patient and provided the patient with: 1. Reality orientation, which is focused on improving cognitive function of the patient, who is very confused and disorganized. Oriented to person, place, time, and situation. 2. Provided the patient with supportive psychotherapy, which provided the patient with means to process her thoughts and feelings of depression utilizing positive communication skills. 3. Encouraging the patient to participate in treatment milieu as well as medication regimen. . 4. Diagnosis is major depressive disorder, recurrent and moderate with psychotic features. Continue medication compliance with positive coping skills psychotherapeutic services. This clinician has reviewed the patient's chart and discussed the treatment with treatment team. Ezekiel Dougherty PsyD. DR: ELEONORA JOB#: [id number] CC:
[2019-06-04] MEDS: NovoLOG Insulin Flexpen SUBQ SCH ×7 (05:39→21:30)
[2019-06-04 07:30] LABS: BASOPHILS % (AUTO) 0.7 % (0.0-2.0); EOSINOPHILS % (AUTO) 3.4 % (0.0-3.0); HEMOGLOBIN 16.1 G/DL (12.0-16.0); LYMPHOCYTES % (AUTO) 29.6 % (20.0-45.0); MEAN CORPUSCULAR VOLUME 93 FL (80-99); MONOCYTES % (AUTO) 6.9 % (1.0-10.0); NEUTROPHILS % (AUTO) 59.4 % (45.0-75.0); PLATELET COUNT 210 K/UL (150-450); RED BLOOD COUNT 4.94 M/UL (4.20-5.40); RED CELL DISTRIBUTION WIDTH 11.2 % (11.6-14.8); WHITE BLOOD COUNT 9.9 K/UL (4.8-10.8)
--- NOTE | 2019-06-04 07:36 | NUR ---
HAND-OFF: Report given to CASE Bustos. Pt stable.
--- NOTE | 2019-06-04 07:40 | NUR ---
NURSE NOTES: Nurse report given by CASE Vanegas. Patient's awake in bed, AO x 2, [place] Lankan speaking only, no s/s of distress or SOB, denies pain. Bed low and locked, call light within reach, side rails x 3 padded for seizure precaution, safety alarm is on. IV is running fluid at 60ml/hr, no s/s of infiltration or tenderness. Will continue to monitor.
[2019-06-04 07:44] LABS: ANION GAP 12 mmol/L (5-15); BLOOD UREA NITROGEN 11 mg/dL (7-18); CALCIUM 8.2 MG/DL (8.5-10.1); CARBON DIOXIDE 22 MMOL/L (21-32); CHLORIDE 102 MMOL/L (98-107); CREATININE 0.8 MG/DL (0.55-1.30); POTASSIUM 3.8 MMOL/L (3.5-5.1); SODIUM 136 MMOL/L (136-145)
[2019-06-04] MEDS: Levemir Flexpen SUBQ SCH (09:00)
[2019-06-04] MEDS: BuPROPion SR 100mg tab ORAL SCH (09:03)
[2019-06-04] MEDS: Docusate 100mg cap ORAL SCH ×2 (09:03→18:13)
[2019-06-04] MEDS: traMADol 50mg tab ORAL SCH ×2 (09:04→18:12)
[2019-06-04] MEDS: Memantine 10mg tab ORAL SCH ×2 (09:04→18:12)
[2019-06-04] MEDS: Heparin 5000 units/ml inj SUBQ SCH ×2 (09:06→18:23)
--- NOTE | 2019-06-04 11:00 | Progress Note ---
DATE: 06/04/2019 SUBJECTIVE: The patient is an 89-year-old. She has seizure disorder, but she has altered mental status, confusion, and mood lability, declined in cognition below her baseline. That is why, her attending physician has requested daily psychiatric consultation. MENTAL STATUS EXAMINATION: This is an 89-year-old female. Appearance is disheveled. Attitude, irritable and agitated. Affect, guarded and restricted. Intellect poor. Mood, depressed and anxious. Motor activity, psychomotor agitation. Attention span is poor. Orientation x2. Speech is low volume, slurred. Thought process, disorganized and illogical. Insight and judgment is poor. DIAGNOSIS: Major depressive disorder, mild, recurrent with psychotic features, rule out dementia with psychosis. PLAN: Plan for this patient is to treatment with a medication regimen consisting of Ativan 0.5 mg every 6 hours p.r.n. anxiety and agitation, Wellbutrin 100 mg daily. alertness. This patient understands the details of this psychiatric illness and medical condition, so she has better impulse control behavior on the unit. Chart reviewed. Discussed with staff. Seen and assessed in her room. A 20 minutes of insight-oriented psychotherapy provided. Vivian Armas M.D. DR: MARYCARMEN JOB#: [id number] CC:
--- NOTE | 2019-06-04 11:27 | Infectious Diseases Prog Note ---
Assessment/Plan Assessment/Plan 89yo woman with PMH below presents from custodial with tonic clonic seizure for 5 minutes. Admission labs significant for mild leukocytosis and sugar of 600. still confused. Pt is currently reporting pain in her R leg because the lunch tray was resting on it. Unable to give much history. Denies chills, cough , sob, abdominal pain, dysuria, diarrhea. Afebrile RA Mild leukocytosis, resolved without antibiotics reactive? Atelectasis vs aspiration no cough on RA pt did not tolerate swallow evaluation CXR: Mildly elevated right diaphragm. Linear opacity in the left lower lobe , possibly aspiration infection versus subsegmental atelectasis. No pleural effusion. Unchanged heart size Unlikely UTI UA negative r/o bacteremia 06/02 BCx: ngtd sacral stage II pressure ulcer PCN allergy--pt unable to elaborate reaction DENNIS, SP Hyperglycemia, SP DM HTN COPD Dementia MDD stage 2 pressure ulcer cervical malignancy kidney cyst glaucoma OA Plan: monitor off antibiotics incentive spirometry aspiration precaution, elevate HOB, skin care, PT/OT, OOB seizure precaution Thank you for this consult. [facility] will continue to follow the patient with you. Subjective Allergies: Coded Allergies: PENICILLINS (Verified Allergy, Unknown, 11/01/12) Uncoded Allergies: PENICILLIN (Allergy, Unknown, 06/01/19) Subjective Afebrile. Pt denies cough, sob, chills, abdominal pain. Objective Vital Signs Last 24 Hour Vital Signs Date Time Temp Pulse Resp B/P (MAP) Pulse Ox O2 Delivery O2 Flow Rate FiO2 06/04/19 09:34 97.3 06/04/19 08:00 97.3 90 18 151/65 (93) 98 06/04/19 05:38 140/101 06/04/19 04:00 97.6 85 15 140/101 (114) 95 06/04/19 04:00 82 06/04/19 02:55 84 165/70 (101) 06/04/19 00:00 97.9 88 16 186/106 (132) 95 06/04/19 00:00 80 06/03/19 22:45 84 150/70 (96) 06/03/19 21:00 Room Air 06/03/19 20:00 97.6 83 17 169/99 (122) 95 06/03/19 20:00 80 06/03/19 16:00 78 06/03/19 15:54 98.5 85 19 136/89 (105) 96 06/03/19 12:00 75 06/03/19 11:57 98.1 77 19 131/61 (84) 97 Height (Feet): 5 Height (Inches): 1.00 Weight (Pounds): 126 Objective Gen: NAD HEENT: anicteric sclera CV: RRR. no rubs or gallop Resp: RRR. diminished breath sounds. unlabored. Abd: normoactive BS+. Soft. no TTP Ext: No LE edema Neuro: awake but does not answer questions appropriately. Microbiology Date/Time Source Procedure Growth Status 06/02/19 20:15 Blood Blood Culture - Preliminary NO GROWTH AFTER 24 HOURS Resulted 06/02/19 20:05 Blood Blood Culture - Preliminary NO GROWTH AFTER 24 HOURS Resulted 06/01/19 23:00 Nasal Nares MRSA Culture - Final NO METHICILLIN RESISTANT STAPH AUREUS... Complete 06/01/19 23:00 Rectum - Final NO CARBAPENEM-RESISTANT ENTEROBACTERI... Complete 06/01/19 23:00 Rectum VRE Culture - Final NO VANCOMYCIN RESISTANT ENTEROCOCCUS ... Complete Laboratory Tests Test 06/04/19 06:48 White Blood Count 9.9 K/UL (4.8-10.8) Red Blood Count 4.94 M/UL (4.20-5.40) Hemoglobin 16.1 G/DL (12.0-16.0) H Hematocrit 46.0 % (37.0-47.0) Mean Corpuscular Volume 93 FL (80-99) Mean Corpuscular Hemoglobin 32.6 PG (27.0-31.0) H Mean Corpuscular Hemoglobin Concent 34.9 G/DL (32.0-36.0) Red Cell Distribution Width 11.2 % (11.6-14.8) L Platelet Count 210 K/UL (150-450) Mean Platelet Volume 7.1 FL (6.5-10.1) Neutrophils (%) (Auto) 59.4 % (45.0-75.0) Lymphocytes (%) (Auto) 29.6 % (20.0-45.0) Monocytes (%) (Auto) 6.9 % (1.0-10.0) Eosinophils (%) (Auto) 3.4 % (0.0-3.0) H Basophils (%) (Auto) 0.7 % (0.0-2.0) Sodium Level 136 MMOL/L (136-145) Potassium Level 3.8 MMOL/L (3.5-5.1) Chloride Level 102 MMOL/L (98-107) Carbon Dioxide Level 22 MMOL/L (21-32) Anion Gap 12 mmol/L (5-15) Blood Urea Nitrogen 11 mg/dL (7-18) Creatinine 0.8 MG/DL (0.55-1.30) Estimat Glomerular Filtration Rate mL/min (>60) Glucose Level 129 MG/DL (74-106) H Calcium Level 8.2 MG/DL (8.5-10.1) L Current Medications Medications (Trade) Dose Ordered Sig/Joon Route PRN Reason Start Time Stop Time Status Last Admin Dose Admin Acetaminophen (Tylenol) 325 mg Q4H PRN ORAL Mild Pain (Pain Scale 1-3) 06/02/19 09:30 07/02/19 09:29 Bupropion HCl (Wellbutrin SR) 100 mg DAILY ORAL 06/03/19 09:00 07/03/19 08:59 06/04/19 09:03 Clonidine HCl (Catapres Tab) 0.1 mg EVERY 6 HOURS ORAL 06/04/19 06:00 07/04/19 05:59 06/04/19 05:38 Dextrose (Dextrose 50%) 25 ml Q30M PRN IV Hypoglycemia 06/02/19 09:15 07/02/19 09:14 Dextrose (Dextrose 50%) 50 ml Q30M PRN IV Hypoglycemia 06/02/19 09:15 07/02/19 09:14 Docusate Sodium (Colace) 100 mg BID ORAL 06/02/19 10:00 07/02/19 09:59 06/04/19 09:03 Famotidine (Pepcid) 20 mg DAILY ORAL 06/02/19 10:00 07/02/19 09:59 06/04/19 09:03 Heparin Sodium (Porcine) (Heparin 5000 units/ml) 5,000 units BID SUBQ 06/02/19 18:00 07/02/19 17:59 06/04/19 09:06 Insulin Aspart (NovoLOG) BEFORE MEALS AND HS SUBQ 06/02/19 11:30 07/02/19 11:29 06/03/19 17:07 Insulin Aspart (NovoLOG) 6 units NOVOTIAC SUBQ 06/03/19 11:50 07/02/19 11:49 Insulin Detemir (Levemir) 18 units DAILY SUBQ 06/03/19 09:00 07/02/19 11:29 Lorazepam (Ativan) 0.5 mg Q6H PRN ORAL For Anxiety 06/03/19 04:30 06/10/19 04:29 Megestrol Acetate (Megace) 40 mg BID ORAL 06/02/19 10:00 06/07/19 09:59 06/04/19 09:04 Memantine (Namenda) 5 mg TWICE A DAY ORAL 06/02/19 10:00 07/02/19 09:59 06/04/19 09:04 Multivitamins (Multivitamins) 1 tab DAILY ORAL 06/02/19 10:00 07/02/19 09:59 06/04/19 09:06 Nitroglycerin (Ntg) 0.4 mg PRN PRN SL Prn Chest Pain 06/02/19 09:30 07/02/19 09:29 Sodium Chloride 1,000 ml @ 60 mls/hr [id number] IV 06/02/19 09:15 07/02/19 09:14 06/03/19 18:07 Sodium Phosphate (Fleet's Sodium Phosl Enema) 133 ml DAILY PRN RECTAL Constipation 06/02/19 09:30 07/02/19 09:29 Tramadol HCl (Ultram) 50 mg BID ORAL 06/02/19 10:00 06/09/19 09:59 06/04/19 09:04 Wero Tom MD Jun 04, 2019 11:27
--- NOTE | 2019-06-04 11:38 | NUR ---
LEARNING AND DEVELOPMENT ASSISTANTHYDRAULIC RIVETER SI: SEIZURES T. 97.3 HR 90 RR 18 B/P 151/65 RA 98% IS: IVF NS @ 60ML/HR PEPCID WELLBUTRIN PO HEPARIN SUBC TELE STATUS
--- NOTE | 2019-06-04 14:25 | Surgery Progress Note ---
Surgery Progress Note Subjective Additional Comments no acute events comfortable stable labs noted Objective Last 24 Hour Vital Signs Date Time Temp Pulse Resp B/P (MAP) Pulse Ox O2 Delivery O2 Flow Rate FiO2 06/04/19 12:06 162/74 06/04/19 12:00 90 06/04/19 12:00 97.1 95 18 148/70 (96) 96 06/04/19 09:34 97.3 06/04/19 09:00 Room Air 06/04/19 08:00 97.3 90 18 151/65 (93) 98 06/04/19 08:00 92 06/04/19 05:38 140/101 06/04/19 04:00 97.6 85 15 140/101 (114) 95 06/04/19 04:00 82 06/04/19 02:55 84 165/70 (101) 06/04/19 00:00 97.9 88 16 186/106 (132) 95 06/04/19 00:00 80 06/03/19 22:45 84 150/70 (96) 06/03/19 21:00 Room Air 06/03/19 20:00 97.6 83 17 169/99 (122) 95 06/03/19 20:00 80 06/03/19 16:00 78 06/03/19 15:54 98.5 85 19 136/89 (105) 96 I&O Intake and Output 06/03/19 06/04/19 19:00 07:00 Intake Total 140 ml 120 ml Output Total 1100 ml 400 ml Balance -960 ml -280 ml Intake Oral 140 ml 120 ml Output Urine Total 1100 ml 400 ml # Voids 1 Dressing: dry Wound: clean Cardiovascular: RSR Respiratory: decreased breath sounds Abdomen: soft, present bowel sounds Extremities: no tenderness, no cyanosis, other Laboratory Tests Test 06/04/19 06:48 White Blood Count 9.9 K/UL (4.8-10.8) Red Blood Count 4.94 M/UL (4.20-5.40) Hemoglobin 16.1 G/DL (12.0-16.0) H Hematocrit 46.0 % (37.0-47.0) Mean Corpuscular Volume 93 FL (80-99) Mean Corpuscular Hemoglobin 32.6 PG (27.0-31.0) H Mean Corpuscular Hemoglobin Concent 34.9 G/DL (32.0-36.0) Red Cell Distribution Width 11.2 % (11.6-14.8) L Platelet Count 210 K/UL (150-450) Mean Platelet Volume 7.1 FL (6.5-10.1) Neutrophils (%) (Auto) 59.4 % (45.0-75.0) Lymphocytes (%) (Auto) 29.6 % (20.0-45.0) Monocytes (%) (Auto) 6.9 % (1.0-10.0) Eosinophils (%) (Auto) 3.4 % (0.0-3.0) H Basophils (%) (Auto) 0.7 % (0.0-2.0) Sodium Level 136 MMOL/L (136-145) Potassium Level 3.8 MMOL/L (3.5-5.1) Chloride Level 102 MMOL/L (98-107) Carbon Dioxide Level 22 MMOL/L (21-32) Anion Gap 12 mmol/L (5-15) Blood Urea Nitrogen 11 mg/dL (7-18) Creatinine 0.8 MG/DL (0.55-1.30) Estimat Glomerular Filtration Rate mL/min (>60) Glucose Level 129 MG/DL (74-106) H Calcium Level 8.2 MG/DL (8.5-10.1) L Plan Problems: (1) Malnutrition Assessment & Plan: DAILY ESTIMATED NEEDS: Needs based on Diabetes, wound/ 50kg 25-30 kcals/kg 8493-6678 total kcals 1.25-2 g protein/kg 63-75 g total protein 20-30ml/kcal mL/kg 9047-7046 total fluid mLs NUTRITION DIAGNOSIS: *Increased kcal/pro needs R/T wound healing as evidenced by pt admitted buttocks w/ partial thickness wound BL heels w/ DTPI *Altered nutrition related lab values r/t diabetes as evidenced by BG on Adm >600, uglu 4+ CURRENT DIET:CCHO MED/ cardiac now puree PO DIET RECOMMENDATIONS: CCHO MED / texture per [employer] MA[employer]GER ADDITIONAL RECOMMENDATIONS: * Calibrated bed scale wt * A1C for evaluation of glycemic control * Wound care: add KAILA BID + Vit C 250mg daily * Add HIGH PRO snacks in b/w meals w/ current variable po intake * Glucerna BID w/ current variable intake, monitor trend, need for TID (2) Injury of lower extremity Assessment & Plan: Hit her leg against a lunch tray no trauma or injury identified some discomfort. Will monitor for healing (3) Decubitus skin ulcer Assessment & Plan: Patient presents with multiple buttock and sacral abrasions partial-thickness wounds decubitus in nature potentially incontinence associated dermatitis. Patient is somewhat mobile and can turn but does not do so very often. No signs of active acute infection. Serous oozing. Discomfort. Treatment plan Wash area with saline daily, apply Thera honey and foam dressing. Turn every 2 hours Offload heel with pillows Nutritional optimization We will follow with recommendations Thank you for allowing me to participate in patient's care Christian Larson Jun 04, 2019 14:25
--- NOTE | 2019-06-04 14:47 | General Progress Note ---
Assessment/Plan Problem List: (1) UTI (urinary tract infection) ICD Codes: N39.0 - Urinary tract infection, site not specified SNOMED: 91441808 (2) Malnutrition ICD Codes: E46 - Unspecified protein-calorie malnutrition SNOMED: 58786852 (3) Sepsis ICD Codes: A41.9 - Sepsis, unspecified organism SNOMED: 81818286 (4) Psychosis ICD Codes: F29 - Unspecified psychosis not due to a substance or known physiological condition SNOMED: 13165476 (5) Failure to thrive SNOMED: 51573614 (6) Seizure ICD Codes: R56.9 - Unspecified convulsions SNOMED: 45673446 (7) HTN (hypertension) ICD Codes: I10 - Essential (primary) hypertension SNOMED: 94982951 (8) Diabetes ICD Codes: E11.9 - Type 2 diabetes mellitus without complications SNOMED: 08342127 Qualifiers: Qualified Codes: E11.65 - Type 2 diabetes mellitus with hyperglycemia; 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 (9) DENNIS (acute kidney injury) ICD Codes: N17.9 - Acute kidney failure, unspecified SNOMED: 66255262, 8531180 Status: stable, progressing Assessment/Plan: pt diet abx seizure control cbc bmp am aru eval Subjective Allergies: Coded Allergies: PENICILLINS (Verified Allergy, Unknown, 11/01/12) Uncoded Allergies: PENICILLIN (Allergy, Unknown, 06/01/19) All Systems: reviewed and negative except above Subjective calm in bed confused Objective Last 24 Hour Vital Signs Date Time Temp Pulse Resp B/P (MAP) Pulse Ox O2 Delivery O2 Flow Rate FiO2 06/04/19 12:06 162/74 06/04/19 12:00 90 06/04/19 12:00 97.1 95 18 148/70 (96) 96 06/04/19 09:34 97.3 06/04/19 09:00 Room Air 06/04/19 08:00 97.3 90 18 151/65 (93) 98 06/04/19 08:00 92 06/04/19 05:38 140/101 06/04/19 04:00 97.6 85 15 140/101 (114) 95 06/04/19 04:00 82 06/04/19 02:55 84 165/70 (101) 06/04/19 00:00 97.9 88 16 186/106 (132) 95 06/04/19 00:00 80 06/03/19 22:45 84 150/70 (96) 06/03/19 21:00 Room Air 06/03/19 20:00 97.6 83 17 169/99 (122) 95 06/03/19 20:00 80 06/03/19 16:00 78 06/03/19 15:54 98.5 85 19 136/89 (105) 96 Intake and Output 06/03/19 06/04/19 19:00 07:00 Intake Total 140 ml 120 ml Output Total 1100 ml 400 ml Balance -960 ml -280 ml Intake Oral 140 ml 120 ml Output Urine Total 1100 ml 400 ml # Voids 1 Laboratory Tests 06/04/19 06:48: White Blood Count 9.9, Red Blood Count 4.94, Hemoglobin 16.1H, Hematocrit 46.0, Mean Corpuscular Volume 93, Mean Corpuscular Hemoglobin 32.6H, Mean Corpuscular Hemoglobin Concent 34.9, Red Cell Distribution Width 11.2L, Platelet Count 210, Mean Platelet Volume 7.1, Neutrophils (%) (Auto) 59.4, Lymphocytes (%) (Auto) 29.6, Monocytes (%) (Auto) 6.9, Eosinophils (%) (Auto) 3.4H, Basophils (%) (Auto ) 0.7, Sodium Level 136, Potassium Level 3.8, Chloride Level 102, Carbon Dioxide Level 22, Anion Gap 12, Blood Urea Nitrogen 11, Creatinine 0.8, Estimat Glomerular Filtration Rate , Glucose Level 129H, Calcium Level 8.2L Height (Feet): 5 Height (Inches): 1.00 Weight (Pounds): 126 General Appearance: lethargic EENT: normal ENT inspection Neck: normal alignment Cardiovascular: normal peripheral pulses, normal rate, regular rhythm Respiratory/Chest: chest wall non-tender, lungs clear, normal breath sounds Abdomen: normal bowel sounds, non tender, soft Extremities: normal inspection Edema: no edema noted Arm (L), no edema noted Arm (R), no edema noted Leg (L), no edema noted Leg (R), no edema noted Pedal (L), no edema noted Pedal (R), no edema noted Generalized Neurologic: motor weakness Skin: normal pigmentation, warm/dry Ayala,Chalo Chi-Shauna DO Jun 04, 2019 14:47
--- NOTE | 2019-06-04 16:30 | NUR ---
NURSE NOTES: patient's blood sugar is 89 and she is only eating 30% of her meals so nurse non-administered both mealtime insulin and scheduled novolog flexpen 6 units.
--- NOTE | 2019-06-04 18:24 | General Progress Note ---
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 (3) DENNIS (acute kidney injury) ICD Codes: N17.9 - Acute kidney failure, unspecified SNOMED: 33394612, 8907656 (4) Epileptic seizure, generalized ICD Codes: G40.309 - Generalized idiopathic epilepsy and epileptic syndromes, not intractable, without status epilepticus SNOMED: 38475201 Status: stable, progressing Assessment/Plan: continue Levemir 18 units qam continue Novolog 6 units ac tid continue NISS ac / hs Subjective ROS Limited/Unobtainable: Yes Allergies: Coded Allergies: PENICILLINS (Verified Allergy, Unknown, 11/01/12) Uncoded Allergies: PENICILLIN (Allergy, Unknown, 06/01/19) Subjective events noted Item Value Date Time Bedside Blood Glucose 89 mg/dl 06/04/19 1630 Bedside Blood Glucose 256 mg/dl H 06/04/19 1159 Bedside Blood Glucose 92 mg/dl 06/04/19 0900 Bedside Blood Glucose 96 mg/dl 06/04/19 0536 Bedside Blood Glucose 104 mg/dl 06/03/19 2100 Objective Last 24 Hour Vital Signs Date Time Temp Pulse Resp B/P (MAP) Pulse Ox O2 Delivery O2 Flow Rate FiO2 06/04/19 16:00 97.8 79 18 125/76 (92) 97 06/04/19 16:00 89 06/04/19 12:06 162/74 06/04/19 12:00 90 06/04/19 12:00 97.1 95 18 148/70 (96) 96 06/04/19 09:34 97.3 06/04/19 09:00 Room Air 06/04/19 08:00 97.3 90 18 151/65 (93) 98 06/04/19 08:00 92 06/04/19 05:38 140/101 06/04/19 04:00 97.6 85 15 140/101 (114) 95 06/04/19 04:00 82 06/04/19 02:55 84 165/70 (101) 06/04/19 00:00 97.9 88 16 186/106 (132) 95 06/04/19 00:00 80 06/03/19 22:45 84 150/70 (96) 06/03/19 21:00 Room Air 06/03/19 20:00 97.6 83 17 169/99 (122) 95 06/03/19 20:00 80 Intake and Output 06/03/19 06/04/19 19:00 07:00 Intake Total 140 ml 120 ml Output Total 1100 ml 400 ml Balance -960 ml -280 ml Intake Oral 140 ml 120 ml Output Urine Total 1100 ml 400 ml # Voids 1 Laboratory Tests 06/04/19 06:48: White Blood Count 9.9, Red Blood Count 4.94, Hemoglobin 16.1H, Hematocrit 46.0, Mean Corpuscular Volume 93, Mean Corpuscular Hemoglobin 32.6H, Mean Corpuscular Hemoglobin Concent 34.9, Red Cell Distribution Width 11.2L, Platelet Count 210, Mean Platelet Volume 7.1, Neutrophils (%) (Auto) 59.4, Lymphocytes (%) (Auto) 29.6, Monocytes (%) (Auto) 6.9, Eosinophils (%) (Auto) 3.4H, Basophils (%) (Auto ) 0.7, Sodium Level 136, Potassium Level 3.8, Chloride Level 102, Carbon Dioxide Level 22, Anion Gap 12, Blood Urea Nitrogen 11, Creatinine 0.8, Estimat Glomerular Filtration Rate , Glucose Level 129H, Calcium Level 8.2L Height (Feet): 5 Height (Inches): 1.00 Weight (Pounds): 126 General Appearance: no apparent distress Neck: normal alignment Cardiovascular: normal rate Respiratory/Chest: decreased breath sounds Abdomen: normal bowel sounds Objective Current Medications Medications (Trade) Dose Ordered Sig/Joon Route PRN Reason Start Time Stop Time Status Last Admin Dose Admin Acetaminophen (Tylenol) 325 mg Q4H PRN ORAL Mild Pain (Pain Scale 1-3) 06/02/19 09:30 07/02/19 09:29 Bupropion HCl (Wellbutrin SR) 100 mg DAILY ORAL 06/03/19 09:00 07/03/19 08:59 06/04/19 09:03 Clonidine HCl (Catapres Tab) 0.1 mg EVERY 6 HOURS ORAL 06/04/19 06:00 07/04/19 05:59 06/04/19 12:06 Dextrose (Dextrose 50%) 25 ml Q30M PRN IV Hypoglycemia 06/02/19 09:15 07/02/19 09:14 Dextrose (Dextrose 50%) 50 ml Q30M PRN IV Hypoglycemia 06/02/19 09:15 07/02/19 09:14 Docusate Sodium (Colace) 100 mg BID ORAL 06/02/19 10:00 07/02/19 09:59 06/04/19 09:03 Famotidine (Pepcid) 20 mg DAILY ORAL 06/02/19 10:00 07/02/19 09:59 06/04/19 09:03 Heparin Sodium (Porcine) (Heparin 5000 units/ml) 5,000 units BID SUBQ 06/02/19 18:00 07/02/19 17:59 06/04/19 09:06 Insulin Aspart (NovoLOG) BEFORE MEALS AND HS SUBQ 06/02/19 11:30 07/02/19 11:29 06/04/19 11:59 Insulin Aspart (NovoLOG) 6 units NOVOTIAC SUBQ 06/03/19 11:50 07/02/19 11:49 06/04/19 11:59 Insulin Detemir (Levemir) 18 units DAILY SUBQ 06/03/19 09:00 07/02/19 11:29 Lorazepam (Ativan) 0.5 mg Q6H PRN ORAL For Anxiety 06/03/19 04:30 06/10/19 04:29 Megestrol Acetate (Megace) 40 mg BID ORAL 06/02/19 10:00 06/07/19 09:59 06/04/19 09:04 Memantine (Namenda) 5 mg TWICE A DAY ORAL 06/02/19 10:00 07/02/19 09:59 06/04/19 09:04 Multivitamins (Multivitamins) 1 tab DAILY ORAL 06/02/19 10:00 07/02/19 09:59 06/04/19 09:06 Nitroglycerin (Ntg) 0.4 mg PRN PRN SL Prn Chest Pain 06/02/19 09:30 07/02/19 09:29 Sodium Chloride 1,000 ml @ 60 mls/hr [id number] IV 06/02/19 09:15 07/02/19 09:14 06/04/19 12:03 Sodium Phosphate (Fleet's Sodium Phosl Enema) 133 ml DAILY PRN RECTAL Constipation 06/02/19 09:30 07/02/19 09:29 Tramadol HCl (Ultram) 50 mg BID ORAL 06/02/19 10:00 06/09/19 09:59 06/04/19 09:04 Rich Nuñez MD Jun 04, 2019 18:24
--- NOTE | 2019-06-04 19:27 | NUR ---
HAND-OFF: Report given to Micaela Vanegas. Plan of care endorsed. Patient's stable.
--- NOTE | 2019-06-04 19:30 | NUR ---
NURSE NOTES: Received pt from CASE Anne. Pt asleep. Bed in lowest position. Call light within reach. Will continue to monitor.
[2019-06-05] VITALS: BP 105/64
[2019-06-05 04:00] VITALS: BP 128/70
[2019-06-05] MEDS: NovoLOG Insulin Flexpen SUBQ SCH ×7 (05:13→21:40)
--- NOTE | 2019-06-05 07:20 | NUR ---
NURSE NOTES: Received report from CASE Vanegas. The patient is resting on the bed without acute distress or shortness of breath. The patient's bed in the lowest position with brakes on, call light in reach, and fall, aspiration, seizure precaution reinforced. IV site intact and patent. Will continue plan of care.
--- NOTE | 2019-06-05 07:20 | NUR ---
HAND-OFF: Report given to CASE Figueroa. Pt stable.
[2019-06-05 07:24] LABS: BASOPHILS % (AUTO) 0.8 % (0.0-2.0); EOSINOPHILS % (AUTO) 3.1 % (0.0-3.0); HEMATOCRIT 41.9 % (37.0-47.0); HEMOGLOBIN 14.6 G/DL (12.0-16.0); MEAN CORPUSCULAR VOLUME 94 FL (80-99); MONOCYTES % (AUTO) 8.6 % (1.0-10.0); NEUTROPHILS % (AUTO) 57.4 % (45.0-75.0); PLATELET COUNT 213 K/UL (150-450); RED BLOOD COUNT 4.46 M/UL (4.20-5.40); RED CELL DISTRIBUTION WIDTH 11.3 % (11.6-14.8)
[2019-06-05 07:34] LABS: ALANINE AMINOTRANSFERASE 22 U/L (12-78); ALBUMIN 2.5 G/DL (3.4-5.0); ALBUMIN/GLOBULIN RATIO 0.5 (1.0-2.7); ALKALINE PHOSPHATASE 66 U/L (46-116); ANION GAP 5 mmol/L (5-15); ASPARTATE AMINO TRANSFERASE 24 U/L (15-37); BLOOD UREA NITROGEN 15 mg/dL (7-18); CALCIUM 8.3 MG/DL (8.5-10.1); CARBON DIOXIDE 28 MMOL/L (21-32); CHLORIDE 99 MMOL/L (98-107); SODIUM 132 MMOL/L (136-145)
[2019-06-05 08:00] VITALS: BP 130/77
[2019-06-05] MEDS: Memantine 10mg tab ORAL SCH ×2 (09:21→17:33)
[2019-06-05] MEDS: Docusate 100mg cap ORAL SCH ×2 (09:21→17:32)
[2019-06-05] MEDS: BuPROPion SR 100mg tab ORAL SCH (09:22)
[2019-06-05] MEDS: traMADol 50mg tab ORAL SCH ×2 (09:22→17:33)
[2019-06-05] MEDS: Heparin 5000 units/ml inj SUBQ SCH ×2 (09:25→17:34)
[2019-06-05] MEDS: Levemir Flexpen SUBQ SCH (09:26)
--- NOTE | 2019-06-05 09:26 | General Progress Note ---
Assessment/Plan Problem List: (1) UTI (urinary tract infection) ICD Codes: N39.0 - Urinary tract infection, site not specified SNOMED: 42768346 (2) Malnutrition ICD Codes: E46 - Unspecified protein-calorie malnutrition SNOMED: 77071722 (3) Sepsis ICD Codes: A41.9 - Sepsis, unspecified organism SNOMED: 76150917 (4) Psychosis ICD Codes: F29 - Unspecified psychosis not due to a substance or known physiological condition SNOMED: 97425365 (5) Failure to thrive SNOMED: 61154355 (6) Seizure ICD Codes: R56.9 - Unspecified convulsions SNOMED: 48826784 (7) HTN (hypertension) ICD Codes: I10 - Essential (primary) hypertension SNOMED: 96629106 (8) Diabetes ICD Codes: E11.9 - Type 2 diabetes mellitus without complications SNOMED: 81488295 Qualifiers: Qualified Codes: E11.65 - Type 2 diabetes mellitus with hyperglycemia; 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 (9) DENNIS (acute kidney injury) ICD Codes: N17.9 - Acute kidney failure, unspecified SNOMED: 61585132, 0065350 Status: stable, progressing Assessment/Plan: pt diet abx seizure control cbc bmp am aru eval/transfer Subjective Constitutional: Reports: weakness Allergies: Coded Allergies: PENICILLINS (Verified Allergy, Unknown, 11/01/12) Uncoded Allergies: PENICILLIN (Allergy, Unknown, 06/01/19) All Systems: reviewed and negative except above Subjective calm in bed confused Objective Last 24 Hour Vital Signs Date Time Temp Pulse Resp B/P (MAP) Pulse Ox O2 Delivery O2 Flow Rate FiO2 06/05/19 08:00 98.3 78 20 130/77 (94) 96 06/05/19 04:00 67 06/05/19 04:00 98.0 73 20 128/70 (89) 95 06/05/19 00:00 71 06/05/19 00:00 98.1 74 18 105/64 (78) 94 06/05/19 00:00 105/64 06/04/19 21:00 Room Air 06/04/19 20:00 73 06/04/19 20:00 97.5 80 20 137/67 (90) 96 06/04/19 18:47 97.8 06/04/19 18:12 125/76 06/04/19 16:00 97.8 79 18 125/76 (92) 97 06/04/19 16:00 89 06/04/19 12:06 162/74 06/04/19 12:00 90 06/04/19 12:00 97.1 95 18 148/70 (96) 96 Intake and Output 06/04/19 06/05/19 19:00 07:00 Intake Total 600 ml Output Total 500 ml Balance 100 ml Intake Oral 600 ml Output Urine Total 500 ml # Voids 1 Laboratory Tests 06/05/19 06:16: White Blood Count 9.0, Red Blood Count 4.46, Hemoglobin 14.6, Hematocrit 41.9, Mean Corpuscular Volume 94, Mean Corpuscular Hemoglobin 32.6H, Mean Corpuscular Hemoglobin Concent 34.7, Red Cell Distribution Width 11.3L, Platelet Count 213, Mean Platelet Volume 7.0, Neutrophils (%) (Auto) 57.4, Lymphocytes (%) (Auto) 30.0, Monocytes (%) (Auto) 8.6, Eosinophils (%) (Auto) 3.1H, Basophils (%) (Auto ) 0.8, Sodium Level 132L, Potassium Level 4.0, Chloride Level 99, Carbon Dioxide Level 28, Anion Gap 5, Blood Urea Nitrogen 15, Creatinine 1.0, Estimat Glomerular Filtration Rate , Glucose Level 149H, Calcium Level 8.3L, Total Bilirubin 1.0, Aspartate Amino Transf (AST/SGOT) 24, Alanine Aminotransferase ( ALT/SGPT) 22, Alkaline Phosphatase 66, Total Protein 7.2, Albumin 2.5L, Globulin 4.7, Albumin/Globulin Ratio 0.5L Height (Feet): 5 Height (Inches): 1.00 Weight (Pounds): 125 General Appearance: lethargic EENT: normal ENT inspection Neck: normal alignment Cardiovascular: normal peripheral pulses, normal rate, regular rhythm Respiratory/Chest: chest wall non-tender, lungs clear, normal breath sounds Abdomen: normal bowel sounds, non tender, soft Extremities: normal inspection Edema: no edema noted Arm (L), no edema noted Arm (R), no edema noted Leg (L), no edema noted Leg (R), no edema noted Pedal (L), no edema noted Pedal (R), no edema noted Generalized Neurologic: motor weakness Skin: normal pigmentation, warm/dry Chalo Ayala DO Jun 05, 2019 09:26
--- NOTE | 2019-06-05 09:30 | NUR ---
NURSE NOTES: Dr. Ayala at the bedside assessed the patient. Notified Dr. Ayala that the patient does not have seizure medication and not seen by Dr. Thurman yet. The primary nurse will call again for reminding the patient's consult. No seizure noted at this time. Will continue plan of care.
--- NOTE | 2019-06-05 09:40 | NUR ---
NURSE NOTES: Dr. Ayala ordered the patient to be discharged to [facility]. Asked Dr. Ayala regarding discharge medication reconciliation. Also, asked Dr. Ayala whether it is okay for the patient to be discharged since the patient was not seen by Dr. Thurman yet. Will continue plan of care until clarification made.
--- NOTE | 2019-06-05 10:30 | NUR ---
NURSE NOTES: Dr. Thurman at the floor for rounding. Informed Dr. Thurman that the patient needs to be assessed by him. Made aware that the patient's admitting diagnosis is seizure and no routine seizure medication available. Will wait for Dr. Thurman to assess the patient.
[2019-06-05 12:00] VITALS: BP 152/66
--- NOTE | 2019-06-05 12:00 | NUR ---
NURSE NOTES: Spoke with Phyllis, the rn case mgr, regarding the patient's discharge order to [facility]. Per Phyllis, the patient needs clearance from Dr. Thurman to be discharged. Contacted Dr. Thurman for clarification. No response yet. Will continue plan of care until clarification made.
--- NOTE | 2019-06-05 12:30 | NUR ---
NURSE NOTES: Left message to Dr. Thurman for assessment and possible clearance of the patient. No response yet. No new order yet. Will continue plan of care until clarification made.
--- NOTE | 2019-06-05 13:50 | General Progress Note ---
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 (3) DENNIS (acute kidney injury) ICD Codes: N17.9 - Acute kidney failure, unspecified SNOMED: 47907870, 9893366 (4) Epileptic seizure, generalized ICD Codes: G40.309 - Generalized idiopathic epilepsy and epileptic syndromes, not intractable, without status epilepticus SNOMED: 03289594 Status: stable, progressing Assessment/Plan: continue Levemir 18 units qam continue Novolog 6 units ac tid continue NISS ac / hs Subjective ROS Limited/Unobtainable: Yes Allergies: Coded Allergies: PENICILLINS (Verified Allergy, Unknown, 11/01/12) Uncoded Allergies: PENICILLIN (Allergy, Unknown, 06/01/19) Subjective events noted Item Value Date Time Bedside Blood Glucose 270 mg/dl H 06/05/19 1220 Bedside Blood Glucose 206 mg/dl H 06/05/19 0926 Bedside Blood Glucose 119 mg/dl 06/05/19 0630 Bedside Blood Glucose 161 mg/dl H 06/04/19 2130 Bedside Blood Glucose 89 mg/dl 06/04/19 1630 Bedside Blood Glucose 256 mg/dl H 06/04/19 1159 Bedside Blood Glucose 92 mg/dl 06/04/19 0900 Objective Last 24 Hour Vital Signs Date Time Temp Pulse Resp B/P (MAP) Pulse Ox O2 Delivery O2 Flow Rate FiO2 06/05/19 12:19 152/66 06/05/19 12:00 97.3 78 18 152/66 (94) 98 06/05/19 09:00 Room Air 06/05/19 08:00 75 06/05/19 08:00 98.3 78 20 130/77 (94) 96 06/05/19 04:00 67 06/05/19 04:00 98.0 73 20 128/70 (89) 95 06/05/19 00:00 71 06/05/19 00:00 98.1 74 18 105/64 (78) 94 06/05/19 00:00 105/64 06/04/19 21:00 Room Air 06/04/19 20:00 73 06/04/19 20:00 97.5 80 20 137/67 (90) 96 06/04/19 18:47 97.8 06/04/19 18:12 125/76 06/04/19 16:00 97.8 79 18 125/76 (92) 97 06/04/19 16:00 89 Intake and Output 06/04/19 06/05/19 19:00 07:00 Intake Total 600 ml Output Total 500 ml Balance 100 ml Intake Oral 600 ml Output Urine Total 500 ml # Voids 1 Laboratory Tests 06/05/19 06:16: White Blood Count 9.0, Red Blood Count 4.46, Hemoglobin 14.6, Hematocrit 41.9, Mean Corpuscular Volume 94, Mean Corpuscular Hemoglobin 32.6H, Mean Corpuscular Hemoglobin Concent 34.7, Red Cell Distribution Width 11.3L, Platelet Count 213, Mean Platelet Volume 7.0, Neutrophils (%) (Auto) 57.4, Lymphocytes (%) (Auto) 30.0, Monocytes (%) (Auto) 8.6, Eosinophils (%) (Auto) 3.1H, Basophils (%) (Auto ) 0.8, Sodium Level 132L, Potassium Level 4.0, Chloride Level 99, Carbon Dioxide Level 28, Anion Gap 5, Blood Urea Nitrogen 15, Creatinine 1.0, Estimat Glomerular Filtration Rate , Glucose Level 149H, Calcium Level 8.3L, Total Bilirubin 1.0, Aspartate Amino Transf (AST/SGOT) 24, Alanine Aminotransferase ( ALT/SGPT) 22, Alkaline Phosphatase 66, Total Protein 7.2, Albumin 2.5L, Globulin 4.7, Albumin/Globulin Ratio 0.5L Height (Feet): 5 Height (Inches): 1.00 Weight (Pounds): 125 General Appearance: no apparent distress Neck: normal alignment Cardiovascular: normal rate Respiratory/Chest: lungs clear Abdomen: normal bowel sounds Pelvis: normal external exam Objective Current Medications Medications (Trade) Dose Ordered Sig/Joon Route PRN Reason Start Time Stop Time Status Last Admin Dose Admin Acetaminophen (Tylenol) 325 mg Q4H PRN ORAL Mild Pain (Pain Scale 1-3) 06/02/19 09:30 07/02/19 09:29 Bupropion HCl (Wellbutrin SR) 100 mg DAILY ORAL 06/03/19 09:00 07/03/19 08:59 06/05/19 09:22 Clonidine HCl (Catapres Tab) 0.1 mg EVERY 6 HOURS ORAL 06/04/19 06:00 07/04/19 05:59 06/05/19 12:19 Dextrose (Dextrose 50%) 25 ml Q30M PRN IV Hypoglycemia 06/02/19 09:15 07/02/19 09:14 Dextrose (Dextrose 50%) 50 ml Q30M PRN IV Hypoglycemia 06/02/19 09:15 07/02/19 09:14 Docusate Sodium (Colace) 100 mg BID ORAL 06/02/19 10:00 07/02/19 09:59 06/05/19 09:21 Famotidine (Pepcid) 20 mg DAILY ORAL 06/02/19 10:00 07/02/19 09:59 06/05/19 09:22 Heparin Sodium (Porcine) (Heparin 5000 units/ml) 5,000 units BID SUBQ 06/02/19 18:00 07/02/19 17:59 06/05/19 09:25 Insulin Aspart (NovoLOG) BEFORE MEALS AND HS SUBQ 06/02/19 11:30 07/02/19 11:29 06/05/19 12:19 Insulin Aspart (NovoLOG) 6 units NOVOTIAC SUBQ 06/03/19 11:50 07/02/19 11:49 06/05/19 12:20 Insulin Detemir (Levemir) 18 units DAILY SUBQ 06/03/19 09:00 07/02/19 11:29 06/05/19 09:26 Lorazepam (Ativan) 0.5 mg Q6H PRN ORAL For Anxiety 06/03/19 04:30 06/10/19 04:29 Megestrol Acetate (Megace) 40 mg BID ORAL 06/02/19 10:00 06/07/19 09:59 06/05/19 09:21 Memantine (Namenda) 5 mg TWICE A DAY ORAL 06/02/19 10:00 07/02/19 09:59 06/05/19 09:21 Multivitamins (Multivitamins) 1 tab DAILY ORAL 06/02/19 10:00 07/02/19 09:59 06/05/19 09:21 Nitroglycerin (Ntg) 0.4 mg PRN PRN SL Prn Chest Pain 06/02/19 09:30 07/02/19 09:29 Sodium Chloride 1,000 ml @ 60 mls/hr [id number] IV 06/02/19 09:15 07/02/19 09:14 06/05/19 03:55 Sodium Phosphate (Fleet's Sodium Phosl Enema) 133 ml DAILY PRN RECTAL Constipation 06/02/19 09:30 07/02/19 09:29 Tramadol HCl (Ultram) 50 mg BID ORAL 06/02/19 10:00 06/09/19 09:59 06/05/19 09:22 Rich Nuñez MD Jun 05, 2019 13:50
--- NOTE | 2019-06-05 13:53 | Infectious Diseases Prog Note ---
Assessment/Plan Assessment/Plan 89yo woman with PMH below presents from longterm with tonic clonic seizure for 5 minutes. Admission labs significant for mild leukocytosis and sugar of 600. still confused. Pt is currently reporting pain in her R leg because the lunch tray was resting on it. Unable to give much history. Denies chills, cough , sob, abdominal pain, dysuria, diarrhea. Afebrile RA Mild leukocytosis, resolved without antibiotics reactive? Atelectasis vs aspiration no cough on RA pt did not tolerate swallow evaluation CXR: Mildly elevated right diaphragm. Linear opacity in the left lower lobe , possibly aspiration infection versus subsegmental atelectasis. No pleural effusion. Unchanged heart size Unlikely UTI UA negative r/o bacteremia 06/02 BCx: ngtd sacral stage II pressure ulcer PCN allergy--pt unable to elaborate reaction DENNIS, SP Hyperglycemia, SP DM HTN COPD Dementia MDD stage 2 pressure ulcer cervical malignancy kidney cyst glaucoma OA Plan: monitor off antibiotics incentive spirometry aspiration precaution, elevate HOB, skin care, PT/OT, OOB seizure precaution Thank you for this consult. [facility] will continue to follow the patient with you. Subjective Allergies: Coded Allergies: PENICILLINS (Verified Allergy, Unknown, 11/01/12) Uncoded Allergies: PENICILLIN (Allergy, Unknown, 06/01/19) Subjective Afebrile. Pt more appropriately interactive today. Eating lunch. Denies chills, cough, chest pain, sob, abdominal pain. Objective Vital Signs Last 24 Hour Vital Signs Date Time Temp Pulse Resp B/P (MAP) Pulse Ox O2 Delivery O2 Flow Rate FiO2 06/05/19 12:19 152/66 06/05/19 12:00 97.3 78 18 152/66 (94) 98 06/05/19 09:00 Room Air 06/05/19 08:00 75 06/05/19 08:00 98.3 78 20 130/77 (94) 96 06/05/19 04:00 67 06/05/19 04:00 98.0 73 20 128/70 (89) 95 06/05/19 00:00 71 06/05/19 00:00 98.1 74 18 105/64 (78) 94 06/05/19 00:00 105/64 06/04/19 21:00 Room Air 06/04/19 20:00 73 06/04/19 20:00 97.5 80 20 137/67 (90) 96 06/04/19 18:47 97.8 06/04/19 18:12 125/76 06/04/19 16:00 97.8 79 18 125/76 (92) 97 06/04/19 16:00 89 Height (Feet): 5 Height (Inches): 1.00 Weight (Pounds): 125 Objective Gen: NAD HEENT: anicteric sclera CV: RRR. no rubs or gallop Resp: RRR. diminished breath sounds. unlabored. Abd: normoactive BS+. Soft. no TTP Ext: No LE edema Neuro: awake but does not answer questions appropriately. Microbiology Date/Time Source Procedure Growth Status 06/02/19 20:15 Blood Blood Culture - Preliminary NO GROWTH AFTER 48 HOURS Resulted 06/02/19 20:05 Blood Blood Culture - Preliminary NO GROWTH AFTER 48 HOURS Resulted Laboratory Tests Test 06/05/19 06:16 White Blood Count 9.0 K/UL (4.8-10.8) Red Blood Count 4.46 M/UL (4.20-5.40) Hemoglobin 14.6 G/DL (12.0-16.0) Hematocrit 41.9 % (37.0-47.0) Mean Corpuscular Volume 94 FL (80-99) Mean Corpuscular Hemoglobin 32.6 PG (27.0-31.0) H Mean Corpuscular Hemoglobin Concent 34.7 G/DL (32.0-36.0) Red Cell Distribution Width 11.3 % (11.6-14.8) L Platelet Count 213 K/UL (150-450) Mean Platelet Volume 7.0 FL (6.5-10.1) Neutrophils (%) (Auto) 57.4 % (45.0-75.0) Lymphocytes (%) (Auto) 30.0 % (20.0-45.0) Monocytes (%) (Auto) 8.6 % (1.0-10.0) Eosinophils (%) (Auto) 3.1 % (0.0-3.0) H Basophils (%) (Auto) 0.8 % (0.0-2.0) Sodium Level 132 MMOL/L (136-145) L Potassium Level 4.0 MMOL/L (3.5-5.1) Chloride Level 99 MMOL/L (98-107) Carbon Dioxide Level 28 MMOL/L (21-32) Anion Gap 5 mmol/L (5-15) Blood Urea Nitrogen 15 mg/dL (7-18) Creatinine 1.0 MG/DL (0.55-1.30) Estimat Glomerular Filtration Rate mL/min (>60) Glucose Level 149 MG/DL (74-106) H Calcium Level 8.3 MG/DL (8.5-10.1) L Total Bilirubin 1.0 MG/DL (0.2-1.0) Aspartate Amino Transf (AST/SGOT) 24 U/L (15-37) Alanine Aminotransferase (ALT/SGPT) 22 U/L (12-78) Alkaline Phosphatase 66 U/L (46-116) Total Protein 7.2 G/DL (6.4-8.2) Albumin 2.5 G/DL (3.4-5.0) L Globulin 4.7 g/dL Albumin/Globulin Ratio 0.5 (1.0-2.7) L Current Medications Medications (Trade) Dose Ordered Sig/Joon Route PRN Reason Start Time Stop Time Status Last Admin Dose Admin Acetaminophen (Tylenol) 325 mg Q4H PRN ORAL Mild Pain (Pain Scale 1-3) 06/02/19 09:30 07/02/19 09:29 Bupropion HCl (Wellbutrin SR) 100 mg DAILY ORAL 06/03/19 09:00 07/03/19 08:59 06/05/19 09:22 Clonidine HCl (Catapres Tab) 0.1 mg EVERY 6 HOURS ORAL 06/04/19 06:00 07/04/19 05:59 06/05/19 12:19 Dextrose (Dextrose 50%) 25 ml Q30M PRN IV Hypoglycemia 06/02/19 09:15 07/02/19 09:14 Dextrose (Dextrose 50%) 50 ml Q30M PRN IV Hypoglycemia 06/02/19 09:15 07/02/19 09:14 Docusate Sodium (Colace) 100 mg BID ORAL 06/02/19 10:00 07/02/19 09:59 06/05/19 09:21 Famotidine (Pepcid) 20 mg DAILY ORAL 06/02/19 10:00 07/02/19 09:59 06/05/19 09:22 Heparin Sodium (Porcine) (Heparin 5000 units/ml) 5,000 units BID SUBQ 06/02/19 18:00 07/02/19 17:59 06/05/19 09:25 Insulin Aspart (NovoLOG) BEFORE MEALS AND HS SUBQ 06/02/19 11:30 07/02/19 11:29 06/05/19 12:19 Insulin Aspart (NovoLOG) 6 units NOVOTIAC SUBQ 06/03/19 11:50 07/02/19 11:49 06/05/19 12:20 Insulin Detemir (Levemir) 18 units DAILY SUBQ 06/03/19 09:00 07/02/19 11:29 06/05/19 09:26 Lorazepam (Ativan) 0.5 mg Q6H PRN ORAL For Anxiety 06/03/19 04:30 06/10/19 04:29 Megestrol Acetate (Megace) 40 mg BID ORAL 06/02/19 10:00 06/07/19 09:59 06/05/19 09:21 Memantine (Namenda) 5 mg TWICE A DAY ORAL 06/02/19 10:00 07/02/19 09:59 06/05/19 09:21 Multivitamins (Multivitamins) 1 tab DAILY ORAL 06/02/19 10:00 07/02/19 09:59 06/05/19 09:21 Nitroglycerin (Ntg) 0.4 mg PRN PRN SL Prn Chest Pain 06/02/19 09:30 07/02/19 09:29 Sodium Chloride 1,000 ml @ 60 mls/hr [id number] IV 06/02/19 09:15 07/02/19 09:14 06/05/19 03:55 Sodium Phosphate (Fleet's Sodium Phosl Enema) 133 ml DAILY PRN RECTAL Constipation 06/02/19 09:30 07/02/19 09:29 Tramadol HCl (Ultram) 50 mg BID ORAL 06/02/19 10:00 06/09/19 09:59 06/05/19 09:22 Wero Tom MD Jun 05, 2019 13:53
--- NOTE | 2019-06-05 15:39 | Surgery Progress Note ---
Surgery Progress Note Subjective Symptoms: improved, pain absent, tolerating diet, voiding well, passing flatus Objective Last 24 Hour Vital Signs Date Time Temp Pulse Resp B/P (MAP) Pulse Ox O2 Delivery O2 Flow Rate FiO2 06/05/19 12:19 152/66 06/05/19 12:00 97.3 78 18 152/66 (94) 98 06/05/19 12:00 76 06/05/19 09:00 Room Air 06/05/19 08:00 75 06/05/19 08:00 98.3 78 20 130/77 (94) 96 06/05/19 04:00 67 06/05/19 04:00 98.0 73 20 128/70 (89) 95 06/05/19 00:00 71 06/05/19 00:00 98.1 74 18 105/64 (78) 94 06/05/19 00:00 105/64 06/04/19 21:00 Room Air 06/04/19 20:00 73 06/04/19 20:00 97.5 80 20 137/67 (90) 96 06/04/19 18:47 97.8 06/04/19 18:12 125/76 06/04/19 16:00 97.8 79 18 125/76 (92) 97 06/04/19 16:00 89 I&O Intake and Output 06/04/19 06/05/19 19:00 07:00 Intake Total 600 ml Output Total 500 ml Balance 100 ml Intake Oral 600 ml Output Urine Total 500 ml # Voids 1 Cardiovascular: RSR Respiratory: clear Abdomen: soft, flat, non-tender, present bowel sounds Extremities: no edema, no tenderness, no cyanosis Laboratory Tests Test 06/05/19 06:16 White Blood Count 9.0 K/UL (4.8-10.8) Red Blood Count 4.46 M/UL (4.20-5.40) Hemoglobin 14.6 G/DL (12.0-16.0) Hematocrit 41.9 % (37.0-47.0) Mean Corpuscular Volume 94 FL (80-99) Mean Corpuscular Hemoglobin 32.6 PG (27.0-31.0) H Mean Corpuscular Hemoglobin Concent 34.7 G/DL (32.0-36.0) Red Cell Distribution Width 11.3 % (11.6-14.8) L Platelet Count 213 K/UL (150-450) Mean Platelet Volume 7.0 FL (6.5-10.1) Neutrophils (%) (Auto) 57.4 % (45.0-75.0) Lymphocytes (%) (Auto) 30.0 % (20.0-45.0) Monocytes (%) (Auto) 8.6 % (1.0-10.0) Eosinophils (%) (Auto) 3.1 % (0.0-3.0) H Basophils (%) (Auto) 0.8 % (0.0-2.0) Sodium Level 132 MMOL/L (136-145) L Potassium Level 4.0 MMOL/L (3.5-5.1) Chloride Level 99 MMOL/L (98-107) Carbon Dioxide Level 28 MMOL/L (21-32) Anion Gap 5 mmol/L (5-15) Blood Urea Nitrogen 15 mg/dL (7-18) Creatinine 1.0 MG/DL (0.55-1.30) Estimat Glomerular Filtration Rate mL/min (>60) Glucose Level 149 MG/DL (74-106) H Calcium Level 8.3 MG/DL (8.5-10.1) L Total Bilirubin 1.0 MG/DL (0.2-1.0) Aspartate Amino Transf (AST/SGOT) 24 U/L (15-37) Alanine Aminotransferase (ALT/SGPT) 22 U/L (12-78) Alkaline Phosphatase 66 U/L (46-116) Total Protein 7.2 G/DL (6.4-8.2) Albumin 2.5 G/DL (3.4-5.0) L Globulin 4.7 g/dL Albumin/Globulin Ratio 0.5 (1.0-2.7) L Plan Problems: (1) Malnutrition Assessment & Plan: DAILY ESTIMATED NEEDS: Needs based on Diabetes, wound/ 50kg 25-30 kcals/kg 2930-0734 total kcals 1.25-2 g protein/kg 63-75 g total protein 20-30ml/kcal mL/kg 3251-9986 total fluid mLs NUTRITION DIAGNOSIS: *Increased kcal/pro needs R/T wound healing as evidenced by pt admitted buttocks w/ partial thickness wound BL heels w/ DTPI *Altered nutrition related lab values r/t diabetes as evidenced by BG on Adm >600, uglu 4+ CURRENT DIET:[facility] MED/ cardiac now puree PO DIET RECOMMENDATIONS: [facility] MED / texture per [employer] ADDITIONAL RECOMMENDATIONS: * Calibrated bed scale wt * A1C for evaluation of glycemic control * Wound care: add KAILA BID + Vit C 250mg daily * Add HIGH PRO snacks in b/w meals w/ current variable po intake * Glucerna BID w/ current variable intake, monitor trend, need for TID (2) Injury of lower extremity Assessment & Plan: Hit her leg against a lunch tray no trauma or injury identified some discomfort. Will monitor for healing (3) Decubitus skin ulcer Assessment & Plan: Patient presents with multiple buttock and sacral abrasions partial-thickness wounds decubitus in nature potentially incontinence associated dermatitis. Patient is somewhat mobile and can turn but does not do so very often. No signs of active acute infection. Serous oozing. Discomfort. Treatment plan Wash area with saline daily, apply Thera honey and foam dressing. Turn every 2 hours Offload heel with pillows Nutritional optimization We will follow with recommendations Thank you for allowing me to participate in patient's care Christian Larson Jun 05, 2019 15:39
[2019-06-05 16:00] VITALS: BP 129/47
--- NOTE | 2019-06-05 18:00 | NUR ---
NURSE NOTES: The patient is stable without acute distress or shortness of breath. Will continue plan of care.
--- NOTE | 2019-06-05 18:30 | Progress Note ---
DATE: 06/05/2019 SUBJECTIVE: The patient is an 89-year-old female patient who has a history of seizure disorder and medical problems as well and states that she has a history of seizure disorder and basically this patient has confusion, altered mental status, mood lability, and decline in cognition below her baseline. MENTAL STATUS EXAMINATION: This is an 89-year-old female. Appearance disheveled. Attitude, irritable and agitated. Affect, restricted. Intellect poor. Mood, depressed and anxious. Motor activity, psychomotor agitation. Attention span is poor. Orientation x2. Speech is low volume, slurred. Thought process, disorganized, illogical. Insight and judgment is poor. DIAGNOSIS: Major depressive disorder, mild, recurrent with psychotic features, rule out dementia with psychosis. PLAN: Treat her with a medication regimen consisting of Namenda 5 mg twice a day, Ativan 0.5 mg every 6 hours p.r.n. anxiety and agitation, Wellbutrin 100 mg daily. A 20 minutes of cognitive behavioral therapy provided to help her identify automatic negative thoughts and help her convert negative thoughts to more positive thoughts to reduce depression, anxiety, and mood lability. Chart reviewed. Discussed with staff. Seen and assessed the patient at bedside. Vivian Armas M.D. DR: GRACIE JOB#: [id number] CC:
--- NOTE | 2019-06-05 18:30 | NUR ---
NURSE NOTES: Dr. Thurman at the bedside assessed the patient. Will continue plan of care.
--- NOTE | 2019-06-05 19:20 | NUR ---
HAND-OFF: Report given to CASE Vanegas. The patient is resting on the bed without acute distress or shortness of breath. The patient's bed in the lowest position, call light in reach, and fall, aspiration, and seizure precaution reinforced. IV site intact and patent. Endorsed plan of care.
--- NOTE | 2019-06-05 19:50 | NUR ---
NURSE NOTES: Received pt from CASE Figueroa. Pt awake, alert, and talkative. Bed in lowest position. Call light within reach. Will continue to monitor.
[2019-06-05 20:00] VITALS: BP 105/51
[2019-06-06] VITALS: BP 117/61
--- NOTE | 2019-06-06 03:45 | Consultation ---
DATE OF CONSULTATION: CHIEF COMPLAINT: This 89-year-old woman with adult-onset diabetes mellitus, hypertension, and possible seizures who was admitted with a seizure, confusion, and disorientation. The patient had a generalized tonic-clonic seizure in less than 5 minutes in the prison. On admission, she had a chest x-ray which revealed linear opacity in the left lower lobe, possibly aspiration, infection, versus subsegmental atelectasis. Laboratory data revealed a white count of 11,000. She is not anemic. Platelets were normal. Chemistries revealed a blood sugar of 603 on 06/01/2019 with a decrease today at 149 with treatment. The BUN on admission was 20 with creatinine 1.4, however, within normal. The albumin was low at 2.9. Troponin was normal. Urinalysis was basically normal except with +1 leukocyte esterase, +4 glucose, +3 protein, 0 to 2 white blood cells seen. No bacteria seen. There is no growth. Since hospitalization, there have been no seizures. The patient was placed on Wellbutrin 100 mg a day, Catapres 0.1 mg q.6 h., Pepcid 20 mg, subcutaneous heparin, sliding scale insulin. Also, NovoLog insulin 6 units subcu, Levemir 18 units subcu, Namenda 5 mg b.i.d., nitroglycerin p.r.n. chest pain, Megace 40 mg doses given, and subcu heparin and half-normal saline. The patient's EKG was abnormal revealing an incomplete right bundle-branch block, accelerated junctional rhythm. Cannot rule out inferior infarct and T-wave abnormality, consider anterior ischemia. The patient could not tolerate a swallow evaluation. She was seen by Dr. Pawel richardson, the psychiatrist, who felt she had major depressive disorder, mild recurrent with psychotic features and to rule out dementia with psychosis. Twenty minutes of cognitive behavioral therapy were provided. The patient was seen by Infectious Disease. She was to be monitored off antibiotics and given incentive spirometry. I was asked to see the patient in neurologic consultation. There is no family history of neurologic disease. PAST MEDICAL HISTORY/PAST MEDICAL ILLNESSES: 1. Hypertension, see above. 2. AODM type 2, see above. 3. Probable COPD. 4. Stage II pressure ulcer. 5. Cervical malignancy in the past. 6. Kidney cyst. 7. History of glaucoma. 8. MDD. SOCIAL HISTORY: She lives in a prison. FAMILY HISTORY: Unavailable. The patient was also seen by a psychotherapist. ALLERGIES: No known allergies. REVIEW OF SYSTEMS: Unavailable. PHYSICAL EXAMINATION: GENERAL: She is a well-developed, well-nourished, awake woman, lying in bed, eating some yogurt. She cannot give a history nor can she cooperate with physical examination. VITAL SIGNS: Blood pressure is 157/61 with a pulse 74, respiratory rate is 18, and temperature is 97.1 degrees. HEENT: Could not be tested because she had severe avoidance with blepharospasm, would not open her mouth. NECK: There was cervical spine tenderness noted with paratonia. Carotids are +2. No bruits. LUNGS: Were clear to auscultation. CARDIOVASCULAR: The heart tones were decreased. No murmurs, rubs, or clicks were noted. ABDOMEN: The abdomen was slightly obese. Bowel sounds intact. There is diffuse tenderness. No masses or organomegaly. EXTREMITIES: pain with palpation over feet and upper extremities. NEUROLOGIC: Mental status, the patient complaining of pain, essentially refuses to do 1-step commands such as opening her mouth or opening her eyes. Language function is partially normal, although could not be fully tested. CRANIAL NERVE EXAMINATION: CRANIAL NERVE II: Visual cortez were intact grossly to confrontation. CRANIAL NERVES III, IV, AND : Eyes were in the midline. Pupils were approximately 4 mm and round. Light reaction could not be seen. CRANIAL NERVE V: Corneal sensation appeared to be intact. CRANIAL NERVE VII: Facial strength appeared to be symmetrical. CRANIAL NERVE VIII: Impossible to test. CRANIAL NERVES IX AND X: She would not open her mouth on testing gag response. CRANIAL NERVES XI AND XII: Could not be tested. MUSCULOSKELETAL: She can move her upper extremities fairly bilaterally symmetrically, but not her lower extremities and complained of pain when I touched her upper and lower extremities. There is mild paratonia in the upper extremities. Tone could not be tested in the lower extremities. Bulk was symmetrically decreased. Reflexes were trace in the upper extremities, 0 at the knees and ankles. The toes are probably downgoing and tested for Babinski response. Coordination could not be tested, although there was no gross ataxia on movement of her upper extremities. Sensory exam, pinprick is probably partially intact. 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 I cannot say for sure that there were any seizures in the past. Hyperglycemic hyperosmolar syndrome can cause both focal and generalized encephalopathy, is associated with seizures. Therefore, I would not start her on anticonvulsants at this time unless she has another seizure. PLAN: 1. As above. 2. Continue to treat her metabolic problems. Thank you for this interesting case. Kit Thurman MD DR: Casimiro JOB#: [id number] CC: LEO
[2019-06-06 04:00] VITALS: BP 111/65
[2019-06-06] MEDS: NovoLOG Insulin Flexpen SUBQ SCH ×6 (06:13→16:49)
--- NOTE | 2019-06-06 06:28 | General Progress Note ---
Assessment/Plan Problem List: (1) HTN (hypertension) ICD Codes: I10 - Essential (primary) hypertension SNOMED: 71984715 (2) Diabetes ICD Codes: E11.9 - Type 2 diabetes mellitus without complications SNOMED: 81214764 Qualifiers: Qualified Codes: E11.65 - Type 2 diabetes mellitus with hyperglycemia; Z79.4 - tank terminal gauger (current) use of insulin (3) DENNIS (acute kidney injury) ICD Codes: N17.9 - Acute kidney failure, unspecified SNOMED: 01362328, 7347136 (4) Epileptic seizure, generalized ICD Codes: G40.309 - Generalized idiopathic epilepsy and epileptic syndromes, not intractable, without status epilepticus SNOMED: 02260151 Status: stable, progressing Assessment/Plan: continue Levemir 18 units qam increase Novolog 6 to 8 units ac tid continue NISS ac / hs Subjective ROS Limited/Unobtainable: Yes Allergies: Coded Allergies: PENICILLINS (Verified Allergy, Unknown, 11/01/12) Uncoded Allergies: PENICILLIN (Allergy, Unknown, 06/01/19) Subjective events noted fasting glucose is controlled mealtime glucose is elevated Item Value Date Time Bedside Blood Glucose 111 mg/dl 06/06/19 0611 Bedside Blood Glucose 250 mg/dl H 06/05/19 2140 Bedside Blood Glucose 213 mg/dl H 06/05/19 1725 Bedside Blood Glucose 270 mg/dl H 06/05/19 1220 Bedside Blood Glucose 206 mg/dl H 06/05/19 0926 Bedside Blood Glucose 119 mg/dl 06/05/19 0630 Objective Last 24 Hour Vital Signs Date Time Temp Pulse Resp B/P (MAP) Pulse Ox O2 Delivery O2 Flow Rate FiO2 06/06/19 04:00 59 06/06/19 04:00 97.7 61 18 111/65 (80) 94 06/06/19 00:00 98.0 68 20 117/61 (79) 95 06/05/19 21:00 Room Air 06/05/19 20:00 98.1 70 20 105/51 (69) 97 06/05/19 20:00 77 06/05/19 17:32 157/61 06/05/19 16:00 97.1 85 18 129/47 (74) 95 06/05/19 16:00 74 06/05/19 12:19 152/66 06/05/19 12:00 97.3 78 18 152/66 (94) 98 06/05/19 12:00 76 06/05/19 09:00 Room Air 06/05/19 08:00 75 06/05/19 08:00 98.3 78 20 130/77 (94) 96 Intake and Output 06/05/19 06/06/19 18:59 06:59 Intake Total 1220 ml Output Total 800 ml Balance 420 ml Intake Oral 1220 ml Output Urine Total 800 ml Height (Feet): 5 Height (Inches): 1.00 Weight (Pounds): 125 General Appearance: no apparent distress Neck: normal alignment Cardiovascular: normal rate Respiratory/Chest: lungs clear Abdomen: normal bowel sounds Objective Current Medications Medications (Trade) Dose Ordered Sig/Joon Route PRN Reason Start Time Stop Time Status Last Admin Dose Admin Acetaminophen (Tylenol) 325 mg Q4H PRN ORAL Mild Pain (Pain Scale 1-3) 06/02/19 09:30 07/02/19 09:29 Bupropion HCl (Wellbutrin SR) 100 mg DAILY ORAL 06/03/19 09:00 07/03/19 08:59 06/05/19 09:22 Clonidine HCl (Catapres Tab) 0.1 mg EVERY 6 HOURS ORAL 06/04/19 06:00 07/04/19 05:59 06/05/19 17:32 Dextrose (Dextrose 50%) 25 ml Q30M PRN IV Hypoglycemia 06/02/19 09:15 07/02/19 09:14 Dextrose (Dextrose 50%) 50 ml Q30M PRN IV Hypoglycemia 06/02/19 09:15 07/02/19 09:14 Docusate Sodium (Colace) 100 mg BID ORAL 06/02/19 10:00 07/02/19 09:59 06/05/19 17:32 Famotidine (Pepcid) 20 mg DAILY ORAL 06/02/19 10:00 07/02/19 09:59 06/05/19 09:22 Heparin Sodium (Porcine) (Heparin 5000 units/ml) 5,000 units BID SUBQ 06/02/19 18:00 07/02/19 17:59 06/05/19 17:34 Insulin Aspart (NovoLOG) BEFORE MEALS AND HS SUBQ 06/02/19 11:30 07/02/19 11:29 06/05/19 21:40 Insulin Aspart (NovoLOG) 6 units NOVOTIAC SUBQ 06/03/19 11:50 07/02/19 11:49 06/05/19 17:25 Insulin Detemir (Levemir) 18 units DAILY SUBQ 06/03/19 09:00 07/02/19 11:29 06/05/19 09:26 Lorazepam (Ativan) 0.5 mg Q6H PRN ORAL For Anxiety 06/03/19 04:30 06/10/19 04:29 Megestrol Acetate (Megace) 40 mg BID ORAL 06/02/19 10:00 06/07/19 09:59 06/05/19 17:33 Memantine (Namenda) 5 mg TWICE A DAY ORAL 06/02/19 10:00 07/02/19 09:59 06/05/19 17:33 Multivitamins (Multivitamins) 1 tab DAILY ORAL 06/02/19 10:00 07/02/19 09:59 06/05/19 09:21 Nitroglycerin (Ntg) 0.4 mg PRN PRN SL Prn Chest Pain 06/02/19 09:30 07/02/19 09:29 Sodium Chloride 1,000 ml @ 60 mls/hr [id number] IV 06/02/19 09:15 07/02/19 09:14 06/05/19 03:55 Sodium Phosphate (Fleet's Sodium Phosl Enema) 133 ml DAILY PRN RECTAL Constipation 06/02/19 09:30 07/02/19 09:29 Tramadol HCl (Ultram) 50 mg BID ORAL 06/02/19 10:00 06/09/19 09:59 06/05/19 17:33 Rich Nuñez MD Jun 06, 2019 06:28
[2019-06-06 06:44] LABS: BASOPHILS % (AUTO) 0.9 % (0.0-2.0); EOSINOPHILS % (AUTO) 4.1 % (0.0-3.0); HEMATOCRIT 41.5 % (37.0-47.0); HEMOGLOBIN 14.4 G/DL (12.0-16.0); LYMPHOCYTES % (AUTO) 33.2 % (20.0-45.0); MEAN CORPUSCULAR VOLUME 94 FL (80-99); MONOCYTES % (AUTO) 7.8 % (1.0-10.0); NEUTROPHILS % (AUTO) 53.9 % (45.0-75.0); PLATELET COUNT 217 K/UL (150-450); RED BLOOD COUNT 4.42 M/UL (4.20-5.40); RED CELL DISTRIBUTION WIDTH 11.4 % (11.6-14.8); WHITE BLOOD COUNT 8.7 K/UL (4.8-10.8)
[2019-06-06 07:06] LABS: ANION GAP 8 mmol/L (5-15); BLOOD UREA NITROGEN 16 mg/dL (7-18); CALCIUM 8.3 MG/DL (8.5-10.1); CARBON DIOXIDE 26 MMOL/L (21-32); CHLORIDE 104 MMOL/L (98-107); CREATININE 1.1 MG/DL (0.55-1.30); SODIUM 138 MMOL/L (136-145)
--- NOTE | 2019-06-06 07:39 | NUR ---
HAND-OFF: Report given to CASE Ku. Pt stable.
--- NOTE | 2019-06-06 08:04 | NUR ---
NURSE NOTES:Received report from CASE Vanegas. Patient eating breakfast during bedside assessment. Repositioned for comfort and eating upright for safety. Spoke with patient in Irish--active listening utilized. Patietn denies pain. No sign of cardiac or respiratory distress. Bed in lowest, locked position with call rizzo in reach. Perineal area clean and dry. DC order in place--awaiting CM placement --discussed with charge operator. Addendum: 06/06/19 at 1221 by Hoang Bingham RN Message/voicemail with CM Phyllis at 825am . 1215pm spoke with Phyllis-- Dr Ayala arriving to do dc around 1pm to go back to [facility].
[2019-06-06 08:23] VITALS: BP 95/52
[2019-06-06] MEDS: Heparin 5000 units/ml inj SUBQ SCH ×2 (10:11→17:56)
[2019-06-06] MEDS: Docusate 100mg cap ORAL SCH ×2 (10:14→17:55)
[2019-06-06] MEDS: BuPROPion SR 100mg tab ORAL SCH (10:14)
[2019-06-06] MEDS: traMADol 50mg tab ORAL SCH ×2 (10:14→17:55)
[2019-06-06] MEDS: Memantine 10mg tab ORAL SCH ×2 (10:14→17:55)
[2019-06-06] MEDS: Levemir Flexpen SUBQ SCH (10:19)
--- NOTE | 2019-06-06 10:58 | Surgery Progress Note ---
Surgery Progress Note Subjective Additional Comments labs improved exam improved denies any pain no n/v/f/c comfortable neuro input appreciated Objective Last 24 Hour Vital Signs Date Time Temp Pulse Resp B/P (MAP) Pulse Ox O2 Delivery O2 Flow Rate FiO2 06/06/19 09:02 Room Air 06/06/19 08:23 97.2 79 18 95/52 (66) 97 06/06/19 08:00 73 06/06/19 04:00 59 06/06/19 04:00 97.7 61 18 111/65 (80) 94 06/06/19 00:00 98.0 68 20 117/61 (79) 95 06/05/19 21:00 Room Air 06/05/19 20:00 98.1 70 20 105/51 (69) 97 06/05/19 20:00 77 06/05/19 17:32 157/61 06/05/19 16:00 97.1 85 18 129/47 (74) 95 06/05/19 16:00 74 06/05/19 12:19 152/66 06/05/19 12:00 97.3 78 18 152/66 (94) 98 06/05/19 12:00 76 I&O Intake and Output 06/05/19 06/06/19 19:00 07:00 Intake Total 1220 ml Output Total 800 ml 500 ml Balance 420 ml -500 ml Intake Oral 1220 ml Output Urine Total 800 ml 500 ml Cardiovascular: RSR Respiratory: clear Abdomen: soft, flat, non-tender, present bowel sounds Extremities: no edema, no tenderness, no cyanosis Laboratory Tests Test 06/06/19 06:05 White Blood Count 8.7 K/UL (4.8-10.8) Red Blood Count 4.42 M/UL (4.20-5.40) Hemoglobin 14.4 G/DL (12.0-16.0) Hematocrit 41.5 % (37.0-47.0) Mean Corpuscular Volume 94 FL (80-99) Mean Corpuscular Hemoglobin 32.6 PG (27.0-31.0) H Mean Corpuscular Hemoglobin Concent 34.8 G/DL (32.0-36.0) Red Cell Distribution Width 11.4 % (11.6-14.8) L Platelet Count 217 K/UL (150-450) Mean Platelet Volume 6.9 FL (6.5-10.1) Neutrophils (%) (Auto) 53.9 % (45.0-75.0) Lymphocytes (%) (Auto) 33.2 % (20.0-45.0) Monocytes (%) (Auto) 7.8 % (1.0-10.0) Eosinophils (%) (Auto) 4.1 % (0.0-3.0) H Basophils (%) (Auto) 0.9 % (0.0-2.0) Sodium Level 138 MMOL/L (136-145) Potassium Level 4.0 MMOL/L (3.5-5.1) Chloride Level 104 MMOL/L (98-107) Carbon Dioxide Level 26 MMOL/L (21-32) Anion Gap 8 mmol/L (5-15) Blood Urea Nitrogen 16 mg/dL (7-18) Creatinine 1.1 MG/DL (0.55-1.30) Estimat Glomerular Filtration Rate mL/min (>60) Glucose Level 121 MG/DL (74-106) H Calcium Level 8.3 MG/DL (8.5-10.1) L Plan Problems: (1) Malnutrition Assessment & Plan: DAILY ESTIMATED NEEDS: Needs based on Diabetes, wound/ 50kg 25-30 kcals/kg 5181-2513 total kcals 1.25-2 g protein/kg 63-75 g total protein 20-30ml/kcal mL/kg 1754-9699 total fluid mLs NUTRITION DIAGNOSIS: *Increased kcal/pro needs R/T wound healing as evidenced by pt admitted buttocks w/ partial thickness wound BL heels w/ DTPI *Altered nutrition related lab values r/t diabetes as evidenced by BG on Adm >600, uglu 4+ CURRENT DIET:CCHO MED/ cardiac now puree PO DIET RECOMMENDATIONS: CCHO MED / texture per AUTOMATION OPERATOR ADDITIONAL RECOMMENDATIONS: * Calibrated bed scale wt * A1C for evaluation of glycemic control * Wound care: add KAILA BID + Vit C 250mg daily * Add HIGH PRO snacks in b/w meals w/ current variable po intake * Glucerna BID w/ current variable intake, monitor trend, need for TID (2) Injury of lower extremity Assessment & Plan: Hit her leg against a lunch tray no trauma or injury identified some discomfort. Will monitor for healing (3) Decubitus skin ulcer Assessment & Plan: Patient presents with multiple buttock and sacral abrasions partial-thickness wounds decubitus in nature potentially incontinence associated dermatitis. Patient is somewhat mobile and can turn but does not do so very often. No signs of active acute infection. Serous oozing. Discomfort. patient more receptive to moving around now. plans to be in chair soon Treatment plan Wash area with saline daily, apply Thera honey and foam dressing. Turn every 2 hours Offload heel with pillows Nutritional optimization We will follow with recommendations Thank you for allowing me to participate in patient's care Christian Larson Jun 06, 2019 10:57
[2019-06-06 12:00] VITALS: BP 101/53
--- NOTE | 2019-06-06 14:18 | Infectious Diseases Prog Note ---
Assessment/Plan Assessment/Plan 89yo woman with PMH below presents from skilled nursing with tonic clonic seizure for 5 minutes. Admission labs significant for mild leukocytosis and sugar of 600. still confused. Pt is currently reporting pain in her R leg because the lunch tray was resting on it. Unable to give much history. Denies chills, cough , sob, abdominal pain, dysuria, diarrhea. Afebrile RA Mild leukocytosis, resolved without antibiotics reactive? Atelectasis vs aspiration no cough on RA pt did not tolerate swallow evaluation CXR: Mildly elevated right diaphragm. Linear opacity in the left lower lobe , possibly aspiration infection versus subsegmental atelectasis. No pleural effusion. Unchanged heart size Unlikely UTI UA negative r/o bacteremia 06/02 BCx: ngtd sacral stage II pressure ulcer PCN allergy--pt unable to elaborate reaction DENNIS, SP Hyperglycemia, SP DM HTN COPD Dementia MDD stage 2 pressure ulcer cervical malignancy kidney cyst glaucoma OA Plan: monitor off antibiotics incentive spirometry aspiration precaution, elevate HOB, skin care, PT/OT, OOB seizure precaution Thank you for this consult. [facility] will continue to follow the patient with you. Subjective Allergies: Coded Allergies: PENICILLINS (Verified Allergy, Unknown, 11/01/12) Uncoded Allergies: PENICILLIN (Allergy, Unknown, 06/01/19) Subjective Afebrile. RA. No leukocytosis. Objective Vital Signs Last 24 Hour Vital Signs Date Time Temp Pulse Resp B/P (MAP) Pulse Ox O2 Delivery O2 Flow Rate FiO2 06/06/19 12:40 82 06/06/19 12:00 101/53 06/06/19 12:00 98.0 81 17 101/53 (69) 96 06/06/19 11:26 97.2 06/06/19 09:02 Room Air 06/06/19 08:23 97.2 79 18 95/52 (66) 97 06/06/19 08:00 73 06/06/19 04:00 59 06/06/19 04:00 97.7 61 18 111/65 (80) 94 06/06/19 00:00 98.0 68 20 117/61 (79) 95 06/05/19 21:00 Room Air 06/05/19 20:00 98.1 70 20 105/51 (69) 97 06/05/19 20:00 77 06/05/19 17:32 157/61 11/13/19 16:00 97.1 85 18 129/47 (74) 95 06/05/19 16:00 74 Height (Feet): 5 Height (Inches): 1.00 Weight (Pounds): 125 Objective Gen: NAD HEENT: anicteric sclera CV: RRR. no rubs or gallop Resp: RRR. diminished breath sounds. unlabored. Abd: normoactive BS+. Soft. no TTP Ext: No LE edema Neuro: awake but does not answer questions appropriately. Laboratory Tests Test 06/06/19 06:05 White Blood Count 8.7 K/UL (4.8-10.8) Red Blood Count 4.42 M/UL (4.20-5.40) Hemoglobin 14.4 G/DL (12.0-16.0) Hematocrit 41.5 % (37.0-47.0) Mean Corpuscular Volume 94 FL (80-99) Mean Corpuscular Hemoglobin 32.6 PG (27.0-31.0) H Mean Corpuscular Hemoglobin Concent 34.8 G/DL (32.0-36.0) Red Cell Distribution Width 11.4 % (11.6-14.8) L Platelet Count 217 K/UL (150-450) Mean Platelet Volume 6.9 FL (6.5-10.1) Neutrophils (%) (Auto) 53.9 % (45.0-75.0) Lymphocytes (%) (Auto) 33.2 % (20.0-45.0) Monocytes (%) (Auto) 7.8 % (1.0-10.0) Eosinophils (%) (Auto) 4.1 % (0.0-3.0) H Basophils (%) (Auto) 0.9 % (0.0-2.0) Sodium Level 138 MMOL/L (136-145) Potassium Level 4.0 MMOL/L (3.5-5.1) Chloride Level 104 MMOL/L (98-107) Carbon Dioxide Level 26 MMOL/L (21-32) Anion Gap 8 mmol/L (5-15) Blood Urea Nitrogen 16 mg/dL (7-18) Creatinine 1.1 MG/DL (0.55-1.30) Estimat Glomerular Filtration Rate mL/min (>60) Glucose Level 121 MG/DL (74-106) H Calcium Level 8.3 MG/DL (8.5-10.1) L Current Medications Medications (Trade) Dose Ordered Sig/Joon Route PRN Reason Start Time Stop Time Status Last Admin Dose Admin Acetaminophen (Tylenol) 325 mg Q4H PRN ORAL Mild Pain (Pain Scale 1-3) 06/02/19 09:30 07/02/19 09:29 Bupropion HCl (Wellbutrin SR) 100 mg DAILY ORAL 06/03/19 09:00 07/03/19 08:59 06/06/19 10:14 Clonidine HCl (Catapres Tab) 0.1 mg EVERY 6 HOURS ORAL 06/04/19 06:00 07/04/19 05:59 06/05/19 17:32 Dextrose (Dextrose 50%) 25 ml Q30M PRN IV Hypoglycemia 06/02/19 09:15 07/02/19 09:14 Dextrose (Dextrose 50%) 50 ml Q30M PRN IV Hypoglycemia 06/02/19 09:15 07/02/19 09:14 Docusate Sodium (Colace) 100 mg BID ORAL 06/02/19 10:00 07/02/19 09:59 06/06/19 10:14 Famotidine (Pepcid) 20 mg DAILY ORAL 06/02/19 10:00 07/02/19 09:59 06/06/19 10:14 Heparin Sodium (Porcine) (Heparin 5000 units/ml) 5,000 units BID SUBQ 06/02/19 18:00 07/02/19 17:59 06/06/19 10:11 Insulin Aspart (NovoLOG) BEFORE MEALS AND HS SUBQ 06/02/19 11:30 07/02/19 11:29 06/06/19 12:31 Insulin Aspart (NovoLOG) 8 units NOVOTIAC SUBQ 06/06/19 07:00 07/02/19 06:59 06/06/19 12:32 Insulin Detemir (Levemir) 18 units DAILY SUBQ 06/03/19 09:00 07/02/19 11:29 06/06/19 10:19 Lorazepam (Ativan) 0.5 mg Q6H PRN ORAL For Anxiety 06/03/19 04:30 06/10/19 04:29 Megestrol Acetate (Megace) 40 mg BID ORAL 06/02/19 10:00 06/07/19 09:59 06/06/19 10:14 Memantine (Namenda) 5 mg TWICE A DAY ORAL 06/02/19 10:00 07/02/19 09:59 06/06/19 10:14 Multivitamins (Multivitamins) 1 tab DAILY ORAL 06/02/19 10:00 07/02/19 09:59 06/06/19 10:14 Nitroglycerin (Ntg) 0.4 mg PRN PRN SL Prn Chest Pain 06/02/19 09:30 07/02/19 09:29 Sodium Chloride 1,000 ml @ 60 mls/hr [id number] IV 06/02/19 09:15 07/02/19 09:14 06/06/19 12:13 Sodium Phosphate (Fleet's Sodium Phosl Enema) 133 ml DAILY PRN RECTAL Constipation 06/02/19 09:30 07/02/19 09:29 Tramadol HCl (Ultram) 50 mg BID ORAL 06/02/19 10:00 06/09/19 09:59 06/06/19 10:14 Wero Tom MD Jun 06, 2019 14:18
--- NOTE | 2019-06-06 14:21 | General Progress Note ---
Assessment/Plan Problem List: (1) UTI (urinary tract infection) ICD Codes: N39.0 - Urinary tract infection, site not specified SNOMED: 90212746 (2) Malnutrition ICD Codes: E46 - Unspecified protein-calorie malnutrition SNOMED: 45053184 (3) Sepsis ICD Codes: A41.9 - Sepsis, unspecified organism SNOMED: 10642110 (4) Psychosis ICD Codes: F29 - Unspecified psychosis not due to a substance or known physiological condition SNOMED: 20897432 (5) Failure to thrive SNOMED: 99707726 (6) Seizure ICD Codes: R56.9 - Unspecified convulsions SNOMED: 07032216 (7) HTN (hypertension) ICD Codes: I10 - Essential (primary) hypertension SNOMED: 93050137 (8) Diabetes ICD Codes: E11.9 - Type 2 diabetes mellitus without complications SNOMED: 96702348 Qualifiers: Qualified Codes: E11.65 - Type 2 diabetes mellitus with hyperglycemia; Z79.4 - termination clerk (current) use of insulin (9) DENNIS (acute kidney injury) ICD Codes: N17.9 - Acute kidney failure, unspecified SNOMED: 62952711, 2951044 Status: stable, progressing Assessment/Plan: pt diet abx seizure control dc if clear Subjective Constitutional: Reports: weakness Allergies: Coded Allergies: PENICILLINS (Verified Allergy, Unknown, 11/01/12) Uncoded Allergies: PENICILLIN (Allergy, Unknown, 06/01/19) All Systems: reviewed and negative except above Subjective calm in bed confused Objective Last 24 Hour Vital Signs Date Time Temp Pulse Resp B/P (MAP) Pulse Ox O2 Delivery O2 Flow Rate FiO2 06/06/19 12:40 82 06/06/19 12:00 101/53 06/06/19 12:00 98.0 81 17 101/53 (69) 96 06/06/19 11:26 97.2 06/06/19 09:02 Room Air 06/06/19 08:23 97.2 79 18 95/52 (66) 97 06/06/19 08:00 73 06/06/19 04:00 59 06/06/19 04:00 97.7 61 18 111/65 (80) 94 06/06/19 00:00 98.0 68 20 117/61 (79) 95 06/05/19 21:00 Room Air 06/05/19 20:00 98.1 70 20 105/51 (69) 97 06/05/19 20:00 77 06/05/19 17:32 157/61 06/05/19 16:00 97.1 85 18 129/47 (74) 95 06/05/19 16:00 74 Intake and Output 06/05/19 06/06/19 19:00 07:00 Intake Total 1220 ml Output Total 800 ml 500 ml Balance 420 ml -500 ml Intake Oral 1220 ml Output Urine Total 800 ml 500 ml Laboratory Tests 06/06/19 06:05: White Blood Count 8.7, Red Blood Count 4.42, Hemoglobin 14.4, Hematocrit 41.5, Mean Corpuscular Volume 94, Mean Corpuscular Hemoglobin 32.6H, Mean Corpuscular Hemoglobin Concent 34.8, Red Cell Distribution Width 11.4L, Platelet Count 217, Mean Platelet Volume 6.9, Neutrophils (%) (Auto) 53.9, Lymphocytes (%) (Auto) 33.2, Monocytes (%) (Auto) 7.8, Eosinophils (%) (Auto) 4.1H, Basophils (%) (Auto ) 0.9, Sodium Level 138, Potassium Level 4.0, Chloride Level 104, Carbon Dioxide Level 26, Anion Gap 8, Blood Urea Nitrogen 16, Creatinine 1.1, Estimat Glomerular Filtration Rate , Glucose Level 121H, Calcium Level 8.3L Height (Feet): 5 Height (Inches): 1.00 Weight (Pounds): 125 General Appearance: lethargic EENT: normal ENT inspection Neck: normal alignment Cardiovascular: normal peripheral pulses, normal rate, regular rhythm Respiratory/Chest: chest wall non-tender, lungs clear, normal breath sounds Abdomen: normal bowel sounds, non tender, soft Extremities: normal inspection Edema: no edema noted Arm (L), no edema noted Arm (R), no edema noted Leg (L), no edema noted Leg (R), no edema noted Pedal (L), no edema noted Pedal (R), no edema noted Generalized Neurologic: motor weakness Skin: normal pigmentation, warm/dry Chalo Ayala DO Jun 06, 2019 14:21
--- NOTE | 2019-06-06 15:20 | NUR ---
NURSE NOTES: Spoke with Dr Ayala at bedside--dc today back to SNF. Discussed that Dr Thurman had already been to [address]. Dr Tom contacted --patient cleared for dc. Calling Dr Thurman after Dr Ayala's dc dependent on neuro clearance.
--- NOTE | 2019-06-06 15:30 | Progress Note ---
DATE: 06/06/2019 SUBJECTIVE: This is an 89-year-old female patient. She has history of seizure disorder. The patient has confusion, altered mental status, and some decline in cognition below baseline and mood lability. That is why, her attending physician has requested daily psychiatric consultation. MENTAL STATUS EXAMINATION: This is an 89-year-old female patient. Appearance is disheveled. Attitude, irritable and agitated. Affect, guarded and restricted. Intellect poor. Mood, depressed and anxious. Motor activity, psychomotor agitation. Insight and judgment is poor. DIAGNOSIS: Major depressive disorder, mild, recurrent with psychotic features. PLAN: Treat her with Namenda 5 mg twice a day, Ativan 0.5 mg every 6 hours p.r.n. anxiety and agitation, Wellbutrin 100 mg daily. A 20 minutes of cognitive behavioral therapy provided to help her identify automatic negative thoughts to more positive thoughts to reduce anxiety, depression, agitation, and mood lability. Also, to help her have a more adaptive behavioral pattern. Chart reviewed. Discussed with staff. Seen and assessed in her room. Vivian Armas M.D. DR: GRACIE JOB#: [id number] CC:
--- NOTE | 2019-06-06 15:33 | NUR ---
NURSE NOTES: Spoke with Dr Thurman on phone at 330pm--patient cleared to dc back to SNF with no new orders.
[2019-06-06 16:00] VITALS: BP 96/51
--- NOTE | 2019-06-06 16:15 | NUR ---
DISCHARGE PLANNING DISCHARGE ORDER NOTED Patient has been accepted to; [facility] [address] [place] [address] Bed: 102B Skilled [phone] for Nurse to Nurse report [facility] ETA for transportation: 17:45
--- NOTE | 2019-06-06 17:15 | Progress Note ---
DATE: 06/06/2019 SUBJECTIVE: The patient is unchanged. No evidence of seizures. PHYSICAL EXAMINATION: VITAL SIGNS: The blood pressure is 95/52, the temperature is 97.2 degrees, pulse is 79, respiration rate is 18. MENTAL STATUS: The patient is irritable, confused. Knows her name. Does know the date or place where she is at. The patient fights me off when attempted to examine her. However, she does move the upper extremities, right side a little more than the left. 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 I would not treat her with anticonvulsants at this time unless there is a new seizure that is documented. Seizure was related to her hyperosmolar hyperglycemia syndrome. Part of her problem even at this point may still be resolving metabolic encephalopathy. PLAN: I will stop seeing the patient unless necessary. Kit Thurman MD DR: DANIELA JOB#: [id number] CC:
--- NOTE | 2019-06-06 17:44 | NUR ---
NURSE NOTES: Discharge back to [facility] . Spoke with Ynafisa at [facility] for report. Left message with Aubrey Hernandez [phone]. [facility] expected 6pm for transport. Patient is Aox3 with calm affect. NSR on tele and VSS. Eating dinner now. Patient voided and zoila hygiene provided. Wound on sacrum picture taken and recorded.
[2019-06-06 17:54] VITALS: BP 96/51
--- NOTE | 2019-06-06 18:06 | Infectious Diseases Prog Note ---
Assessment/Plan Assessment/Plan 89yo woman with PMH below presents from [facility] with tonic clonic seizure for 5 minutes. Admission labs significant for mild leukocytosis and sugar of 600. still confused. Pt is currently reporting pain in her R leg because the lunch tray was resting on it. Unable to give much history. Denies chills, cough , sob, abdominal pain, dysuria, diarrhea. Afebrile RA Mild leukocytosis, resolved without antibiotics reactive? Atelectasis vs aspiration no cough on RA pt did not tolerate swallow evaluation CXR: Mildly elevated right diaphragm. Linear opacity in the left lower lobe , possibly aspiration infection versus subsegmental atelectasis. No pleural effusion. Unchanged heart size Unlikely UTI UA negative r/o bacteremia 06/02 BCx: ngtd sacral stage II pressure ulcer PCN allergy--pt unable to elaborate reaction DENNIS, SP Hyperglycemia, SP DM HTN COPD Dementia MDD stage 2 pressure ulcer cervical malignancy kidney cyst glaucoma OA Plan: monitor off antibiotics incentive spirometry aspiration precaution, elevate HOB, skin care, PT/OT, OOB seizure precaution Thank you for this consult. [facility] will continue to follow the patient with you. Subjective Allergies: Coded Allergies: PENICILLINS (Verified Allergy, Unknown, 11/01/12) Uncoded Allergies: PENICILLIN (Allergy, Unknown, 06/01/19) Subjective Afebrile. RA. No leukocytosis. Objective Vital Signs Last 24 Hour Vital Signs Date Time Temp Pulse Resp B/P (MAP) Pulse Ox O2 Delivery O2 Flow Rate FiO2 06/06/19 17:54 96/51 06/06/19 16:00 80 06/06/19 16:00 97.8 76 19 96/51 (66) 97 06/06/19 12:40 82 06/06/19 12:00 101/53 06/06/19 12:00 98.0 81 17 101/53 (69) 96 06/06/19 11:26 97.2 06/06/19 09:02 Room Air 06/06/19 08:23 97.2 79 18 95/52 (66) 97 06/06/19 08:00 73 06/06/19 04:00 59 06/06/19 04:00 97.7 61 18 111/65 (80) 94 06/06/19 00:00 98.0 68 20 117/61 (79) 95 06/05/19 21:00 Room Air 06/05/19 20:00 98.1 70 20 105/51 (69) 97 06/05/19 20:00 77 Height (Feet): 5 Height (Inches): 1.00 Weight (Pounds): 125 Objective Gen: NAD HEENT: anicteric sclera CV: RRR. no rubs or gallop Resp: RRR. diminished breath sounds. unlabored. Abd: normoactive BS+. Soft. no TTP Ext: No LE edema Neuro: awake but does not answer questions appropriately. Laboratory Tests Test 06/06/19 06:05 White Blood Count 8.7 K/UL (4.8-10.8) Red Blood Count 4.42 M/UL (4.20-5.40) Hemoglobin 14.4 G/DL (12.0-16.0) Hematocrit 41.5 % (37.0-47.0) Mean Corpuscular Volume 94 FL (80-99) Mean Corpuscular Hemoglobin 32.6 PG (27.0-31.0) H Mean Corpuscular Hemoglobin Concent 34.8 G/DL (32.0-36.0) Red Cell Distribution Width 11.4 % (11.6-14.8) L Platelet Count 217 K/UL (150-450) Mean Platelet Volume 6.9 FL (6.5-10.1) Neutrophils (%) (Auto) 53.9 % (45.0-75.0) Lymphocytes (%) (Auto) 33.2 % (20.0-45.0) Monocytes (%) (Auto) 7.8 % (1.0-10.0) Eosinophils (%) (Auto) 4.1 % (0.0-3.0) H Basophils (%) (Auto) 0.9 % (0.0-2.0) Sodium Level 138 MMOL/L (136-145) Potassium Level 4.0 MMOL/L (3.5-5.1) Chloride Level 104 MMOL/L (98-107) Carbon Dioxide Level 26 MMOL/L (21-32) Anion Gap 8 mmol/L (5-15) Blood Urea Nitrogen 16 mg/dL (7-18) Creatinine 1.1 MG/DL (0.55-1.30) Estimat Glomerular Filtration Rate mL/min (>60) Glucose Level 121 MG/DL (74-106) H Calcium Level 8.3 MG/DL (8.5-10.1) L Current Medications Medications (Trade) Dose Ordered Sig/Joon Route PRN Reason Start Time Stop Time Status Last Admin Dose Admin Acetaminophen (Tylenol) 325 mg Q4H PRN ORAL Mild Pain (Pain Scale 1-3) 06/02/19 09:30 07/02/19 09:29 Bupropion HCl (Wellbutrin SR) 100 mg DAILY ORAL 06/03/19 09:00 07/03/19 08:59 06/06/19 10:14 Clonidine HCl (Catapres Tab) 0.1 mg EVERY 6 HOURS ORAL 06/04/19 06:00 07/04/19 05:59 06/05/19 17:32 Dextrose (Dextrose 50%) 25 ml Q30M PRN IV Hypoglycemia 06/02/19 09:15 07/02/19 09:14 Dextrose (Dextrose 50%) 50 ml Q30M PRN IV Hypoglycemia 06/02/19 09:15 07/02/19 09:14 Docusate Sodium (Colace) 100 mg BID ORAL 06/02/19 10:00 07/02/19 09:59 06/06/19 17:55 Famotidine (Pepcid) 20 mg DAILY ORAL 06/02/19 10:00 07/02/19 09:59 06/06/19 10:14 Heparin Sodium (Porcine) (Heparin 5000 units/ml) 5,000 units BID SUBQ 06/02/19 18:00 07/02/19 17:59 06/06/19 10:11 Insulin Aspart (NovoLOG) BEFORE MEALS AND HS SUBQ 06/02/19 11:30 07/02/19 11:29 06/06/19 16:48 Insulin Aspart (NovoLOG) 8 units NOVOTIAC SUBQ 06/06/19 07:00 07/02/19 06:59 06/06/19 16:49 Insulin Detemir (Levemir) 18 units DAILY SUBQ 06/03/19 09:00 07/02/19 11:29 06/06/19 10:19 Lorazepam (Ativan) 0.5 mg Q6H PRN ORAL For Anxiety 06/03/19 04:30 06/10/19 04:29 Megestrol Acetate (Megace) 40 mg BID ORAL 06/02/19 10:00 06/07/19 09:59 06/06/19 17:55 Memantine (Namenda) 5 mg TWICE A DAY ORAL 06/02/19 10:00 07/02/19 09:59 06/06/19 17:55 Multivitamins (Multivitamins) 1 tab DAILY ORAL 06/02/19 10:00 07/02/19 09:59 06/06/19 10:14 Nitroglycerin (Ntg) 0.4 mg PRN PRN SL Prn Chest Pain 06/02/19 09:30 07/02/19 09:29 Sodium Chloride 1,000 ml @ 60 mls/hr [id number] IV 06/02/19 09:15 07/02/19 09:14 06/06/19 12:13 Sodium Phosphate (Fleet's Sodium Phosl Enema) 133 ml DAILY PRN RECTAL Constipation 06/02/19 09:30 07/02/19 09:29 Tramadol HCl (Ultram) 50 mg BID ORAL 06/02/19 10:00 06/09/19 09:59 06/06/19 10:14 Wero Tom MD Jun 06, 2019 18:06
--- NOTE | 2019-06-06 18:40 | NUR ---
NURSE NOTES:Delayed transport to [facility]. [facility] called to state 7p ETA for transport. Patient has finished dinner and still denies pain. VSS and patient calm,with belongings at bedside. Removed tele monitor at 645pm--NSR on tele. IV remains until transport arrival.
--- NOTE | 2019-06-06 19:30 | NUR ---
NURSE NOTES: Received report from CASE Ku. Pt is in bed, SR, on room air O2 @ 95%. R hand 22g running at 60ml/hr. Bed in lowest position, bed alarm on, seizure precautions engaged, side rails up and padded. Pt denies pain at this time. No signs or symptoms of pain or distress noted at this time. Will continue to monitor closely
--- NOTE | 2019-06-06 20:10 | NUR ---
HAND-OFF: Report given to [facility]. Removed right hand PIV, catheter intact. IV site is asymptomatic,covered with occlusive dressing. BP 148/60, P 94, RR 20, T 98.8, O2 95%. Pt is dischagred from facility and going to [facility]. Per previous nurse Kings, report given to [facility]. Pt is stable.
--- NOTE | 2019-06-07 11:59 | Discharge Summary ---
Discharge Summary Discharge Summary _ DATE OF ADMISSION: 06/01/2019 DATE OF DISCHARGE: 06/06/2019 DISCHARGED BY: Dr. Ayala REASON FOR ADMISSION: 89 years old female, resident of halfway facility, with past medical history of COPD, hypertension, diabetes mellitus, depression, Was sent to the emergency room with a chief complaint of seizure witnessed by the intermediate staff, lasted about 5 minutes, tonic-clonic in activity. No prior history of seizure. Patient presented postictal. No reported trauma or incontinence of urine. Vital signs reveal mild tachycardia 104 and blood pressure 156/82 otherwise were stable. Stable electrolytes. BUN 20, creatinine 1.4. Glucose 63 with stable angina. Potassium 4.4. Albumin 2.9. Urinalysis revealed + leukocyte esterase but no evidence of pyuria or bacteria, +2 protein Laboratory work-up revealed mild leukocytosis WBC 11, stable hemoglobin hematocrit. Troponin negative EKG reveals sinus rhythm no acute ischemic changes. Chest x-ray revealed atelectasis. Linear opacity in the left lower lobe possibly aspiration infection versus subsegmental atelectasis. No pleural effusion.. CT of the head revealed no acute intracranial pathology. Severe atrophy with chronic small vessel disease noted. CONSULTANTS: neurologist Dr. Thurman ID specialist Dr. Tom water resources technical officer Dr. Nuñez surgery Dr. Larson psychiatrist Dr. Armas [facility]: Patient admitted to telemetry floor. Blood sugar was managed as per water resources technical officer recommendations a long-acting Levemir, pre-meal insulin and sliding scale of insulin as needed. Dose of insulin titrated based on blood sugar readings. Blood sugar stabilized. Neurology seen and evaluated patient. Per neurologist patient had a hyperglycemic hyperosmolar syndrome with associated seizure. Per neurologist to hyperglycemic hyperosmolar syndrome can cause both focal and generalized encephalopathy with associated seizure. Neurology did not start patient on anti -any anticonvulsant medication recommended not to start patient on any anticonvulsant medication unless she had another seizure. Seizure precaution maintained. No evidence of further seizure activity. ID specialist followed. Patient initially had a mild leukocytosis which resolved without antibiotic patient had no fever. Leukocytosis was possibly reactive. Chest x-ray showed atelectasis versus aspiration. Patient had no cough. Pulse oximetry was stable on room air. Patient did not tolerate swallow evaluation. Urinary tract infection was unlikely given that urinalysis was negative. Blood culture from 1110 were negative. Infectious disease specialist recommended to keep patient off antibiotic continue aspiration precaution and incentive spirometry. Renal parameters electrolytes are closely monitor. Electrolytes corrected as needed nephrotoxins were avoided. Prior to discharge creatinine from 1.4 down to 1.1. Patient presented with a multiply buttock and sacral abrasion partial-thickness wounds potentially incontinence associated dermatitis. Wound care provided as per surgeon recommendation. Heels are offloaded with pillows. Patient was done every 2 hours. Continue wound care at the facility. Protein supplements provided as per registered dietitian recommendation. Psychiatrist follow. Psychiatric medication regimen was optimized. Cognitive behavioral therapy provided. Supportive care provided. DVT prophylaxis provided. GI prophylaxis provided. Megace added to to help with appetite. Management was addressed as needed. Bowel regimen instituted. Patient clinically stabilized and was ready for transfer back to halfway facility for continuation of care FINAL DIAGNOSES: Hyperglycemic hyperosmolar syndrome with associated seizures Acute kidney injury Hypertension Protein calorie malnutrition Sacral decubitus skin ulcer stage II present on admission Major depressive disorder, mild, recurrent with psychotic features DISCHARGE MEDICATIONS: See Medication Reconciliation list. DISCHARGE INSTRUCTIONS: Patient was discharged to the halfway facility. Follow up with medical doctor at the facility. I have been assigned to dictate discharge summary for this account. I was not involved in the patient's management. Mara Ackerman NP Jun 07, 2019 11:59
== END 2019-06-06 20:10 | DRG 100 ==
LOC: EDBD 20:37 → EMR 22:12 → EDBEDREQ 22:49 → 2E 23:02
DX: G40.309 Generalized idiopathic epilepsy and epileptic syndromes, not intractable, without status epilepticus (principal); E11.00 Type 2 diabetes mellitus with hyperosmolarity without nonketotic hyperglycemic-hyperosmolar coma (NKHHC); N17.9 Acute kidney failure, unspecified; N39.0 Urinary tract infection, site not specified; G93.40 Encephalopathy, unspecified; E46 Unspecified protein-calorie malnutrition; F33.0 Major depressive disorder, recurrent, mild; E11.65 Type 2 diabetes mellitus with hyperglycemia; R62.7 Adult failure to thrive; Z68.23 Body mass index [BMI] 23.0-23.9, adult; L89.152 Pressure ulcer of sacral region, stage 2; Z88.0 Allergy status to penicillin; J44.9 Chronic obstructive pulmonary disease, unspecified; F03.90 Unspecified dementia, unspecified severity, without behavioral disturbance, psychotic disturbance, mood disturbance, and anxiety; H40.9 Unspecified glaucoma; M19.90 Unspecified osteoarthritis, unspecified site; L89.309 Pressure ulcer of unspecified buttock, unspecified stage; F29 Unspecified psychosis not due to a substance or known physiological condition; T14.90XA Injury, unspecified, initial encounter; X58.XXXA Exposure to other specified factors, initial encounter; Y92.129 Unspecified place in nursing home as the place of occurrence of the external cause; Z85.41 Personal history of malignant neoplasm of cervix uteri
CPT/HCPCS: 36415; 70450; 71045; 80048; 80053; 81003; 82962; 84484; 85025; 87040; 87081; 93005; 96361; 96365; 96375; 97803; 99285; J1815; J7030; S5561

== ENCOUNTER 2020-01-11 00:08 | Inpatient (IN) | payer MEDICARE, MEDICAID ==
[~2020-01-11] VITALS: Ht 162.6 cm; Wt 75.8 kg
[~2020-01-11 00:08] MED LIST changes: +VOLTAREN100 G1 TP
--- NOTE | 2020-01-11 00:19 | NUR ---
ED Nurse Note: Pt brought in via private ambulance [facility], pt with confirmed DVT in LL leg, pt placed on building official, ERMD at bedside
--- NOTE | 2020-01-11 00:24 | Emergency Room Report ---
History of Present Illness General Chief Complaint: Lower Extremity Injury Source: Medical Record, EMS Present Illness HPI Disclaimer: Please note that this report is being documented using Numblebee technology. This can lead to erroneous entry secondary to incorrect interpretation by the dictating instrument. HPI: 89-year-old primarily [place] Citizen-speaking female history of diabetes, COPD, severe dementia presents for evaluation of left lower extremity DVT. Cannot obtain any history from patient due to her severe dementia. She has swollen left lower extremity and accompanying document shows deep vein thrombosis involving the left proximal and distal femoral vein. She has not received any medication prior to arrival. She arrives with stable vital signs, oxygenating 90% on room air with normal heart rate. No obvious distress. PMH: Dementia, hypertension, hyperlipidemia, diabetes PSH: Unable to obtain from patient Allergies: Penicillin Social Hx: Unable to obtain from patient Allergies: Coded Allergies: PENICILLINS (Verified Allergy, Unknown, 11/01/12) Uncoded Allergies: PENICILLIN (Allergy, Unknown, 06/01/19) COVID-19 Screening Contact w/high risk pt: No Recent Travel to affected area: No Experienced COVID-19 symptoms?: No COVID-19 Testing performed FAIRING MAN: Yes - results are pending COVID-19 Screening: Negative COVID-19 COVID-19 Testing Source: n/a Nursing Documentation-PMH Past Medical History: No History, Except For Hx Cardiac Problems: No Hx COPD: Yes Hx Diabetes: Yes Hx Cancer: Yes - CERVIX Hx Weakness: Yes Review of Systems All Other Systems: limited - Unable to obtain from patient due to dementia Physical Exam Vital Signs Date Time Temp Pulse Resp B/P (MAP) Pulse Ox O2 Delivery O2 Flow Rate FiO2 01/11/20 00:10 97.7 88 18 140/86 (104) 99 Room Air General: Awake, no obvious distress HEENT: NC/AT. EOMI. hard of hearing. Cardiovascular: RRR. S1 and S2 normal. No murmur appreciated Resp: Normal work of breathing. No cough, wheezing or crackles appreciated Abdomen: Abdomen is soft, nondistended. Nontender Skin: Intact. No abrasions, laceration or rash over the exposed skin MSK: Normal tone and bulk. Moving all extremities. Slight asymmetry in the left calf with mild edema over the knee as well but no obvious tenderness with palpation. No overlying skin breakdown. Neuro: Awake, demented, no obvious distress. Medical Decision Making Diagnostic Impression: Primary Impression: Left leg DVT ER Course Is an 89-year-old female presenting for admission of the left lower extremity DVT. Ultrasound completed on 01/10/2020 shows a DVT involving the left proximal and distal femoral vein. She is in no obvious distress. No clinical evidence of pulmonary embolism at this time. Heart rate is within normal limits etc. 99 % on room air. Laboratory Tests Test 01/11/20 01:00 01/11/20 01:15 White Blood Count 7.5 K/UL (4.8-10.8) Red Blood Count 4.06 M/UL (4.20-5.40) L Hemoglobin 13.3 G/DL (12.0-16.0) Hematocrit 39.6 % (37.0-47.0) Mean Corpuscular Volume 98 FL (80-99) Mean Corpuscular Hemoglobin 32.7 PG (27.0-31.0) H Mean Corpuscular Hemoglobin Concent 33.5 G/DL (32.0-36.0) Red Cell Distribution Width 12.5 % (11.6-14.8) Platelet Count 233 K/UL (150-450) Mean Platelet Volume 7.5 FL (6.5-10.1) Neutrophils (%) (Auto) 42.0 % (45.0-75.0) L Lymphocytes (%) (Auto) 39.8 % (20.0-45.0) Monocytes (%) (Auto) 8.7 % (1.0-10.0) Eosinophils (%) (Auto) 8.0 % (0.0-3.0) H Basophils (%) (Auto) 1.5 % (0.0-2.0) Sodium Level 137 MMOL/L (136-145) Potassium Level 4.5 MMOL/L (3.5-5.1) Chloride Level 103 MMOL/L (98-107) Carbon Dioxide Level 26 MMOL/L (21-32) Anion Gap 9 mmol/L (5-15) Blood Urea Nitrogen 21 mg/dL (7-18) H Creatinine 1.1 MG/DL (0.55-1.30) Estimated Glomerular Filtration Rate 46.7 mL/min (>60) Glucose Level 202 MG/DL (74-106) H Calcium Level 8.6 MG/DL (8.5-10.1) Total Bilirubin 0.5 MG/DL (0.2-1.0) Aspartate Amino Transferase (AST) 14 U/L (15-37) L Alanine Aminotransferase (ALT) < 6 U/L (12-78) L Alkaline Phosphatase 91 U/L (46-116) Troponin I 0.000 ng/mL (0.000-0.056) Total Protein 7.6 G/DL (6.4-8.2) Albumin 2.7 G/DL (3.4-5.0) L Globulin 4.9 g/dL Albumin/Globulin Ratio 0.6 (1.0-2.7) L Prothrombin Time 13.0 SEC (9.30-11.50) H Prothrombin Time INR 1.2 (0.9-1.1) H Activated Partial Thromboplast Time 37 SEC (23-33) H EKG Diagnostic Results EKG Time: 03:12 Rate: normal Rhythm: NSR ST Segments: no acute changes Other Impression Sinus rhythm, right bundle branch block pattern, normal axis, normal intervals Rhythm Strip Diag. Results Rhythm Strip Time: 03:12 EP Interpretation: yes Rate: 80s Rhythm: NSR, no PVC's, no ectopy Last Vital Signs Date Time Temp Pulse Resp B/P (MAP) Pulse Ox O2 Delivery O2 Flow Rate FiO2 01/11/20 00:10 97.7 88 18 140/86 (104) 99 Room Air Disposition: ADMITTED INPATIENT Condition: Serious Arik Leblanc MD Jan 11, 2020 00:24
[2020-01-11] MEDS ORDERED: Enoxaparin 80mg Inj SUBQ SCH (00:30)
[2020-01-11] MEDS ORDERED: Morphine Sulfate 2mg/ml Inj(IV/IM USE ONLY) IVP PRN (00:45)
[2020-01-11 01:17] LABS: BASOPHILS % (AUTO) 1.5 % (0.0-2.0); HEMATOCRIT 39.6 % (37.0-47.0); HEMOGLOBIN 13.3 G/DL (12.0-16.0); LYMPHOCYTES % (AUTO) 39.8 % (20.0-45.0); MEAN CORPUSCULAR VOLUME 98 FL (80-99); MONOCYTES % (AUTO) 8.7 % (1.0-10.0); PLATELET COUNT 233 K/UL (150-450); RED BLOOD COUNT 4.06 M/UL (4.20-5.40); RED CELL DISTRIBUTION WIDTH 12.5 % (11.6-14.8); WHITE BLOOD COUNT 7.5 K/UL (4.8-10.8)
[2020-01-11 01:24] LABS: ANION GAP 9 mmol/L (5-15); BLOOD UREA NITROGEN 21 mg/dL (7-18); CALCIUM 8.6 MG/DL (8.5-10.1); CARBON DIOXIDE 26 MMOL/L (21-32); CHLORIDE 103 MMOL/L (98-107); CREATININE 1.1 MG/DL (0.55-1.30); POTASSIUM 4.5 MMOL/L (3.5-5.1); SODIUM 137 MMOL/L (136-145)
[2020-01-11 01:28] LABS: ALANINE AMINOTRANSFERASE < 6 U/L (12-78); ALBUMIN 2.7 G/DL (3.4-5.0); ALBUMIN/GLOBULIN RATIO 0.6 (1.0-2.7); ALKALINE PHOSPHATASE 91 U/L (46-116); ASPARTATE AMINO TRANSFERASE 14 U/L (15-37); BILIRUBIN,TOTAL 0.5 MG/DL (0.2-1.0)
[2020-01-11] MEDS ORDERED: Morphine Sulfate 2mg/ml Inj(IV/IM USE ONLY) IVP ONE (01:30)
[2020-01-11 01:38] LABS: INR 1.2 (0.9-1.1)
--- NOTE | 2020-01-11 02:00 | NUR ---
ED Nurse Note: Pt resting in bed with eyes closed, non-labored breathing, no signs of distress, will continue to monitor
[2020-01-11] MEDS ORDERED: ACETAMINOPHEN325 M1 ORAL (03:04)
[2020-01-11] MEDS ORDERED: GABAPENTIN100 MG ORAL (03:06)
[2020-01-11] MEDS ORDERED: NOVOLIN R100 UNIT/1 SUBQ (03:06)
[2020-01-11] MEDS ORDERED: MEGESTROL ACETA40 MG PO (03:08)
[2020-01-11] MEDS ORDERED: LUMIGAN2.5 ML BOTH EYES (03:09)
[2020-01-11] MEDS ORDERED: NORCO 5-325 TA1 EAC1 ORAL (03:10)
--- NOTE | 2020-01-11 03:40 | NUR ---
TRANSFER TO FLOOR: Patient transferred to as ordered, per DR Mcdonough. Report given to CASE Rosa. Belongings and medications given to . Family and or S/O informed of transfer.
--- NOTE | 2020-01-11 03:41 | NUR ---
Nurse Notes: Received report from Lynne COLORADO RN. patient arrived to unit 0341 via gurney. patient awake alert oriented to self, but confused. patient on room air 97% oxygen saturation, no SOB. BP 114/42 HR76 NSR on monitor and afebrile. right forearm #18 saline lock asymptomatic. patient denies pain. left lower extremity red and tender knee. right lower extremity redness ecchymosis. left heel DTPI, and right heel redness noted. Sacral pink intact. reading glasses in purse at bedside. bed locked lowest position, call light within reach. will continue to monitor.
[2020-01-11 04:00] VITALS: BP 114/42
[2020-01-11] MEDS ORDERED: HYDROcodone/Acetamin 5/325 tab ORAL PRN (04:30)
[2020-01-11] MEDS ORDERED: Zolpidem 5mg tab ORAL PRN (04:30)
[2020-01-11] MEDS ORDERED: Fleet's Enema 133ml RECTAL PRN (04:30)
[2020-01-11] MEDS ORDERED: Milk of Magnesia 30ml Ud ORAL PRN (04:30)
[2020-01-11] MEDS: NovoLOG Insulin Flexpen SUBQ SCH ×4 (05:58→21:30)
[2020-01-11 06:00] VITALS: BP 116/57
--- NOTE | 2020-01-11 06:00 | NUR ---
Nurse Notes: patient asleep arousable to name oriented to self, but confused. patient reoriented to environment. BS 112, WNL no coverage needed. patient on room air 98% oxygen saturation. BP 116/57 HR72 NSR on monitor and afebrile. right forearm #18 saline lock, asymptomatic, and patent. patient denies pain. left lower extremity red and tender. bilateral heel optifoam clean and intact. purewick in place, no urine noted. patient repositioned, bed locked lowest position, call light within reach. will continue to monitor.
--- NOTE | 2020-01-11 07:05 | NUR ---
HAND-OFF: Report given to CASE Gee. patient transfered to Tele. endorsed plan of care.
[2020-01-11 08:00] VITALS: BP 101/58
--- NOTE | 2020-01-11 08:12 | NUR ---
NURSE NOTES: Received report from NA/V BELT MOLD ASSEMBLER AND CURER. Patient asleep, but arousable to name. Oriented to person. Follows commands. Breathing regular and unlabored on room air. No signs of pain or distress. Radial pulses palpable. L forearm 18 g saline locked. No signs of redness or infiltration. Bed low and locked, call light in reach, bed alarm on, side rails x3 raised. Will continue to monitor.
[2020-01-11] MEDS: Docusate 100mg cap ORAL SCH ×3 (09:00→17:56)
[2020-01-11] MEDS: Memantine 5 MG TAB ORAL SCH ×3 (09:00→17:56)
[2020-01-11] MEDS ORDERED: LORazepam 0.5mg tab ORAL PRN (09:45)
[2020-01-11 12:00] VITALS: BP 123/43
--- NOTE | 2020-01-11 13:45 | History and Physical Report ---
DATE OF ADMISSION: 01/11/2020 TIME SEEN: Approximate time is 9 a.m. YARN FINISHER: Dr. Branch. CHIEF COMPLAINT: Lower extremity DVT. BRIEF HISTORY: This is an 89-year-old female from [facility] who presents with swelling of the leg, was found to have lower left extremity DVT, sent to [facility], diagnosed as above, admitted to medical floor. Currently, sleeping in bed, not talking much. REVIEW OF SYSTEMS: Unavailable. PAST MEDICAL HISTORY: Includes hypertension, diabetes, COPD, failure to thrive, psychosis, dementia, malnutrition, and arthritis. PAST SURGICAL HISTORY: Unknown. ALLERGIES: Penicillin. MEDICATIONS: Include enoxaparin, docusate sodium, famotidine, gabapentin, Megace, memantine, multivitamin, , bisacodyl, zolpidem. SOCIAL HISTORY: No smoking. No alcohol. No intravenous drug abuse. FAMILY HISTORY: Noncontributory. PHYSICAL EXAMINATION: GENERAL: Calm in bed, sleeping, not talking much. VITAL SIGNS: Temperature 97, pulse 73, respirations 20, and blood pressure 101/58. CARDIOVASCULAR: No murmur. LUNGS: Poor air exchange. ABDOMEN: Bowel sounds distant. EXTREMITIES: No cyanosis, clubbing, or edema. NEUROLOGIC: The patient moves all extremities, slightly weak. LABORATORY AND DIAGNOSTIC DATA: Labs at this time show CBC is normal. BMP shows BUN 21, glucose 202, otherwise normal. Troponin 0.00. Albumin 2.7. INR is 1.2. PTT is 37. ASSESSMENT: 1. Lower extremity DVT. 2. Hypertension. 3. Diabetes. 4. COPD. 5. Failure to thrive. 6. Arthritis. 7. Malnutrition. 8. Weakness. 9. CKD. 10. Dementia. PLAN: 1. Resume home medications. 2. Blood pressure, blood sugar, and pain control. 3. Anticoagulate per Hematology. 4. PT and dietary evaluation. 5. CBC and BMP in the morning. Chalo Ayala D.O. DR: RODDY JOB#: [id number] CC:
--- NOTE | 2020-01-11 14:36 | NUR ---
NURSE NOTES:WOUND CARE NOTES:Pt presented on admission with reabsorbing Sacral DTPI(L)8.5cm x (W)9cm. Base of Pressure injury Maroon with an area of dry ,pink epithelial L sacrococcygeal area. Pt complained injured area is centrifugal casting machine tender when minimally palpated.Non-blanching erythema R and L gluteal clefts. Bilat lower ext are both edematous with petechiae noted distally to both lower ext and both feet.Metatarsals both feet are dusky.Scattered dry scabs noted at distal R lower ext. DTPI R Heel(L)6.5cm x (W)6cm. Base of Pressure injury is fluctuant,Maroon with small necrotic area centrally(L)0.3cm x (W)0.5cm. Pt becomes agitated and yells when base of R heel minimally palpated. Pt verbalized R heel is painful. L Heel is boggy with non-blanching erythema. Pt also complained L heel is painful when minimally palpated. Tx.Plan:Apply Moisture Barrier Paste to Sacrum. Cover with Optifoam drsg. Change every 3 days and prn. Apply Cavilon Skin Barrier to both heels and malleoli. Cover each site with Optifoam drsgs. Change every 7 days and prn. Apply Cavilon Skin Barrier to R and L trochanteric areas. Cover each area with Optifoam drsgs. Change every 7 days and prn. Reposition at least every 2hours or as tolerated. Off-load heels with pillow. APM/MARY Mattress overlay.
[2020-01-11 16:00] VITALS: BP 133/51
--- NOTE | 2020-01-11 19:40 | NUR ---
HAND-OFF: Report given to CASE Harrison.
[2020-01-11 20:00] VITALS: BP 122/46
--- NOTE | 2020-01-11 20:21 | NUR ---
NURSE NOTES: Received patient report from Dayana WILLOUGHBY and CASE Gee. Patient shows no signs of distress or pain at the time. AO x 2. She is on room air and shows no signs of respiratory distress. IV is intact and flushed. There are no signs of erythema, infiltration, or bleeding. Bed is in the lowest position, call light within reach, side rails up x 3, and bed alarm on. Patient stated that she did not dinner because she did not like how it tasted. Will continue to monitor.
[2020-01-11] MEDS: Enoxaparin 80mg Inj SUBQ SCH (21:29)
--- NOTE | 2020-01-11 22:30 | Consultation ---
DATE OF CONSULTATION: 01/11/2020 CONSULTING PHYSICIAN: Vivian Armas M.D. HISTORY OF PRESENT ILLNESS: Annie Hernandez is an 89-year-old female patient. She came to the hospital with multiple medical problems that she has deep vein thrombosis of the left lower extremity. This patient also has other medical problems such as diabetes, hypertension, failure to thrive. She was actually admitted to the hospital secondary to lower extremity injury and this patient has altered mental status, confusion. She is a very poor historian. Due to her medical illness, her cognition has declined significantly below the baseline. That is why, her attending physician has requested daily psychiatric consultation. She is confused, disorganized. She does have some mood lability. MEDICAL HISTORY: The patient has a history of hypertension, hyperlipidemia, diabetes, failure to thrive, seizure disorder, tachycardia, gallbladder disease. She has injury to lower extremity, and decubitus ulcers. ALLERGIES: Penicillin. PSYCHOTROPIC MEDICATION UPON ADMISSION: The patient is on a medication regimen of Namenda 5 mg twice a day, Neurontin 100 mg daily. . PAIN ASSESSMENT: 09/30 pain. DEVELOPMENTAL PROBLEMS: Denies. FAMILY PSYCHIATRIC HISTORY: Denies. SUBSTANCE HISTORY: Denies. SOCIAL HISTORY: The patient is financially supported by [employer] and Medicare. STRENGTHS: She is motivated to get better and has a place to live. WEAKNESSES: She is impulsive with minimal support system. MENTAL STATUS EXAMINATION: This is an 89-year-old female. Her appearance is disheveled. Attitude, irritable and agitated. Affect , guarded and restricted. Intellect poor. She does not know last four presidents. Mood, depressed and anxious. Motor activity, psychomotor agitation. Attention span is poor. She cannot do serial 7's or spell world backwards. Orientation x2. She is oriented to person, place not time and situation. Speech is nonsensical. Thought process, disorganized and illogical. Thought content, auditory hallucinations, paranoid delusions. Perception is poor with perceptual disturbances, such has auditory hallucinations and paranoid delusions. Abstract reasoning is poor because the patient does not understand proverbs, only has concrete thinking. Insight is poor because she does not recognize having a psychiatric disorder. Judgment is poor because she does not accept consequences for her actions, cannot make clear medical decisions for herself. She is denying any current suicidal or homicidal ideation. Short-term memory 3/3 recall after 5-minute delay with good short-term memory. Long-term memory is intact based on the knowledge of long-term events in her life such as the high school that she went to. DIAGNOSES: 1. Major depressive disorder, severe, recurrent with psychotic features. 2. No secondary. 3. Medical includes hypertension, hyperlipidemia, diabetes. 4. Psychosocial stressors, financial. 5. Functional impairment is severe. PLAN: I am going to treat the patient with Namenda 5 mg twice a day and Neurontin 100 mg daily. 20 minutes of insight-oriented psychotherapy will help the patient to identify her automatic negative thoughts, help convert her automatic negative thoughts to more positive thoughts to reduce depression, anxiety, and mood lability. . Chart reviewed. Discussed with staff. Seen and assessed in her room. Vivian Armas M.D. DR: RUBA JOB#: [id number] CC:
[2020-01-12] VITALS: BP 114/63
[2020-01-12 04:00] VITALS: BP 104/69
--- NOTE | 2020-01-12 05:49 | Consultation ---
History of Present Illness General Chief Complaint: Lower Extremity Injury Present Illness Allergies: Coded Allergies: PENICILLINS (Verified Allergy, Unknown, 11/01/12) Uncoded Allergies: PENICILLIN (Allergy, Unknown, 06/01/19) Medication History Scheduled Amino Acids/Protein Hydrolys (Pro-Stat Liquid), 30 ML ORAL DAILY, (Reported) Aztreonam (Aztreonam), 0.5 GM IVPB Q8HR, (Reported) Bimatoprost (Lumigan), 1 DROP BOTH EYES BEDTIME, (Reported) Bimatoprost (Lumigan), 1 DROP BOTH EYES DAILY, (Reported) Diclofenac Sodium (Voltaren), 2 GM TP BID, (Reported) Docusate Sodium* (Colace*), 100 MG ORAL BID, (Reported) Famotidine* (Pepcid 20mg tablet*), 20 MG ORAL DAILY, (Reported) Gabapentin* (Gabapentin*), 100 MG ORAL DAILY, (Reported) Insulin Regular, Human* (Novolin R*), 0 SUBQ .SLIDING SCALE, (Reported) Megestrol Acetate (Megestrol Acetate), 40 MG PO BID, (Reported) Megestrol Acetate (Megestrol Acetate), 40 MG PO AC+HS, (Reported) Memantine Hcl* (Namenda*), 5 MG ORAL TWICE A DAY, (Reported) Multivitamins* (Multivitamins*), 1 TAB ORAL DAILY, (Reported) Tramadol Hcl* (Ultram*), 50 MG ORAL BID, (Reported) Scheduled PRN Acetaminophen (Tylenol), 650 MG ORAL Q4HR PRN for Mild Pain (Pain Scale 1-3), ( Reported) Acetaminophen* (Acetaminophen 325MG Tablet*), 325 MG ORAL Q4H PRN for Temp > 100.5, (Reported) Bisacodyl (Dulcolax), 10 MG RC DAILY PRN for Constipation, (Reported) Hydrocodone Bit/Acetaminophen 5-325* ([place] 5-325 Tablet*), 1 TAB ORAL Q12HR PRN for For Pain, (Reported) Magnesium Hydroxide* (Milk Of Magnesia*), 30 ML ORAL DAILY PRN for Constipation, (Reported) Na Phos,M-B/Na Phos,Di-Ba* (Fleet Enema*), 133 ML RECTAL DAILY PRN for Constipation, (Reported) Nitroglycerin (Nitroglycerin), 0.4 MG SL Q5MIN X 3 DOSES PRN for Prn Chest Pain, (Reported) Patient History Healthcare decision maker Resuscitation status Advanced Directive on File Physical Exam Last 24 Hour Vital Signs Date Time Temp Pulse Resp B/P (MAP) Pulse Ox O2 Delivery O2 Flow Rate FiO2 01/12/20 04:00 97.9 86 19 104/69 (81) 93 01/12/20 00:00 75 01/12/20 00:00 98.1 81 18 114/63 (80) 94 01/11/20 21:00 Room Air 01/11/20 20:00 79 01/11/20 20:00 97.5 77 19 122/46 (71) 96 01/11/20 16:00 97.3 83 16 133/51 (78) 98 01/11/20 12:00 77 01/11/20 12:00 97.8 76 20 123/43 (69) 98 01/11/20 09:00 Room Air 01/11/20 08:00 71 01/11/20 08:00 97.5 73 20 101/58 (72) 98 01/11/20 06:00 72 14 116/57 (76) 98 Intake and Output 01/11/20 01/12/20 19:00 07:00 Intake Total 300 ml Output Total 200 ml Balance -200 ml 300 ml Intake Oral 300 ml Output Urine Total 200 ml # Bowel Movements 3 1 Height (Feet): 5 Height (Inches): 4.00 Weight (Pounds): 169 Medications Current Medications Medications (Trade) Dose Ordered Sig/Joon Route PRN Reason Start Time Stop Time Status Last Admin Dose Admin Acetaminophen/ Hydrocodone Bitart ([place] 5/325) 1 tab Q12HR PRN ORAL For Pain 01/11/20 04:30 01/18/20 04:29 Bisacodyl (Dulcolax) 10 mg DAILY PRN RECTAL Constipation 01/11/20 04:30 04/10/20 04:29 Dextrose (Dextrose 50%) 25 ml Q30M PRN IV Hypoglycemia 01/11/20 04:45 04/10/20 04:44 Dextrose (Dextrose 50%) 50 ml Q30M PRN IV Hypoglycemia 01/11/20 04:45 04/10/20 04:44 Docusate Sodium (Colace) 100 mg BID ORAL 01/11/20 09:00 02/10/20 08:59 01/11/20 17:56 Enoxaparin Sodium (Lovenox) 80 mg EVERY 12 HOURS SUBQ 01/11/20 22:00 04/10/20 21:59 01/11/20 21:29 Famotidine (Pepcid) 20 mg DAILY ORAL 01/11/20 09:00 04/10/20 08:59 Gabapentin (Neurontin) 100 mg DAILY ORAL 01/11/20 09:00 02/10/20 08:59 Insulin Aspart (NovoLOG) BEFORE MEALS AND HS SUBQ 01/11/20 06:30 04/10/20 06:29 01/11/20 21:30 Lorazepam (Ativan) 0.5 mg Q6H PRN ORAL For Anxiety 01/11/20 09:45 01/18/20 09:44 Magnesium Hydroxide (Mom) 30 ml DAILY PRN ORAL Constipation 01/11/20 04:30 02/10/20 04:29 Megestrol Acetate (Megace) 40 mg BID ORAL 01/11/20 09:00 01/16/20 08:59 01/11/20 17:56 Memantine (Namenda) 5 mg TWICE A DAY ORAL 01/11/20 09:00 02/10/20 08:59 01/11/20 17:56 Multivitamins (Multivitamins) 1 tab DAILY ORAL 01/11/20 09:00 02/10/20 08:59 Sodium Phosphate (Fleet's Sodium Phosl Enema) 133 ml DAILY PRN RECTAL Constipation 01/11/20 04:30 02/10/20 04:29 Zolpidem Tartrate (Ambien) 5 mg HSPRN PRN ORAL Insomnia 01/11/20 04:30 01/18/20 04:29 Assessment/Plan Assessment/Plan: Heme oncology consult note REQ MD: Chalo Ayala [facility] Dvt of the lower ext DOS 01/12/2020 HPI: 89-year-old primarily Kazakh-speaking female history of diabetes, COPD, severe dementia presents for evaluation of left lower extremity DVT. Cannot obtain any history from patient due to her severe dementia. She has swollen left lower extremity and accompanying document shows deep vein thrombosis involving the left proximal and distal femoral vein. She has not received any medication prior to arrival. She arrives with stable vital signs, oxygenating 90% on room air with normal heart rate. No obvious distress. 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 EOMI. hard of hearing. Cardiovascular: RRR. S1 and S2 normal. Resp: Normal work of breathing. No cough, Abdomen: Abdomen is soft, nondistended Skin: Intact. No abrasions, laceration or rash over the exposed skin MSK: Normal tone and bulk. Moving all extremities. Slight asymmetry in the left calf with mild edema Neuro: Awake, demented, no obvious distress. Labs noted Imaging noted Assessment and Recs # Deep vein thrombosis of the left leg --> likely due to age and immobility --> has been started on lovenox sq bid dosing --> ok to change to eliquis once stable for dc # Secondary polycythemia or erythrocytosis is likely is related to dehydration , volume down --> may need a pulmonary evaluation for above, cxr has been reviewed --> sleep study may be necessary as outpatient --> trend hgb if consistently remains elevated, consider JAK2 --> if remains elevated, further w/u # Coagulopathy with elev inr/ptt --> vit k sq if any bleeding --> hold lovenox prn # HTN # COPD # Dm2 # NH resident # DVT ppx with lovenox sq The timing of this note does not necessarily reflect the time of the patient was seen. GREATLY APPRECIATE CONSULTATION. Roderick Branch MD Jan 12, 2020 05:49
[2020-01-12] MEDS: NovoLOG Insulin Flexpen SUBQ SCH ×4 (06:30→20:41)
--- NOTE | 2020-01-12 07:28 | NUR ---
NURSE NOTES: Nurse report given by CASE Harrison. Patient's in stable condition, awake and eating breakfast in bed, high Niño position, AO x [address] name and place. Breathing regular and unlabored, no s/s of distress or SOB. IV is saline locked, flushed and asymptomatic. Bed low and locked, call light within reach, side rails x 3. Skin assessment performed. Left leg presents with DVT, warm and patient withdrawal to pain when touch. Will continue to monitor.
--- NOTE | 2020-01-12 07:28 | NUR ---
HAND-OFF: Report given to CASE Anne. patient shows no signs of distress or pain at the time. Endorsed plan of care.
[2020-01-12 08:00] VITALS: BP 126/65
[2020-01-12] MEDS: Memantine 5 MG TAB ORAL SCH ×2 (08:49→18:54)
[2020-01-12] MEDS: Docusate 100mg cap ORAL SCH ×2 (08:50→18:54)
[2020-01-12] MEDS: Enoxaparin 80mg Inj SUBQ SCH ×2 (08:50→20:39)
--- NOTE | 2020-01-12 09:31 | General Progress Note ---
Assessment/Plan Problem List: (1) Diabetes ICD Codes: E11.9 - Type 2 diabetes mellitus without complications SNOMED: 53701939 (2) HTN (hypertension) ICD Codes: I10 - Essential (primary) hypertension SNOMED: 13702638 (3) Failure to thrive SNOMED: 05371969 (4) Malnutrition ICD Codes: E46 - Unspecified protein-calorie malnutrition SNOMED: 39316957 (5) Left leg DVT ICD Codes: I82.402 - Acute embolism and thrombosis of unspecified deep veins of left lower extremity SNOMED: 933028053 Status: unchanged Assessment/Plan: anticoag per heme bp bs control cbc bmp am Subjective Constitutional: Reports: weakness Allergies: Coded Allergies: PENICILLINS (Verified Allergy, Unknown, 11/01/12) Uncoded Allergies: PENICILLIN (Allergy, Unknown, 06/01/19) All Systems: reviewed and negative except above Subjective calm in bed eating Objective Last 24 Hour Vital Signs Date Time Temp Pulse Resp B/P (MAP) Pulse Ox O2 Delivery O2 Flow Rate FiO2 01/12/20 08:00 97.8 79 19 126/65 (85) 95 01/12/20 04:00 97.9 86 19 104/69 (81) 93 01/12/20 00:00 75 01/12/20 00:00 98.1 81 18 114/63 (80) 94 01/11/20 21:00 Room Air 01/11/20 20:00 79 01/11/20 20:00 97.5 77 19 122/46 (71) 96 01/11/20 16:00 97.3 83 16 133/51 (78) 98 01/11/20 12:00 77 01/11/20 12:00 97.8 76 20 123/43 (69) 98 Intake and Output 01/11/20 01/12/20 19:00 07:00 Intake Total 500 ml Output Total 200 ml 200 ml Balance -200 ml 300 ml Intake Oral 500 ml Output Urine Total 200 ml 200 ml # Bowel Movements 3 3 Height (Feet): 5 Height (Inches): 4.00 Weight (Pounds): 169 General Appearance: lethargic EENT: normal ENT inspection Neck: normal alignment Cardiovascular: normal peripheral pulses, normal rate, regular rhythm Respiratory/Chest: chest wall non-tender, lungs clear, normal breath sounds Abdomen: normal bowel sounds, non tender, soft Extremities: normal inspection Edema: 1+ Arm (L), 1+ Arm (R), 1+ Leg (L), 1+ Leg (R), 1+ Pedal (L), 1+ Pedal ( R), 1+ Generalized Edema: trace edema Neurologic: motor weakness Skin: normal pigmentation, warm/dry Chalo Ayala DO Jan 12, 2020 09:31
[2020-01-12 11:28] LABS: ANION GAP 8 mmol/L (5-15); BASOPHILS % (AUTO) 1.3 % (0.0-2.0); BLOOD UREA NITROGEN 11 mg/dL (7-18); CALCIUM 8.8 MG/DL (8.5-10.1); CARBON DIOXIDE 26 MMOL/L (21-32); CHLORIDE 103 MMOL/L (98-107); EOSINOPHILS % (AUTO) 7.5 % (0.0-3.0); HEMATOCRIT 40.2 % (37.0-47.0); HEMOGLOBIN 13.6 G/DL (12.0-16.0); LYMPHOCYTES % (AUTO) 42.8 % (20.0-45.0); MEAN CORPUSCULAR VOLUME 97 FL (80-99); MONOCYTES % (AUTO) 5.8 % (1.0-10.0); NEUTROPHILS % (AUTO) 42.6 % (45.0-75.0); PLATELET COUNT 233 K/UL (150-450); POTASSIUM 4.2 MMOL/L (3.5-5.1); RED BLOOD COUNT 4.15 M/UL (4.20-5.40); RED CELL DISTRIBUTION WIDTH 12.1 % (11.6-14.8); SODIUM 137 MMOL/L (136-145); WHITE BLOOD COUNT 6.3 K/UL (4.8-10.8)
[2020-01-12 11:58] VITALS: BP 105/69
[2020-01-12 16:00] VITALS: BP 136/52
--- NOTE | 2020-01-12 16:15 | Progress Note ---
DATE: 01/12/2020 SUBJECTIVE: This is an 89-year-old female patient. She has deep vein thrombosis, confused, disorganized. Mood labile. She has got no plans for her own self-care. She has got feelings of helplessness, hopelessness, low energy, poor appetite, altered mental status, worsened by stress of her medical illness. MENTAL STATUS EXAMINATION: This is an 89-year-old female. Appearance is disheveled. Attitude, irritable and agitated. Affect, guarded and restricted. Intellect poor. Mood, depressed and anxious. Motor activity, psychomotor agitation. Attention span is poor. Orientation x2. Speech is nonsensical. Thought process, disorganized and illogical. Insight and judgment is poor. DIAGNOSIS: Major depressive disorder, severe, recurrent with psychotic features, rule out dementia with psychosis. PLAN: Continue to treat this patient with medications to improve her cognition and provided with 20 minutes of insight-oriented psychotherapy to help her recognize her medical and psychiatric condition so that she has better impulse control, behavior, and less depression, anxiety in the unit. Chart is reviewed. Discussed with staff. Seen and assessed at bedside. Vivian Armas M.D. DR: RADHA JOB#: [id number] CC:
--- NOTE | 2020-01-12 19:15 | NUR ---
HAND-OFF: Report given to CASE Harrison. Patient's stable, plan of care endorsed..
--- NOTE | 2020-01-12 19:55 | NUR ---
NURSE NOTES: Received patient report from CASE Anne. Patient is AO x 2. She shows no signs of distress or pain at the time. Patient was found sitting in bed eating dinner. IV intact and patent. There are no signs of erythema, infiltration, or bleeding. Bed is in the lowest position, call light within reach, side rails up x 3.Will continue plan of care.
[2020-01-12 20:00] VITALS: BP 111/66
[2020-01-13] VITALS: BP 115/68
[2020-01-13 04:00] VITALS: BP 100/71
[2020-01-13] MEDS: NovoLOG Insulin Flexpen SUBQ SCH ×4 (06:30→21:00)
--- NOTE | 2020-01-13 06:31 | Hematology/Onc Progress Note ---
Assessment/Plan Assessment/Plan Assessment and Recs # Deep vein thrombosis of the left leg --> likely due to age and immobility --> has been started on lovenox sq bid dosing --> ok to change to eliquis once stable for dc # Secondary polycythemia or erythrocytosis is likely is related to dehydration , volume down --> may need a pulmonary evaluation for above, cxr has been reviewed --> sleep study may be necessary as outpatient --> trend hgb if consistently remains elevated, consider JAK2 --> if remains elevated, further w/u # Coagulopathy with elev inr/ptt --> vit k sq if any bleeding --> hold lovenox prn # HTN # COPD # Dm2 # [facility] resident # DVT ppx with lovenox sq --> consdier outpatient eliquis The timing of this note does not necessarily reflect the time of the patient was seen. GREATLY APPRECIATE CONSULTATION. Subjective HEENT: Denies: no symptoms, eye pain, blurred vision, tearing, double vision, ear pain, ear discharge, nose pain, nose congestion, throat pain, throat swelling, mouth pain, mouth swelling, other Cardiovascular: Denies: no symptoms, chest pain, edema, irregular heart rate, lightheadedness, palpitations, syncope, other Gastrointestinal/Abdominal: Denies: no symptoms, abdomen distended, abdominal pain, black stools, tarry stools, blood in stool, constipated, diarrhea, difficulty swallowing, nausea, poor appetite, poor fluid intake, rectal bleeding , vomiting, other Neurologic/Psychiatric: Denies: no symptoms, anxiety, depressed, emotional problems, headache, numbness, paresthesia, pre-existing deficit, seizure, tingling, tremors, weakness, other Endocrine: Denies: no symptoms, excessive sweating, flushing, intolerance to cold, intolerance to heat, increased hunger, increased thirst, increased urine, unexplained weight gain, unexplained weight loss, other Hematologic/Lymphatic: Denies: no symptoms, anemia, easy bleeding, easy bruising, adenopathy, other Allergies: Coded Allergies: PENICILLINS (Verified Allergy, Unknown, 11/01/12) Uncoded Allergies: PENICILLIN (Allergy, Unknown, 06/01/19) Subjective 01/12 confused, sally rn, no events, no bleeding, on anticoag Objective Objective Current Medications Medications (Trade) Dose Ordered Sig/Joon Route PRN Reason Start Time Stop Time Status Last Admin Dose Admin Acetaminophen/ Hydrocodone Bitart ([place] 5/325) 1 tab Q12HR PRN ORAL For Pain 01/11/20 04:30 01/18/20 04:29 Bisacodyl (Dulcolax) 10 mg DAILY PRN RECTAL Constipation 01/11/20 04:30 04/10/20 04:29 Dextrose (Dextrose 50%) 25 ml Q30M PRN IV Hypoglycemia 01/11/20 04:45 04/10/20 04:44 Dextrose (Dextrose 50%) 50 ml Q30M PRN IV Hypoglycemia 01/11/20 04:45 04/10/20 04:44 Docusate Sodium (Colace) 100 mg BID ORAL 01/11/20 09:00 02/10/20 08:59 01/12/20 18:54 Enoxaparin Sodium (Lovenox) 80 mg EVERY 12 HOURS SUBQ 01/11/20 22:00 04/10/20 21:59 01/12/20 20:39 Famotidine (Pepcid) 20 mg DAILY ORAL 01/11/20 09:00 04/10/20 08:59 01/12/20 08:50 Gabapentin (Neurontin) 100 mg DAILY ORAL 01/11/20 09:00 02/10/20 08:59 01/12/20 08:50 Insulin Aspart (NovoLOG) BEFORE MEALS AND HS SUBQ 01/11/20 06:30 04/10/20 06:29 01/12/20 20:41 Lorazepam (Ativan) 0.5 mg Q6H PRN ORAL For Anxiety 01/11/20 09:45 01/18/20 09:44 Magnesium Hydroxide (Mom) 30 ml DAILY PRN ORAL Constipation 01/11/20 04:30 02/10/20 04:29 Megestrol Acetate (Megace) 40 mg BID ORAL 01/11/20 09:00 01/16/20 08:59 01/12/20 18:54 Memantine (Namenda) 5 mg TWICE A DAY ORAL 01/11/20 09:00 02/10/20 08:59 01/12/20 18:54 Multivitamins (Multivitamins) 1 tab DAILY ORAL 01/11/20 09:00 02/10/20 08:59 01/12/20 08:50 Sodium Phosphate (Fleet's Sodium Phosl Enema) 133 ml DAILY PRN RECTAL Constipation 01/11/20 04:30 02/10/20 04:29 Zolpidem Tartrate (Ambien) 5 mg HSPRN PRN ORAL Insomnia 01/11/20 04:30 01/18/20 04:29 Last 24 Hour Vital Signs Date Time Temp Pulse Resp B/P (MAP) Pulse Ox O2 Delivery O2 Flow Rate FiO2 01/13/20 04:00 78 01/13/20 04:00 97.9 90 19 100/71 (81) 100 01/13/20 00:00 97.9 91 19 115/68 (84) 91 01/13/20 00:00 74 01/12/20 21:00 Room Air 01/12/20 20:00 85 01/12/20 20:00 98.2 98 19 111/66 (81) 94 01/12/20 16:00 98.1 80 19 136/52 (80) 94 01/12/20 16:00 79 01/12/20 12:00 83 01/12/20 11:58 97.5 82 19 105/69 (81) 94 01/12/20 09:00 Room Air 01/12/20 08:00 97.8 79 19 126/65 (85) 95 01/12/20 08:00 81 01/12/20 04:00 97.9 86 19 104/69 (81) 93 01/12/20 00:00 75 01/12/20 00:00 98.1 81 18 114/63 (80) 94 01/11/20 21:00 Room Air 01/11/20 20:00 79 01/11/20 20:00 97.5 77 19 122/46 (71) 96 01/11/20 16:00 97.3 83 16 133/51 (78) 98 01/11/20 12:00 77 01/11/20 12:00 97.8 76 20 123/43 (69) 98 01/11/20 09:00 Room Air 01/11/20 08:00 71 01/11/20 08:00 97.5 73 20 101/58 (72) 98 Intake and Output 01/12/20 01/13/20 19:00 07:00 Intake Total 436 ml Output Total 200 ml Balance 436 ml -200 ml Intake Oral 436 ml Output Urine Total 200 ml # Voids 1 # Bowel Movements 1 1 Labs Test 01/11/20 01:00 01/11/20 01:15 01/12/20 10:35 White Blood Count 7.5 K/UL (4.8-10.8) 6.3 K/UL (4.8-10.8) Red Blood Count 4.06 M/UL (4.20-5.40) 4.15 M/UL (4.20-5.40) Hemoglobin 13.3 G/DL (12.0-16.0) 13.6 G/DL (12.0-16.0) Hematocrit 39.6 % (37.0-47.0) 40.2 % (37.0-47.0) Mean Corpuscular Volume 98 FL (80-99) 97 FL (80-99) Mean Corpuscular Hemoglobin 32.7 PG (27.0-31.0) 32.8 PG (27.0-31.0) Mean Corpuscular Hemoglobin Concent 33.5 G/DL (32.0-36.0) 33.9 G/DL (32.0-36.0) Red Cell Distribution Width 12.5 % (11.6-14.8) 12.1 % (11.6-14.8) Platelet Count 233 K/UL (150-450) 233 K/UL (150-450) Mean Platelet Volume 7.5 FL (6.5-10.1) 7.7 FL (6.5-10.1) Neutrophils (%) (Auto) 42.0 % (45.0-75.0) 42.6 % (45.0-75.0) Lymphocytes (%) (Auto) 39.8 % (20.0-45.0) 42.8 % (20.0-45.0) Monocytes (%) (Auto) 8.7 % (1.0-10.0) 5.8 % (1.0-10.0) Eosinophils (%) (Auto) 8.0 % (0.0-3.0) 7.5 % (0.0-3.0) Basophils (%) (Auto) 1.5 % (0.0-2.0) 1.3 % (0.0-2.0) Sodium Level 137 MMOL/L (136-145) 137 MMOL/L (136-145) Potassium Level 4.5 MMOL/L (3.5-5.1) 4.2 MMOL/L (3.5-5.1) Chloride Level 103 MMOL/L (98-107) 103 MMOL/L (98-107) Carbon Dioxide Level 26 MMOL/L (21-32) 26 MMOL/L (21-32) Anion Gap 9 mmol/L (5-15) 8 mmol/L (5-15) Blood Urea Nitrogen 21 mg/dL (7-18) 11 mg/dL (7-18) Creatinine 1.1 MG/DL (0.55-1.30) 1.0 MG/DL (0.55-1.30) Estimat Glomerular Filtration Rate 46.7 mL/min (>60) 52.2 mL/min (>60) Glucose Level 202 MG/DL (74-106) 157 MG/DL (74-106) Calcium Level 8.6 MG/DL (8.5-10.1) 8.8 MG/DL (8.5-10.1) Total Bilirubin 0.5 MG/DL (0.2-1.0) Aspartate Amino Transf (AST/SGOT) 14 U/L (15-37) Alanine Aminotransferase (ALT/SGPT) < 6 U/L (12-78) Alkaline Phosphatase 91 U/L (46-116) Troponin I 0.000 ng/mL (0.000-0.056) Total Protein 7.6 G/DL (6.4-8.2) Albumin 2.7 G/DL (3.4-5.0) Globulin 4.9 g/dL Albumin/Globulin Ratio 0.6 (1.0-2.7) Prothrombin Time 13.0 SEC (9.30-11.50) Prothromb Time International Ratio 1.2 (0.9-1.1) Activated Partial Thromboplast Time 37 SEC (23-33) Height (Feet): 5 Height (Inches): 4.00 Weight (Pounds): 169 Objective PE General: Awake, no obvious distress HEENT: NC/AT. EOMI. hard of hearing. Cardiovascular: RRR. S1 and S2 normal. Resp: Normal work of breathing. No cough, Abdomen: Abdomen is soft, nondistended Skin: Intact. No abrasions, laceration or rash over the exposed skin MSK: Normal tone and bulk. Moving all extremities Neuro: Awake, demented, no obvious distress. Rdoerick Branch MD Jan 13, 2020 06:31
[2020-01-13 07:05] LABS: BASOPHILS % (AUTO) 1.4 % (0.0-2.0); HEMATOCRIT 40.2 % (37.0-47.0); HEMOGLOBIN 13.1 G/DL (12.0-16.0); LYMPHOCYTES % (AUTO) 46.2 % (20.0-45.0); MEAN CORPUSCULAR VOLUME 99 FL (80-99); MONOCYTES % (AUTO) 6.9 % (1.0-10.0); NEUTROPHILS % (AUTO) 38.6 % (45.0-75.0); PLATELET COUNT 228 K/UL (150-450); RED BLOOD COUNT 4.07 M/UL (4.20-5.40); RED CELL DISTRIBUTION WIDTH 12.4 % (11.6-14.8); WHITE BLOOD COUNT 5.3 K/UL (4.8-10.8)
[2020-01-13 07:18] LABS: ANION GAP 8 mmol/L (5-15); BLOOD UREA NITROGEN 17 mg/dL (7-18); CALCIUM 8.5 MG/DL (8.5-10.1); CARBON DIOXIDE 25 MMOL/L (21-32); CHLORIDE 107 MMOL/L (98-107); CREATININE 1.1 MG/DL (0.55-1.30); POTASSIUM 3.8 MMOL/L (3.5-5.1); SODIUM 139 MMOL/L (136-145)
--- NOTE | 2020-01-13 07:30 | NUR ---
NURSE NOTES: Nurse report given by CASE Harrison. Patient's awake and eating breakfast in bed, Arabic speaking only, AO x 2, denies pain, no s/s distress or SOB, breathing regular and unlabored, breath sounds cleared. Bed low and locked, call light within reach, side rails x 3, bed alarm is armed. IV is saline locked, patent and asymptomatic. Left leg is slightly swell more than right, warm to touch, patient withdraw from pain when touch. Will continue to monitor.
--- NOTE | 2020-01-13 07:32 | NUR ---
HAND-OFF: Report given to CASE Anne. Patient shows no signs of distress or pain at the time. Endorsed plan of care.
[2020-01-13 08:00] VITALS: BP 113/65
[2020-01-13] MEDS: Memantine 5 MG TAB ORAL SCH ×2 (08:50→18:08)
[2020-01-13] MEDS: Docusate 100mg cap ORAL SCH ×2 (08:51→18:09)
[2020-01-13] MEDS: Enoxaparin 80mg Inj SUBQ SCH ×2 (08:51→21:58)
--- NOTE | 2020-01-13 09:14 | Progress Note ---
DATE: 01/13/2020 SUBJECTIVE: This is an 89-year-old female patient with deep vein thrombosis , some confusion, altered mental status, and overall decline in cognition below her baseline. That is why, her attending physician has requested daily psychiatric consultation at this time. MENTAL STATUS EXAMINATION: This is an 89-year-old female. Appearance is disheveled. Attitude, irritable and agitated. Affect, guarded and restricted. Intellect, poor. Mood, depressed and anxious. Motor activity, psychomotor agitation. Attention span is poor. Orientation x2. Speech is low volume and slurred. Thought process, disorganized and illogical. Insight and judgment is poor. DIAGNOSIS: Major depressive disorder, severe, recurrent with psychotic features, rule out dementia with psychosis. PLAN: Continue treatment with medications to stabilize her mood and to prevent further decline in cognition. Chart reviewed. Discussed with Staff. Seen and assessed in her room. 20 minutes of reality-based supportive psychotherapy provided. Vivian Armas M.D. DR: ATUL JOB#: [id number] CC:
--- NOTE | 2020-01-13 09:30 | Progress Note ---
DATE: 01/13/2020 ADDENDUM The patient received 20 minutes of insight-oriented psychotherapy to help her recognize psychiatric and medical condition so that she has more awareness of her condition, that she has better impulse control, and less depression and anxiety. Vivian Armas M.D. DR: ATUL JOB#: [id number] CC:
--- NOTE | 2020-01-13 10:54 | NUR ---
GENERAL PURCHASING AGENT SWALLOW EVALUATION (Please see care activity section for complete report.) PATIENT REFERRED FOR BEDSIDE SWALLOW EVALUATION BY DR. MAGDALENO DYSPHAGIA RISK FACTORS FOR THIS 89 Y.O. [place]-SPEAKING FEMALE: ACUTE: DVT of lower extremity, major depressive disorder, AMS, failure to thrive. H/O: End stage renal disease, protein-calorie malnutrition, malignant neoplasm of cervix, major depressive disorder, HTN, osteoarthritis, oropharyngeal dysphagia, COPD, Dementia, generalized muscle weakness, DM2, glaucoma, DVT, psychosis. RELEVANT MEDS: Gabapentin ([place]). Megace (Appetite Stimulant). Pepcid (GERD). PLOF: Mechanical soft with thin liquids. VITALS ON ROOM AIR: Patient seen at bedside, positioned upright with breakfast tray at bedside appearing untouched. Patient is able to express wants and needs in Norwegian without difficulties. Oral motor ROM and coordination appearing functional for >90% speech intelligibility. Patient appearing with emotional lability and noted to begin to become tearful due to not liking breakfast tray; Patient requested a roll and coffee. GENERAL PURCHASING AGENT went to kitchen, Patient agreeable to eat muffin and coffee. INITIAL IMPRESSIONS Mild Oral phase Dysphagia, questionable level of pharyngeal phase dysphagia with mildly prolonged rotary mastication, oropharyngeal transit times WFL for Patient's age, mild amt of oral residuals remaining, laryngeal elevation is fair compounded by cognitive-behavioral deficits (AMS, h/o Dementia, major depressive disorder) and exacerbated by failure to thrive and protein-calorie malnutrition. No overt s/s of aspiration with Chopped Solids or Thin Liquids. Given soft solid (muffin) and thin liquids, slightly prolonged rotary mastication/oral transit to BOT, mild oral residuals which Patient cleared with liquid rinse and second swallow. No overt s/s of aspiration with any PO trials. PATIENT HAS RISK FOR POOR PO GIVEN H/O OF FTT, AND COGNITIVE-BEHAVIORAL DEFICITS (AMS, DEMENTIA) RECOMMENDATIONS: 1. Mechanical Soft, Chopped with Thin Liquids diet, Please assist Patient with tray set up . --> Dietary consult for diet type/supplements? 2. GENERAL PURCHASING AGENT plans to f/u 3x a week x 1 week for diet tolerance, dysphagia tx and management. 3. Please assist Patient with oral hygiene BID GENERAL PURCHASING AGENT plans to f/u with Patient for diet tolerance, dysphagia tx and management. thank you for this referral! GENERAL PURCHASING AGENT [phone]
--- NOTE | 2020-01-13 10:55 | General Progress Note ---
Assessment/Plan Problem List: (1) Diabetes ICD Codes: E11.9 - Type 2 diabetes mellitus without complications SNOMED: 45632488 (2) HTN (hypertension) ICD Codes: I10 - Essential (primary) hypertension SNOMED: 73997905 (3) Failure to thrive SNOMED: 60980951 (4) Malnutrition ICD Codes: E46 - Unspecified protein-calorie malnutrition SNOMED: 24496280 (5) Left leg DVT ICD Codes: I82.402 - Acute embolism and thrombosis of unspecified deep veins of left lower extremity SNOMED: 917474561 Status: unchanged Assessment/Plan: anticoag per heme bp bs control cbc bmp am Subjective Constitutional: Reports: weakness Allergies: Coded Allergies: PENICILLINS (Verified Allergy, Unknown, 11/01/12) Uncoded Allergies: PENICILLIN (Allergy, Unknown, 06/01/19) All Systems: reviewed and negative except above Subjective calm in bed eating Objective Last 24 Hour Vital Signs Date Time Temp Pulse Resp B/P (MAP) Pulse Ox O2 Delivery O2 Flow Rate FiO2 01/13/20 09:00 Room Air 01/13/20 08:00 98.2 86 19 113/65 (81) 95 01/13/20 08:00 86 01/13/20 04:00 78 01/13/20 04:00 97.9 90 19 100/71 (81) 100 01/13/20 00:00 97.9 91 19 115/68 (84) 91 01/13/20 00:00 74 01/12/20 21:00 Room Air 01/12/20 20:00 85 01/12/20 20:00 98.2 98 19 111/66 (81) 94 01/12/20 16:00 98.1 80 19 136/52 (80) 94 01/12/20 16:00 79 01/12/20 12:00 83 01/12/20 11:58 97.5 82 19 105/69 (81) 94 Intake and Output 01/12/20 01/13/20 19:00 07:00 Intake Total 436 ml Output Total 200 ml Balance 436 ml -200 ml Intake Oral 436 ml Output Urine Total 200 ml # Voids 1 # Bowel Movements 1 1 Laboratory Tests 01/13/20 05:32: White Blood Count 5.3, Red Blood Count 4.07L, Hemoglobin 13.1, Hematocrit 40.2, Mean Corpuscular Volume 99, Mean Corpuscular Hemoglobin 32.1H, Mean Corpuscular Hemoglobin Concent 32.5, Red Cell Distribution Width 12.4, Platelet Count 228, Mean Platelet Volume 7.0, Neutrophils (%) (Auto) 38.6L, Lymphocytes (%) (Auto) 46.2H, Monocytes (%) (Auto) 6.9, Eosinophils (%) (Auto) 7.0H, Basophils (%) ( Auto) 1.4, Sodium Level 139, Potassium Level 3.8, Chloride Level 107, Carbon Dioxide Level 25, Anion Gap 8, Blood Urea Nitrogen 17, Creatinine 1.1, Estimat Glomerular Filtration Rate 46.7, Glucose Level 123H, Calcium Level 8.5 Height (Feet): 5 Height (Inches): 4.00 Weight (Pounds): 169 General Appearance: lethargic EENT: normal ENT inspection Neck: normal alignment Cardiovascular: normal peripheral pulses, normal rate, regular rhythm Respiratory/Chest: chest wall non-tender, lungs clear, normal breath sounds Abdomen: normal bowel sounds, non tender, soft Extremities: normal inspection Edema: no edema noted Arm (L), no edema noted Arm (R), no edema noted Leg (L), no edema noted Leg (R), no edema noted Pedal (L), no edema noted Pedal (R), no edema noted Generalized Neurologic: motor weakness Skin: normal pigmentation, warm/dry Chalo Ayala DO Jan 13, 2020 10:55
[2020-01-13 12:00] VITALS: BP 126/60
[2020-01-13] MEDS ORDERED: HYDROcodone/Acetamin 5/325 tab ORAL PRN (12:00)
[2020-01-13] MEDS ORDERED: Milk of Magnesia 30ml Ud ORAL PRN (12:00)
[2020-01-13] MEDS ORDERED: LORazepam 0.5mg tab ORAL PRN (12:00)
--- NOTE | 2020-01-13 12:40 | NUR ---
CASE MANAGEMENT:REVIEW 89 YR OLD FEMALE BIBA FROM [facility] CC: EVALUATE LLE DVT FROM 01/10/20 SI: LLE DVT 97.7 88 18 140/86 99% ON RA BUN+21 GLUCOSE+202 IS: LOVENOX SQ : ADMITTED TO TELEMETRY IS: MEGACE PO BID PEPCID PO QD NEURONTIN PO QD MEGACE PO BID SSI AC+HS
[2020-01-13 16:00] VITALS: BP 119/63
--- NOTE | 2020-01-13 16:24 | NUR ---
HAND-OFF: Report given to CASE Hodge. Patient's in stable condition. AO x2, denies pain, no s/s of distress or SOB. Patient's belonging went over with patient and nurse at bedside. Transferred orders carried out. environmental monitoring specialist removed. .
--- NOTE | 2020-01-13 16:32 | NUR ---
NURSE NOTES: Pt is transferred from telemetry floor alert and awake. respiration is even and unlabored. no acute distress noted at this time. pt is made comfortable in her new room, placed call light within reach, bed locked for safety, will continue to follow place of care.
--- NOTE | 2020-01-13 19:14 | NUR ---
HAND-OFF: Report given to Olivia.
[2020-01-13 20:00] VITALS: BP 147/95
--- NOTE | 2020-01-13 20:00 | NUR ---
NURSE NOTES: Received patient awake in bed, kuwaiti speaking, no s/s of acute distress, no c/o pain at this time. Bed low and locked. Patient wearing non slip socks.
[2020-01-13] MEDS ORDERED: Zolpidem 5mg tab ORAL PRN (21:00)
[2020-01-14] VITALS: BP 153/74
[2020-01-14 04:00] VITALS: BP 161/71
[2020-01-14] MEDS: NovoLOG Insulin Flexpen SUBQ SCH ×4 (06:24→20:05)
[2020-01-14 06:46] LABS: BASOPHILS % (AUTO) 1.1 % (0.0-2.0); EOSINOPHILS % (AUTO) 3.7 % (0.0-3.0); HEMATOCRIT 42.8 % (37.0-47.0); LYMPHOCYTES % (AUTO) 34.2 % (20.0-45.0); MEAN CORPUSCULAR VOLUME 98 FL (80-99); MONOCYTES % (AUTO) 7.6 % (1.0-10.0); NEUTROPHILS % (AUTO) 53.4 % (45.0-75.0); PLATELET COUNT 237 K/UL (150-450); RED BLOOD COUNT 4.36 M/UL (4.20-5.40); RED CELL DISTRIBUTION WIDTH 12.2 % (11.6-14.8)
[2020-01-14 06:48] LABS: ANION GAP 11 mmol/L (5-15); BLOOD UREA NITROGEN 14 mg/dL (7-18); CALCIUM 8.5 MG/DL (8.5-10.1); CARBON DIOXIDE 25 MMOL/L (21-32); CHLORIDE 104 MMOL/L (98-107); POTASSIUM 4.1 MMOL/L (3.5-5.1); SODIUM 139 MMOL/L (136-145)
--- NOTE | 2020-01-14 07:19 | NUR ---
HAND-OFF: Report given to CASE Harmon.
--- NOTE | 2020-01-14 07:22 | NUR ---
NURSE NOTES: Received report from CASE Figueroa. Pt received sitting in high feliz's position eating breakfast in hospital bed. Pt is AAO x 1-2, able to make some needs known, nonambulatory/bedbound, on RA with no s/s of respiratory distress. Pt is incontinent x [address] and LBM on 01/13/2020. Pt has multiple skin issues including L leg DVT, +2 pitting edema to BLE, B hip DTI, R leg and R heel pressure injuries. Pt has pIV on R FA 18g with saline lock. Call light within reach, bed in lowest position with bed alarm on. Will continue POC.
[2020-01-14 08:00] VITALS: BP 124/78
[2020-01-14] MEDS: Enoxaparin 80mg Inj SUBQ SCH ×2 (08:54→20:05)
[2020-01-14] MEDS: Memantine 5 MG TAB ORAL SCH ×2 (08:55→18:25)
[2020-01-14] MEDS: Docusate 100mg cap ORAL SCH ×3 (08:55→18:00)
[2020-01-14] MEDS ORDERED: Fleet's Enema 133ml RECTAL PRN (09:00)
--- NOTE | 2020-01-14 09:50 | NUR ---
RD ASSESSMENT & RECOMMENDATIONS SEE CARE ACTIVITY FOR COMPLETE ASSESSMENT DAILY ESTIMATED NEEDS: Needs based on Diabetes, wound/ 55.5kg 25-30 kcals/kg 0285-5771 total kcals 1.25-1.5 g protein/kg 69-83 g total protein 20-25 mL/kg 5343-7826 total fluid mLs NUTRITION DIAGNOSIS: Swallowing difficulty R/T dysphagia as evidenced by pt on ms ground texture diet. CURRENT DIET:CCHO MED/ ms ground PO DIET RECOMMENDATIONS: CCHO LOW / Texture per BLOW PIT HELPER + Glucerna TID ADDITIONAL RECOMMENDATIONS: * Calibrated bescale wt: 122# per bed scale vs 169# per EMR * A1C for evaluation of glycemic control * Rec WC eval * Glucerna BID w/ current variable intake, monitor trend, need for TID . .
[2020-01-14 12:00] VITALS: BP 110/49
--- NOTE | 2020-01-14 13:12 | General Progress Note ---
Assessment/Plan Problem List: (1) Diabetes ICD Codes: E11.9 - Type 2 diabetes mellitus without complications SNOMED: 91098741 (2) HTN (hypertension) ICD Codes: I10 - Essential (primary) hypertension SNOMED: 30546939 (3) Failure to thrive SNOMED: 38112982 (4) Malnutrition ICD Codes: E46 - Unspecified protein-calorie malnutrition SNOMED: 83654503 (5) Left leg DVT ICD Codes: I82.402 - Acute embolism and thrombosis of unspecified deep veins of left lower extremity SNOMED: 776891237 Status: unchanged Assessment/Plan: anticoag per heme bp bs control cbc bmp am aru eval Subjective Constitutional: Reports: weakness Allergies: Coded Allergies: PENICILLINS (Verified Allergy, Unknown, 11/01/12) Uncoded Allergies: PENICILLIN (Allergy, Unknown, 06/01/19) All Systems: reviewed and negative except above Subjective calm in bed eating Objective Last 24 Hour Vital Signs Date Time Temp Pulse Resp B/P (MAP) Pulse Ox O2 Delivery O2 Flow Rate FiO2 01/14/20 12:00 98.1 80 20 110/49 (69) 96 01/14/20 09:00 Room Air 01/14/20 08:00 98.1 76 18 124/78 (93) 96 01/14/20 04:00 97.9 78 18 161/71 (101) 94 01/14/20 00:00 98.3 82 18 153/74 (100) 94 01/13/20 20:59 Room Air 01/13/20 20:00 98.1 83 18 147/95 (112) 94 01/13/20 16:00 98.1 80 18 119/63 (81) 94 Intake and Output 01/13/20 01/14/20 19:00 07:00 Intake Total 238 ml 240 ml Output Total 300 ml Balance 238 ml -60 ml Intake Oral 238 ml 240 ml Output Urine Total 300 ml # Voids 1 # Bowel Movements 1 1 Laboratory Tests 01/14/20 06:05: White Blood Count 8.0#, Red Blood Count 4.36, Hemoglobin 14.0, Hematocrit 42.8, Mean Corpuscular Volume 98, Mean Corpuscular Hemoglobin 32.2H, Mean Corpuscular Hemoglobin Concent 32.8, Red Cell Distribution Width 12.2, Platelet Count 237, Mean Platelet Volume 6.7, Neutrophils (%) (Auto) 53.4, Lymphocytes (%) (Auto) 34.2, Monocytes (%) (Auto) 7.6, Eosinophils (%) (Auto) 3.7H, Basophils (%) (Auto ) 1.1, Sodium Level 139, Potassium Level 4.1, Chloride Level 104, Carbon Dioxide Level 25, Anion Gap 11, Blood Urea Nitrogen 14, Creatinine 1.0, Estimat Glomerular Filtration Rate 52.2, Glucose Level 130H, Calcium Level 8.5 Height (Feet): 5 Height (Inches): 4.00 Weight (Pounds): 169 General Appearance: lethargic EENT: normal ENT inspection Neck: normal alignment Cardiovascular: normal peripheral pulses, normal rate, regular rhythm Respiratory/Chest: chest wall non-tender, lungs clear, normal breath sounds Abdomen: normal bowel sounds, non tender, soft Extremities: normal inspection Edema: no edema noted Arm (L), no edema noted Arm (R), no edema noted Leg (L), no edema noted Leg (R), no edema noted Pedal (L), no edema noted Pedal (R), no edema noted Generalized Neurologic: motor weakness Skin: normal pigmentation, warm/dry Chalo Ayala DO Jan 14, 2020 13:12
--- NOTE | 2020-01-14 13:14 | NUR ---
PATIENT SEEN FOR DYSPHAGIA TX SESSION, CLEARED BY RN FLORENTINO. PATIENTS HX POSITIVE FOR MALNUTRITION/DEHYDRATION/FAILURE TO THRIVE. SHE WAS AWAKE/ALERT, [place] SPEAKING AND AGREEABLE TO ST INTERVENTION. 3 OZ TRIAL WITH PUREE AND THIN LIQUIDS OBSERVED. ORAL PHASE PRESENTED MINIMALLY DELAYED CONSISTENT WITH HER AGE GROUP. NO OVERT S/S OF ASPIRATION NOTED PER CHART REVIEW, PATIENTS P.O. INTAKE THIS MORNING APPROX. 75% PERHAPS ATTRIBUTABLE TO MEGACE BID. RECOMMEND: 1. CONTINUE CURRENT DIET PER MEALTIME PROTOCOL POSTED AT BEDSIDE. 2. ORAL CARE 3X DAILY TO REDUCE ORAL PATHOGENS AND TO PREVENT DEVELOPMENT OF NOSOCOMIAL PNEUMONIA 3. ST TO FOLLOW FOR DIET TOLERANCE, ANALYZE/ADJUST DIET TEXTURE
--- NOTE | 2020-01-14 15:50 | NUR ---
NURSE NOTES: Notified Dr. Sarina Wheeler leg circumference measurement change from last night (25.5cm) to today (29 cm). Awaiting response. Will continue to f/u.
--- NOTE | 2020-01-14 15:59 | NUR ---
NURSE NOTES: Received response from Dr. Branch. No new orders at this time.
[2020-01-14 16:00] VITALS: BP 159/64
--- NOTE | 2020-01-14 19:15 | Progress Note ---
DATE: 01/14/2020 SUBJECTIVE: This is an 89-year-old female patient. She has sepsis, renal insufficiency, tachycardia, gallbladder, injury to lower extremity, and decubitus ulcers causing altered mental status and decline in cognition below the baseline. MENTAL STATUS EXAMINATION: This is an 89-year-old female. Appearance is disheveled. Attitude, irritable and agitated. Affect, guarded and restricted. Intellect, poor. Mood, depressed and anxious. Motor activity, psychomotor agitation. Insight and judgment is poor. DIAGNOSIS: Major depressive disorder, mild, recurrent with psychotic features. PLAN: Plan for this patient is to treat her with the medication regimen consisting of Namenda 5 mg twice a day to prevent any further decline in cognition, Ativan 0.5 mg every six hours p.r.n. anxiety, agitation and insomnia, Neurontin 100 mg daily. 20 minutes of insight-oriented psychotherapy to help with this patient to try and improve her awareness of her physical and psychiatric condition so that she has better understanding and awareness of the condition, physical and medical, to reduce depression, anxiety, and better impulse control. Chart reviewed. Discussed with staff. Seen and assessed at bedside. Vivian Armas M.D. DR: ATUL JOB#: [id number] CC:
[2020-01-14 20:00] VITALS: BP 157/63
--- NOTE | 2020-01-14 20:00 | NUR ---
NURSE NOTES: Received patient awake in bed, zambian speaking, no s/s of acute distress, no c/o pain at this time. Patient repositioned in bed and pulled up. Bed low and locked. Patient wearing non slip socks.
[2020-01-15] VITALS: BP 153/70
[2020-01-15 04:00] VITALS: BP 136/72
[2020-01-15] MEDS: NovoLOG Insulin Flexpen SUBQ SCH ×4 (06:04→21:00)
[2020-01-15 06:24] LABS: BASOPHILS % (AUTO) 1.1 % (0.0-2.0); EOSINOPHILS % (AUTO) 5.2 % (0.0-3.0); HEMATOCRIT 43.5 % (37.0-47.0); HEMOGLOBIN 14.3 G/DL (12.0-16.0); MEAN CORPUSCULAR VOLUME 99 FL (80-99); MONOCYTES % (AUTO) 6.9 % (1.0-10.0); NEUTROPHILS % (AUTO) 40.8 % (45.0-75.0); PLATELET COUNT 225 K/UL (150-450); RED CELL DISTRIBUTION WIDTH 12.4 % (11.6-14.8); WHITE BLOOD COUNT 7.1 K/UL (4.8-10.8)
--- NOTE | 2020-01-15 07:40 | NUR ---
NURSE NOTES: Received report from CASE Baker. Pt received sitting in high feliz's position eating breakfast in hospital bed. Pt is A/A/O x 2, confused. impulsiveness. able to feed self with minimal assist. bedrest on RA with no s/s of respiratory distress. Pt is incontinent x [address] Pt has multiple skin issues including L leg DVT, +2 pitting edema to BLE, B hip DTI, R leg and R heel pressure injuries. Pt has pIV on R FA 18g with saline lock. Call light within reach, bed in lowest position with bed alarm on. Will continue to monitor.
[2020-01-15 08:00] VITALS: BP 149/68
[2020-01-15 08:14] LABS: BLOOD UREA NITROGEN 14 mg/dL (7-18); CALCIUM 8.8 MG/DL (8.5-10.1); CARBON DIOXIDE 23 MMOL/L (21-32); CHLORIDE 106 MMOL/L (98-107); POTASSIUM 4.1 MMOL/L (3.5-5.1)
[2020-01-15] MEDS: Memantine 5 MG TAB ORAL SCH ×2 (08:28→18:01)
[2020-01-15] MEDS: Docusate 100mg cap ORAL SCH ×2 (08:28→18:00)
[2020-01-15] MEDS: Enoxaparin 80mg Inj SUBQ SCH ×2 (08:30→21:55)
[2020-01-15 08:49] LABS: SODIUM 141 MMOL/L (136-145)
--- NOTE | 2020-01-15 09:12 | General Progress Note ---
Assessment/Plan Problem List: (1) Diabetes ICD Codes: E11.9 - Type 2 diabetes mellitus without complications SNOMED: 79286269 (2) HTN (hypertension) ICD Codes: I10 - Essential (primary) hypertension SNOMED: 29632410 (3) Failure to thrive SNOMED: 03799415 (4) Malnutrition ICD Codes: E46 - Unspecified protein-calorie malnutrition SNOMED: 19624856 (5) Left leg DVT ICD Codes: I82.402 - Acute embolism and thrombosis of unspecified deep veins of left lower extremity SNOMED: 756768435 Status: stable, progressing Assessment/Plan: anticoag per heme bp bs control cbc bmp am dc plan Subjective Constitutional: Reports: weakness Allergies: Coded Allergies: PENICILLINS (Verified Allergy, Unknown, 11/01/12) Uncoded Allergies: PENICILLIN (Allergy, Unknown, 06/01/19) All Systems: reviewed and negative except above Subjective calm in bed Objective Last 24 Hour Vital Signs Date Time Temp Pulse Resp B/P (MAP) Pulse Ox O2 Delivery O2 Flow Rate FiO2 01/15/20 08:00 98.5 80 18 149/68 (95) 96 01/15/20 04:00 97.0 73 20 136/72 (93) 96 01/15/20 03:12 Room Air 01/15/20 00:00 97.6 78 19 153/70 (97) 96 01/14/20 20:52 Room Air 01/14/20 20:00 97.5 85 19 157/63 (94) 96 01/14/20 16:00 97.7 84 19 159/64 (95) 96 01/14/20 12:00 98.1 80 20 110/49 (69) 96 Intake and Output 01/14/20 01/15/20 19:00 07:00 Intake Total 600 ml Output Total 300 ml 500 ml Balance 300 ml -500 ml Intake Oral 600 ml Output Urine Total 300 ml 500 ml # Voids 2 # Bowel Movements 2 3 Laboratory Tests 01/15/20 05:40: White Blood Count 7.1, Red Blood Count 4.40, Hemoglobin 14.3, Hematocrit 43.5, Mean Corpuscular Volume 99, Mean Corpuscular Hemoglobin 32.5H, Mean Corpuscular Hemoglobin Concent 32.8, Red Cell Distribution Width 12.4, Platelet Count 225, Mean Platelet Volume 7.0, Neutrophils (%) (Auto) 40.8L, Lymphocytes (%) (Auto) 46.0H, Monocytes (%) (Auto) 6.9, Eosinophils (%) (Auto) 5.2H, Basophils (%) ( Auto) 1.1, Sodium Level 141, Potassium Level 4.1, Chloride Level 106, Carbon Dioxide Level 23, Blood Urea Nitrogen 14, Creatinine 1.0, Estimat Glomerular Filtration Rate 52.2, Glucose Level 108H, Calcium Level 8.8 Height (Feet): 5 Height (Inches): 4.00 Weight (Pounds): 167 General Appearance: lethargic EENT: normal ENT inspection Neck: normal alignment Cardiovascular: normal peripheral pulses, normal rate, regular rhythm Respiratory/Chest: chest wall non-tender, lungs clear, normal breath sounds Abdomen: normal bowel sounds, non tender, soft Extremities: normal inspection Edema: no edema noted Arm (L), no edema noted Arm (R), no edema noted Leg (L), no edema noted Leg (R), no edema noted Pedal (L), no edema noted Pedal (R), no edema noted Generalized Neurologic: motor weakness Skin: normal pigmentation, warm/dry Chalo Ayala DO Jan 15, 2020 09:12
--- NOTE | 2020-01-15 09:32 | Hematology/Onc Progress Note ---
Assessment/Plan Assessment/Plan Assessment and Recs # Deep vein thrombosis of the left leg --> likely due to age and immobility --> has been started on lovenox sq bid dosing --> ok to change to eliquis once stable for dc # Secondary polycythemia or erythrocytosis is likely is related to dehydration , volume down --> may need a pulmonary evaluation for above, cxr has been reviewed --> sleep study may be necessary as outpatient --> trend hgb if consistently remains elevated, consider JAK2 --> if remains elevated, further w/u # Coagulopathy with elev inr/ptt --> vit k sq if any bleeding --> hold lovenox prn # HTN # COPD # Dm2 # NH resident # DVT ppx with lovenox sq --> consdier outpatient eliquis The timing of this note does not necessarily reflect the time of the patient was seen. GREATLY APPRECIATE CONSULTATION. Subjective HEENT: Denies: no symptoms, eye pain, blurred vision, tearing, double vision, ear pain, ear discharge, nose pain, nose congestion, throat pain, throat swelling, mouth pain, mouth swelling, other Cardiovascular: Denies: no symptoms, chest pain, edema, irregular heart rate, lightheadedness, palpitations, syncope, other Respiratory: Denies: no symptoms, cough, shortness of breath, SOB with excertion, SOB at rest, sputum, wheezing, other Gastrointestinal/Abdominal: Denies: no symptoms, abdomen distended, abdominal pain, black stools, tarry stools, blood in stool, constipated, diarrhea, difficulty swallowing, nausea, poor appetite, poor fluid intake, rectal bleeding , vomiting, other Genitourinary: Denies: no symptoms, burning, discharge, frequency, flank pain, hematuria, incontinence, pain, urgency, other Neurologic/Psychiatric: Denies: no symptoms, anxiety, depressed, emotional problems, headache, numbness, paresthesia, pre-existing deficit, seizure, tingling, tremors, weakness, other Endocrine: Denies: no symptoms, excessive sweating, flushing, intolerance to cold, intolerance to heat, increased hunger, increased thirst, increased urine, unexplained weight gain, unexplained weight loss, other Allergies: Coded Allergies: PENICILLINS (Verified Allergy, Unknown, 11/01/12) Uncoded Allergies: PENICILLIN (Allergy, Unknown, 06/01/19) Subjective 01/12 confused, dw rn, no events, no bleeding, on anticoag 01/13 no major changes, on anticoag, no bleeding 01/14 remains on lovenox and consider doac once discharged such as eliquis/ xarelto Objective Objective Current Medications Medications (Trade) Dose Ordered Sig/Joon Route PRN Reason Start Time Stop Time Status Last Admin Dose Admin Acetaminophen/ Hydrocodone Bitart ([place] 5/325) 1 tab Q12H PRN ORAL PAIN 4-10 01/13/20 12:00 01/20/20 11:59 Bisacodyl (Dulcolax) 10 mg DAILYPRN PRN RECTAL Constipation 01/13/20 12:00 04/12/20 11:59 Dextrose (Dextrose 50%) 25 ml Q30M PRN IV Hypoglycemia 01/13/20 11:15 04/10/20 04:44 Dextrose (Dextrose 50%) 50 ml Q30M PRN IV Hypoglycemia 01/13/20 11:15 04/10/20 04:44 Docusate Sodium (Colace) 100 mg BID ORAL 01/13/20 18:00 02/10/20 08:59 01/15/20 08:28 Enoxaparin Sodium (Lovenox) 80 mg EVERY 12 HOURS SUBQ 01/13/20 21:00 04/10/20 21:59 01/15/20 08:30 Famotidine (Pepcid) 20 mg DAILY ORAL 01/14/20 09:00 04/10/20 08:59 01/15/20 08:28 Gabapentin (Neurontin) 100 mg DAILY ORAL 01/14/20 09:00 02/10/20 08:59 01/15/20 08:28 Insulin Aspart (NovoLOG) BEFORE MEALS AND HS SUBQ 01/13/20 11:30 04/10/20 06:29 01/14/20 20:05 Lorazepam (Ativan) 0.5 mg Q6H PRN ORAL For Anxiety 01/13/20 12:00 01/18/20 11:59 Magnesium Hydroxide (Mom) 30 ml DAILYPRN PRN ORAL Constipation 01/13/20 12:00 02/12/20 11:59 Megestrol Acetate (Megace) 40 mg BID ORAL 01/13/20 18:00 01/16/20 08:59 01/15/20 08:28 Memantine (Namenda) 5 mg TWICE A DAY ORAL 01/13/20 18:00 02/10/20 08:59 01/15/20 08:28 Multivitamins (Multivitamins) 1 tab DAILY ORAL 01/14/20 09:00 02/10/20 08:59 01/15/20 08:28 Sodium Phosphate (Fleet's Sodium Phosl Enema) 133 ml DAILY PRN RECTAL Constipation 01/14/20 09:00 02/10/20 04:29 Zolpidem Tartrate (Ambien) 5 mg HSPRN PRN ORAL Insomnia 01/13/20 21:00 01/20/20 20:59 Last 24 Hour Vital Signs Date Time Temp Pulse Resp B/P (MAP) Pulse Ox O2 Delivery O2 Flow Rate FiO2 01/15/20 08:00 98.5 80 18 149/68 (95) 96 01/15/20 04:00 97.0 73 20 136/72 (93) 96 01/15/20 03:12 Room Air 01/15/20 00:00 97.6 78 19 153/70 (97) 96 01/14/20 20:52 Room Air 01/14/20 20:00 97.5 85 19 157/63 (94) 96 01/14/20 16:00 97.7 84 19 159/64 (95) 96 01/14/20 12:00 98.1 80 20 110/49 (69) 96 01/14/20 09:00 Room Air 01/14/20 08:00 98.1 76 18 124/78 (93) 96 01/14/20 04:00 97.9 78 18 161/71 (101) 94 01/14/20 00:00 98.3 82 18 153/74 (100) 94 01/13/20 20:59 Room Air 01/13/20 20:00 98.1 83 18 147/95 (112) 94 01/13/20 16:00 98.1 80 18 119/63 (81) 94 01/13/20 12:00 98.1 86 18 126/60 (82) 96 01/13/20 12:00 83 Intake and Output 01/14/20 01/15/20 19:00 07:00 Intake Total 600 ml Output Total 300 ml 500 ml Balance 300 ml -500 ml Intake Oral 600 ml Output Urine Total 300 ml 500 ml # Voids 2 # Bowel Movements 2 3 Labs Test 01/12/20 10:35 01/13/20 05:32 01/14/20 06:05 01/15/20 05:40 White Blood Count 6.3 K/UL (4.8-10.8) 5.3 K/UL (4.8-10.8) 8.0 K/UL (4.8-10.8) 7.1 K/UL (4.8-10.8) Red Blood Count 4.15 M/UL (4.20-5.40) 4.07 M/UL (4.20-5.40) 4.36 M/UL (4.20-5.40) 4.40 M/UL (4.20-5.40) Hemoglobin 13.6 G/DL (12.0-16.0) 13.1 G/DL (12.0-16.0) 14.0 G/DL (12.0-16.0) 14.3 G/DL (12.0-16.0) Hematocrit 40.2 % (37.0-47.0) 40.2 % (37.0-47.0) 42.8 % (37.0-47.0) 43.5 % (37.0-47.0) Mean Corpuscular Volume 97 FL (80-99) 99 FL (80-99) 98 FL (80-99) 99 FL (80- 99) Mean Corpuscular Hemoglobin 32.8 PG (27.0-31.0) 32.1 PG (27.0-31.0) 32.2 PG (27.0-31.0) 32.5 PG (27.0-31.0) Mean Corpuscular Hemoglobin Concent 33.9 G/DL (32.0-36.0) 32.5 G/DL (32.0-36.0) 32.8 G/DL (32.0-36.0) 32.8 G/DL (32.0-36.0) Red Cell Distribution Width 12.1 % (11.6-14.8) 12.4 % (11.6-14.8) 12.2 % (11.6-14.8) 12.4 % (11.6-14.8) Platelet Count 233 K/UL (150-450) 228 K/UL (150-450) 237 K/UL (150-450) 225 K/UL (150-450) Mean Platelet Volume 7.7 FL (6.5-10.1) 7.0 FL (6.5-10.1) 6.7 FL (6.5-10.1) 7.0 FL (6.5-10.1) Neutrophils (%) (Auto) 42.6 % (45.0-75.0) 38.6 % (45.0-75.0) 53.4 % (45.0-75.0) 40.8 % (45.0-75.0) Lymphocytes (%) (Auto) 42.8 % (20.0-45.0) 46.2 % (20.0-45.0) 34.2 % (20.0-45.0) 46.0 % (20.0-45.0) Monocytes (%) (Auto) 5.8 % (1.0-10.0) 6.9 % (1.0-10.0) 7.6 % (1.0-10.0) 6.9 % (1.0-10.0) Eosinophils (%) (Auto) 7.5 % (0.0-3.0) 7.0 % (0.0-3.0) 3.7 % (0.0-3.0) 5.2 % (0.0-3.0) Basophils (%) (Auto) 1.3 % (0.0-2.0) 1.4 % (0.0-2.0) 1.1 % (0.0-2.0) 1.1 % (0.0-2.0) Sodium Level 137 MMOL/L (136-145) 139 MMOL/L (136-145) 139 MMOL/L (136-145) 141 MMOL/L (136-145) Potassium Level 4.2 MMOL/L (3.5-5.1) 3.8 MMOL/L (3.5-5.1) 4.1 MMOL/L (3.5-5.1) 4.1 MMOL/L (3.5-5.1) Chloride Level 103 MMOL/L (98-107) 107 MMOL/L (98-107) 104 MMOL/L (98-107) 106 MMOL/L (98-107) Carbon Dioxide Level 26 MMOL/L (21-32) 25 MMOL/L (21-32) 25 MMOL/L (21-32) 23 MMOL/L (21-32) Anion Gap 8 mmol/L (5-15) 8 mmol/L (5-15) 11 mmol/L (5-15) Blood Urea Nitrogen 11 mg/dL (7-18) 17 mg/dL (7-18) 14 mg/dL (7-18) 14 mg/dL (7-18) Creatinine 1.0 MG/DL (0.55-1.30) 1.1 MG/DL (0.55-1.30) 1.0 MG/DL (0.55-1.30) 1.0 MG/DL (0.55-1.30) Estimat Glomerular Filtration Rate 52.2 mL/min (>60) 46.7 mL/min (>60) 52.2 mL/min (>60) 52.2 mL/min (>60) Glucose Level 157 MG/DL (74-106) 123 MG/DL (74-106) 130 MG/DL (74-106) 108 MG/DL (74-106) Calcium Level 8.8 MG/DL (8.5-10.1) 8.5 MG/DL (8.5-10.1) 8.5 MG/DL (8.5-10.1) 8.8 MG/DL (8.5-10.1) Height (Feet): 5 Height (Inches): 4.00 Weight (Pounds): 167 Objective PE General: Awake, no obvious distress HEENT: NC/AT. EOMI. hard of hearing. Cardiovascular: RRR. S1 and S2 normal. Resp: Normal work of breathing. No cough, Abdomen: Abdomen is soft, nondistended Skin: Intact. No abrasions, laceration or rash over the exposed skin MSK: Normal tone and bulk. Moving all extremities Neuro: Awake, demented, no obvious distress. Roderick Branch MD Jan 15, 2020 09:32
--- NOTE | 2020-01-15 09:45 | NUR ---
PT EVALUATION NOTE PT evaluation completed. Patient is resistive with bed mobility tasks and with movement of extremities. Based on PT evaluation, patient is functioning at baseline and therefore is not a candidate for skilled inpatient PT intervention. Recommend discharge to prior living arrangement for care and comfort. Patient discharged from PT, Nina PNEUMATIC TUBE OPERATOR notified.
--- NOTE | 2020-01-15 10:09 | NUR ---
*-*DISCHARGE PLANNING*-* PATIENT HAS BEEN REFERRED BACK TO: [facility] P: [phone] Addendum: 01/15/20 at 1423 by ALLISON MENDEZ LVN LVN CALL RECEIVED FROM KAELA AT THE [facility] TO REPORT THAT BED ASSIGNMENT IS PENDING AUTHORIZATION FOR READMISSION FROM [facility]. ALEX WILL CALL TO PROVIDE BED ASSIGNMENT UPON APPROVAL FROM [facility].
--- NOTE | 2020-01-15 11:00 | NUR ---
NURSE NOTES: WOUND DRSG CHANGED BOTH HEELS AND ON SACRAL PROPHYLACTICALLY. REPOSITION AND KEEP SIDERAILS UPX3. CALL LIGHT IS WITHIN REACH. BED IN THE LOWEST POSITION. WILL CONT TO MONITOR.
[2020-01-15 12:01] VITALS: BP 141/67
--- NOTE | 2020-01-15 12:30 | Progress Note ---
DATE: 01/15/2020 SUBJECTIVE: This is an 89-year-old female with altered mental status, confusion, decline in cognition below her baseline, mood lability, but she has got altered mental status and decline in cognition below her baseline. That is why, her attending physician has requested daily psychiatric consultation. She has deep vein thrombosis in her left lower extremity causing increased mood lability and agitation and altered mental status. MENTAL STATUS EXAMINATION: This is an 89-year-old female. Appearance is disheveled. Attitude, irritable and agitated. Affect, guarded and restricted. Intellect, poor. Mood, depressed and anxious. Motor activity, psychomotor agitation. Insight and judgment is poor. DIAGNOSIS: Major depressive disorder, mild, recurrent with psychotic features, rule out dementia with psychosis. PLAN: Continue titrating up on her medications to clear up disorganized thought process, and provided with 20 minutes of insight-oriented psychotherapy. A 20 minutes of insight-oriented psychotherapy will help recognize her physical and medical condition so that she has better impulse control, less anxiety and depression. Vivian Armas M.D. DR: ATUL JOB#: [id number] CC:
--- NOTE | 2020-01-15 14:02 | NUR ---
ST NOTE SWALLOW STATUS Patient seen at bedside on room air, awake and alert and communicating in [place]; VSS during session. Patient only consumed 35% of lunch time meal; per RN, Patient was resistant and combative when RN attempted to assist Patient at mealtime for encouragement and with self-feeding. IRRIGATION PUMP INSTALLER asked Patient reason for poor/minimal PO intake at lunch. Per Patient, does not like the food, requesting tostadas with cream, however, not available from hospital kitchen at this time. IRRIGATION PUMP INSTALLER attempted to explain to the Patient limited options being available at hospital. Patient able to demonstrate partial understanding. Patient educated on importance of meeting adequate PO intake while implementing safe swallow strategies: slow rate, small bites, masticate food thoroughly and maintain upright position during and after PO (for at least [address] on 01/14/20 CURRENT DIET: CCHO MED/ ms ground PO DIET RECOMMENDATIONS: CCHO LOW / Texture per IRRIGATION PUMP INSTALLER + Glucerna TID ADDITIONAL RECOMMENDATIONS: * Calibrated bescale wt: 122# per bed scale vs 169# per EMR * A1C for evaluation of glycemic control * Rec WC eval * Glucerna BID w/ current variable intake, monitor trend, need for TID -Patient is safe on current diet consistency, however, given Patient appearing to be a picky eater with inconsistent PO intake with meals, endorse RD recs for Glucerna TID. -RN aware of Patient's oral care needs and aspiration precautions. Also, Patient would benefit from encouragement at meals and ongoing monitoring of Patient's ability to meet adequate PO nutrition/hydration given ongoing concern for inconsistent PO intake (hx of failure to thrive and protein-calorie malnutrition.) Patient continues to benefit from oral care BID, nursing please assist Patient. IRRIGATION PUMP INSTALLER will continue to follow while Patient is in house. Per discharge planning note, Patient to return to previous facility. Patient would benefit from IRRIGATION PUMP INSTALLER at next level of care to review chart and monitor Patient's appropriateness/candidacy for IRRIGATION PUMP INSTALLER dysphagia tx and management 2/2 questionable swallow endurance/efficacy to consistently meet adequate PO intake versus Patient refusing food due to preference. IRRIGATION PUMP INSTALLER [phone]
[2020-01-15 15:47] VITALS: BP 115/99
--- NOTE | 2020-01-15 17:06 | NUR ---
DISCHARGE PLANNING FOLLOW UP CALL MADE TO [facility]. S/W KAELA WHO STATES THEY HAVE NOT RECEIVED REPLY FROM [facility] IN RE TO APPROVAL FOR READMISSION.
--- NOTE | 2020-01-15 19:05 | NUR ---
HAND-OFF: Report given to NANCY.
--- NOTE | 2020-01-15 19:30 | NUR ---
NURSE NOTES: RECEIVED PATIENT FROM STEFANY DURAN. PATIENT IS AWAKE, AAOX2, ON ROOM AIR, NO ACUTE DISTRESS NOTED. PATIENT DENIES PAIN. WOUND DRESSINGS INTACT AND DRY. PIV INTACT AND PATENT. BED IS LOCKED AND LOW, BED ALARMS ACTIVE, SIDE RAILS UPX2 AND CALL LIGHT IS WITHIN REACH. WILL CONTINUE TO MONITOR.
[2020-01-15 20:00] VITALS: BP 148/64
[2020-01-16] VITALS: BP 143/56
[2020-01-16 04:00] VITALS: BP 136/57
[2020-01-16] MEDS: NovoLOG Insulin Flexpen SUBQ SCH ×3 (06:30→16:30)
[2020-01-16 06:36] LABS: BASOPHILS % (AUTO) 0.9 % (0.0-2.0); EOSINOPHILS % (AUTO) 5.5 % (0.0-3.0); HEMATOCRIT 43.1 % (37.0-47.0); LYMPHOCYTES % (AUTO) 40.7 % (20.0-45.0); MEAN CORPUSCULAR VOLUME 99 FL (80-99); MONOCYTES % (AUTO) 6.8 % (1.0-10.0); NEUTROPHILS % (AUTO) 46.2 % (45.0-75.0); PLATELET COUNT 257 K/UL (150-450); RED BLOOD COUNT 4.36 M/UL (4.20-5.40); RED CELL DISTRIBUTION WIDTH 12.4 % (11.6-14.8); WHITE BLOOD COUNT 6.3 K/UL (4.8-10.8)
--- NOTE | 2020-01-16 06:46 | Hematology/Onc Progress Note ---
Assessment/Plan Assessment/Plan Assessment and Recs # Deep vein thrombosis of the left leg --> likely due to age and immobility --> has been started on lovenox sq bid dosing --> ok to change to eliquis once stable for dc # Secondary polycythemia or erythrocytosis is likely is related to dehydration , volume down --> may need a pulmonary evaluation for above, cxr has been reviewed --> sleep study may be necessary as outpatient --> trend hgb if consistently remains elevated, consider JAK2 --> if remains elevated, further w/u # Coagulopathy with elev inr/ptt --> vit k sq if any bleeding --> hold lovenox prn # HTN # COPD # Dm2 # NH resident # DVT ppx with lovenox sq --> consdier outpatient eliquis The timing of this note does not necessarily reflect the time of the patient was seen. GREATLY APPRECIATE CONSULTATION. Subjective Allergies: Coded Allergies: PENICILLINS (Verified Allergy, Unknown, 11/01/12) Uncoded Allergies: PENICILLIN (Allergy, Unknown, 06/01/19) All Systems: reviewed and negative except above Subjective 01/12 confused, dw rn, no events, no bleeding, on anticoag 01/13 no major changes, on anticoag, no bleeding 01/14 remains on lovenox and consider doac once discharged such as eliquis/ xarelto 01/15 is on room air, no events, comfortable, no complaints, dc planning Objective Objective Current Medications Medications (Trade) Dose Ordered Sig/Joon Route PRN Reason Start Time Stop Time Status Last Admin Dose Admin Acetaminophen/ Hydrocodone Bitart ([place] 5/325) 1 tab Q12H PRN ORAL PAIN 4-10 01/13/20 12:00 01/20/20 11:59 Bisacodyl (Dulcolax) 10 mg DAILYPRN PRN RECTAL Constipation 01/13/20 12:00 04/12/20 11:59 Dextrose (Dextrose 50%) 25 ml Q30M PRN IV Hypoglycemia 01/13/20 11:15 04/10/20 04:44 Dextrose (Dextrose 50%) 50 ml Q30M PRN IV Hypoglycemia 01/13/20 11:15 04/10/20 04:44 Docusate Sodium (Colace) 100 mg BID ORAL 01/13/20 18:00 02/10/20 08:59 01/15/20 18:00 Enoxaparin Sodium (Lovenox) 80 mg EVERY 12 HOURS SUBQ 01/13/20 21:00 04/10/20 21:59 01/15/20 21:55 Famotidine (Pepcid) 20 mg DAILY ORAL 01/14/20 09:00 04/10/20 08:59 01/15/20 08:28 Gabapentin (Neurontin) 100 mg DAILY ORAL 01/14/20 09:00 02/10/20 08:59 01/15/20 08:28 Insulin Aspart (NovoLOG) BEFORE MEALS AND HS SUBQ 01/13/20 11:30 04/10/20 06:29 01/14/20 20:05 Lorazepam (Ativan) 0.5 mg Q6H PRN ORAL For Anxiety 01/13/20 12:00 01/18/20 11:59 Magnesium Hydroxide (Mom) 30 ml DAILYPRN PRN ORAL Constipation 01/13/20 12:00 02/12/20 11:59 Megestrol Acetate (Megace) 40 mg BID ORAL 01/13/20 18:00 01/16/20 08:59 01/15/20 18:00 Memantine (Namenda) 5 mg TWICE A DAY ORAL 01/13/20 18:00 02/10/20 08:59 01/15/20 18:01 Multivitamins (Multivitamins) 1 tab DAILY ORAL 01/14/20 09:00 02/10/20 08:59 01/15/20 08:28 Sodium Phosphate (Fleet's Sodium Phosl Enema) 133 ml DAILY PRN RECTAL Constipation 01/14/20 09:00 02/10/20 04:29 Zolpidem Tartrate (Ambien) 5 mg HSPRN PRN ORAL Insomnia 01/13/20 21:00 01/20/20 20:59 Last 24 Hour Vital Signs Date Time Temp Pulse Resp B/P (MAP) Pulse Ox O2 Delivery O2 Flow Rate FiO2 01/16/20 04:00 97.3 73 20 136/57 (83) 95 01/16/20 00:00 97.9 80 20 143/56 (85) 96 01/15/20 21:00 Room Air 01/15/20 20:00 97.4 81 20 148/64 (92) 95 01/15/20 15:47 98.1 84 18 115/99 (104) 96 01/15/20 12:01 98.0 98 18 141/67 (91) 96 01/15/20 09:00 Room Air 01/15/20 08:00 98.5 80 18 149/68 (95) 96 01/15/20 04:00 97.0 73 20 136/72 (93) 96 01/15/20 03:12 Room Air 01/15/20 00:00 97.6 78 19 153/70 (97) 96 01/14/20 20:52 Room Air 01/14/20 20:00 97.5 85 19 157/63 (94) 96 01/14/20 16:00 97.7 84 19 159/64 (95) 96 01/14/20 12:00 98.1 80 20 110/49 (69) 96 01/14/20 09:00 Room Air 01/14/20 08:00 98.1 76 18 124/78 (93) 96 Intake and Output 01/15/20 01/16/20 19:00 07:00 Intake Total 140 ml Balance 140 ml Intake Oral 140 ml # Voids 2 # Bowel Movements 1 Labs Test 01/14/20 06:05 01/15/20 05:40 01/16/20 05:30 White Blood Count 8.0 K/UL (4.8-10.8) 7.1 K/UL (4.8-10.8) Red Blood Count 4.36 M/UL (4.20-5.40) 4.40 M/UL (4.20-5.40) Hemoglobin 14.0 G/DL (12.0-16.0) 14.3 G/DL (12.0-16.0) Hematocrit 42.8 % (37.0-47.0) 43.5 % (37.0-47.0) Mean Corpuscular Volume 98 FL (80-99) 99 FL (80-99) Mean Corpuscular Hemoglobin 32.2 PG (27.0-31.0) 32.5 PG (27.0-31.0) Mean Corpuscular Hemoglobin Concent 32.8 G/DL (32.0-36.0) 32.8 G/DL (32.0-36.0) Red Cell Distribution Width 12.2 % (11.6-14.8) 12.4 % (11.6-14.8) Platelet Count 237 K/UL (150-450) 225 K/UL (150-450) Mean Platelet Volume 6.7 FL (6.5-10.1) 7.0 FL (6.5-10.1) Neutrophils (%) (Auto) 53.4 % (45.0-75.0) 40.8 % (45.0-75.0) Lymphocytes (%) (Auto) 34.2 % (20.0-45.0) 46.0 % (20.0-45.0) Monocytes (%) (Auto) 7.6 % (1.0-10.0) 6.9 % (1.0-10.0) Eosinophils (%) (Auto) 3.7 % (0.0-3.0) 5.2 % (0.0-3.0) Basophils (%) (Auto) 1.1 % (0.0-2.0) 1.1 % (0.0-2.0) Sodium Level 139 MMOL/L (136-145) 141 MMOL/L (136-145) Potassium Level 4.1 MMOL/L (3.5-5.1) 4.1 MMOL/L (3.5-5.1) Chloride Level 104 MMOL/L (98-107) 106 MMOL/L (98-107) Carbon Dioxide Level 25 MMOL/L (21-32) 23 MMOL/L (21-32) Anion Gap 11 mmol/L (5-15) Blood Urea Nitrogen 14 mg/dL (7-18) 14 mg/dL (7-18) Creatinine 1.0 MG/DL (0.55-1.30) 1.0 MG/DL (0.55-1.30) Estimat Glomerular Filtration Rate 52.2 mL/min (>60) 52.2 mL/min (>60) Glucose Level 130 MG/DL (74-106) 108 MG/DL (74-106) Calcium Level 8.5 MG/DL (8.5-10.1) 8.8 MG/DL (8.5-10.1) Height (Feet): 5 Height (Inches): 4.00 Weight (Pounds): 167 Objective PE General: Awake, no obvious distress HEENT: NC/AT. EOMI. hard of hearing. Cardiovascular: RRR. S1 and S2 normal. Resp: Normal work of breathing. No cough, Abdomen: Abdomen is soft, nondistended Skin: Intact. No abrasions, laceration or rash over the exposed skin MSK: Normal tone and bulk. Moving all extremities Neuro: Awake, demented, no obvious distress. Roderick Branch MD Jan 16, 2020 06:46
[2020-01-16 07:03] LABS: ANION GAP 12 mmol/L (5-15); BLOOD UREA NITROGEN 19 mg/dL (7-18); CALCIUM 8.5 MG/DL (8.5-10.1); CARBON DIOXIDE 22 MMOL/L (21-32); CHLORIDE 106 MMOL/L (98-107); POTASSIUM 3.9 MMOL/L (3.5-5.1); SODIUM 140 MMOL/L (136-145)
--- NOTE | 2020-01-16 07:46 | NUR ---
NURSE NOTES: Report received from CASE Celestin. Pt awake in bed with no SOB, alert and oriented x 2.bed in lowest position with breaks engaged and alarm on, IV line on right AC patent and intact, no c/o any discomfort at this time, will continue to monitor and proceed with plan of care, call light within reach. Addendum: 01/16/20 at 0747 by Ceci Mirza RN Clarification: IV line on right forearm patent and intact.
--- NOTE | 2020-01-16 07:49 | NUR ---
HAND-OFF: Report given to CASE Ornelas.
[2020-01-16 08:00] VITALS: BP 122/53
[2020-01-16] MEDS: Docusate 100mg cap ORAL SCH ×2 (08:48→18:12)
[2020-01-16] MEDS: Memantine 5 MG TAB ORAL SCH ×2 (08:48→18:12)
[2020-01-16] MEDS: Enoxaparin 80mg Inj SUBQ SCH ×2 (09:00→09:34)
--- NOTE | 2020-01-16 11:23 | NUR ---
DISCHARGE PLANNING FOLLOW UP CALL MADE TO [facility] @ [phone]. S/W ISMAEL IN ADMISSIONS WHO INFORMED THIS CM THAT [facility] HAS PROVIDED APPROVAL FOR READMISSION AND PATIENT MAY RETURN UPON DC. REQUESTS FOR PATIENT TO ARRIVE AFTER 1800 D/T ROOM CHANGES NEEDED TO BE MADE TO ACCOMMODATE PATIENT. ISMAEL WILL CALL BACK WITH BED ASSIGNMENT.
[2020-01-16 12:00] VITALS: BP 158/71
--- NOTE | 2020-01-16 12:18 | NUR ---
NURSE NOTES: Patient refused BS check and Lovenox shot x 3, explained risk and benefits with a help of another RN staker surveying. Will continue to monitor.
--- NOTE | 2020-01-16 13:14 | General Progress Note ---
Assessment/Plan Problem List: (1) Diabetes ICD Codes: E11.9 - Type 2 diabetes mellitus without complications SNOMED: 94480694 (2) HTN (hypertension) ICD Codes: I10 - Essential (primary) hypertension SNOMED: 51036532 (3) Failure to thrive SNOMED: 94953079 (4) Malnutrition ICD Codes: E46 - Unspecified protein-calorie malnutrition SNOMED: 61040194 (5) Left leg DVT ICD Codes: I82.402 - Acute embolism and thrombosis of unspecified deep veins of left lower extremity SNOMED: 091417833 Status: stable, progressing Assessment/Plan: anticoag per heme bp bs control dc if clear Subjective Constitutional: Reports: weakness Allergies: Coded Allergies: PENICILLINS (Verified Allergy, Unknown, 11/01/12) Uncoded Allergies: PENICILLIN (Allergy, Unknown, 06/01/19) All Systems: reviewed and negative except above Subjective calm in bed Objective Last 24 Hour Vital Signs Date Time Temp Pulse Resp B/P (MAP) Pulse Ox O2 Delivery O2 Flow Rate FiO2 01/16/20 12:00 97.9 83 19 158/71 (100) 95 01/16/20 09:00 Room Air 01/16/20 08:00 97.7 75 18 122/53 (76) 95 01/16/20 04:00 97.3 73 20 136/57 (83) 95 01/16/20 00:00 97.9 80 20 143/56 (85) 96 01/15/20 21:00 Room Air 01/15/20 20:00 97.4 81 20 148/64 (92) 95 01/15/20 15:47 98.1 84 18 115/99 (104) 96 Intake and Output 01/15/20 01/16/20 19:00 07:00 Intake Total 140 ml Balance 140 ml Intake Oral 140 ml # Voids 2 # Bowel Movements 1 Laboratory Tests 01/16/20 05:30: White Blood Count 6.3, Red Blood Count 4.36, Hemoglobin 14.0, Hematocrit 43.1, Mean Corpuscular Volume 99, Mean Corpuscular Hemoglobin 32.1H, Mean Corpuscular Hemoglobin Concent 32.6, Red Cell Distribution Width 12.4, Platelet Count 257, Mean Platelet Volume 7.0, Neutrophils (%) (Auto) 46.2, Lymphocytes (%) (Auto) 40.7, Monocytes (%) (Auto) 6.8, Eosinophils (%) (Auto) 5.5H, Basophils (%) (Auto ) 0.9, Sodium Level 140, Potassium Level 3.9, Chloride Level 106, Carbon Dioxide Level 22, Anion Gap 12, Blood Urea Nitrogen 19H, Creatinine 1.0, Estimat Glomerular Filtration Rate 52.2, Glucose Level 126H, Calcium Level 8.5 Height (Feet): 5 Height (Inches): 4.00 Weight (Pounds): 167 General Appearance: lethargic EENT: normal ENT inspection Neck: normal alignment Cardiovascular: normal rate Respiratory/Chest: chest wall non-tender, lungs clear, normal breath sounds Abdomen: normal bowel sounds, non tender, soft Extremities: normal inspection Edema: no edema noted Arm (L), no edema noted Arm (R), no edema noted Leg (L), no edema noted Leg (R), no edema noted Pedal (L), no edema noted Pedal (R), no edema noted Generalized Neurologic: motor weakness Skin: normal pigmentation, warm/dry Chalo Ayala DO Jan 16, 2020 13:14
--- NOTE | 2020-01-16 14:16 | NUR ---
DISCHARGE PLANNING CALL MADE TO ALEX [phone]. S/W ISMAEL. PROVIDED BED ASSIGNMENT 118-A SKILLED DC DIRECTOR OF DIAGNOSTIC IMAGING WILL COORDINATE TRANSPORTATION
[2020-01-16] MEDS ORDERED: LOVENOX10 M2 SUBQ (14:38)
--- NOTE | 2020-01-16 14:50 | NUR ---
*-*DISCHARGE PLANNED*-* PATIENT HAS BEEN ACCEPTED AND WILL BE DISCHARGED BACK TO: [facility] P:[phone]. FOR NURSE TO NURSE REPORT. ROOM#118-A SKILLED [facility] TRANSPORTATION SET FOR 5:30PM S/W ASHLI [id number] S/W PATIENTS NEPHEW, MICHAEL RECINOS, WHO IS IN AGREEMENT WITH DISCHARGE PLAN.
--- NOTE | 2020-01-16 15:23 | NUR ---
SPEECH PATHOLOGY NOTE; DISCHARGE SUMMARY PATIENT ALERT, SITTING UPRIGHT IN BED, AND CLEARED BY RN JENNIFER FOR CONTACT WORKER LITHOGRAPHY INTERVENTION. PATIENT SEEN IN CONTEXT OF NOON MEAL. HER INTAKE TODAY REFLECTS AN INCREASE TO 50% OF MEAL. PER RN. PATIENT TOLERATING MEDICATIONS CRUSHED A PRESENTED IN PUREE TREATMENT GOALS OF SAFE/SUFFICIENT P.O. INTAKE TO SUPPORT NUTRITION/HYDRATION NEEDS WAS MET. STAFF GOAL OF PROVIDING ORAL CARE WAS ALSO MET. ST FOLLOWUP IS RECOMMENDED FOR NEXT LEVEL OF CARE IN LIGHT OF HER HISTORY OF FAILURE TO THRIVE/SUBOPTIMAL P.O. INTAKE.. DISCHARGE PENDING THIS AFTERNOON TO [facility] CURRENT DIET: CCHO MED/ ms ground PO DIET RECOMMENDATIONS: CCHO LOW / Texture per CONTACT WORKER LITHOGRAPHY + Glucerna TID THANK YOU FOR THIS REFERRAL.
[2020-01-16 16:00] VITALS: BP 115/85
--- NOTE | 2020-01-16 16:39 | NUR ---
NURSE NOTES: Placed a call with MIKAYLA avilez and gave report to MARILEE Wallace. As per MARILEE, rapid covid swab testing is needed before pt can be accepted to facility.
--- NOTE | 2020-01-16 17:30 | Progress Note ---
DATE: 01/16/2020 SUBJECTIVE: The patient is an 89-year-old female with deep vein thrombosis, left lower extremity edema. She is confused, disorganized, altered mental status. DIAGNOSIS: Major depressive disorder, mild, recurrent with psychotic features, rule out dementia with psychosis. PLAN: Continue treatment with medications to stabilize the mood. 20 minutes of insight-oriented psychotherapy provided to help her identify automatic negative thoughts and help her convert her negative thoughts to more positive thoughts. Vivian Armas M.D. DR: RONDA JOB#: [id number] CC:
--- NOTE | 2020-01-16 19:02 | NUR ---
NURSE NOTES: Patient discharged to [facility], no c/o any pain or discomfort upon discharge, belongings check refused by patient and does not want her purse to be touched as witnessed by TREE TOPPER and charge nurse, family member Aubrey Hernandez aware of discharge, IV line and ID band removed, left in stable condition at 1910.
--- NOTE | 2020-01-20 15:12 | Discharge Summary ---
Discharge Summary Discharge Summary _ DATE OF ADMISSION: 01/11/2020 DATE OF DISCHARGE: 01/16/2020 DISCHARGED BY: Dr Ayala REASON FOR ADMISSION: 89 years old female with past medical history of COPD, diabetes mellitus, severe dementia, presented due to left lower extremity DVT. Patient presented with swollen and painful left lower extremity. Accompanying paperwork revealed deep vein thrombosis , involving the left proximal and distal femoral veins. Patient apparently did not start on any anticoagulation prior to arrival. Upon evaluation vital signs were stable. No obvious respiratory distress. Laboratory work-up revealed no leukocytosis , stable hemoglobin, hematocrit, and platelet count. Stable electrolytes and renal parameters . Glucose 202. Albumin 2.7. EKG revealed sinus rhythm , no acute ischemic changes. Troponin negative. Venous duplex completed on 01/09 , showed DVT involving the left proximal and distal femoral veins. No clinical evidence of pulmonary emboli. Patient started on Lovenox and admitted for further management. CONSULTANTS: poultry scalder/oncologist Dr. Branch psychiatrist Dr. Armas [facility] COURSE: Patient admitted. Anticoagulation with Lovenox continued. Roller Skate Repairer followed. Acute DVT of left leg was likely due to age and immobility. Roller Skate Repairer recommended on discharge to switch patient to Eliquis. SNF medication continued. Blood sugar was managed with sliding scale of insulin. Blood pressure was closely monitored and remained stable. GI prophylaxis provided. Bedside swallow evaluation revealed high aspiration risk. Diet texture changed as per speech therapist recommendations with strict aspiration precautions. Recommended a video swallow evaluation , which could be done as outpatient. Patient started on Megace . Protein supplements provided as per registered respiratory technician recommendation. Psychiatric medication regimen was optimized as per psychiatrist . Insight oriented psychotherapy provided. Patient clinically stabilized and was ready for discharge back to [facility] for continuation of care FINAL DIAGNOSES: DVT left leg Hypertension COPD Diabetes mellitus type 2 Malnutrition Dysphagia Major depressive disorder, mild, recurrent with psychotic features DISCHARGE MEDICATIONS: See Medication Reconciliation list. DISCHARGE INSTRUCTIONS: Patient was discharged to the penit[facility]iary facility. Follow up with medical doctor at the facility. 89 years old female with past medical history I have been assigned to dictate discharge summary for this account. I was not involved in the patient's management. Mara Ackerman NP Jan 20, 2020 15:12
== END 2020-01-16 19:10 | DRG 300 ==
LOC: EDBD 00:08 → EDUNIT# 00:08 → EMR 00:32 → ICU 00:35 → EDBEDREQ 03:07 → 2E 07:01 → 4E 01-13 16:05
DX: I82.412 Acute embolism and thrombosis of left femoral vein (principal); F33.3 Major depressive disorder, recurrent, severe with psychotic symptoms; E46 Unspecified protein-calorie malnutrition; F33.0 Major depressive disorder, recurrent, mild; Z68.29 Body mass index [BMI] 29.0-29.9, adult; Z88.0 Allergy status to penicillin; J44.9 Chronic obstructive pulmonary disease, unspecified; F03.90 Unspecified dementia, unspecified severity, without behavioral disturbance, psychotic disturbance, mood disturbance, and anxiety; R62.7 Adult failure to thrive; M19.90 Unspecified osteoarthritis, unspecified site; I12.9 Hypertensive chronic kidney disease with stage 1 through stage 4 chronic kidney disease, or unspecified chronic kidney disease; E11.22 Type 2 diabetes mellitus with diabetic chronic kidney disease; N18.9 Chronic kidney disease, unspecified; Z79.4 Long term (current) use of insulin; Z85.41 Personal history of malignant neoplasm of cervix uteri; Z79.01 Long term (current) use of anticoagulants; R79.1 Abnormal coagulation profile; R13.10 Dysphagia, unspecified
CPT/HCPCS: 36415; 80048; 80053; 82962; 84484; 85025; 85610; 85730; 87081; 92610; 93005; 96374; 99285; J1815

== ENCOUNTER 2020-01-27 16:06 | Inpatient (IN) | payer MEDICARE, MEDICAID ==
[~2020-01-27] VITALS: Ht 154.9 cm; Wt 70.3 kg
[~2020-01-27 16:06] MED LIST changes: +GABAPENTIN100 MG ORAL; +LOVENOX10 M2 SUBQ; +NORCO 5-325 TA1 EAC1 ORAL; +NOVOLIN R100 UNIT/1 SUBQ
[2020-01-27 16:13] VITALS: BP 130/74
--- NOTE | 2020-01-27 16:13 | NUR ---
ED Nurse Note: PT brought in by ambulance from [facility] for hyperglycemia. Per reportm, Blood sugar was 452.
--- NOTE | 2020-01-27 16:22 | NUR ---
ED Nurse Note: Pt connected to electronic prepress technician.
--- NOTE | 2020-01-27 16:45 | NUR ---
ED Nurse Note: blood and urine sample collected and sent to lab ,.
--- NOTE | 2020-01-27 16:47 | Emergency Room Report ---
History of Present Illness General Chief Complaint: Abnormal Labs Source: Patient, EMS Present Illness HPI Patient sent in for elevated blood sugar. The patient complains about pain in her genitals. She is poorly characterizes this. She denies most other symptoms. Patient has diabetes. She is a variable historian. She is slightly confused. Her distant memory is good. The patient was discharged from the hospital January 15 with these discharge diagnosis: DVT left leg Hypertension COPD Diabetes mellitus type 2 Malnutrition Dysphagia Major depressive disorder, mild, recurrent with psychotic features Prior to this she was admitted May 2019 with these discharge diagnoses: Hyperglycemic hyperosmolar syndrome with associated seizures Acute kidney injury-resolved Hypertension Protein calorie malnutrition Sacral decubitus skin ulcer stage II , present on admission Major depressive disorder, mild, recurrent with psychotic features Allergies: Coded Allergies: PENICILLINS (Verified Allergy, Unknown, 11/01/12) Uncoded Allergies: PENICILLIN (Allergy, Unknown, 06/01/19) COVID-19 Screening Contact w/high risk pt: No Recent Travel to affected area: No Experienced COVID-19 symptoms?: No COVID-19 Testing performed INDUSTRIAL ENGINEERING INTERN: No - January 16, 2020 COVID-19 Screening: Negative COVID-19 Patient History Limited by: medical condition Past Medical History: see triage record, old chart reviewed Social History Narrative Patient from detention facility patient was born in [facility] Now: No Reviewed Nursing Documentation: PMH: Agreed; PSxH: Agreed Nursing Documentation-PMH Past Medical History: No History, Except For Hx Hypertension: Yes Hx COPD: Yes Hx Diabetes: Yes Hx Cancer: Yes - CERVIX Hx Weakness: Yes Review of Systems All Other Systems: limited Physical Exam Vital Signs Date Time Temp Pulse Resp B/P (MAP) Pulse Ox O2 Delivery O2 Flow Rate FiO2 01/27/20 16:07 110 18 128/70 (89) 94 Room Air 01/27/20 16:13 99.8 Sp02 EP Interpretation: reviewed, abnormal - Interpreted as slightly low by me General Appearance: no apparent distress, obese, Chronically Ill Eyes: bilateral eye normal inspection, bilateral eye PERRL, bilateral eye EOMI ENT: moist mucus membranes Neck: full range of motion, supple Respiratory: lungs clear, normal breath sounds Cardiovascular #1: regular rate, rhythm, no edema Cardiovascular #2: 2+ radial (R) Gastrointestinal: normal bowel sounds, non tender, overweight Genitourinary: no CVA tenderness, other - No vaginal or labial inflammation Neurologic: alert, oriented - X2, DTRs symmetric, sensory intact, motor weakness - Slight lower extremities Psychiatric: mood/affect normal Skin: warm/dry, other - Venous disease and seborrheic dermatitis Medical Decision Making Diagnostic Impression: Primary Impression: UTI (urinary tract infection) Qualified Codes: N39.0 - Urinary tract infection, site not specified Additional Impressions: Hyperglycemia Person under investigation for COVID-19 ER Course Patient presents with hyperglycemia. She is complex that she is not able to give a full history but complains about genital pain. Differential includes urinary tract infection, insulin paucity, other electrolyte abnormalities, other occult infection, acute myocardial infarction amongst others. Patient evaluated with EKG, chest x-ray and labs. Patient will receive IV hydration and repeat glucose determinations. She is coming from a detention facility COVID-19 will be checked and she needs to be in isolation. EKG no injury. Chest x-ray no infiltrates. Labs with elevated white count. Glucose 399. Urine with too numerous to count white cells. After bolus glucose still high. Insulin bolus delivered. Rocephin given for urinary tract infection. Concern with elevated white count. Glucose improved after insulin. Patient mentation improved. Admitted to medical floor still in isolation as we need to exclude COVID-19. Laboratory Tests Test 01/27/20 16:40 White Blood Count 12.4 K/UL (4.8-10.8) H Red Blood Count 4.63 M/UL (4.20-5.40) Hemoglobin 14.7 G/DL (12.0-16.0) Hematocrit 44.6 % (37.0-47.0) Mean Corpuscular Volume 96 FL (80-99) Mean Corpuscular Hemoglobin 31.7 PG (27.0-31.0) H Mean Corpuscular Hemoglobin Concent 32.9 G/DL (32.0-36.0) Red Cell Distribution Width 12.7 % (11.6-14.8) Platelet Count 233 K/UL (150-450) Mean Platelet Volume 7.6 FL (6.5-10.1) Neutrophils (%) (Auto) 76.6 % (45.0-75.0) H Lymphocytes (%) (Auto) 16.8 % (20.0-45.0) L Monocytes (%) (Auto) 5.6 % (1.0-10.0) Eosinophils (%) (Auto) 0.2 % (0.0-3.0) Basophils (%) (Auto) 0.9 % (0.0-2.0) Prothrombin Time 12.0 SEC (9.30-11.50) H Prothrombin Time INR 1.1 (0.9-1.1) Activated Partial Thromboplast Time 43 SEC (23-33) H Urine Color Yellow Urine Appearance Slightly cloudy Urine pH 5 (4.5-8.0) Urine Specific [place] 1.020 (1.005-1.035) Urine Protein 4+ (NEGATIVE) H Urine Glucose (UA) 4+ (NEGATIVE) H Urine Ketones Negative (NEGATIVE) Urine Blood 3+ (NEGATIVE) H Urine Nitrite Negative (NEGATIVE) Urine Bilirubin 1+ (NEGATIVE) H Urine Ictotest Negative (NEGATIVE) Urine Urobilinogen 8 MG/DL (0.0-1.0) H Urine Leukocyte Esterase 3+ (NEGATIVE) H Urine RBC 0-2 /HPF (0 - 2) Urine WBC Tntc /HPF (0 - 2) H Urine Squamous Epithelial Cells Moderate /LPF (NONE/OCC) H Urine Bacteria Many /HPF (NONE) H Sodium Level 135 MMOL/L (136-145) L Potassium Level 4.2 MMOL/L (3.5-5.1) Chloride Level 98 MMOL/L (98-107) Carbon Dioxide Level 24 MMOL/L (21-32) Anion Gap 13 mmol/L (5-15) Blood Urea Nitrogen 26 mg/dL (7-18) H Creatinine 1.2 MG/DL (0.55-1.30) Estimated Glomerular Filtration Rate 42.3 mL/min (>60) Glucose Level 399 MG/DL (74-106) H Lactic Acid Level 1.50 mmol/L (0.4-2.0) Calcium Level 8.7 MG/DL (8.5-10.1) Magnesium Level 1.9 MG/DL (1.8-2.4) Total Bilirubin 1.5 MG/DL (0.2-1.0) H Direct Bilirubin 0.8 MG/DL (0.0-0.3) H Aspartate Amino Transferase (AST) 81 U/L (15-37) H Alanine Aminotransferase (ALT) 63 U/L (12-78) Alkaline Phosphatase 171 U/L (46-116) H Total Creatine Kinase 27 U/L (26-308) Troponin I 0.000 ng/mL (0.000-0.056) Pro-B-Type Natriuretic Peptide 600 pg/mL (0-125) H Total Protein 8.2 G/DL (6.4-8.2) Albumin 2.9 G/DL (3.4-5.0) L Globulin 5.3 g/dL Albumin/Globulin Ratio 0.5 (1.0-2.7) L Lipase 148 U/L (73-393) EKG Diagnostic Results Rate: normal Rhythm: NSR ST Segments: no acute changes Rhythm Strip Diag. Results Rhythm: no PVC's, no ectopy, other - Sinus tachycardia Chest X-Ray Diagnostic Results Chest X-Ray Diagnostic Results : Chest X-Ray Ordered: Yes # of Views/Limited/Complete: 1 View Indication: Other EP Interpretation: Yes Interpretation: no consolidation, no effusion, no pneumothorax Impression: No acute disease Electronically Signed by: Electronically signed by Erickson Ramirez MD Last Vital Signs Date Time Temp Pulse Resp B/P (MAP) Pulse Ox O2 Delivery O2 Flow Rate FiO2 01/27/20 23:47 Room Air 01/27/20 21:20 99.6 89 18 141/65 95 Status: improved Disposition: ADMITTED INPATIENT Condition: Serious Erickson Ramirez MD Jan 27, 2020 16:47
[2020-01-27 17:01] LABS: BASOPHILS % (AUTO) 0.9 % (0.0-2.0); EOSINOPHILS % (AUTO) 0.2 % (0.0-3.0); HEMATOCRIT 44.6 % (37.0-47.0); HEMOGLOBIN 14.7 G/DL (12.0-16.0); LYMPHOCYTES % (AUTO) 16.8 % (20.0-45.0); MEAN CORPUSCULAR VOLUME 96 FL (80-99); MONOCYTES % (AUTO) 5.6 % (1.0-10.0); NEUTROPHILS % (AUTO) 76.6 % (45.0-75.0); PLATELET COUNT 233 K/UL (150-450); RED BLOOD COUNT 4.63 M/UL (4.20-5.40); RED CELL DISTRIBUTION WIDTH 12.7 % (11.6-14.8); WHITE BLOOD COUNT 12.4 K/UL (4.8-10.8)
[2020-01-27 17:07] LABS: INR 1.1 (0.9-1.1)
[2020-01-27 17:09] LABS: BILIRUBIN, URINE 1+ (NEGATIVE); COLOR,URINE YELLOW; GLUCOSE, URINE (UA) 4+ (NEGATIVE); KETONES,URINE NEGATIVE (NEGATIVE); LEUKOCYTE ESTERASE ,URINE 3+ (NEGATIVE); NITRITE,URINE NEGATIVE (NEGATIVE); PH,URINE 5 (4.5-8.0); PROTEIN,URINE 4+ (NEGATIVE); UROBILINOGEN,URINE 8 MG/DL (0.0-1.0)
[2020-01-27 17:10] LABS: ANION GAP 13 mmol/L (5-15); APPEARANCE,URINE SLIGHTLY CLOUDY; BLOOD UREA NITROGEN 26 mg/dL (7-18); CALCIUM 8.7 MG/DL (8.5-10.1); CARBON DIOXIDE 24 MMOL/L (21-32); CHLORIDE 98 MMOL/L (98-107); CREATININE 1.2 MG/DL (0.55-1.30); POTASSIUM 4.2 MMOL/L (3.5-5.1); SODIUM 135 MMOL/L (136-145)
[2020-01-27 17:25] LABS: ALANINE AMINOTRANSFERASE 63 U/L (12-78); ALBUMIN 2.9 G/DL (3.4-5.0); ALBUMIN/GLOBULIN RATIO 0.5 (1.0-2.7); ALKALINE PHOSPHATASE 171 U/L (46-116); ASPARTATE AMINO TRANSFERASE 81 U/L (15-37); BILIRUBIN,TOTAL 1.5 MG/DL (0.2-1.0); CREATINE KINASE 27 U/L (26-308)
[2020-01-27 17:26] LABS: BILIRUBIN,DIRECT 0.8 MG/DL (0.0-0.3)
[2020-01-27] MEDS ORDERED: cefTRIAXone 1 GM in NS 55 ML IVPB ONE (18:00)
[2020-01-27] MEDS ORDERED: Insulin Human Regular 100units/ml 3ml IV ONE (18:15)
--- NOTE | 2020-01-27 18:20 | Diagnostic Imaging Report ---
Indication: Chest pain Technique: One view of the chest Comparison: 06/01/2019 Findings: Generalized mild interstitial prominence is similar to the prior exam. The heart size is upper limits normal. No definite infiltrates or effusions. Impression: Mild interstitial prominence is probably on the basis of senescent changes but could indicate mild pulmonary edema. Correlate with clinical finding
--- NOTE | 2020-01-27 18:28 | NUR ---
ED Nurse Note: pt currently resting in bed, no acute distress is noted. VSS as documented.
[2020-01-27 18:29] VITALS: BP 146/62
--- NOTE | 2020-01-27 19:05 | NUR ---
ED Nurse Note: Report given to parris srivastava RN. endorsed plan of care.
--- NOTE | 2020-01-27 19:30 | NUR ---
ED Nurse Note: pt care endorsed by CASE Smalls. pt is resting in bed, Vital signs stable on sports development officer, SpO2 is 95% on RA, ERMD aware. pt does not appear to be in any acute dsitress at this time. will cont to monitor pt
--- NOTE | 2020-01-27 20:57 | NUR ---
ED Nurse Note: report given to CASE Rosa
[2020-01-27 21:15] VITALS: BP 141/65
--- NOTE | 2020-01-27 22:00 | NUR ---
NURSE NOTES: Received report from [facility] ED. Pt arrived to the unit @ 2145 via gurney. AAO x 1, confused, on room air, Monegasque speaking. Vitals 100.5F, 114HR, 20RR, 129/78, 96%. IV site intact and patent. Skin assessment done. Fall education given but unable to understand and reinforce needed. Admitted with wound on Sacral, RLE, Alfredo. heels. Picture taken and uploaded. Belongings list reviewed and meds recon done. Pt is on PUI. Covid swab and other swabs done from ED. Received admission orders from Dr. Ayala. Denies pain and no acute distress noted. Bed alarm on, lowest position, side rails up, call light within reach. Will continue to monitor.
[2020-01-28] VITALS: BP 124/81
[2020-01-28 04:00] VITALS: BP 134/83
[2020-01-28 04:45] LABS: BASOPHILS % (AUTO) 0.5 % (0.0-2.0); EOSINOPHILS % (AUTO) 1.1 % (0.0-3.0); HEMATOCRIT 37.1 % (37.0-47.0); HEMOGLOBIN 12.1 G/DL (12.0-16.0); LYMPHOCYTES % (AUTO) 18.3 % (20.0-45.0); MEAN CORPUSCULAR VOLUME 98 FL (80-99); MONOCYTES % (AUTO) 7.8 % (1.0-10.0); NEUTROPHILS % (AUTO) 72.4 % (45.0-75.0); PLATELET COUNT 179 K/UL (150-450); RED BLOOD COUNT 3.77 M/UL (4.20-5.40); RED CELL DISTRIBUTION WIDTH 12.3 % (11.6-14.8); WHITE BLOOD COUNT 10.2 K/UL (4.8-10.8)
[2020-01-28 04:55] LABS: ANION GAP 12 mmol/L (5-15); BLOOD UREA NITROGEN 26 mg/dL (7-18); CALCIUM 8.4 MG/DL (8.5-10.1); CARBON DIOXIDE 23 MMOL/L (21-32); CHLORIDE 106 MMOL/L (98-107); POTASSIUM 3.6 MMOL/L (3.5-5.1); SODIUM 141 MMOL/L (136-145)
[2020-01-28] MEDS: NovoLOG Insulin Flexpen SUBQ SCH ×7 (05:27→20:20)
--- NOTE | 2020-01-28 07:19 | NUR ---
HAND-OFF: Report given to CASE Valenzuela.
--- NOTE | 2020-01-28 07:55 | NUR ---
NURSE NOTES: PT IS CALM, RESTING IN BED. RN HELP SET UP BREAKFAST AND PT ABLE TO FEED SELF, BUT NEEDS ASSISTANCE WITH SET-UP. IN NO APPARENT DISTRESS AT THIS TIME. DENIES PAIN. RESPIRATION ARE EVEN AND UNLABORED. PT IN HIGH-CASTILLO'S POSITION WITH BED IN LOWEST POSITION. BEDSIDE RAILS X3 RAISED. BED ALARM ON. CALL LIGHT WITHIN REACH. WILL CONTINUE TO MONITOR.
[2020-01-28 08:00] VITALS: BP 125/59
[2020-01-28] MEDS: Heparin 5000 units/ml inj SUBQ SCH ×2 (08:31→20:10)
[2020-01-28] MEDS: Docusate 100mg cap ORAL SCH ×2 (08:31→17:03)
[2020-01-28] MEDS: Memantine 5 MG TAB ORAL SCH ×2 (08:31→17:04)
[2020-01-28] MEDS ORDERED: Enoxaparin 80mg Inj SUBQ SCH (09:00)
[2020-01-28] MEDS: Levemir Flexpen SUBQ SCH (09:46)
--- NOTE | 2020-01-28 10:00 | Consultation ---
DATE OF CONSULTATION: 01/28/2020 ENDOCRINOLOGY CONSULTATION CONSULTING PHYSICIAN: Rich Nuñez MD. REFERRING PHYSICIAN: Chalo Ayala DO. REASON FOR CONSULTATION: Diabetes management. HISTORY OF PRESENT ILLNESS: It is important to note that history is obtained from review of the chart and medical records since the patient is a poor historian and is unable to provide any history. The patient resides in a group home facility. The patient was sent for elevated glucose and the patient complains about pain in her genitals. On her recent admission to the hospital, she was admitted with COPD, diabetes, and malnutrition. The patient is known to me from the admission of May 2019 when she presented with seizure. PAST MEDICAL HISTORY: 1. Diabetes. 2. COPD. 3. Cancer of the cervix. 4. Hypertension. PAST SURGICAL HISTORY: Unknown. MEDICATIONS: Reviewed and reconciled. REVIEW OF SYSTEMS: Difficult to obtain. ALLERGIES: Penicillin. FAMILY HISTORY: Noncontributory. LABORATORY VALUES: WBC 10, hemoglobin 12, hematocrit 37, platelets of 179,000. Sodium 135, potassium 4.2, chloride 98, bicarb 24, BUN 26, creatinine 1.2. Glucose of 399. BNP 600. Lipase 148. PHYSICAL EXAMINATION: GENERAL: The patient is awake, forgetful. VITAL SIGNS: Blood pressure 134/83, heart rate 93, respiratory rate 18, temperature 99.4. HEENT: Pupils are equal and reactive to light. Sclerae are anicteric. NECK: No JVD. HEART: Regular. LUNGS: Clear. ABDOMEN: Positive bowel sounds. EXTREMITIES: No clubbing, cyanosis, or edema. DIAGNOSES: 1. Diabetes, out of control. 2. Lower abdominal pain. PLAN: 1. Start Levemir 18 units daily. 2. Start NovoLog 6 units before each meal. 3. Continue NovoLog sliding scale before meals and at bedtime. 4. Check hemoglobin A1c. 5. Hypoglycemia protocol has been ordered. 6. Further adjustment according to blood glucose values. Thank you, Dr. Ayala, for the courtesy of this consultation. Rich Nuñez M.D. DR: CASE/SON JOB#: [id number] CC:
--- NOTE | 2020-01-28 10:29 | NUR ---
RD ASSESSMENT & RECOMMENDATIONS SEE CARE ACTIVITY FOR COMPLETE ASSESSMENT DAILY ESTIMATED NEEDS: Needs based on Diabetes, wound/ 55.5kg 25-30 kcals/kg 6472-4945 total kcals 1.25-1.5 g protein/kg 69-83 g total protein 20-25 mL/kg 7518-6838 total fluid mLs NUTRITION DIAGNOSIS: Altered nutrition related lab values r/t diabetes as evidenced by A1C 8.3, BG on adm 399, Uglu 4+. (CURRENT DIET:CCHO MED soft easy chew) PO DIET RECOMMENDATIONS--->>> CCHO LOW / Texture per YOUTH ASSOCIATE + Glucerna TID ADDITIONAL RECOMMENDATIONS: * Calibrated bescale wt: 122# per bed scale vs 155# per EMR * A1C for evaluation of glycemic control-> 8.3 * F/up WC eval * Glucerna TID (250 kcal, 10g pro each) * Encourage pm snack + regular accuchecks to prevent hypoglycemia -> PO intake unknown; monitor BG closely w/ poor-fair po intake * YOUTH ASSOCIATE for appropriate texture
[2020-01-28] MEDS: Cefepime HCl 1 GM in D5W 55 ML IVPB SCH ×2 (11:10→20:09)
[2020-01-28 11:50] VITALS: BP 140/68
--- NOTE | 2020-01-28 12:34 | NUR ---
CASE MANAGEMENT:INITIAL REVIEW 89 YR OLD FEMALE BIBA FROM [facility] CC;ABNORMAL LABS SI;HYPERGLYCEMIA. UTI. SUSPECTED COVID-19. 99.8 110 18 146/62 94% ON RA WBC 12.4 NA 135 BUN 26 BG 399 T-BILI 1.5 D-BILI 0.8 AST 81 ALK PHOS 171 BNP 600 ALB 2.9 PT 12 INR 43 UA+ PROTEIN, GLUCOSE, BLOOD, BILIRUBIN, LE, WBC, EPITH CELLS, BACTERIA IS;IVF NS BOLUS ROCEPHIN IV INSULIN HUMAN SUBQ ADMITTED TO MED SURG 01/27/20 @ 2248 MED SURG STATUS DCP;PATIENT IS FROM [facility]
--- NOTE | 2020-01-28 13:00 | NUR ---
NURSE NOTES: SCHEDULED NOVOLOG AT 1150HRS HELD. PT'S BS 152 AND ATE LESS THAN 15% OF LUNCH. RN ADMINISTERED SCHEDULED NOVOLOG SLIDING SCALE. WILL CONTINUE TO MONITOR.
[2020-01-28] MEDS ORDERED: LORazepam 0.5mg tab ORAL PRN (15:00)
[2020-01-28] MEDS: Morphine Sulfate 2mg/ml Inj(IV/IM USE ONLY) IVP PRN (15:07)
--- NOTE | 2020-01-28 15:30 | Consultation ---
DATE OF CONSULTATION: 01/28/2020 INFECTIOUS DISEASE CONSULTATION CONSULTING PHYSICIAN: Senthil Ochoa MD. REFERRING PHYSICIAN: Chalo Ayala DO. REASON FOR CONSULTATION: Rule out pneumonia. HISTORY OF PRESENTING ILLNESS: This is an 89-year-old lady with history of hypertension, DVT, diabetes, COPD, and depression, who comes in with pain and elevated blood sugar. There is a concern for pneumonia and an Infectious Disease consultation has been obtained for antibiotics. PAST MEDICAL HISTORY: 1. History of diabetes. 2. Hypertension. 3. COPD. 4. DVT. 5. Depression. 6. She also has cancer of the cervix. SOCIAL HISTORY: She is resident of a retirement. FAMILY HISTORY: Unknown. REVIEW OF SYSTEMS: Unable to obtain currently. MEDICATIONS: As an inpatient, she is on subcutaneous heparin, docusate, famotidine, gabapentin, Namenda, multivitamin, insulin, Tylenol, and morphine. ALLERGIES: To penicillin noted. PHYSICAL EXAMINATION: VITAL SIGNS: Temperature of 98.8, T-max of 99.8, pulse of 93, respiratory rate 18, blood pressure 125/59. O2 saturation of 95% on room air. Examination deferred due to possibility of COVID-19 LABORATORY AND DIAGNOSTIC DATA: White count 10.2, hemoglobin 12.1, hematocrit 37.1, MCV 98, and platelet count of 179,000 with neutrophils of 72%. Sodium 141, potassium 3.6, chloride 106, bicarb 23, BUN 26, creatinine 1, glucose 229. Calcium 8.3. Total bilirubin 1.5, direct bilirubin 0.8, AST 81, ALT 63, alkaline phosphatase 171. CK of 27. Troponin 0. Beta-natriuretic peptide 600. Total protein 8.2, albumin 2.9. Lipase of 148. UA showing too numerous to count white cells. Urine culture showing gram-negative rods. Chest x-ray is showing mild pulmonary edema. COVID-19 test is pending. ASSESSMENT: This an 89-year-old lady with history of diabetes, hypertension, chronic obstructive pulmonary disease, and cancer of the cervix, who comes in and is found to have, 1. Gram-negative urinary tract infection. 2. COVID-19 test is pending. 3. Leukocytosis is improving. 4. Diabetes. 5. Hypertension. PLAN: 1. We will start the patient on cefepime. 2. We will follow up cultures and adjust antibiotics accordingly. I would like to thank Dr. Chalo Ayala for this consultation. Senthil Ochoa M.D. DR: RODRICK JOB#: [id number] CC:
[2020-01-28 15:52] VITALS: BP 132/53
--- NOTE | 2020-01-28 16:30 | History and Physical Report ---
DATE OF ADMISSION: 01/27/2020 DATE AND TIME SEEN: 01/28/2020 at 1 p.m. CONSULTANTS: 1. Senthil Ochoa MD. 2. Rich Nuñez MD. CHIEF COMPLAINT: Diabetes, uncontrolled and UTI. BRIEF HISTORY: This is an 89-year-old female from [facility] who presented with uncontrolled diabetes, was found to have UTI as well, admitted to medical floor for further treatment. Currently, calm in bed, sleeping not talking much. REVIEW OF SYSTEMS: Unavailable. PAST MEDICAL HISTORY: Includes diabetes, hypertension, COPD, weakness, CKD, arthritis, malnutrition, and history of COVID-19. PAST SURGICAL HISTORY: Unknown. ALLERGIES: Penicillin. MEDICATIONS: Include cefepime, heparin, docusate sodium, enoxaparin, famotidine, gabapentin, memantine, insulin, Tylenol, and ceftriaxone. SOCIAL HISTORY: No smoking. No alcohol. No intravenous drug abuse. FAMILY HISTORY: Noncontributory. OBJECTIVE: GENERAL: Sleeping in bed, not talking much. VITAL SIGNS: Temperature 99, pulse 93, respirations 20, and blood pressure 140/60. GENERAL: Lethargic, sleepy. HEENT: Normocephalic and atraumatic. NECK: Trachea midline. CARDIOVASCULAR: No peripheral edema. LUNGS: Breathing comfortably on room air. ABDOMEN: No apparent wound. EXTREMITIES: No cyanosis or clubbing NEUROLOGIC: The patient moves all extremities. LABORATORY AND DIAGNOSTIC DATA: Labs at this time show initial white count of 12, now CBC is normal. BMP shows BUN 29. Initial blood sugar was 399, now 229. Troponin 0.00. Albumin 2.9. INR is 1.1. PTT is 43. Urinalysis show 3+ leukocyte esterase. ASSESSMENT: 1. Diabetes, uncontrolled. 2. UTI. 3. Hypertension. 4. COPD. 5. Weakness. 6. CKD. 7. Arthritis. 8. Malnutrition. 9. History of COVID-19. PLAN: 1. Blood pressure, blood sugar, and pain control. 2. Dietary followup. 3. Antibiotics per Infectious Disease. 4. Resume home medications. 5. CBC and BMP in the morning. Chalo Ayala D.O. DR: RODDY JOB#: [id number] CC:
[2020-01-28] MEDS ORDERED: MULTIVITAMINS1 EAC8 ORAL (18:21)
[2020-01-28] MEDS ORDERED: VENELEX OINTMEN60 GM TP (18:21)
--- NOTE | 2020-01-28 19:08 | NUR ---
HAND-OFF: Report given to Otf MEDINA RN.
--- NOTE | 2020-01-28 19:25 | NUR ---
NURSE NOTES: Received patient in bed, alert x1, confuse, disoriented, on room air, IV site is clean dry and intact, patient is bedbound , aspiration precautions are implemented. Call light is within reach, bed is lowered, locked, alarm is on, will continue to monitor for comfort and safety.
[2020-01-28 20:00] VITALS: BP 115/67
--- NOTE | 2020-01-28 23:00 | Consultation ---
DATE OF CONSULTATION: 01/28/2020 INITIAL PSYCHIATRIC EVALUATION HISTORY OF PRESENT ILLNESS: This is an 89-year-old female with hyperglycemia. This patient continues to have some confusion, some disorganized thought process. She has some mood lability, irritability, agitation. She has no logical plans for her own self care. The patient came into the hospital because of hypoglycemia, but she also has altered mental status and confusion. She has poor memory. Her cognition has declined below baseline. She has high levels of anxiety, that was the reason for psychiatric consultation. When I walked into the room, she started yelling at me in [place], very irritable and agitated. She has a lot of psychomotor agitation, irritability, confusion. That is the reason why there was a daily psychiatric consultation requested. PAST MEDICAL HISTORY: She has a history of diabetes, failure to thrive, malnutrition, hypertension, tachycardia, , failure to thrive, hypertension. She is currently in a study for COVID-19 infection, but she does not give any details about this further. ALLERGIES: She has allergies to penicillin. MEDICATIONS: Psychotropic medications on admission, she is currently on psychotropic medication regimen consisting of Namenda 5 mg twice a day. She is on Neurontin 100 mg daily. SUBSTANCE ABUSE HISTORY: No history of any drug or alcohol use. FAMILY PSYCHIATRIC HISTORY: Denies. PAIN ASSESSMENT: 09/30. DEVELOPMENTAL PROBLEMS: Denies. SOCIAL HISTORY: She is living in [facility]. Financially supported by [facility] and Medicare. PSYCHIATRIC HISTORY: Major depressive disorder, severe, recurrent with psychotic features, rule out dementia with psychosis. STRENGTHS: She is motivated to get better and she is healthy. WEAKNESSES: She is impulsive with minimal support system. MENTAL STATUS EXAMINATION: This is an 89-year-old female. Her appearance is disheveled. Attitude, irritable and agitated. Affect is labile. Her intellect is poor because she does not know current events, does not know last four presidents. Mood, depressed and anxious. Motor activity, psychomotor agitation. Attention span is poor because she cannot do serial sevens or spell world backwards. Orientation x2. Speech is pressured, nonsensical. Thought process, disorganized and illogical. Thought content, no auditory hallucinations or paranoid delusions. Insight is poor because she does not recognize having a psychiatric disorder or mood disorder. Judgment is poor because she cannot make medical decisions for herself. Long-term memory is good and she can recall long-term events in her life such as high school she went to but short-term memory is actually 1/3, so poor short-term memory. She is denying any current suicidal or homicidal ideation at this time. DIAGNOSES: 1. Major depressive disorder, mild, recurrent, rule out dementia with psychosis. 2. No secondary. 3. Medical includes diabetes, hypertension, neuropathy. 4. Psychosocial stressors, financial. 5. Functional impairment is severe. PLAN: I am going to treat this patient with medication regimen of Ativan at a dose of 0.5 mg every 6 hours p.r.n. anxiety and agitation, Risperdal 0.25 mg at bedtime. A 20-minutes of cognitive behavioral therapy to help her identify automatic negative thoughts, help convert negative thoughts to more positive thoughts to reduce depression, anxiety, mood lability. Chart reviewed and discussed with staff. Seen and assessed at bedside. I would like to thank Dr. Chalo Ayala for this interesting consultation. Vivain Armas M.D. DR: Luis JOB#: [id number] CC:
[2020-01-29] VITALS (7 sets, daily range): BP systolic 128–160; BP diastolic 56–84
[2020-01-29] MEDS: NovoLOG Insulin Flexpen SUBQ SCH ×7 (05:26→20:46)
[2020-01-29 06:27] LABS: BASOPHILS % (AUTO) 0.5 % (0.0-2.0); EOSINOPHILS % (AUTO) 1.1 % (0.0-3.0); HEMATOCRIT 38.2 % (37.0-47.0); HEMOGLOBIN 12.5 G/DL (12.0-16.0); MEAN CORPUSCULAR VOLUME 99 FL (80-99); MONOCYTES % (AUTO) 7.6 % (1.0-10.0); NEUTROPHILS % (AUTO) 66.9 % (45.0-75.0); PLATELET COUNT 184 K/UL (150-450); RED BLOOD COUNT 3.87 M/UL (4.20-5.40); RED CELL DISTRIBUTION WIDTH 12.3 % (11.6-14.8)
[2020-01-29 06:30] LABS: ANION GAP 12 mmol/L (5-15); BLOOD UREA NITROGEN 21 mg/dL (7-18); CALCIUM 8.2 MG/DL (8.5-10.1); CARBON DIOXIDE 23 MMOL/L (21-32); CHLORIDE 102 MMOL/L (98-107); CREATININE 0.9 MG/DL (0.55-1.30); POTASSIUM 3.7 MMOL/L (3.5-5.1); SODIUM 137 MMOL/L (136-145)
--- NOTE | 2020-01-29 06:31 | General Progress Note ---
Assessment/Plan Problem List: (1) Person under investigation for COVID-19 ICD Codes: Z20.828 - Contact with and (suspected) exposure to other viral communicable diseases SNOMED: 486049838 (2) Hyperglycemia ICD Codes: R73.9 - Hyperglycemia, unspecified SNOMED: 96243490 (3) Diabetes ICD Codes: E11.9 - Type 2 diabetes mellitus without complications SNOMED: 80796725 Assessment/Plan: continue Levemir 18 units daily continue Novolog 6 units ac tid continue Novolog sliding scale ac / hs hypoglycemia protocol in order Subjective ROS Limited/Unobtainable: Yes Allergies: Coded Allergies: PENICILLINS (Verified Allergy, Unknown, 11/01/12) Uncoded Allergies: PENICILLIN (Allergy, Unknown, 06/01/19) Subjective events noted glucose values improved Item Value Date Time Bedside Blood Glucose 107 mg/dl 01/29/20 0527 Bedside Blood Glucose 108 mg/dl 01/28/20 1638 Bedside Blood Glucose 183 mg/dl H 01/28/20 0946 Bedside Blood Glucose 205 mg/dl H 01/28/20 0527 Objective Last 24 Hour Vital Signs Date Time Temp Pulse Resp B/P (MAP) Pulse Ox O2 Delivery O2 Flow Rate FiO2 01/29/20 04:00 98.2 84 20 129/64 (85) 94 01/29/20 00:00 98.2 91 24 128/84 (99) 94 01/28/20 21:08 Room Air 01/28/20 20:00 99.0 96 26 115/67 (83) 94 01/28/20 15:52 99.5 100 20 132/53 (79) 100 01/28/20 11:50 99.0 93 20 140/68 (92) 96 01/28/20 09:00 Room Air 01/28/20 08:00 98.8 93 18 125/59 (81) 95 Intake and Output 01/28/20 01/29/20 19:00 07:00 Intake Total 655 ml Balance 655 ml IV Total 655 ml # Bowel Movements 1 Laboratory Tests 01/28/20 16:22: POC Whole Blood Glucose 108H 01/29/20 05:10: White Blood Count [Pending], Red Blood Count [Pending], Hemoglobin [Pending], Hematocrit [Pending], Mean Corpuscular Volume [Pending], Mean Corpuscular Hemoglobin [Pending], Mean Corpuscular Hemoglobin Concent [Pending], Red Cell Distribution Width [Pending], Platelet Count [Pending], Mean Platelet Volume [ Pending], Neutrophils (%) (Auto) [Pending], Lymphocytes (%) (Auto) [Pending], Monocytes (%) (Auto) [Pending], Eosinophils (%) (Auto) [Pending], Basophils (%) (Auto) [Pending], Sodium Level [Pending], Potassium Level [Pending], Chloride Level [Pending], Carbon Dioxide Level [Pending], Blood Urea Nitrogen [Pending], Creatinine [Pending], Estimat Glomerular Filtration Rate [Pending], Glucose Level [Pending], Calcium Level [Pending] 01/29/20 05:24: POC Whole Blood Glucose 107H Height (Feet): 5 Height (Inches): 1.00 Weight (Pounds): 155 General Appearance: no apparent distress Neck: normal alignment Cardiovascular: normal rate Respiratory/Chest: lungs clear Abdomen: normal bowel sounds Pelvis: normal external exam Objective Current Medications Medications (Trade) Dose Ordered Sig/Joon Route PRN Reason Start Time Stop Time Status Last Admin Dose Admin Acetaminophen (Tylenol) 650 mg Q4H PRN ORAL MILD PAIN AND FEVER>100.5 01/27/20 22:15 02/26/20 22:14 01/27/20 22:58 Cefepime HCl 1 gm/ Dextrose 55 ml @ 110 mls/hr EVERY 12 HOURS IVPB 01/28/20 11:00 02/04/20 10:59 01/28/20 20:09 Dextrose (Dextrose 50%) 25 ml Q30M PRN IV Hypoglycemia 01/27/20 22:15 04/26/20 22:14 Dextrose (Dextrose 50%) 50 ml Q30M PRN IV Hypoglycemia 01/27/20 22:15 04/26/20 22:14 Docusate Sodium (Colace) 100 mg BID ORAL 01/28/20 09:00 02/27/20 08:59 01/28/20 17:03 Famotidine (Pepcid) 20 mg DAILY ORAL 01/28/20 09:00 04/27/20 08:59 01/28/20 08:31 Gabapentin (Neurontin) 100 mg DAILY ORAL 01/28/20 09:00 02/27/20 08:59 01/28/20 08:31 Heparin Sodium (Porcine) (Heparin 5000 units/ml) 5,000 units EVERY 12 HOURS SUBQ 01/28/20 09:00 03/13/20 08:59 01/28/20 20:10 Insulin Aspart (NovoLOG) BEFORE MEALS AND HS SUBQ 01/28/20 06:30 04/27/20 06:29 01/28/20 11:43 Insulin Aspart (NovoLOG) 6 units NOVOTIAC SUBQ 01/28/20 08:00 04/27/20 07:59 01/28/20 08:32 Insulin Detemir (Levemir) 18 units DAILY SUBQ 01/28/20 09:00 04/27/20 08:59 01/28/20 09:46 Lorazepam (Ativan) 0.5 mg Q6H PRN ORAL For Anxiety 01/28/20 15:00 02/04/20 14:59 Memantine (Namenda) 5 mg BID ORAL 01/28/20 09:00 02/27/20 08:59 01/28/20 17:04 Morphine Sulfate (Morphine Sulfate) 2 mg Q4H PRN IVP Severe Pain (Pain Scale 7-10) 01/27/20 22:15 02/03/20 22:14 01/28/20 15:07 Multivitamins (Multivitamins) 1 tab DAILY ORAL 01/28/20 09:00 02/27/20 08:59 01/28/20 08:31 Risperidone (RisperDAL) 0.25 mg QHS ORAL 01/28/20 21:00 03/13/20 20:59 01/28/20 20:09 Sodium Chloride 1,000 ml @ 60 mls/hr [id number] IV 01/27/20 23:00 02/26/20 22:59 01/28/20 15:10 Rich Nuñez MD Jan 29, 2020 06:31
--- NOTE | 2020-01-29 07:20 | NUR ---
HAND-OFF: Report given to Nina MCCALL .
--- NOTE | 2020-01-29 07:40 | NUR ---
NURSE NOTES: RECEIVED PT CALM AND COMFORTABLE. KOREAN SPEAKING. RESTING IN BED WITH HOB ELEVATED. ASSISTANCE NEEDED WITH ALL MEALS. IN NO APPARENT DISTRESS AT THIS TIME. DENIES PAIN. RESPIRATION ARE EVEN AND UNLABORED. IV ACCESS PATENT AND INTACT. IVF INFUSING WELL. KEPT BED IN THE LOWEST POSITION. SIDERAILS X3 ARE UP FOR SAFETY. BED ALARM ON AND LOCKED. CALL LIGHT WITHIN REACH. WILL CONTINUE TO MONITOR.
--- NOTE | 2020-01-29 08:10 | General Progress Note ---
Assessment/Plan Problem List: (1) Malnutrition ICD Codes: E46 - Unspecified protein-calorie malnutrition SNOMED: 65741977 (2) Failure to thrive SNOMED: 66391778 (3) HTN (hypertension) ICD Codes: I10 - Essential (primary) hypertension SNOMED: 81323810 (4) Hyperglycemia ICD Codes: R73.9 - Hyperglycemia, unspecified SNOMED: 51259868 (5) UTI (urinary tract infection) ICD Codes: N39.0 - Urinary tract infection, site not specified SNOMED: 28685507 Qualifiers: Qualified Codes: N39.0 - Urinary tract infection, site not specified (6) Diabetes ICD Codes: E11.9 - Type 2 diabetes mellitus without complications SNOMED: 50633478 Status: unchanged Assessment/Plan: pt diet abx bs control cbc bmp am Subjective Constitutional: Reports: weakness Allergies: Coded Allergies: PENICILLINS (Verified Allergy, Unknown, 11/01/12) Uncoded Allergies: PENICILLIN (Allergy, Unknown, 06/01/19) All Systems: reviewed and negative except above Subjective sleepy calm Objective Last 24 Hour Vital Signs Date Time Temp Pulse Resp B/P (MAP) Pulse Ox O2 Delivery O2 Flow Rate FiO2 01/29/20 04:00 98.2 84 20 129/64 (85) 94 01/29/20 00:00 98.2 91 24 128/84 (99) 94 01/28/20 21:08 Room Air 01/28/20 20:00 99.0 96 26 115/67 (83) 94 01/28/20 15:52 99.5 100 20 132/53 (79) 100 01/28/20 11:50 99.0 93 20 140/68 (92) 96 01/28/20 09:00 Room Air Intake and Output 01/28/20 01/29/20 19:00 07:00 Intake Total 655 ml Output Total 400 ml Balance 655 ml -400 ml IV Total 655 ml Output Urine Total 400 ml # Bowel Movements 1 Laboratory Tests 01/28/20 16:22: POC Whole Blood Glucose 108H 01/29/20 05:10: White Blood Count 9.0, Red Blood Count 3.87L, Hemoglobin 12.5, Hematocrit 38.2, Mean Corpuscular Volume 99, Mean Corpuscular Hemoglobin 32.2H, Mean Corpuscular Hemoglobin Concent 32.6, Red Cell Distribution Width 12.3, Platelet Count 184, Mean Platelet Volume 7.7, Neutrophils (%) (Auto) 66.9, Lymphocytes (%) (Auto) 24.0, Monocytes (%) (Auto) 7.6, Eosinophils (%) (Auto) 1.1, Basophils (%) (Auto ) 0.5, Sodium Level 137, Potassium Level 3.7, Chloride Level 102, Carbon Dioxide Level 23, Anion Gap 12, Blood Urea Nitrogen 21H, Creatinine 0.9, Estimat Glomerular Filtration Rate 59.0, Glucose Level 106#, Calcium Level 8.2L 01/29/20 05:24: POC Whole Blood Glucose 107H Height (Feet): 5 Height (Inches): 1.00 Weight (Pounds): 155 General Appearance: lethargic EENT: normal ENT inspection Neck: normal alignment Cardiovascular: normal peripheral pulses, normal rate, regular rhythm Respiratory/Chest: chest wall non-tender, lungs clear, normal breath sounds Abdomen: normal bowel sounds, non tender, soft Extremities: normal inspection Edema: no edema noted Arm (L), no edema noted Arm (R), no edema noted Leg (L), no edema noted Leg (R), no edema noted Pedal (L), no edema noted Pedal (R), no edema noted Generalized Neurologic: motor weakness Skin: normal pigmentation, warm/dry Chalo Ayala DO Jan 29, 2020 08:10
[2020-01-29] MEDS: Docusate 100mg cap ORAL SCH ×2 (08:33→17:01)
[2020-01-29] MEDS: Memantine 5 MG TAB ORAL SCH ×2 (08:33→17:01)
[2020-01-29] MEDS: Levemir Flexpen SUBQ SCH (08:35)
[2020-01-29] MEDS: Heparin 5000 units/ml inj SUBQ SCH ×2 (08:35→20:47)
[2020-01-29] MEDS: Cefepime HCl 1 GM in D5W 55 ML IVPB SCH (09:35)
--- NOTE | 2020-01-29 10:10 | NUR ---
PT EVALUATION NOTE PT evaluation completed. Patient is dependent with all bed mobility activities, functioning at baseline and therefore is not a candidate for skilled inpatient PT intervention. Recommend discharge to prior living arrangement for care and comfort. Patient discharged from PT, Nnia MCCALL notified. Addendum: 01/29/20 at 1238 by JAYASHREE LLANOS PT Amended: Links added.
--- NOTE | 2020-01-29 10:31 | NUR ---
DISCHARGE PLANNING PER DR MAGDALENO, NOT READY FOR DISCHARGE TODAY.
--- NOTE | 2020-01-29 10:51 | Infectious Diseases Prog Note ---
Assessment/Plan Assessment/Plan antibiotics : cefepime A 1. e.coli UTI 2. leucocytosis improving 3. diabetes mellitus 4. hypertension 5. COPD 6. cancer of cervix 7. COVID 19 negative P 1. dc cefepime 2. start and continue ceftriaxone 4 more days 3. will follow up cultures Subjective ROS Limited/Unobtainable: Yes Allergies: Coded Allergies: PENICILLINS (Verified Allergy, Unknown, 11/01/12) Uncoded Allergies: PENICILLIN (Allergy, Unknown, 06/01/19) Objective Last 24 Hour Vital Signs Date Time Temp Pulse Resp B/P (MAP) Pulse Ox O2 Delivery O2 Flow Rate FiO2 01/29/20 09:03 98.2 01/29/20 09:00 Room Air 01/29/20 08:00 98.2 20 157/70 (99) 94 01/29/20 04:00 98.2 84 20 129/64 (85) 94 01/29/20 00:00 98.2 91 24 128/84 (99) 94 01/28/20 21:08 Room Air 01/28/20 20:00 99.0 96 26 115/67 (83) 94 01/28/20 15:52 99.5 100 20 132/53 (79) 100 01/28/20 11:50 99.0 93 20 140/68 (92) 96 Height (Feet): 5 Height (Inches): 1.00 Weight (Pounds): 155 Respiratory/Chest: lungs clear Cardiovascular: normal rate, regular rhythm, no gallop/murmur Abdomen: soft, non tender Extremities: other - + edema Microbiology Date/Time Source Procedure Growth Status 01/27/20 16:30 Blood Blood Culture - Preliminary NO GROWTH AFTER 24 HOURS Resulted 01/27/20 16:15 Blood Blood Culture - Preliminary NO GROWTH AFTER 24 HOURS Resulted 01/27/20 16:58 Nasopharynx Coronavirus COVID-19 PCR ([facility]) - Final Complete 01/27/20 16:40 Urine,Clean Catch Urine Culture - Final Escherichia Coli Complete Laboratory Tests Test 01/28/20 16:22 01/29/20 05:10 01/29/20 05:24 POC Whole Blood Glucose 108 MG/DL (74-106) H 107 MG/DL (74-106) H White Blood Count 9.0 K/UL (4.8-10.8) Red Blood Count 3.87 M/UL (4.20-5.40) L Hemoglobin 12.5 G/DL (12.0-16.0) Hematocrit 38.2 % (37.0-47.0) Mean Corpuscular Volume 99 FL (80-99) Mean Corpuscular Hemoglobin 32.2 PG (27.0-31.0) H Mean Corpuscular Hemoglobin Concent 32.6 G/DL (32.0-36.0) Red Cell Distribution Width 12.3 % (11.6-14.8) Platelet Count 184 K/UL (150-450) Mean Platelet Volume 7.7 FL (6.5-10.1) Neutrophils (%) (Auto) 66.9 % (45.0-75.0) Lymphocytes (%) (Auto) 24.0 % (20.0-45.0) Monocytes (%) (Auto) 7.6 % (1.0-10.0) Eosinophils (%) (Auto) 1.1 % (0.0-3.0) Basophils (%) (Auto) 0.5 % (0.0-2.0) Sodium Level 137 MMOL/L (136-145) Potassium Level 3.7 MMOL/L (3.5-5.1) Chloride Level 102 MMOL/L (98-107) Carbon Dioxide Level 23 MMOL/L (21-32) Anion Gap 12 mmol/L (5-15) Blood Urea Nitrogen 21 mg/dL (7-18) H Creatinine 0.9 MG/DL (0.55-1.30) Estimat Glomerular Filtration Rate 59.0 mL/min (>60) Glucose Level 106 MG/DL (74-106) # Calcium Level 8.2 MG/DL (8.5-10.1) L Current Medications Medications (Trade) Dose Ordered Sig/Joon Route PRN Reason Start Time Stop Time Status Last Admin Dose Admin Acetaminophen (Tylenol) 650 mg Q4H PRN ORAL MILD PAIN AND FEVER>100.5 01/27/20 22:15 02/26/20 22:14 01/29/20 08:33 Cefepime HCl 1 gm/ Dextrose 55 ml @ 110 mls/hr EVERY 12 HOURS IVPB 01/28/20 11:00 02/04/20 10:59 01/29/20 09:35 Dextrose (Dextrose 50%) 25 ml Q30M PRN IV Hypoglycemia 01/27/20 22:15 04/26/20 22:14 Dextrose (Dextrose 50%) 50 ml Q30M PRN IV Hypoglycemia 01/27/20 22:15 04/26/20 22:14 Docusate Sodium (Colace) 100 mg BID ORAL 01/28/20 09:00 02/27/20 08:59 01/29/20 08:33 Famotidine (Pepcid) 20 mg DAILY ORAL 01/28/20 09:00 04/27/20 08:59 01/29/20 08:33 Gabapentin (Neurontin) 100 mg DAILY ORAL 01/28/20 09:00 02/27/20 08:59 01/29/20 08:33 Heparin Sodium (Porcine) (Heparin 5000 units/ml) 5,000 units EVERY 12 HOURS SUBQ 01/28/20 09:00 03/13/20 08:59 01/29/20 08:35 Insulin Aspart (NovoLOG) BEFORE MEALS AND HS SUBQ 01/28/20 06:30 04/27/20 06:29 01/28/20 11:43 Insulin Aspart (NovoLOG) 6 units NOVOTIAC SUBQ 01/28/20 08:00 04/27/20 07:59 01/28/20 08:32 Insulin Detemir (Levemir) 18 units DAILY SUBQ 01/28/20 09:00 04/27/20 08:59 01/29/20 08:35 Lorazepam (Ativan) 0.5 mg Q6H PRN ORAL For Anxiety 01/28/20 15:00 02/04/20 14:59 Memantine (Namenda) 5 mg BID ORAL 01/28/20 09:00 02/27/20 08:59 01/29/20 08:33 Morphine Sulfate (Morphine Sulfate) 2 mg Q4H PRN IVP Severe Pain (Pain Scale 7-10) 01/27/20 22:15 02/03/20 22:14 01/28/20 15:07 Multivitamins (Multivitamins) 1 tab DAILY ORAL 01/28/20 09:00 02/27/20 08:59 01/29/20 08:33 Risperidone (RisperDAL) 0.25 mg QHS ORAL 01/28/20 21:00 03/13/20 20:59 01/28/20 20:09 Sodium Chloride 1,000 ml @ 60 mls/hr [id number] IV 01/27/20 23:00 02/26/20 22:59 01/29/20 08:34 Senthil Ochoa MD Jan 29, 2020 10:51
--- NOTE | 2020-01-29 11:10 | NUR ---
CASE MANAGEMENT:REVIEW SI;E. COLI UTI. FTT. COPD. IDDM. 98.2 91 24 157/70 94% ON RA BUN 21 BG 10 IS;ROCEPHIN IV CEFEPIME IV HEPARIN SUBQ PEPCID PO INSULIN LEVEMIR INSULIN NOVOLOG IVF NS @ ML/HR ECG MED SURG STATUS DCP;PATIENT IS FROM [facility]
[2020-01-29] MEDS: cefTRIAXone 1 GM in D5W 55 ML IVPB SCH (11:11)
--- NOTE | 2020-01-29 12:57 | NUR ---
SWALLOW EVALUATION (Complete report in care activity section) PATIENT REFERRED FOR BEDSIDE SWALLOW EVALUATION BY DR. MAGDALENO DYSPHAGIA RISK FACTORS FOR THIS 89 Y.O. CITIZEN OF [place]: ACUTE: Uncontrolled DM, UTI. H/O: COVID-19 Positive, End stage renal disease, protein-calorie malnutrition, malignant neoplasm of cervix, major depressive disorder, HTN, osteoarthritis, oropharyngeal dysphagia, COPD, Dementia, generalized muscle weakness, DM2, glaucoma, DVT, psychosis, major depressive disorder, AMS, FTT. RELEVANT MEDICATIONS: Pepcid (GERD); Ativan (Agitation); Risperdal (Insomnia); Namenda (Dementia); Gabapentin ([place]). PLOF: Patient consumed Mechanical soft with thin liquids at primary living facility. Of note, Patient previously on Megace for appetite stimulation. CURRENT DIET: Soft Easy Chew with Thin Liquids, CCD Medium. VITALS ON ROOM AIR: HR: 80; RR: 20; SP02 94% Per RN: Patient is able to swallow medications crushed with apple sauce via teaspoon, prefers to self-administer medications. Patient's swallowing during breakfast meal appears slow, only able to consume approx. 20% of breakfast meal. RN reports Patients minimal PO intake appears to be related to preference versus swallowing difficulty. Patient seen at bedside, positioned upright and consuming lunchtime meal. Patient is calm, on room air, VSS for session. Patients GENERAL FORECASTER present at bedside on PERPETUAL INVENTORY CLERK arrival and assisting Patient with meal tray set up. Patient is able to express wants and needs in Korean without difficulties. Oral motor ROM and coordination appearing functional for >90% speech intelligibility. Patient noted to have missing natural dentition, is able to self-feed during mealtime. Patient reports no difficulties swallowing food or liquids. INITIAL IMPRESSIONS Appears to have Mild Oral phase Dysphagia, questionable level of pharyngeal phase dysphagia with prolonged rotary mastication, overall oral phase appearing inefficient with prolonged oral transit to back of mouth. Mild amount of oral residuals remaining in oral cavity. Laryngeal elevation is fair, swallowing function and safety impacted by cognitive-behavioral deficits (h/o Dementia, talks with food in mouth) and exacerbated by COPD and poor dentition. No overt s/s of aspiration with soft solids and thin liquids. Patient seen at lunchtime, self-feeding Soft Easy Chew solids s/p GENERAL FORECASTER assisted Patient with meal preparation. Patient reporting not liking carrots, fish, or eggs in AM. Also, Patient states wanting beans for breakfast, more vegetables for lunch/dinner, and requesting a drum stick for dinner. Patient did not exhibit any overt s/s of aspiration during Soft Easy Chew solids meal or while consuming mixed consistency of soup and vegetables. Overall, swallow was functional albeit, inefficient. PATIENT HAS RISK FOR POOR PO GIVEN H/O OF FTT, AND COGNITIVE-BEHAVIORAL DEFICITS (DEMENTIA, PICKY EATER). Given Patients h/o being a picky eater per prior swallow evaluation, H/O Dementia, FTT, and Patient states being not agreeable to chopped solids food, Nursing to assist Patient with meal preparation in order to optimize PO intake and to assume safety with diet recommendations. PERPETUAL INVENTORY CLERK posted aspiration precautions sign with information regarding importance of assisting Patient with meal preparation. RECOMMENDATIONS: 1.Continue Soft Solids with Thin Liquids, PATIENT REQUIRES ASSISTANCE WITH MEAL PREPARATION; PLEASE CUT FOOD UP. -->Patient reporting the following dietary preferences: NO: Eggs, Carrots, Fish. REQUESTS: More vegetables, chicken, beans in AM. 2. PERPETUAL INVENTORY CLERK plans to f/u 1-2 times for dysphagia tx/management, and to train and educate Patient and caregivers. 3. Please assist Patient with oral hygiene BID and check for oral pocketing bilaterally s/p PO intake. Thank you for this referral! PERPETUAL INVENTORY CLERK [phone]
--- NOTE | 2020-01-29 16:30 | Progress Note ---
DATE: 01/29/2020 SUBJECTIVE: This is an 89-year-old female patient with hyperglycemia. She also has seizure disorder and sepsis, but she has urinary tract infection psychosis. Because of her psychosis, her attending has requested daily psychiatric consultation. She does have some mood lability, confusion, and altered mental status overall. MENTAL STATUS EXAMINATION: This is an 89-year-old female. Appearance is disheveled. Attitude, irritable and agitated. Affect, guarded and restricted. Intellect, poor. Mood, depressed and anxious. Motor activity, psychomotor agitation. Attention span is poor. Orientation x2. Speech is low volume, slurred. Thought process, disorganized and illogical. Insight and judgment is poor. DIAGNOSIS: Major depressive disorder, mild, recurrent, rule out major depression with psychotic features. PLAN: Treat with her medication regimen consisting of Risperdal 0.25 mg p.o. nightly, Namenda 5 mg twice a day, Ativan 1 mg p.r.n. every six hours p.r.n. anxiety or agitation, and Neurontin 100 mg daily. 20 minutes of reality-based supportive psychotherapy provided. Chart reviewed. Discussed with staff. Seen and assessed at bedside. Vivian Armas M.D. DR: ATUL JOB#: [id number] CC:
--- NOTE | 2020-01-29 19:05 | NUR ---
HAND-OFF: Report given to rae.
--- NOTE | 2020-01-29 20:00 | NUR ---
NURSE NOTES: Patient received sitting up in bed still eating dinner. Appears in no acute distress at this time. IV is intact. Call light in reach. Will continue to monitor.
--- NOTE | 2020-01-29 21:00 | NUR ---
NURSE NOTES: Patient spit up riserpdal, refused to take PO medication. Medication wasted.
[2020-01-30 04:00] VITALS: BP 160/86
[2020-01-30 06:17] LABS: BASOPHILS % (AUTO) 0.5 % (0.0-2.0); EOSINOPHILS % (AUTO) 4.2 % (0.0-3.0); HEMATOCRIT 37.8 % (37.0-47.0); HEMOGLOBIN 12.6 G/DL (12.0-16.0); LYMPHOCYTES % (AUTO) 32.6 % (20.0-45.0); MEAN CORPUSCULAR VOLUME 98 FL (80-99); MONOCYTES % (AUTO) 6.2 % (1.0-10.0); NEUTROPHILS % (AUTO) 56.4 % (45.0-75.0); PLATELET COUNT 221 K/UL (150-450); RED BLOOD COUNT 3.86 M/UL (4.20-5.40); RED CELL DISTRIBUTION WIDTH 12.1 % (11.6-14.8); WHITE BLOOD COUNT 7.1 K/UL (4.8-10.8)
[2020-01-30] MEDS: NovoLOG Insulin Flexpen SUBQ SCH ×7 (06:23→21:00)
[2020-01-30 07:02] LABS: ANION GAP 13 mmol/L (5-15); BLOOD UREA NITROGEN 17 mg/dL (7-18); CALCIUM 8.3 MG/DL (8.5-10.1); CARBON DIOXIDE 23 MMOL/L (21-32); CHLORIDE 102 MMOL/L (98-107); CREATININE 0.9 MG/DL (0.55-1.30); POTASSIUM 3.9 MMOL/L (3.5-5.1); SODIUM 137 MMOL/L (136-145)
--- NOTE | 2020-01-30 07:13 | NUR ---
HAND-OFF: Report given to Nina MCCALL.
--- NOTE | 2020-01-30 07:25 | NUR ---
NURSE NOTES: RECEIVED PT IN BED A/A/OX2, KENYAN SPEAKING AND ABLE TO FOLLOW SIMPLE COMMANDS. CALM AND COMFORTABLE. HOB ELEVATED. ASSISTANCE NEEDED WITH ALL MEALS. NO CARDIO-RESP DISTRESS AT THIS TIME. DENIES PAIN. RESPIRATION ARE EVEN AND UNLABORED. IV ACCESS PATENT AND INTACT. IVF INFUSING WELL. KEPT BED IN THE LOWEST POSITION. SIDERAILS X3 ARE UP FOR SAFETY. BED ALARM ON AND LOCKED. CALL LIGHT WITHIN REACH. WILL CONTINUE TO MONITOR.
[2020-01-30 08:00] VITALS: BP 136/55
[2020-01-30] MEDS: Memantine 5 MG TAB ORAL SCH ×2 (08:11→17:07)
[2020-01-30] MEDS: Docusate 100mg cap ORAL SCH ×2 (08:11→17:08)
[2020-01-30] MEDS: Heparin 5000 units/ml inj SUBQ SCH ×2 (08:12→21:18)
[2020-01-30] MEDS: Levemir Flexpen SUBQ SCH (08:13)
[2020-01-30] MEDS: cefTRIAXone 1 GM in D5W 55 ML IVPB SCH (11:17)
--- NOTE | 2020-01-30 11:52 | General Progress Note ---
Assessment/Plan Problem List: (1) Malnutrition ICD Codes: E46 - Unspecified protein-calorie malnutrition SNOMED: 67556201 (2) Failure to thrive SNOMED: 47708128 (3) HTN (hypertension) ICD Codes: I10 - Essential (primary) hypertension SNOMED: 49503210 (4) Hyperglycemia ICD Codes: R73.9 - Hyperglycemia, unspecified SNOMED: 87782603 (5) UTI (urinary tract infection) ICD Codes: N39.0 - Urinary tract infection, site not specified SNOMED: 40294437 Qualifiers: Qualified Codes: N39.0 - Urinary tract infection, site not specified (6) Diabetes ICD Codes: E11.9 - Type 2 diabetes mellitus without complications SNOMED: 86785797 Status: progressing, tolerating diet Assessment/Plan: pt diet abx bs control dc if clear Subjective Constitutional: Reports: weakness Allergies: Coded Allergies: PENICILLINS (Verified Allergy, Unknown, 11/01/12) Uncoded Allergies: PENICILLIN (Allergy, Unknown, 06/01/19) All Systems: reviewed and negative except above Subjective sleepy calm Objective Last 24 Hour Vital Signs Date Time Temp Pulse Resp B/P (MAP) Pulse Ox O2 Delivery O2 Flow Rate FiO2 01/30/20 09:42 Room Air 01/30/20 08:00 97.8 91 20 136/55 (82) 100 01/30/20 04:00 98.0 87 18 160/86 (110) 95 01/29/20 23:54 98.2 87 18 156/81 (106) 96 01/29/20 21:00 Room Air 01/29/20 20:00 98.2 89 20 160/74 (102) 95 01/29/20 16:03 97.9 84 20 141/56 (84) 93 01/29/20 12:00 97.5 80 20 156/69 (98) 94 Intake and Output 01/29/20 01/30/20 19:00 07:00 Intake Total 1480 ml 960 ml Output Total 600 ml 1100 ml Balance 880 ml -140 ml Intake Oral 600 ml 300 ml IV Total 880 ml 660 ml Output Urine Total 600 ml 1100 ml Laboratory Tests 01/29/20 16:20: POC Whole Blood Glucose [Pending] 01/29/20 20:46: POC Whole Blood Glucose 121H 01/30/20 05:06: White Blood Count 7.1, Red Blood Count 3.86L, Hemoglobin 12.6, Hematocrit 37.8, Mean Corpuscular Volume 98, Mean Corpuscular Hemoglobin 32.5H, Mean Corpuscular Hemoglobin Concent 33.3, Red Cell Distribution Width 12.1, Platelet Count 221, Mean Platelet Volume 7.4, Neutrophils (%) (Auto) 56.4, Lymphocytes (%) (Auto) 32.6, Monocytes (%) (Auto) 6.2, Eosinophils (%) (Auto) 4.2H, Basophils (%) (Auto ) 0.5, Sodium Level 137, Potassium Level 3.9, Chloride Level 102, Carbon Dioxide Level 23, Anion Gap 13, Blood Urea Nitrogen 17, Creatinine 0.9, Estimat Glomerular Filtration Rate 59.0, Glucose Level 135H, Calcium Level 8.3L 01/30/20 06:01: POC Whole Blood Glucose 125H 01/30/20 11:11: POC Whole Blood Glucose 167H Height (Feet): 5 Height (Inches): 1.00 Weight (Pounds): 155 General Appearance: lethargic EENT: normal ENT inspection Neck: normal alignment Cardiovascular: normal peripheral pulses, normal rate, regular rhythm Respiratory/Chest: chest wall non-tender, lungs clear, normal breath sounds Abdomen: normal bowel sounds, non tender, soft Extremities: normal inspection Edema: no edema noted Arm (L), no edema noted Arm (R), no edema noted Leg (L), no edema noted Leg (R), no edema noted Pedal (L), no edema noted Pedal (R), no edema noted Generalized Neurologic: motor weakness Skin: normal pigmentation, warm/dry Chalo Ayala DO Jan 30, 2020 11:52
[2020-01-30 12:00] VITALS: BP 130/69
--- NOTE | 2020-01-30 12:00 | Progress Note ---
DATE: 01/30/2020 SUBJECTIVE: This is an 89-year-old female patient with hyperglycemia. She continues to have some depression, confusion, and mood lability. She has got no logical plan for her own self-care. She has got feelings of helplessness, hopelessness, low energy, poor appetite, and loss of interest in activity. She has got racing thoughts, pressured speech, and extreme mood lability. That is why she does require acute psychiatric inpatient treatment at this time. She has seizure disorder, sepsis, pelvic mass, and she has decubitus skin ulcers, but she has got a lot of psychomotor agitation and irritability as well with altered mental status, and currently has problems with hyperglycemia. MENTAL STATUS EXAMINATION: This is an 89-year-old female. Her appearance is disheveled. Attitude, irritable and agitated. Affect, guarded and restricted. Intellect, poor. Mood, depressed and anxious. Motor activity, psychomotor agitation. Attention span is poor. Orientation x2. Speech is pressured. Thought process, disorganized and illogical. Insight and judgment is poor. DIAGNOSIS: Major depressive disorder, mild, recurrent with psychotic features, rule out dementia with psychosis. PLAN: Treat her with Risperdal 0.25 mg nightly, Namenda 5 mg twice a day, Neurontin 100 mg daily, and Ativan 0.5 mg every 6 hours p.r.n. anxiety or agitation. A 20 minutes of cognitive behavioral therapy will help him identify his automatic negative thoughts and help him convert those negative thoughts to more positive thoughts to reduce depression, anxiety, and mood lability. Chart reviewed. Discussed with staff. Vivian Armas M.D. DR: ATUL JOB#: [id number] CC:
--- NOTE | 2020-01-30 12:06 | Infectious Diseases Prog Note ---
Assessment/Plan Assessment/Plan A 1. E.coli UTI 2. leucocytosis resolved 3. diabetes mellitus 4. hypertension 5. COPD 6. cancer of cervix 7. COVID 19 negative 8. Penicillin allergy P 1. Can be discharge with PO Bactrim X 3 more days 2. Case was D/W RN Subjective ROS Limited/Unobtainable: Yes Constitutional: Denies: fever Allergies: Coded Allergies: PENICILLINS (Verified Allergy, Unknown, 11/01/12) Uncoded Allergies: PENICILLIN (Allergy, Unknown, 06/01/19) Objective Last 24 Hour Vital Signs Date Time Temp Pulse Resp B/P (MAP) Pulse Ox O2 Delivery O2 Flow Rate FiO2 01/30/20 09:42 Room Air 01/30/20 08:00 97.8 91 20 136/55 (82) 100 01/30/20 04:00 98.0 87 18 160/86 (110) 95 01/29/20 23:54 98.2 87 18 156/81 (106) 96 01/29/20 21:00 Room Air 01/29/20 20:00 98.2 89 20 160/74 (102) 95 01/29/20 16:03 97.9 84 20 141/56 (84) 93 Height (Feet): 5 Height (Inches): 1.00 Weight (Pounds): 155 General Appearance: no acute distress HEENT: mucous membranes moist Respiratory/Chest: lungs clear Cardiovascular: normal rate Abdomen: soft, non tender Extremities: no edema Neurologic/Psychiatric: alert, responsive Microbiology Date/Time Source Procedure Growth Status 01/27/20 16:30 Blood Blood Culture - Preliminary NO GROWTH AFTER 48 HOURS Resulted 01/27/20 16:15 Blood Blood Culture - Preliminary NO GROWTH AFTER 48 HOURS Resulted 01/27/20 16:58 Nasopharynx Coronavirus COVID-19 PCR ([facility]) - Final Complete 01/27/20 16:40 Urine,Clean Catch Urine Culture - Final Escherichia Coli Complete Laboratory Tests Test 01/29/20 16:20 01/29/20 20:46 01/30/20 05:06 01/30/20 06:01 POC Whole Blood Glucose Pending 121 MG/DL (74-106) H 125 MG/DL (74-106) H White Blood Count 7.1 K/UL (4.8-10.8) Red Blood Count 3.86 M/UL (4.20-5.40) L Hemoglobin 12.6 G/DL (12.0-16.0) Hematocrit 37.8 % (37.0-47.0) Mean Corpuscular Volume 98 FL (80-99) Mean Corpuscular Hemoglobin 32.5 PG (27.0-31.0) H Mean Corpuscular Hemoglobin Concent 33.3 G/DL (32.0-36.0) Red Cell Distribution Width 12.1 % (11.6-14.8) Platelet Count 221 K/UL (150-450) Mean Platelet Volume 7.4 FL (6.5-10.1) Neutrophils (%) (Auto) 56.4 % (45.0-75.0) Lymphocytes (%) (Auto) 32.6 % (20.0-45.0) Monocytes (%) (Auto) 6.2 % (1.0-10.0) Eosinophils (%) (Auto) 4.2 % (0.0-3.0) H Basophils (%) (Auto) 0.5 % (0.0-2.0) Sodium Level 137 MMOL/L (136-145) Potassium Level 3.9 MMOL/L (3.5-5.1) Chloride Level 102 MMOL/L (98-107) Carbon Dioxide Level 23 MMOL/L (21-32) Anion Gap 13 mmol/L (5-15) Blood Urea Nitrogen 17 mg/dL (7-18) Creatinine 0.9 MG/DL (0.55-1.30) Estimat Glomerular Filtration Rate 59.0 mL/min (>60) Glucose Level 135 MG/DL (74-106) H Calcium Level 8.3 MG/DL (8.5-10.1) L Test 01/30/20 11:11 POC Whole Blood Glucose 167 MG/DL (74-106) H Current Medications Medications (Trade) Dose Ordered Sig/Joon Route PRN Reason Start Time Stop Time Status Last Admin Dose Admin Acetaminophen (Tylenol) 650 mg Q4H PRN ORAL MILD PAIN AND FEVER>100.5 01/27/20 22:15 02/26/20 22:14 01/30/20 11:40 Ceftriaxone Sodium 1 gm/ Dextrose 55 ml @ 110 mls/hr Q24H IVPB 01/29/20 11:00 02/05/20 10:59 01/30/20 11:17 Dextrose (Dextrose 50%) 25 ml Q30M PRN IV Hypoglycemia 01/27/20 22:15 04/26/20 22:14 Dextrose (Dextrose 50%) 50 ml Q30M PRN IV Hypoglycemia 01/27/20 22:15 04/26/20 22:14 Docusate Sodium (Colace) 100 mg BID ORAL 01/28/20 09:00 02/27/20 08:59 01/30/20 08:11 Famotidine (Pepcid) 20 mg DAILY ORAL 01/28/20 09:00 04/27/20 08:59 01/30/20 08:11 Gabapentin (Neurontin) 100 mg DAILY ORAL 01/28/20 09:00 02/27/20 08:59 01/30/20 08:11 Heparin Sodium (Porcine) (Heparin 5000 units/ml) 5,000 units EVERY 12 HOURS SUBQ 01/28/20 09:00 03/13/20 08:59 01/30/20 08:12 Insulin Aspart (NovoLOG) BEFORE MEALS AND HS SUBQ 01/28/20 06:30 04/27/20 06:29 01/30/20 11:54 Insulin Aspart (NovoLOG) 6 units NOVOTIAC SUBQ 01/28/20 08:00 04/27/20 07:59 01/30/20 11:55 Insulin Detemir (Levemir) 18 units DAILY SUBQ 01/28/20 09:00 04/27/20 08:59 01/30/20 08:13 Lorazepam (Ativan) 0.5 mg Q6H PRN ORAL For Anxiety 01/28/20 15:00 02/04/20 14:59 Memantine (Namenda) 5 mg BID ORAL 01/28/20 09:00 02/27/20 08:59 01/30/20 08:11 Morphine Sulfate (Morphine Sulfate) 2 mg Q4H PRN IVP Severe Pain (Pain Scale 7-10) 01/27/20 22:15 02/03/20 22:14 01/28/20 15:07 Multivitamins (Multivitamins) 1 tab DAILY ORAL 01/28/20 09:00 02/27/20 08:59 01/30/20 08:11 Risperidone (RisperDAL) 0.25 mg QHS ORAL 01/28/20 21:00 03/13/20 20:59 01/28/20 20:09 Sodium Chloride 1,000 ml @ 60 mls/hr [id number] IV 01/27/20 23:00 02/26/20 22:59 01/30/20 00:26 Doug Khan MD Jan 30, 2020 12:06
[2020-01-30] MEDS ORDERED: ACETAMINOPHEN325 M1 ORAL (12:24)
[2020-01-30] MEDS ORDERED: HEPARIN SO5000 UNIT2 SUBQ (12:25)
[2020-01-30] MEDS ORDERED: ATIVAN0.5 MG ORAL (12:27)
[2020-01-30] MEDS ORDERED: BACTRIM DS TAB1 EAC1 ORAL (12:43)
[2020-01-30] MEDS ORDERED: RISPERDAL0.5 MG ORAL (12:44)
[2020-01-30] MEDS ORDERED: INSULIN AS100 UNIT/3 SQ (12:48)
[2020-01-30] MEDS ORDERED: LEVEMIR FL100 UNIT/1 SUBQ (12:52)
--- NOTE | 2020-01-30 14:18 | NUR ---
NURSE NOTES: LEFT VOICEMESSAGE TO JOE RODRIGUEZ REGARDING DISCHARGE DISPOSITION. WILL CONT TO MONITOR.
--- NOTE | 2020-01-30 15:26 | NUR ---
SPEECH PATHOLOGY/ SWALLOW STATUS/ D/C SUMMARY PATIENT SEEN FOR DYSPHAGIA TX SESSION, CLEARED BY CASE GIBSON. PATIENT RECEIVED ALERT, AWAKE. SHE WAS SEEN IN CONTEXT OF HER NOON MEAL. SET UP ASSIST HAD BEEN PROVIDED AND PATIENT WAS INDEPENDENTLY FEEDING HERSELF SOFT MEAT AND VEGETABLES W/ RICE. P.O. TRIALS UTILIZED SOLIDS AND LIQUIDS FROM HER NOON MEAL. PATIENT SIPPED UNCONTROLLED AMOUNTS OF THIN CARBONATED DRINK VIA STRAW WITH NO OVERT S/S OF ASPIRATION. WITH 5 TRIALS/BITES OF SOLIDS, MASTICATION WAS PROLONGED WITH MILD AMOUNT OF RESIDUE ON LINGUAL SURFACE POST SWALLOW, NO THROAT CLEAR OR COUGH RESPONSE NOTED.SHE TOLERATED ONE THIRD OF GLYCERNA AND REFUSED ANY FURTHER P.O. INCLUDING SOUP/TOMATO, JUICE AND A SLICE OF BREAD. PER RN, PATIENT IS TOLERATING HER MEDS WHOLE WITH LIQUID WITH NO DIFFICULTY. PER CHART REVIEW,PATIENTS INTAKE SINCE ADMISSION HAS BEEN INSUFFICIENT TO SUPPORT NUTRITION/HYDRATION NEEDS. MEGACE IS NOT BEING ADMINISTERED IN HOUSE BUT IT IS REFERENCED IN HER CHART ONE OF THE MEDS SHE IS TAKING AT THE FACILITY WHERE SHE LIVES. PATIENTS FINAL INTAKE OF NOON MEAL WAS APPROX 35% OF HER MEAL. SHE REFUSED ANY FURTHER P.O. WHEN COAXED TO CONTINUE, SHE BECAME INCREASINGLY AGITATED PLAN IS FOR PATIENT TO RETURN TO SNF THIS AFTERNOON. THE CLINICIAN PROVIDED A COPY OF HER MEALTIME PROTOCOL AND A COPY OF THE BEDSIDE SWALLOW EVALUATION FOR THE TRANSFER PACKET. PATIENT CONTINUES TO NEED A MODIFIED TEXTURE DIET, APPETITE ENHANCER/MEGACE, SUPERVISED ASSIST, MEALTIME SUPPLEMENTS AND ORAL CARE SUPPORTED BY STAFF TO REDUCE ORAL PATHOGENS. D/C FROM SERVICES.
[2020-01-30 16:00] VITALS: BP 124/65
[2020-01-30] MEDS: Bactrim-DS 1 tab ORAL SCH (17:07)
--- NOTE | 2020-01-30 17:21 | NUR ---
*-*DISCHARGE PLANNING*-* PATIENT HAS BEEN REFERRED TO BACK TO: [facility] P: [phone] [facility], WHO STATED, THEY ARE WAITING FOR APPROVAL FROM THE PUBLIC HEALTH DEPARTMENT, AND ITS BEST TO CALL BACK TOMORROW TO FOLLOW UP.
--- NOTE | 2020-01-30 19:11 | NUR ---
HAND-OFF: Report given to LAUREN.
--- NOTE | 2020-01-30 19:12 | NUR ---
NURSE NOTES: Recieved pt asleep. No sob,fever,cough, and pain at the moment. Bed is in the lowest position,locked,and alarm on. Call light within reach. We will keep monitoring the pt
[2020-01-30 20:00] VITALS: BP 113/60
[2020-01-31] VITALS: BP 160/73
[2020-01-31 04:00] VITALS: BP 109/71
[2020-01-31] MEDS: NovoLOG Insulin Flexpen SUBQ SCH ×6 (05:41→16:50)
--- NOTE | 2020-01-31 07:10 | NUR ---
HAND-OFF: Report given to CASE Leos.
--- NOTE | 2020-01-31 07:20 | NUR ---
NURSE NOTES: Received report from CASE Du. Patient awake, alert, and Uzbek speaking. On room air, no signs of distress or labored breathing. IV intact, patent, and infusing IV fluids. Bed in lowest position with call light in reach. Will continue with plan of care.
--- NOTE | 2020-01-31 07:52 | General Progress Note ---
Assessment/Plan Problem List: (1) Person under investigation for COVID-19 ICD Codes: Z20.828 - Contact with and (suspected) exposure to other viral communicable diseases SNOMED: 806559779 (2) Hyperglycemia ICD Codes: R73.9 - Hyperglycemia, unspecified SNOMED: 13022809 (3) Diabetes ICD Codes: E11.9 - Type 2 diabetes mellitus without complications SNOMED: 32074227 Status: progressing, tolerating diet Assessment/Plan: continue Levemir 18 units daily reduce Novolog to 4 units ac tid continue Novolog sliding scale ac / hs hypoglycemia protocol in order Subjective Allergies: Coded Allergies: PENICILLINS (Verified Allergy, Unknown, 11/01/12) Uncoded Allergies: PENICILLIN (Allergy, Unknown, 06/01/19) All Systems: reviewed and negative except above Subjective events noted glucose values are stable despite not receiving most of the meal time Novolog Item Value Date Time Bedside Blood Glucose 90 mg/dl 01/31/20 0614 Bedside Blood Glucose 123 mg/dl H 01/30/20 2100 Bedside Blood Glucose 100 mg/dl 01/30/20 1640 Bedside Blood Glucose 167 mg/dl H 01/30/20 1155 Bedside Blood Glucose 125 mg/dl H 01/30/20 0813 Objective Last 24 Hour Vital Signs Date Time Temp Pulse Resp B/P (MAP) Pulse Ox O2 Delivery O2 Flow Rate FiO2 01/31/20 04:00 97.9 82 21 109/71 (84) 95 01/31/20 00:00 97.6 76 21 160/73 (102) 95 01/30/20 21:00 Room Air 01/30/20 20:00 97.7 78 20 113/60 (77) 96 01/30/20 17:38 97.5 01/30/20 16:00 97.5 80 17 124/65 (84) 96 01/30/20 12:00 98.4 87 19 130/69 (89) 98 01/30/20 09:42 Room Air 01/30/20 08:00 97.8 91 20 136/55 (82) 100 Intake and Output 01/30/20 01/31/20 19:00 07:00 Intake Total 1230 ml 660 ml Output Total 900 ml Balance 1230 ml -240 ml IV Total 830 ml 660 ml Other 400 ml Output Urine Total 900 ml # Voids 1 # Bowel Movements 1 Laboratory Tests 01/30/20 11:11: POC Whole Blood Glucose 167H 01/30/20 16:20: POC Whole Blood Glucose 100 01/30/20 20:57: POC Whole Blood Glucose 123H Height (Feet): 5 Height (Inches): 1.00 Weight (Pounds): 155 General Appearance: no apparent distress Neck: normal alignment Cardiovascular: normal rate Respiratory/Chest: lungs clear Abdomen: normal bowel sounds Objective Current Medications Medications (Trade) Dose Ordered Sig/Joon Route PRN Reason Start Time Stop Time Status Last Admin Dose Admin Acetaminophen (Tylenol) 650 mg Q4H PRN ORAL MILD PAIN AND FEVER>100.5 01/27/20 22:15 02/26/20 22:14 01/30/20 17:08 Dextrose (Dextrose 50%) 25 ml Q30M PRN IV Hypoglycemia 01/27/20 22:15 04/26/20 22:14 Dextrose (Dextrose 50%) 50 ml Q30M PRN IV Hypoglycemia 01/27/20 22:15 04/26/20 22:14 Docusate Sodium (Colace) 100 mg BID ORAL 01/28/20 09:00 02/27/20 08:59 01/30/20 17:08 Famotidine (Pepcid) 20 mg DAILY ORAL 01/28/20 09:00 04/27/20 08:59 01/30/20 08:11 Gabapentin (Neurontin) 100 mg DAILY ORAL 01/28/20 09:00 02/27/20 08:59 01/30/20 08:11 Heparin Sodium (Porcine) (Heparin 5000 units/ml) 5,000 units EVERY 12 HOURS SUBQ 01/28/20 09:00 03/13/20 08:59 01/30/20 21:18 Insulin Aspart (NovoLOG) BEFORE MEALS AND HS SUBQ 01/28/20 06:30 04/27/20 06:29 01/30/20 11:54 Insulin Aspart (NovoLOG) 6 units NOVOTIAC SUBQ 01/28/20 08:00 04/27/20 07:59 01/30/20 11:55 Insulin Detemir (Levemir) 18 units DAILY SUBQ 01/28/20 09:00 04/27/20 08:59 01/30/20 08:13 Lorazepam (Ativan) 0.5 mg Q6H PRN ORAL For Anxiety 01/28/20 15:00 02/04/20 14:59 Memantine (Namenda) 5 mg BID ORAL 01/28/20 09:00 02/27/20 08:59 01/30/20 17:07 Morphine Sulfate (Morphine Sulfate) 2 mg Q4H PRN IVP Severe Pain (Pain Scale 7-10) 01/27/20 22:15 02/03/20 22:14 01/28/20 15:07 Multivitamins (Multivitamins) 1 tab DAILY ORAL 01/28/20 09:00 02/27/20 08:59 01/30/20 08:11 Risperidone (RisperDAL) 0.25 mg QHS ORAL 01/28/20 21:00 03/13/20 20:59 01/30/20 20:53 Sodium Chloride 1,000 ml @ 60 mls/hr [id number] IV 01/27/20 23:00 02/26/20 22:59 01/30/20 17:09 Trimethoprim/ Sulfamethoxazole (Bactrim-DS) 1 tab Q12HR ORAL 01/30/20 18:00 02/06/20 17:59 01/30/20 17:07 Rich Nuñez MD Jan 31, 2020 07:52
[2020-01-31 08:00] VITALS: BP 111/69
[2020-01-31] MEDS: Memantine 5 MG TAB ORAL SCH ×2 (08:32→18:11)
[2020-01-31] MEDS: Docusate 100mg cap ORAL SCH ×3 (08:33→18:00)
[2020-01-31] MEDS: Bactrim-DS 1 tab ORAL SCH (08:33)
[2020-01-31] MEDS: Morphine Sulfate 2mg/ml Inj(IV/IM USE ONLY) IVP PRN ×2 (08:35→18:12)
[2020-01-31] MEDS: Heparin 5000 units/ml inj SUBQ SCH (08:36)
[2020-01-31] MEDS: Levemir Flexpen SUBQ SCH (08:37)
--- NOTE | 2020-01-31 09:03 | General Progress Note ---
Assessment/Plan Problem List: (1) Malnutrition ICD Codes: E46 - Unspecified protein-calorie malnutrition SNOMED: 24688189 (2) Failure to thrive SNOMED: 48071155 (3) HTN (hypertension) ICD Codes: I10 - Essential (primary) hypertension SNOMED: 23884156 (4) Hyperglycemia ICD Codes: R73.9 - Hyperglycemia, unspecified SNOMED: 11032087 (5) UTI (urinary tract infection) ICD Codes: N39.0 - Urinary tract infection, site not specified SNOMED: 93188209 Qualifiers: Qualified Codes: N39.0 - Urinary tract infection, site not specified (6) Diabetes ICD Codes: E11.9 - Type 2 diabetes mellitus without complications SNOMED: 35395015 Status: progressing, tolerating diet Assessment/Plan: pt diet abx bs control dc if clear Subjective Constitutional: Reports: weakness Allergies: Coded Allergies: PENICILLINS (Verified Allergy, Unknown, 11/01/12) Uncoded Allergies: PENICILLIN (Allergy, Unknown, 06/01/19) All Systems: reviewed and negative except above Subjective sleepy calm Objective Last 24 Hour Vital Signs Date Time Temp Pulse Resp B/P (MAP) Pulse Ox O2 Delivery O2 Flow Rate FiO2 01/31/20 08:00 98.0 83 22 111/69 (83) 96 01/31/20 04:00 97.9 82 21 109/71 (84) 95 01/31/20 00:00 97.6 76 21 160/73 (102) 95 01/30/20 21:00 Room Air 01/30/20 20:00 97.7 78 20 113/60 (77) 96 01/30/20 17:38 97.5 01/30/20 16:00 97.5 80 17 124/65 (84) 96 01/30/20 12:00 98.4 87 19 130/69 (89) 98 01/30/20 09:42 Room Air Intake and Output 01/30/20 01/31/20 19:00 07:00 Intake Total 1230 ml 660 ml Output Total 900 ml Balance 1230 ml -240 ml IV Total 830 ml 660 ml Other 400 ml Output Urine Total 900 ml # Voids 1 # Bowel Movements 1 Laboratory Tests 01/30/20 11:11: POC Whole Blood Glucose 167H 01/30/20 16:20: POC Whole Blood Glucose 100 01/30/20 20:57: POC Whole Blood Glucose 123H 01/31/20 08:31: POC Whole Blood Glucose [Pending] Height (Feet): 5 Height (Inches): 1.00 Weight (Pounds): 155 General Appearance: lethargic EENT: normal ENT inspection Neck: non-tender, normal alignment, supple Cardiovascular: normal peripheral pulses, normal rate, regular rhythm Respiratory/Chest: chest wall non-tender, lungs clear, normal breath sounds Abdomen: normal bowel sounds, non tender, soft Extremities: normal inspection Edema: no edema noted Arm (L), no edema noted Arm (R), no edema noted Leg (L), no edema noted Leg (R), no edema noted Pedal (L), no edema noted Pedal (R), no edema noted Generalized Neurologic: motor weakness Skin: normal pigmentation, warm/dry Chalo Ayala DO Jan 31, 2020 09:03
--- NOTE | 2020-01-31 10:05 | Infectious Diseases Prog Note ---
Assessment/Plan Assessment/Plan antibiotics : bactrim A 1. e.coli UTI 2. leucocytosis improving 3. diabetes mellitus 4. hypertension 5. COPD 6. cancer of cervix 7. COVID 19 negative P 1. continue bactrim 2 more days 2. will follow up cultures Subjective Constitutional: Denies: fever, chills Respiratory: Denies: shortness of breath, dry cough Gastrointestinal/Abdominal: Denies: nausea, vomiting, diarrhea Musculoskeletal: Denies: pain Allergies: Coded Allergies: PENICILLINS (Verified Allergy, Unknown, 11/01/12) Uncoded Allergies: PENICILLIN (Allergy, Unknown, 06/01/19) Objective Last 24 Hour Vital Signs Date Time Temp Pulse Resp B/P (MAP) Pulse Ox O2 Delivery O2 Flow Rate FiO2 01/31/20 08:00 98.0 83 22 111/69 (83) 96 01/31/20 04:00 97.9 82 21 109/71 (84) 95 01/31/20 00:00 97.6 76 21 160/73 (102) 95 01/30/20 21:00 Room Air 01/30/20 20:00 97.7 78 20 113/60 (77) 96 01/30/20 17:38 97.5 01/30/20 16:00 97.5 80 17 124/65 (84) 96 01/30/20 12:00 98.4 87 19 130/69 (89) 98 Height (Feet): 5 Height (Inches): 1.00 Weight (Pounds): 155 Respiratory/Chest: lungs clear Cardiovascular: normal rate, regular rhythm, no gallop/murmur Abdomen: soft, non tender Extremities: no edema Laboratory Tests Test 01/30/20 11:11 01/30/20 16:20 01/30/20 20:57 01/31/20 08:31 POC Whole Blood Glucose 167 MG/DL (74-106) H 100 MG/DL (74-106) 123 MG/DL (74-106) H Pending Current Medications Medications (Trade) Dose Ordered Sig/Joon Route PRN Reason Start Time Stop Time Status Last Admin Dose Admin Acetaminophen (Tylenol) 650 mg Q4H PRN ORAL MILD PAIN AND FEVER>100.5 01/27/20 22:15 02/26/20 22:14 01/30/20 17:08 Dextrose (Dextrose 50%) 25 ml Q30M PRN IV Hypoglycemia 01/27/20 22:15 04/26/20 22:14 Dextrose (Dextrose 50%) 50 ml Q30M PRN IV Hypoglycemia 01/27/20 22:15 04/26/20 22:14 Docusate Sodium (Colace) 100 mg BID ORAL 01/28/20 09:00 02/27/20 08:59 01/30/20 17:08 Famotidine (Pepcid) 20 mg DAILY ORAL 01/28/20 09:00 04/27/20 08:59 01/31/20 08:32 Gabapentin (Neurontin) 100 mg DAILY ORAL 01/28/20 09:00 02/27/20 08:59 01/31/20 08:32 Heparin Sodium (Porcine) (Heparin 5000 units/ml) 5,000 units EVERY 12 HOURS SUBQ 01/28/20 09:00 03/13/20 08:59 01/31/20 08:36 Insulin Aspart (NovoLOG) BEFORE MEALS AND HS SUBQ 01/28/20 06:30 04/27/20 06:29 01/30/20 11:54 Insulin Aspart (NovoLOG) 4 units NOVOTIAC SUBQ 01/31/20 11:50 04/27/20 07:59 Insulin Detemir (Levemir) 18 units DAILY SUBQ 01/28/20 09:00 04/27/20 08:59 01/31/20 08:37 Lorazepam (Ativan) 0.5 mg Q6H PRN ORAL For Anxiety 01/28/20 15:00 02/04/20 14:59 Memantine (Namenda) 5 mg BID ORAL 01/28/20 09:00 02/27/20 08:59 01/31/20 08:32 Morphine Sulfate (Morphine Sulfate) 2 mg Q4H PRN IVP Severe Pain (Pain Scale 7-10) 01/27/20 22:15 02/03/20 22:14 01/31/20 08:35 Multivitamins (Multivitamins) 1 tab DAILY ORAL 01/28/20 09:00 02/27/20 08:59 01/31/20 08:32 Risperidone (RisperDAL) 0.25 mg QHS ORAL 01/28/20 21:00 03/13/20 20:59 01/30/20 20:53 Sodium Chloride 1,000 ml @ 60 mls/hr [id number] IV 01/27/20 23:00 02/26/20 22:59 01/30/20 17:09 Trimethoprim/ Sulfamethoxazole (Bactrim-DS) 1 tab Q12HR ORAL 01/30/20 18:00 02/06/20 17:59 01/31/20 08:33 Senthil Ochoa MD Jan 31, 2020 10:05
--- NOTE | 2020-01-31 10:31 | NUR ---
CASE MANAGEMENT:REVIEW 01/31/20 SI:E. COLI UTI. FTT. COPD. IDDM. 98.0 83 22 111/69 96% ON RA IS: BACTRIM-DS PO BID IV NS @60ML/HR HEPARIN SQ BID NEURONTIN PO QD NAMENDA PO BUD RISPERDAL PO QHS \: 4E MED SURG STATUS DCP: PATIENT IS FROM [facility] PLAN: DISCHARGE PACKET SENT TO FACILITY FACILITY IS BEING GOVERNED BY THE HEALTH DEPARTMENT FACILITY NEEDS TO WAIT FOR CLEARANCE FROM HEALTH TO TAKE BACK PATIENTS PER ID: CONTINUE ON BACTRIM PO X2 MORE DAYS
--- NOTE | 2020-01-31 10:38 | NUR ---
DISCHARGE PLANNING CM CALLED FACILITY TO SPEAK WITH ADMISSION DEPARTMENT [facility] P: [phone] DANI UNAVAILABLE AT THIS TIME CM AND D/C COMPLAINT EVALUATION SUPERVISOR TO F/U
--- NOTE | 2020-01-31 10:49 | NUR ---
*-*DISCHARGE PLANNING*-* PATIENT HAS BEEN REFERRED BACK TO: [facility] P: [phone] S/W ISMAEL, STATED, STILL WAITING FOR [facility] TO GIVE APPROVAL TO ACCEPT PATIENT BACK, CALL BACK LATER.
[2020-01-31 12:00] VITALS: BP 129/71
--- NOTE | 2020-01-31 12:36 | NUR ---
RD ASSESSMENT & RECOMMENDATIONS SEE CARE ACTIVITY FOR COMPLETE ASSESSMENT DAILY ESTIMATED NEEDS: Needs based on Diabetes, wound/ 55.5kg 25-35 kcals/kg 5384-3580 total kcals 1.25-1.5 g protein/kg 69-83 g total protein 20-25 mL/kg 3875-0902 total fluid mLs NUTRITION DIAGNOSIS: Altered nutrition related lab values r/t diabetes as evidenced by A1C 8.3, BG on adm 399, now improved, Uglu 4+. CURRENT DIET:CCHO MED soft easy chew PO DIET RECOMMENDATIONS: CCHO LOW / Texture per FRENCH DRAWER + Glucerna TID ADDITIONAL RECOMMENDATIONS: * Calibrated bescale wt: 122# per bed scale vs 155# per EMR * A1C for evaluation of glycemic control-> 8.3 * F/up WC eval * Glucerna TID (250 kcal, 10g pro each) * Encourage pm snack + regular accuchecks to prevent hypoglycemia -> PO intake variable: monitor BG closely w/ poor-fair po intake * FRENCH DRAWER for appropriate texture, ok for soft easy chew
--- NOTE | 2020-01-31 12:44 | Progress Note ---
DATE: 01/31/2020 SUBJECTIVE: This is an 89-year-old female patient. She has seizure disorder, sepsis, pelvic mass , urinary tract infection, hypertension, and hyperglycemia. That is why, she does require inpatient treatment at this time. MENTAL STATUS EXAMINATION: This is an 89-year-old female. Appearance is disheveled. Attitude, irritable and agitated. Affect, guarded and restricted. Intellect, poor. Mood, depressed and anxious. Motor activity, psychomotor agitation. Insight and judgment is poor. DIAGNOSIS: Major depressive disorder, mild, recurrent with psychotic features, rule out dementia with psychosis. PLAN: Treat her with Risperdal 0.25 mg nightly, Namenda 5 mg twice a day, and Ativan 0.5 mg every six hours p.r.n. anxiety or agitation. Twenty minutes of reality-based supportive psychotherapy provided. Chart reviewed. Discussed with staff. Seen and assessed in her room. Vivian Armas M.D. DR: ATUL JOB#: [id number] CC:
--- NOTE | 2020-01-31 14:20 | NUR ---
*-*DISCHARGE PLANNING*-* CM CALLED TO SPEAK WITH ADMISSIONS DEPARTMENT + KARJennifer DEGROOT ALEX P: [phone] IN A MEETING; CALL BACK IN 5MIN Addendum: 01/31/20 at 1431 by MONET MCGRATH LVN SPOKE TO REYNA FROM [facility] NEEDS TO BE UPDATE ON CARE PLAN [employer] CM TO CALL IN AN HOUR TO OBTAIN ROOM NUMBER CM AND DC SWITCH REPAIRER TO F/U PATIENT WILL BE PLACED ON WILL CALL
[2020-01-31 16:00] VITALS: BP 132/73
--- NOTE | 2020-01-31 16:03 | NUR ---
*-*DISCHARGE PLANNED*-* PATIENT HAS BEEN ACCEPTED AND WILL BE DISCHARGE BACK TO: [facility] P: [phone] FOR NURSE TO NURSE REPORT ROOM# 118.[facility]SP[facility] SET FOR 5:15PM/1715PM S/W KOMAL [id number] S/W PATIENTS MICHAEL DIAZ, WHO IS AGREEMENT WITH DISCHARGE PLAN. Addendum: 01/31/20 at 1622 by MARIANGEL ALLEN CM *-*DISCHARGE PLANNED*-* PATIENT HAS BEEN ACCEPTED AND WILL BE DISCHARGE BACK TO: [facility] P: [phone] FOR NURSE TO NURSE REPORT ROOM# 118.[facility] SET FOR 5:15PM/1715PM S/W KOMAL [id number] S/W PATIENTS MICHAEL DIAZ, WHO IS IN AGREEMENT WITH DISCHARGE PLAN.
--- NOTE | 2020-01-31 17:40 | NUR ---
NURSE NOTES: Called [facility] to give report. Spoke with studio receptionist Joselyn who stated the nurse (Gabriel) who will be receiving report is on break and to call back in 30 minutes. Charge nurse aware.
--- NOTE | 2020-01-31 18:44 | NUR ---
NURSE NOTES: Patient being discharged to [facility]. Report given to [employer] mortar mixer Marce Valentine and Genny Bentley of [facility] [address]. Discharge protocol followed. Also gave report to Gabriel at [facility].
--- NOTE | 2020-02-02 15:48 | Discharge Summary ---
Discharge Summary Discharge Summary _ DATE OF ADMISSION: 01/27/2020 DATE OF DISCHARGE: 01/31/2020 DISCHARGED BY: Dr. Chalo Ayala CONSULTANTS: Dr. Vivian Ochoa BRIEF HOSPITAL COURSE: The patient is an 89-year-old female from [facility], who was taken to ED due to elevated blood sugar. She also complained of pain in her genitals. Patient is poor historian and was discharged from the hospital on January 15 due to left leg DVT, hypertension, COPD, diabetes, malnutrition, dysphagia, and depression. Upon evaluation at ED, vital signs were stable. Blood work showed WBC of 12. Hemoglobin and hematocrit were stable. Platelet count normal. Electrolytes normal. Glucose 399. Lactic acid 1.5. Troponin negative. Urinalysis showed 4 + glucose, 4+ protein, too numerous to count urine WBC, 0-2 urine RBC, 3+ leukocyte esterase. She was given bolus of insulin. She was given Rocephin for UTI. She was then admitted to medical floor for evaluation of hyperglycemia and UTI. Blood glucose was monitored. She was placed on insulin sliding scale. She was started on Levemir and NovoLog AC meals. Hemoglobin A1c was 8.3. She was placed on cefepime by ID. Patient was irritable and agitated. She underwent psychiatric evaluation. She was diagnosed with major depressive disorder. She was given Ativan as needed anxiety and agitation, Namenda, Neurontin and Risperdal. Urine culture showed growth of E. coli. Cefepime was discontinued. Antibiotic was changed to Bactrim. COVID-19 test was negative. Leukocytosis resolved. Glucose stable. Patient was discharged back to skilled nursing. FINAL DIAGNOSES: E. coli UTI Diabetes [id number] Hypertension COPD Cancer of cervix Major depressive disorder, mild, recurrent with psychotic features Malnutrition DISPOSITION: Patient was discharged back to skilled nursing. DISCHARGE MEDICATIONS: Refer to Discharge Medication List. I have been assigned to complete a discharge summary on this account, I was not involved with the patient's management.--SCARLET Trevizo Jacqueline Robles NP Feb 02, 2020 15:48
== END 2020-01-31 18:51 | DRG 638 ==
LOC: EDUNIT# 16:06 → EDBD 16:06 → EMR 16:40 → 4E 17:43 → EDBEDREQ 20:41
DX: E11.65 Type 2 diabetes mellitus with hyperglycemia (principal); N39.0 Urinary tract infection, site not specified; E46 Unspecified protein-calorie malnutrition; F33.0 Major depressive disorder, recurrent, mild; J44.9 Chronic obstructive pulmonary disease, unspecified; Z86.19 Personal history of other infectious and parasitic diseases; I12.9 Hypertensive chronic kidney disease with stage 1 through stage 4 chronic kidney disease, or unspecified chronic kidney disease; N18.9 Chronic kidney disease, unspecified; Z88.0 Allergy status to penicillin; M19.90 Unspecified osteoarthritis, unspecified site; B96.20 Unspecified Escherichia coli [E. coli] as the cause of diseases classified elsewhere; R10.30 Lower abdominal pain, unspecified; Z79.4 Long term (current) use of insulin; R62.7 Adult failure to thrive; C53.9 Malignant neoplasm of cervix uteri, unspecified
CPT/HCPCS: 36415; 71045; 80048; 80053; 81003; 82248; 82550; 82962; 83036; 83605; 83690; 83735; 83880; 84484; 85025; 85610; 85730; 87040; 87086; 87181; 92610; 93005; 96361; 96365; 96375; 99285; J1815; J7030; S5561